=== PATIENT | female | born 2000 | race Asian ===

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

== ENCOUNTER 2020-10-07 11:45 | Emergency (ER) | payer OTHER, MEDICAID, SELFPAY ==
[2018-12-04 06:36] VITALS: BMI 20.4
[2020-10-07] VITALS (10 sets, daily range): BP systolic 112–121; BP diastolic 73–91; PULSE 74–82; RESP 16–18; TEMP 36.4–36.7; O2SAT 98–100; BMI 21.3
--- NOTE | 2020-10-07 11:51 | NURSING ---
NO OLD EKGS
--- NOTE | 2020-10-07 12:07 | EDS_ITS ---
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 Patient was found trying to run into traffic. She had told police that she just wanted to kill herself. The patient is slightly withdrawn and does not give much history. She denies drug or alcohol use. She states she is been compliant with her medications. She states she is never had to be hospitalized for beh avioral disturbance. [facility] Medical History (Updated 10/07/20 @ 13:02 by Marco A Pompa) Depression Home Medications Quetiapine Fumarate [Seroquel Xr] 50 mg PO QHS 12/01/18 [History Last Taken Unknown] fluoxetine 20 mg PO DAILY 12/01/18 [History Last Taken Unknown] Allergy/AdvReac Type Severity Reaction Status Date / Time milk AdvReac Upset Verified 10/07/20 11:48 Stomach Social History Smoking Status: Never smoker ROS ROS ED Constitutional Constitutional ED: Denies chills or fever(s) Eyes Eyes: Denies blurry vision or change in vision ENT ENT ED: Denies ear pain or sore throat Cardiovascular Cardiovascular: Denies chest pain or palpitations Respiratory/Chest Respiratory/Chest: Denies cough, dyspnea or dyspnea on exertion Gastrointestinal Gastrointestinal: Denies abdominal pain, nausea or vomiting Genitourinary Genitourinary ED: Denies dysuria or urinary frequency Musculoskeletal Musculoskeletal: Denies arthralgias or myalgias Integumentary Denies rash Neurologic Neurologic: Denies headache(s) or paresthesias Psychiatric Psychiatric: Reports anxiety, depression, suicidal ideation and suicidal thoughts Endocrine Endocrinology: Denies polydipsia or polyuria Allergic/Immunologic Allergic/Immunologic ED: Denies urticaria EXAM Physical Exam Const Vital Signs: 10/07/20 11:45 10/07/20 12:45 10/07/20 13:00 Temperature 97.5 F L Temperature Source Temporal Pulse Rate 82 Respiratory Rate 16 18 16 Blood Pressure 112/73 Blood Pressure Mean 86 Pulse Ox 98 Oxygen Delivery Method Room Air Positive well nourished and well developed General Appearance ED: well developed HEENT Reports normocephalic, head/scalp atraumatic and moist mucous membranes normocephalic, normal to inspection and atraumatic Eyes PERRL and EOMs intact bilaterally Neck no lymphadenopathy and supple General: Negative for tenderness Chest Wall inspection of chest normal Resp normal respiratory effort and clear to auscultation bilaterally Cardio regular rate, regular rhythm and no murmurs GI normal to inspection, nondistended, normoactive bowel sounds Palpation: Negative for tender, guarding or rebound tenderness present Back/Spine no CVA tenderness Cervical Spine: Negative for cervical spine tenderness Thoracic Spine / Upper Back: Negative for thoracic spinal tenderness Extremity normal to inspection General Extremety ED: Negative for tenderness Neuro oriented x3 and CN's II-XII intact bilaterally Neuro Narrative: No focal deficits appreciated. Sensorium / Orientation: alert Meningeal Signs: no meningeal signs Psych mental status grossly normal Attitude: withdrawn Activity / Motor Behavior: psychomotor slowing Speech: normal speech Mood & Affect: depressed Insight: poor Judgement: poor Skin no rashes or lesions noted, no wounds and skin turgor normal MDM MDM MDM Narrative Medical decision making narrative: Patient presents after suicidal gesture. She still has persistent suicidal thoughts. I did get case management involved in the case. They do agree that the patient will require psychiatric placement. The patient underwent medical clearance evaluation. EKG was normal. Labs are unremarkable. At this point, the patient is medically cleared. We will work on placement for the patient's suicidality with plan. Impression One. Suicidal with plan Lab Data Attestation: I reviewed the patient's lab results. Labs: Laboratory Results - last 24 hr 10/07/20 10/07/20 10/07/20 12:30 12:30 12:30 WBC 6.6 RBC 3.88 L Hgb 12.2 Hct 36.1 L MCV 93.0 MCH 31.4 MCHC 33.8 RDW Std Deviation 41.6 RDW Coeff of Kaley 12.3 Plt Count 309 MPV 9.6 Immature Gran % (Auto) 0.500 Neut % (Auto) 54.5 Lymph % (Auto) 35.0 [place] % (Auto) 9.5 Eos % (Auto) 0.3 Baso % (Auto) 0.2 Absolute Neuts (auto) 3.6 Absolute Lymphs (auto) 2.31 Nucleated RBC % 0 Sodium 140 Potassium 3.5 Chloride 107 Carbon Dioxide 25.0 Anion Gap 8 BUN 14 Creatinine 0.77 Estim Creat Clear Calc 88.13 Est GFR (MDRD) Af Amer 123 Est GFR (MDRD) Non-Af 102 BUN/Creatinine Ratio 18.3 Glucose 77 Calcium 8.8 Serum , Qual Urine Opiates Screen Urine Methadone Screen Ur Barbiturates Screen Ur Phencyclidine Scrn Ur Amphetamines Screen U Methamphetamin-MDMA U Benzodiazepines Scrn Urine Cocaine Screen U Cannabinoids Screen Ur Drug Screen Comment Ethyl Alcohol 5.0 10/07/20 10/07/20 12:30 12:30 WBC RBC Hgb Hct MCV MCH MCHC RDW Std Deviation RDW Coeff of Kaley Plt Count MPV Immature Gran % (Auto) Neut % (Auto) Lymph % (Auto) [place] % (Auto) Eos % (Auto) Baso % (Auto) Absolute Neuts (auto) Absolute Lymphs (auto) Nucleated RBC % Sodium Potassium Chloride Carbon Dioxide Anion Gap BUN Creatinine Estim Creat Clear Calc Est GFR (MDRD) Af Amer Est GFR (MDRD) Non-Af BUN/Creatinine Ratio Glucose Calcium Serum , Qual NEGATIVE Urine Opiates Screen NEGATIVE Urine Methadone Screen NEGATIVE Ur Barbiturates Screen NEGATIVE Ur Phencyclidine Scrn NEGATIVE Ur Amphetamines Screen NEGATIVE U Methamphetamin-MDMA NEGATIVE U Benzodiazepines Scrn NEGATIVE Urine Cocaine Screen NEGATIVE U Cannabinoids Screen NEGATIVE Ur Drug Screen Comment Ethyl Alcohol Discharge Plan Triage Chief Complaint: Suicidal ED Provider: Vignesh Lagos Dx/Rx/DC Orders Prescriptions: No Action fluoxetine 20 MG capsule 20 mg PO DAILY RF: 0 Quetiapine Fumarate [Seroquel Xr] 50 MG Tab.Sr.24h 50 mg PO QHS RF: 0 Primary Care Provider: Julian Rick
[2020-10-07 13:09] LABS: Absolute Lymphocyte Count 2.31 X10^3/uL (0.83-4.51); Absolute Neutrophil Count 3.6 X10^3/uL (2.0-7.7); Basophil# 0.01 X10^3/uL; Basophil% 0.2 % (0-1); Eosinophil# 0.02 X10^3/uL; Eosinophils% 0.3 % (0-5); Hematocrit 36.1 % (37-47); Hemoglobin 12.2 g/dL (12.0-15.0); Lymphocyte # 2.31 X10^3/ul (0.83-4.51); Mean Corp Hgb Conc 33.8 g/dL (32-36); Mean Corpuscular Hgb 31.4 pg (27.0-32.0); Mean Platelet Vol. 9.6 fl (6.2-12.0); Monocyte# 0.63 X10^3/uL; Monocyte% 9.5 % (0-10); NRBC Flagged by Analyzer 0 % (0-5); Neutrophil % 54.5 % (47-70); Platelet Count 309 K/mm3 (150-450); RBC Distribution Width CV 12.3 % (11.6-14.6); RBC Distribution Width SD 41.6 fl (35.1-43.9); Red Blood Count 3.88 M/mm3 (4.2-5.4); White Blood Count 6.6 K/mm3 (4.4-11.0)
[2020-10-07 13:20] LABS: Anion Gap 8 (5-15); BUN 14 mg/dL (7-18); BUN/Creat Ratio 18.3 RATIO (10-20); Calcium,Total 8.8 mg/dL (8.5-10.1); Chloride 107 mmol/L (98-107); Creatinine, Serum 0.77 mg/dL (0.55-1.02); EST Glomerular Filtration Rate 102 mL/min (>60); Est Glom Filt Rate - Afr Amer 123 mL/min (>60); Estimated Creatinine Clearance 88.13 ml/min; Glucose 77 mg/dL (74-106); Potassium 3.5 mmol/L (3.5-5.1); Sodium Level 140 mmol/L (136-145)
[2020-10-07 13:23] LABS: Amphetamine Urine VISTA NEGATIVE (<1000 ng/mL); Barbiturate Urine VISTA NEGATIVE (< 200 ng/mL); Benzodiazepine Urine VISTA NEGATIVE (< 200 ng/mL); Cocaine Urine VISTA NEGATIVE (< 300 ng/mL); Ecstacy Urine VISTA NEGATIVE (< 500 ng/mL); Methadone Urine VISTA NEGATIVE (< 300 ng/mL); PCP Urine VISTA NEGATIVE (< 25 ng/mL); THC Urine VISTA NEGATIVE (< 50 ng/mL); Vista UDS pH Range 5
[2020-10-07 13:28] LABS: Internal QC Validated? YES +Cl - CLEAR BKGD; Pregnancy, Serum, hCG Quali. NEGATIVE Negative
--- NOTE | 2020-10-07 14:41 | CM.ED ---
SOCIAL WORK ASSESSMENT Referral Source: Reason for Consult: Mental Health Chief Compliant: Patient reports that she is at the hospital as ?the police brought me in as they thought I was going to hurt myself.? Patient said, ?I run into traffic, and someone called police?. SW asked why patient had run into traffic and she said, ?I was afraid? and when asked what she was afraid of she said, ?I don?t remember?. SW asked patient if she wanted to hurt herself and she said, ?I almost did?. SW again asked if she wanted to hurt herself this morning and she said ?yes.? Marital/Social History: Single Living Situation: Patient reports that she lives in an apartment and when asked who lives there, she said ?me myself?. Support/Resources: Patient reports she has ?nobody? for support. History: None Education and Employment History: Patient was asked about the last grade she attended in high school and patient said, ?I forget? and then said ?2020?. Patient was asked what grade in high school did she last attend, and she said her loki year. Patient was asked about her current employment. 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 and then said that she ?volunteers? and then said that she works at a [employer] but does not volunteer. Mental Health Treatment/History: Patient said that her psychiatrist is Dr. Mai in [place] and when asked where she practices patient said, ?she has a home office?. Patient said that her psychiatrist provides her medication. Patient said that she has been diagnosed with depression. Patient reports she has been prescribed Seroquel and Prozac. SW asked if patient is taking medication as prescribed and she said ?yes?. SW asked about medication and then patient reports she is not taking it and stopped taking it ?awhile ago? which she reported was ?a couple of months ago?. Patient said that she last saw her psychiatrist 2 weeks ago. Triggers/Stressors: When asked about stressors patient said, ?Do I need to answer that in great detail??. Patient then said, ?I worry about something in my apartment?. SW asked what patient worries about in her apartment and she said, ?that is too much detail? and did not wish to talk about it. Coping Skills: Patient reports she takes a nap and ?does something else? to cope. Abuse Issues: Denied abuse Substance Abuse History: Patient denied any alcohol or drug use. Risk to Self/Others: Suicidal- Patient, at the time of interview, denied being suicidal. However, reported that this morning she had felt suicidal. Patient said that her plans, regarding suicide, was to run into traffic. Patient was asked how long she had thought about a plan and patient said ?I didn?t think about it... I just did it?. Homicidal: Patient denied HI Violence- Patient denied cutting or any violence toward herself or others. Mental Status Exam: Orientation-Patient reports that the date was 10/09/20. She was oriented to person and place. Memory: Intact Appearance/General Behavior: Wearing hospital gown as on suicide precautions. Patient?s hygiene appears appropriate. Mood/Affect: Patient presents with elevated mood and smiles throughout the assessment but when asked what she feels her mood is she replies ?one? and when asked what that meant she reports ?I am feeling very depressed, sad and anxious?. Mood is not congruent with patient?s affect. Communication Pattern: Patient is rambling in speech. She presents varied explanation for the same event i.e., she said that she volunteered and then stated she did not volunteer. Patient does respond to question but is slow to respond. Thought Process: Patient denied AH/VH. Patient presents as fragmented in thought process. General Intellectual Functioning: Below average Judgement: Poor Insight: Poor Assessment: Patient presents to the ED after running into traffic. She reports she is feeling ?very depressed, sad and anxious? however her affect is not congruent. Patient smiles throughout the assessment. Patient reports she feels anxious but said ?my body feels not right?. Patient was asked about sleep, and she said, ?some nights I sleep late? and that her sleep is ?deep?. SW asked how man y hours she sleeps, and she said, ?long hours? and when asked again how many hours she said 11 hours. Patient reports no weight loss or gain. Patient was asked if she had access to gun and she said, ?I wish I had one to protect myself?. SW asked who she would protect herself from and she said ?strangers in the apartment. Patient presents with paranoia. Plan: Inpatient psych Brianne SWANSON
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
--- NOTE | 2020-10-07 18:49 | CM.ED ---
SARAH Note SW made referral to [facility]. They declined patient. SW called [facility] and they declined patient. SARAH called [facility] and they do not take patients with affiliations with Board of DD. They recommended [facility]. SARAH called Delmi at [facility]. They take patients affiliated with Board of DD. SARAH made referral and faxed referral to [facility]. SARAH called patient's guardian, Marci Haskins. She said that she doesn't recall exactly patient's IQ but stated patient has good Somali and can communicate well. She reports patient makes her own meals and washes her own clothes. Patient buys her own groceries and up until a few days ago was working at a job at [employer]. Patient goes to [employer] and took Interactive Media last year but did not graduated as she doesn't trust the teacher. Patient will be going back to [employer] this fall for a different trade. SARAH called Delmi at [facility] and updated her regarding patient's level of functioning. Plan: inpatient psych Brianne SWANSON
--- NOTE | 2020-10-07 21:16 | CM.ED ---
SARAH Note SW called [facility]. They will review patients that are linked with Board of . SARAH explained that patient is independent in her ADLs'. [facility] staff said that they could review the information. SARAH called [facility]. They said that they low in staff and haven't reviewed chart yet. SARAH faxed referral to [facility] for consideration of placement. Plan: Inpatient psych Brianne SWANSON
[2020-10-08] VITALS: BP 95/64; PULSE 71; RESP 16; O2SAT 100
--- NOTE | 2020-10-08 00:40 | ED.RN ---
Patient was declined at [facility], patient has been accepted to [facility] at this time
== END 2020-10-08 02:46 ==
PROVIDERS: Emergency Provider Emergency Medicine; PCP Pediatrics
DX: R45.851 Suicidal ideations (principal)
CPT/HCPCS: 80048; 80307; 82077; 84703; 85025; 87426; 99285

== ENCOUNTER 2020-11-01 08:08 | Emergency (ER) | payer OTHER, MEDICAID, SELFPAY ==
[2020-10-07 11:45] VITALS: BMI 21.3
[2020-11-01 08:09] VITALS: BP 125/71; PULSE 106; RESP 16; TEMP 36.1; O2SAT 98; BMI 20.4
--- NOTE | 2020-11-01 08:27 | CT_ITS ---
STUDY: CT BRAIN WITHOUT CONTRAST REASON FOR EXAM: Female, 20 years old. Psychosis RADIATION DOSAGE (If Supplied By Facility): CTDIvol = ( 44.99 ) mGy, DLP = ( 779.24 ) mGycm TECHNIQUE: Transaxial CT imaging of the brain was performed without administration of intravenous contrast material. Individualized dose optimization techniques were used for this CT. COMPARISON: No relevant priors. FINDINGS: Normal soft tissue structures. Normal calvarium. Normal size ventricles and extra-axial spaces for the patient''s age. Normal white matter tracts of the cerebral hemispheres. Normal basal ganglia and thalami. Normal brainstem. Normal cerebellum. There is no intracranial hemorrhage. There are no findings of an acute ischemic infarction. Normal visualized paranasal sinuses. CT/Brain/Head without Contrast IMPRESSION: Normal unenhanced CT scan of the brain. Electronically Signed: Anshu Mendes MD at 9:11 EDT , Service support ,
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
--- NOTE | 2020-11-01 08:57 | RAD_ITS ---
STUDY: X-RAY CHEST REASON FOR EXAM: Female, 20 years old. Medical clearance TECHNIQUE: Single AP portable view of the chest. COMPARISON: None. FINDINGS: The lungs are clear and expanded. There is no demonstrated pleural abnormality. Normal size heart. Normal mediastinum and hilario. Normal visualized pulmonary arteries. Normal visualized aortic arch and descending thoracic aorta. Normal visualized thoracic spine. Normal visualized ribs, clavicles, and shoulders. There is no demonstrated abnormality of the visualized soft tissue structures of the upper abdomen. RAD/Chest 1 View (Portable) IMPRESSION: Normal x-ray examination of the chest. Electronically Signed: Anshu Mendes MD at 9:11 EDT , Service support ,
[2020-11-01 08:58] LABS: Absolute Lymphocyte Count 2.61 X10^3/uL (0.83-4.51); Absolute Neutrophil Count 6.3 X10^3/uL (2.0-7.7); Basophil# 0.02 X10^3/uL; Basophil% 0.2 % (0-1); Eosinophil# 0.02 X10^3/uL; Eosinophils% 0.2 % (0-5); Hematocrit 40.4 % (37-47); Lymphocyte # 2.61 X10^3/ul (0.83-4.51); Lymphocyte % 26.7 % (19-41); Mean Corp Hgb Conc 32.2 g/dL (32-36); Mean Corpuscular Hgb 30.7 pg (27.0-32.0); Mean Corpuscular Volume 95.3 fL (81-99); Mean Platelet Vol. 9.3 fl (6.2-12.0); Monocyte# 0.77 X10^3/uL; Monocyte% 7.9 % (0-10); NRBC Flagged by Analyzer 0 % (0-5); Neutrophil # 6.28 X10^3/uL (2.7-7.7); Neutrophil % 64.3 % (47-70); Platelet Count 312 K/mm3 (150-450); RBC Distribution Width CV 12.1 % (11.6-14.6); RBC Distribution Width SD 42.2 fl (35.1-43.9); Red Blood Count 4.24 M/mm3 (4.2-5.4); White Blood Count 9.8 K/mm3 (4.4-11.0)
[2020-11-01 09:22] LABS: ALB/GLOB Ratio 1.1 RATIO (0.9-2.4); AST(SGOT) 24 U/L (15-37); Alanine Aminotransfer ALT/SGPT 17 U/L (13-56); Albumin, Serum 4.4 g/dL (3.2-5.0); Alkaline Phosphatase 65 U/L (45-117); Anion Gap 12 (5-15); BUN 17 mg/dL (7-18); Calcium,Total 8.9 mg/dL (8.5-10.1); Chloride 103 mmol/L (98-107); Creatinine, Serum 0.77 mg/dL (0.55-1.02); EST Glomerular Filtration Rate 100 mL/min (>60); Est Glom Filt Rate - Afr Amer 121 mL/min (>60); Estimated Creatinine Clearance 84.29 ml/min; Globulin 3.9 g/dL (2.2-4.2); Glucose 59 mg/dL (74-106); Potassium 3.5 mmol/L (3.5-5.1); Protein, Total 8.3 g/dL (6.4-8.2); Sodium Level 135 mmol/L (136-145); Thyroid Stim Hormone (TSH) 1.19 uIU/mL (0.358-3.74)
[2020-11-01 09:43] LABS: Internal QC Validated? YES +Cl - CLEAR BKGD; Pregnancy, Serum, hCG Quali. NEGATIVE Negative
[2020-11-01 10:25] LABS: Mucous, Urine 0 SEEN /hpf (<or=2+); Red Blood Cells-Urine 0 SEEN /hpf (0-5); Squamous Epithelial Cells - UA 0 SEEN /hpf (5-10); White Blood Cells 0 SEEN /hpf (0-5)
[2020-11-01 10:29] LABS: Glucose, Dipstick Normal (Normal); Ketone-Dipstick 50 mg/dl (Negative); Leukocyte Esterase-Dipstick Negative /ul (Negative); Nitrite-Dipstick Negative (Negative); Occult Blood-Urine Negative /ul (Negative); Protein-Dipstick Negative (Negative); Urine Bilirubin Dipstick Negative (Negative); Urine Urobilinogen Normal (Normal); Urine pH 6.5 (5.0 - 8.0)
[2020-11-01 10:36] LABS: Bacteria RARE /hpf (None Seen); Color, Urine Yellow (Yellow); Urine Clarity Clear (Clear)
[2020-11-01 10:39] LABS: Amphetamine Urine VISTA NEGATIVE (<1000 ng/mL); Barbiturate Urine VISTA NEGATIVE (< 200 ng/mL); Benzodiazepine Urine VISTA NEGATIVE (< 200 ng/mL); Cocaine Urine VISTA NEGATIVE (< 300 ng/mL); Ecstacy Urine VISTA NEGATIVE (< 500 ng/mL); Methadone Urine VISTA NEGATIVE (< 300 ng/mL); PCP Urine VISTA NEGATIVE (< 25 ng/mL); THC Urine VISTA NEGATIVE (< 50 ng/mL); Vista UDS pH Range 6
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
[2020-11-01 13:00] VITALS: RESP 16
--- NOTE | 2020-11-01 13:18 | CM.ED ---
Addendum entered by Brianne Quiros 11/01/20 15:26: correction. Mikel Camacho phone number is [phone] Addendum entered by Brianne Quiros 11/01/20 14:08: Mikel Camacho's number, from Board of , is [phone]. Brianne Quiros RENALDO SWANSON Original Note: SARAH Note SARAH faxed referral to [facility]. SARAH spoke to Sera at [facility] and updated her regarding patient and her presentation. SARAH called patient's guardian, Marci León and left voice mail updating her that patient is in the hospital and requesting call back. SARAH called patient's guardian Marci León and requesting a call back. SARAH called Mikel Schaeffer at Board of . He said that patient's guardians are in [place]. He was advised of plan to admit her to [facility]. He said that he felt that Marci Covarrubias would be supportive of plan for placement of patient. He said that he will email Marci Covarrubias and request that she call [facility] and [facility] for consent for treatment. SARAH received call from Sera at [facility]. She inquired about patient's level of functioning and SW updated her with information regarding her functioning status, as described to this conventional mortgage underwriter, approximately one month ago. Sera indicated that they could accept patient but needed copy of guardianship and guardian consent for treatment. SARAH called [address] and requested that a copy of patient's guardianship be faxed to this conventional mortgage underwriter. SARAH received copy of paperwork documentation from Probate Court. SARAH faxed this documentation to [facility]. SARAH called [facility] and updated them that guardian is out of country but an email has been sent to them requesting they call for permission to treat patient at [facility]. Magnolia, the dry transfer worker, thanked this conventional mortgage underwriter for information. SARAH updated MD and artificial plastic eye maker and RN. SARAH was advised that male was in room visiting with patient and wanted to speak to the social insurance adviser. Patient was in room with family friend, Onesimo Piña, who stated that he was friend of patient and their guardians. He advised guardian was out of country. He provided support to patient and encouraged her to obtain treatment and take medication. Patient said that she had discontinued meds as her psychiatrist had told her to discontinue meds for new meds. Onesimo encouraged patient to speak to MD at psychiatric facility regarding medication. Onesimo provided his phone number, , to this conventional mortgage underwriter for any updates. Plan: Inpatient psych at [facility] when guardians give verbal consent for treatment Brianne SWANSON
[2020-11-01 14:00] VITALS: RESP 16
--- NOTE | 2020-11-01 14:34 | CM.ED ---
SARAH Note SARAH received call from Mikel Gibbons at [employer]. He is patient's casemanager. He had sent an email to patient's Guardian, Marci León, however she responded by stating that they did not have telephone services but requested that the consent be sent to her via email and she can give consent for treatment. Mikel will also provide Marci Covarrubias with this technical writer and editor's email. Marci Covarrubias's email is [email or web address]. SARAH called Magnolia at [facility] and updated her regarding this situation with the guardian. SARAH will document this interaction and fax the email to [facility] for their records. SARAH will remain available. Plan: [facility] Brianne SWANSON
[2020-11-01 15:00] VITALS: BP 122/80; PULSE 94; RESP 14; O2SAT 98
--- NOTE | 2020-11-01 15:08 | NURSING ---
CALLED SHAHAB, ETA IS
--- NOTE | 2020-11-01 15:17 | CM.ED ---
Addendum entered by Brianne Quiros 11/02/20 12:38: 11/02 SARAH received email from Marci León. She reports she has no access to phone. Thus, SARAH scanned the consent for treatment and sent it to her. SARAH received email from Marci León. She indicated she had no access to print out documents and reports no phone access during month of October. SARAH sent Marci León a email requesting that she document that she is the guardian and gives consent to [facility] for treatment. On 11/03 SARAH updated registration that patient's guardian had sent a email giving consent for treatment. SARAH printed out the email and provided it to patient registration for their records. Brianne Hansonder MACHINE DEICER ELEMENT WINDER LISIVETTE Addendum entered by Brianne Quiros 11/01/20 15:27: SARAH updated Mikel Fernando at [facility] Board of . SARAH updated him that as he contacted the guardian and the guardian was aware of the plan [facility] is agreeing to take patient at this time. SARAH updated him of the accepting MD and the unit patient will be going to. Mikel was appreciative of this senior technical writer's assistance in placement. Brianne SWANSON Original Note: SARAH Note Sera from [facility] called. She said that patient has been accepted and can come to [facility]. SARAH inquired as to guardian not giving consent and Sera said that since the casemanager has notified the guardian it is fine that the patient comes to [facility]. Accepting MD is Dr. Reynolsd. RN to RN is [phone] and assigned unit is Recovery Unit. SARAH updated MD, charge gang weigher and RN of patient's acceptance to [facility]. library customer service clerk arranging for transportation. [facility]
[2020-11-01 16:09] VITALS: BP 122/80; PULSE 94; RESP 14; TEMP 36.1; O2SAT 98
== END 2020-11-01 16:12 ==
PROVIDERS: Emergency Provider Emergency Medicine; PCP Pediatrics
DX: F23 Brief psychotic disorder (principal)
CPT/HCPCS: 70450; 71045; 80053; 80307; 81001; 82077; 84443; 84703; 85025; 99285

== ENCOUNTER → 2022-09-05 | Outpatient (CLI) | payer MEDICAID, SELFPAY ==
--- NOTE | 2022-09-05 12:44 | EKG12_ITS ---
Test Reason : SHELTER MEDICATION Blood Pressure : / mmHG Vent. Rate : 080 BPM Atrial Rate : 080 BPM P-R Int : 116 ms QRS Dur : 074 ms QT Int : 384 ms P-R-T Axes : 037 075 042 degrees QTc Int : 442 ms Normal sinus rhythm Normal ECG Confirmed by ANT CARRERO, MELLISSA ([id number]), purchase request editor BEL HARVEY ([id number]) on 09/06/2022 9:57:05 AM Referred By: Margarette Zimmer Confirmed By:MELLISSA CAIN MD
== END | disposition home or self-care (01) ==
LOC: PSN 12:42
PROVIDERS: Referring Provider Nurse Practitioner Psychiatric/Mental Health; Visit Provider Nurse Practitioner Psychiatric/Mental Health
DX: Z79.899 Other long term (current) drug therapy (principal)
CPT/HCPCS: 93005

== ENCOUNTER → 2022-09-27 | Outpatient (CLI) | payer MEDICAID, SELFPAY | END | disposition home or self-care (01) | DX: R55 Syncope and collapse (principal) | CPT/HCPCS: 93225; 93226 ==

== ENCOUNTER 2023-07-11 18:16 | Observation (INO) | payer MEDICAID, SELFPAY ==
[2023-07-11 18:18] VITALS: BP 120/75; PULSE 107; RESP 16; TEMP 36.2; O2SAT 98; BMI 29.6
--- NOTE | 2023-07-11 18:40 | RAD_ITS ---
STUDY: X-RAY - LEFT KNEE REASON FOR EXAM: Female, 23 years old. injury TECHNIQUE: 5 view(s) of the knee. COMPARISON: None. FINDINGS: Normal visualized distal femur. Normal visualized proximal tibia and fibula. Normal proximal tibiofibular articulation. There is lateral subluxation of the patella with probable retinacular injury. There is linear radiopaque density which has the appearance of possible tiny cortical avulsion fracture Normal medial femorotibial compartment. Normal lateral femorotibial compartment. . Soft tissue swelling of the superolateral aspect of the knee RAD/Knee 1 or 2 Views IMPRESSION: Acute lateral subluxation of the patella with possible associated avulsion fracture.. CT would be helpful for further evaluation Electronically Signed: Augustus Dobbs MD at 19:48 EDT ,
[2023-07-11] MEDS: oxyCODONE 5 MG Tablet PO ×2 (18:43→23:21)
[2023-07-11] MEDS: Ondansetron ODT 4 MG Tablet PO (18:44)
--- NOTE | 2023-07-11 18:46 | EDS_ITS ---
HPI History of Present Illness Chief Complaint: Lower Extremity Injury Informant: patient and parent Narrative Narrative: Brought in by EMS in [facility] [place] for left knee injury. Was twisting came down knee buckled. No history of similar injury in the past. No head injuries. Prior similar symptoms: No PFSH PFSH Medical History (Updated 07/11/23 @ 21:[address] 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 Mery Gray MD) History of facial surgery Social History (Updated 07/11/23 @ 20:[address] Mery Gray MD) household members: none Smoking Status: Never smoker alcohol intake: never substance use type: does not use ROS ROS ED Constitutional Constitutional ED: Denies fever(s) ENT ENT ED: Denies sore throat Cardiovascular Cardiovascular: Denies chest pain or palpitations Respiratory/Chest Respiratory/Chest: Denies cough Gastrointestinal Gastrointestinal: Reports nausea; Denies abdominal pain or vomiting Genitourinary Genitourinary ED: Denies dysuria Musculoskeletal Musculoskeletal: Reports extremity pain; Denies back pain or neck pain Integumentary Denies rash or wounds Neurologic Neurologic: Denies headache(s) EXAM Physical Exam Const Vital Signs: 07/11/23 18:18 Temperature 97.1 F L Temperature Source Oral Pulse Rate 107 H Respiratory Rate 16 Blood Pressure 120/75 Blood Pressure Mean 90 Pulse Ox 98 Oxygen Delivery Method Room Air Positive well nourished and well developed Constitutional Narrative: Comfortable, GCS 15. General Appearance ED: well developed HEENT Reports moist mucous membranes normocephalic and atraumatic Eyes PERRL, EOMs intact bilaterally and conjunctivae normal General Eye ED: Yes normal appearance of both eyes Neck full ROM, no lymphadenopathy and supple General: Negative for tenderness Chest Wall inspection of chest normal and palpation of chest normal Chest: Negative for tenderness Resp normal respiratory effort and normal air movement Effort and Inspection: symmetric chest movement; Negative for respiratory distress Cardio regular rate, regular rhythm and no murmurs Peripheral Pulses: pulses 2+ throughout GI normal to inspection, nondistended, normoactive bowel sounds and non-tender Palpation: Negative for guarding or rebound tenderness present Back/Spine no CVA tenderness and no thoracic nor lumbar tenderness Extremity Extremity Narrative: Upper extremities: Full range of motion. No pain. Pulse intact distally. Right lower extremity: Negative logroll. No deformities. No knee or ankle tenderness. Neuro vas intact distally. Left lower extremity: Negative logroll. Knee had a valgus deformity patellar to be more lateral. Knee was in a flexed position with a towel roll. No ankle tenderness. Skin intact. Neuro vas intact. General Extremety ED: Yes edema and tenderness General Extremity: edema Neuro oriented x3 and no sensory deficits noted Sensorium / Orientation: awake and alert Skin no rashes or lesions noted and no wounds MDM MDM MDM Narrative Medical decision making narrative: Interventions / MDM: Differential diagnosis: Diagnosis considered but do not suspect: N/A My EKG interpretation: N/A Imaging independently reviewed and interpreted by myself: 5 views x-ray left knee was obtained: Subluxation of the patella, questionable avulsion fracture read by radiology. No femur or tibial fracture noted. External documents reviewed: N/A Test considered but not ordered:N/A ED course: Patient appeared have lateral dislocation of the patella. Bedside with mother present straightening of the knee, there is no popping sensation noted. More straight in however still had more valgus deformity. Treated with oxycodone, 2 view of the knee will be obtained for scouting purposes at this time. Patient still had valgus deformity with straightening of the knee. Concern for internal derangement of the knee. Reevaluation increasing swelling. I discussed with on-call orthopedist Dr. Echols, he was sent photos through backline for evaluation. Seated agree with likely internal derangement, initial plan was immobilization crutches for her to's be seen in the office tomorrow to coordinate MRI. This was discussed with guardian patient, knee immobilizer attempted crutches and a walker, stating she lives alone independently apartment like facility. There is currently no extra help for her at this point. They will have to coordinate extra care through facility however cannot be done tonight. Therefore plan will be to admit for MRI orthopedic evaluation and recommendations. Re-evaluation: stable Disposition discussed with patient/family/significant other: Patient and guardian Case discussed with consulting clinician: Orthopedics, hospitalist This note was generated with [employer] dictation software. It may contain incorrect words, spelling, and punctuation that were not noted in checking the note before signing. Radiography Diagnostic Testing: Clinical Impression(s) from Imaging Studies Knee X-Ray 07/11/23 18:40 IMPRESSION: Acute lateral subluxation of the patella with possible associated avulsion fracture.. CT would be helpful for further evaluation Electronically Signed: Augustus Dobbs MD at 19:48 EDT Reading Location ID and State: [address] [place] [address] Tel , Service support , Discharge Plan Dx/Rx/DC Orders Clinical Impression: Inability to ambulate due to knee, Acute internal derangement of left knee Disposition Disposition: [facility] Discharge Date/Time: 07/11/23 21:20
--- NOTE | 2023-07-11 18:57 | ED.RN ---
Devon Rn and Jorge PAUL took phone consent from Addie from [facility]. She is who is director of institutional research to give consent.
[2023-07-11] MEDS: Ketorolac 30 MG/ML Syringe IM (19:39)
--- NOTE | 2023-07-11 20:29 | ED.RN ---
Attempted to walk patient with knee immobilizer and walker/crutches, Pt. was not able to ambulate with either assistive device, was not able to follow directive cues. Pt. states she does not feel safe to go home as she lives at home alone.
--- NOTE | 2023-07-11 20:50 | PCM.HP.STD ---
HPI - General General Date of Admission: 07/11/23 Date of Service: 07/11/23 Chief Complaint: Fall, L knee pain, swellling. HPI Narrative The patient is a 23 y/o F w/ PMHx: Hx Facial Tumor, Possible Developmental delay, Anxiety and Depression/PTSD/Reactive attachment disorder living in an independent type apartment facility who presents to the [facility] ED on 07/11/23 with history of unfortunately falling while she was dancing reportedly she had twisted and then landed with significant onset left knee pain and swelling prompting transition to the ED for evaluation. She had noted pain initially 8/10 in severity, now reports it down to 5-6/10 in severity. Workup in the ED included T97.1, heart rate 107, BP 120/75, respiratory rate 16, 98% on room air, plain film of the left knee with acute lateral subluxation of the patella with possibly associated avulsion fracture ED discussed case with orthopedic surgeon Dr. Echols who recommended MRI and initially had plan to see her outpatient in his office but unfortunately despite placement of a knee immobilizer she was unable to even use a walker or crutches and facility is unable to provide extra care for her through the evening therefore ED requested admission. In the ED patient ministered oxycodone 5 mg p.o. x 1, Zofran 4 mg p.o. x 1, Toradol 30 mg IM x 1. [facility] Medical History (Updated 07/11/23 @ 21:[address] 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 Mery Gray MD) History of facial surgery Social History (Updated 07/11/23 @ 20:[address] Mery Gray MD) household members: none Smoking Status: Never smoker alcohol intake: never substance use type: does not use ROS ROS Narrative Admission Review of Systems: CONSTITUTIONAL: No weight loss, fever, chills, + weakness or fatigue. HEENT: Eyes: No visual loss, blurred vision, double vision or yellow sclerae. Ears, Nose, Throat: No hearing loss, sneezing, congestion, runny nose or sore throat. SKIN: No rash or itching, lesions, wounds. CARDIOVASCULAR: No chest pain, chest pressure or chest discomfort, palpitations, edema, orthopnea, syncopal events. RESPIRATORY: No shortness of breath, cough or sputum, wheezing, hemoptysis. GASTROINTESTINAL: No anorexia, nausea, vomiting or diarrhea, abdominal pain, melena, BRBPR. GENITOURINARY: No dysuria, frequency, urgency or retention. NEUROLOGICAL: Possible Developmental delay. No headache, dizziness, syncope, paralysis, ataxia, numbness or tingling in the extremities, focal weakness, change in bowel or bladder control, seizure. MUSCULOSKELETAL: + muscle, back pain, joint pain or stiffness. HEMATOLOGIC: No anemia, bleeding or bruising. LYMPHATICS: No enlarged nodes. No history of splenectomy. PSYCHIATRIC: + Anxiety and Depression/PTSD/Reactive attachment disorder ENDOCRINOLOGIC: No reports of sweating, cold or heat intolerance. No polyuria or polydipsia. ALLERGIES: No history of asthma, hives, eczema or rhinitis. Vital Signs Vital Signs Vital Signs: 07/11/23 18:18 Temperature 97.1 F L Temperature Source Oral Pulse Rate 107 H Respiratory Rate 16 Blood Pressure 120/75 Blood Pressure Mean 90 Pulse Ox 98 Oxygen Delivery Method Room Air Weight Weight: 146 lb 9.718 oz Body Mass Index (BMI) 29.6 Physical Exam Narrative Physical Examination: General: Awake, alert, oriented x 3 and cooperative, seated upright in the ED bed in no apparent distress, notes pain better. Skin: Normal color, normal turgor, no icterus, no cyanosis. 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 Lungs: CTA bilaterally, moderate effort, mild decrease BL bases, no rales, ronchi or wheezing. Heart: Regular rate and rhythm; no gallop, rub audible. Abdomen: Soft, overweight, NTTP, ND, normal BS, no HSM. Extremities: No cyanosis, clubbing, s/p fall as noted with L knee edema, TTP, immobilizer placed. Neurological: Patient awake, alert, oriented as noted, cognitive function intact at baseline per her guardian presentation with slow responses and sometimes became overwhelmed; pupils equally reactive to light and accommodation, cranial nerves grossly normal, moving all 4 extremities except extremely limited left lower extremity given fall with injury and now placed immobilizer, strength accordingly moderately globally decreased. Psychiatric: Affect appears overwhelmed, notable underlying anxiety and depression. Results Imaging Radiology Impression Knee X-Ray 07/11/23 18:40 IMPRESSION: Acute lateral subluxation of the patella with possible associated avulsion fracture.. CT would be helpful for further evaluation Electronically Signed: Augustus Dobbs MD at 19:48 EDT , Assessment & Plan Assessment/Plan (1) Acute internal derangement of left knee: PLAN: Plan The patient is a 23 y/o F w/ PMHx: Hx Facial Tumor, Possible Developmental delay, Anxiety and Depression/PTSD/Reactive attachment disorder living in an independent type apartment facility who presents to the [facility] ED on 07/11/23 with history of unfortunately falling while she was dancing reportedly she had twisted and then landed with significant onset left knee pain and swelling prompting transition to the ED for evaluation. #1. Mechanical fall with acute left lateral subluxation of the patella with questionable avulsion fracture: Will admit to medical surgical floor, will continue knee immobilizer, will continue consultation with orthopedic surgery, will maintain on fall precautions, will continue icing, elevation, as needed pain regimen, NWB to LLE, MRI of the left knee requested but will defer alterations to it to orthopedic surgery, PT/OT/case management consulted for discharge planning. #2. Anxiety and Depression/PTSD/Reactive attachment disorder complicated by Possible developmental delay: Complicates presentation, patient lives in a facility but is independent but associated with the counseling center and unfortunately at this time they do not have the extra care she would need that for as noted planned admission with case management/social work consulted, will continue patient home cariprazine regimen. #3. DVT prophylaxis: Given observation admission will defer immediate SCDs or chemoprophylaxis but if prolonged may need to add depending on her mobility. Charges/Coding Visit Charges Inpatient E&M: 77699 Init Hosp L2
[2023-07-11 21:19] VITALS: BP 121/84; PULSE 105; RESP 16; TEMP 37; O2SAT 98
[2023-07-11 22:28] VITALS: O2SAT 98
[2023-07-11 22:59] VITALS: BMI 31.0
[2023-07-11 23:12] VITALS: BP 109/65; PULSE 103; RESP 18; TEMP 36.6; O2SAT 98
[2023-07-11] MEDS: Acetaminophen 325 MG Tablet 650 MG PO (23:21)
[2023-07-11] MEDS: 0.9% Saline Lock 10 ML Syringe IV (23:22)
--- NOTE | 2023-07-12 05:55 | MRI_ITS ---
STUDY: MRI LEFT KNEE REASON FOR EXAM: Female, 23 years old. Lateral subluxation of patella. Evaluate for possible avulsion fracture of left knee. TECHNIQUE: Standardized fat and water weighted pulse sequences were obtained in all 3 orthogonal planes. COMPARISON: Left knee radiographs dated 07/11/2023. FINDINGS: Normal medial meniscus. Normal hyaline cartilage of the medial femorotibial compartment. Normal medial femoral condyle and tibial plateau. Normal medial collateral ligamentous complex (MCL). Normal distal semimembranosus, gracilis and semitendinosus tendons. Normal lateral meniscus. Normal hyaline cartilage of the lateral femorotibial compartment. Normal lateral tibial plateau. Normal proximal tibiofibular articulation. Normal lateral collateral (fibular) ligament. Normal popliteus tendon. Normal biceps femoris tendon. Normal anterior cruciate ligament (ACL). Normal posterior cruciate ligament (PCL). There is a sprain/partial tear of the medial patellar retinaculum, with complete lateral dislocation of the patella with respect to the distal femur. There are associated bone impaction injuries/contusions involving the medial patella as well as anterolateral aspect of the lateral femoral condyle. The TT-TG distance measures 24 mm. Normal hyaline cartilage of the patellofemoral compartment. Normal quadriceps tendon. Normal patellar tendon. Normal Hoffa''s fat pad. There is a moderate to large volume lipohemarthrosis. There is a displaced 1.1 x 1.0 x 0.5 cm osteochondral loose body in the recess anterolateral to the lateral femoral epicondyle (sagittal T2 series 6 images 18-19; coronal T2 series 7 images 18-19). MRI/Lower Ext Joint Only (Routine) IMPRESSION: Sprain/partial tear of the medial patellar retinaculum, with complete lateral dislocation of the patella with respect to the distal femur. Associated bone impaction injuries/contusions involving the medial patella as well as anterolateral aspect of the lateral femoral condyle. Moderate to large lipohemarthrosis. Displaced 1.1 x 1.0 x 0.5 cm osteochondral loose body in the recess anterolateral to the lateral femoral epicondyle. No discrete meniscal tear. Electronically Signed: Andrew Summers MD at 10:34 EDT ,
[2023-07-12 05:59] VITALS: BP 105/65; PULSE 79; RESP 18; TEMP 36.9; O2SAT 97
[2023-07-12] MEDS: Ketorolac 15 MG/ML Vial IV (06:04)
[2023-07-12] MEDS: 0.9% Saline Lock 10 ML Syringe IV ×2 (06:04→20:13)
[2023-07-12] MEDS: oxyCODONE 5 MG Tablet PO ×2 (06:04→12:07)
[2023-07-12 06:50] LABS: Absolute Lymphocyte Count 3.07 X10^3/uL (0.83-4.51); Absolute Neutrophil Count 7.5 X10^3/uL (2.0-7.7); Basophil# 0.04 X10^3/uL; Basophil% 0.3 % (0-1); Eosinophil# 0.02 X10^3/uL; Eosinophils% 0.2 % (0-5); Hematocrit 39.4 % (37-47); Hemoglobin 12.9 g/dL (12.0-15.0); Lymphocyte # 3.07 X10^3/ul (0.83-4.51); Lymphocyte % 26.3 % (19-41); Mean Corp Hgb Conc 32.7 g/dL (32-36); Mean Corpuscular Hgb 30.4 pg (27.0-32.0); Mean Corpuscular Volume 92.7 fL (81-99); Mean Platelet Vol. 9.8 fl (6.2-12.0); Monocyte# 0.98 X10^3/uL; Monocyte% 8.4 % (0-10); NRBC Flagged by Analyzer 0 % (0-5); Neutrophil # 7.48 X10^3/uL (2.7-7.7); Neutrophil % 64.2 % (47-70); Platelet Count 317 K/mm3 (150-450); RBC Distribution Width CV 12.5 % (11.6-14.6); RBC Distribution Width SD 42.5 fl (35.1-43.9); Red Blood Count 4.25 M/mm3 (4.2-5.4); White Blood Count 11.7 K/mm3 (4.4-11.0)
[2023-07-12 07:00] VITALS: O2SAT 95
[2023-07-12 07:14] LABS: AST(SGOT) 16 U/L (15-37); Alanine Aminotransfer ALT/SGPT 14 U/L (13-56); Albumin, Serum 3.7 g/dL (3.2-5.0); Alkaline Phosphatase 64 U/L (45-117); Anion Gap 6 (5-15); BUN 9 mg/dL (7-18); BUN/Creat Ratio 10.3 RATIO (10-20); Calcium,Total 8.8 mg/dL (8.5-10.1); Chloride 108 mmol/L (98-107); Creatinine, Serum 0.88 mg/dL (0.55-1.02); EST Glomerular Filtration Rate 85 mL/min (>60); Est Glom Filt Rate - Afr Amer 102 mL/min (>60); Estimated Creatinine Clearance 82.18 ml/min; Globulin 3.7 g/dL (2.2-4.2); Glucose 98 mg/dL (74-106); Potassium 3.4 mmol/L (3.5-5.1); Protein, Total 7.4 g/dL (6.4-8.2); Sodium Level 140 mmol/L (136-145)
[2023-07-12 08:00] VITALS: BP 119/87; PULSE 86; RESP 18; TEMP 37; O2SAT 97
[2023-07-12] MEDS: Acetaminophen 325 MG Tablet 650 MG PO ×2 (08:52→20:13)
[2023-07-12] MEDS: LORazepam 1 MG Tablet PO (08:53)
[2023-07-12] MEDS: Potassium Chloride Oral Tablet 20 MEQ 40 MEQ PO (12:08)
--- NOTE | 2023-07-12 12:24 | CASEMGMT ---
Addendum entered by Shobha Mckeon 07/12/23 16:52: Social Work SARAH met with pt's DD case management associate Mikel Gibbons. Pt still awaiting ortho consult at this time. Mikel states that pt's Mental Health manager transportation if [facility] and she sees pt once a week. Pt's caregiver sees pt multiple times a week to assist pt as needed but cannot provide 24 hour care. SARAH and Mikel discussed dc options if pt is unable to return home alone at time of discharge including Inpatient Rehab, SNF and respite stay at a alf. SARAH will follow up with Mikel once pt is seen by ortho and therapy. LISA Chaney Original Note: Social Work SARAH received a phone call from [facility] [employer] Mikel Gibbons, he is pt's case management associate ([phone]). Mikel states that the pt has a case management associate at [facility] and lives in an apartment that is owned but [facility], but pt lives independently and it is not considered residential housing. Pt does have a personal care provider (Diana Arellano) who does assist pt in the home but is not with pt daily. Pt is able to live independently. Mikel states pt will not have additional assistance at home and therefore, if she is not independent, pt will not be able to return home. Vignesh confirms pt has a guardian through [employer], Ciera Rizzo. Orthopedic physician to see pt today. SARAH will follow up for discharge planning after this consultation. LISA Chaney
--- NOTE | 2023-07-12 14:22 | PN_ITS ---
Subjective Subjective Patient seen and examined. She still had pain in her left knee. She had no other complaints. REview of systems is otherwise negative. Objective Data Objective Data Vital Signs: Vital Signs Temp Pulse Resp BP Pulse Ox O2 Del Method 98.6 F 86 18 119/87 H 97 Room Air 07/12/23 08:00 07/12/23 08:00 07/12/23 08:00 07/12/23 08:00 07/12/23 08:00 07/12/23 08:00 Oxygen Delivery Method Room Air Weight: 138 lb 1.596 oz Body Mass Index (BMI) 31.0 Intake & Output: Intake and Output for Last 24 Hours 07/10/23 07/11/23 07/12/23 23:59 23:59 23:59 Intake Total 600 / 600 Balance 600 / 600 Lab / Micro Data 07/12/23 06:43 07/12/23 06:43 Labs: Laboratory Results - last 24 hr 07/12/23 06:43: WBC 11.7 H, RBC 4.25, Hgb 12.9, Hct 39.4, MCV 92.7, MCH 30.4, MCHC 32.7, RDW Std Deviation 42.5, RDW Coeff of Kaley 12.5, Plt Count 317, MPV 9 .8, Immature Gran % (Auto) 0.600, Neut % (Auto) 64.2, Lymph % (Auto) 26.3, [place] % (Auto) 8.4, Eos % (Auto) 0.2, Baso % (Auto) 0.3, Absolute Neuts (auto) 7.5, Absolute Lymphs (auto) 3.07, Nucleated RBC % 0, Sodium 140, Potassium 3.4 L, Chloride 108 H, Carbon Dioxide 26.0, Anion Gap 6, BUN 9, Creatinine 0.88, Estim Creat Clear Calc 82.18, Est GFR (MDRD) Af Amer 102, Est GFR (MDRD) Non-Af 85, BUN/Creatinine Ratio 10.3, Glucose 98, Calcium 8.8, Total Bilirubin 0.50, AST 16, ALT 14, Alkaline Phosphatase 64, Total Protein 7.4, Albumin 3.7, Globulin 3.7, Albumin/Globulin Ratio 1.0 Radiography Diagnostic Testing: Radiology Impression Knee X-Ray 07/11/23 18:40 IMPRESSION: Acute lateral subluxation of the patella with possible associated avulsion fracture.. CT would be helpful for further evaluation Electronically Signed: Augustus Dobbs MD at 19:48 EDT , Lower Extremity MRI 07/12/23 05:55 IMPRESSION: Sprain/partial tear of the medial patellar retinaculum, with complete lateral dislocation of the patella with respect to the distal femur. Associated bone impaction injuries/contusions involving the medial patella as well as anterolateral aspect of the lateral femoral condyle. Moderate to large lipohemarthrosis. Displaced 1.1 x 1.0 x 0.5 cm osteochondral loose body in the recess anterolateral to the lateral femoral epicondyle. No discrete meniscal tear. Electronically Signed: Andrew Summers MD at 10:34 EDT , Physical Exam Const alert, oriented x3, no apparent distress and well nourished General Appearance: cooperative and well developed HEENT normocephalic, head/scalp atraumatic, moist oral mucous membranes and oropharynx normal Eyes PERRL and EOMs intact bilaterally Neck no lymphadenopathy and supple Lymph Lymphatic: no lymphadenopathy noted and no lymphedema noted Resp normal respiratory effort, normal air movement and clear to auscultation bilaterally Cardio regular rate, regular rhythm, S1 normal heart sound, S2 normal heart sound and no murmurs GI normal to inspection, nondistended, normoactive bowel sounds, soft to palpation, non-tender and non-distended Extremity normal capillary refill Extremity Narrative: left knee in brace Skin General Skin Exam: no breakdown Neuro CN's II-XII intact bilaterally, no focal motor deficits and no sensory deficits noted Coordination / Balance: [id number] test normal Psych thought process normal, cooperative and affect normal Appearance: appropriate Assessment & Plan Assessment/Plan (1) Acute internal derangement of left knee: (2) Inability to ambulate due to knee: PLAN: Plan #Debility due to mechanical fall with probable avulsion fracture * fell whilst dancing. Imaging showed acute left lateral subluxation of the patella with questionable avulsion fracture * has knee immobiliser * orthopedic surgery on board * PT/OT on board * fall precautions * #Hypokalemia: K is 3.4. Will replace and trend. #Anxiety and depression: to follow up with PCP on outpatient basis #PTSD: #Reactive attachment disorder: on cariprazine Charges/Coding Visit Charges Inpatient E&M: 24840 Subs Hosp L2
--- NOTE | 2023-07-12 14:55 | NURSING ---
Spoke with legal guardian, Epifanio Coyle, Updated on patient, consent obtained for procedure with Dr. Echols
[2023-07-12 15:14] VITALS: BP 111/75; PULSE 85; RESP 18; TEMP 36.7; O2SAT 100
[2023-07-12] MEDS: Lidocaine 2% (20 ml mdv) 20 ML Vial INFILT (16:00)
--- NOTE | 2023-07-12 16:50 | CON.PCM.OR_ITS ---
HPI Consult Data Date of Consult: 07/12/23 HPI Narrative HPI Narrative: KARTHIK DIAZ, is a 23 F who presented to the ED last night with left knee pain. She was dancing and had an somewhat of a twisting injury to the left knee after which she started having severe pain and swelling. She was found to have patellar dislocation and reduction was attempted in the ER and patient was placed in the immobilizer. Patient has multiple psychiatric issues and is under care of [employer] [facility] [employer] [facility] [employer] who serve as legal guardians and provide consent for treatment. I asked her if she had any previous knee injuries in the past but she does not seem to remember any. She did not have any issues with knee range of motion in the past. She says that her pain has improved with the knee immobilizer show over the last day. She worked with physical therapy and was able to take a few steps with weightbearing as tolerated. [facility] Medical History (Updated 07/12/23 @ 16:[address] 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 Mery Gray MD) History of facial surgery Social History (Updated 07/11/23 @ 20:[address] Mery Gray MD) household members: none Smoking Status: Never smoker alcohol intake: never substance use type: does not use Vital Signs Vital Signs Vital Signs: 07/11/23 18:18 07/11/23 21:19 07/11/23 22:28 Temperature 97.1 F L 98.6 F Temperature Source Oral Pulse Rate 107 H 105 H Respiratory Rate 16 16 Respiratory Effort Respiratory Depth Respiratory Pattern Blood Pressure 120/75 121/84 H Blood Pressure Mean 90 96 Blood Pressure Source Blood Pressure Position Blood Pressure Location Pulse Ox 98 98 98 Oxygen Delivery Method Room Air Room Air 07/11/23 23:12 07/11/23 21:14 07/12/23 05:59 Temperature 97.9 F 98.4 F Temperature Source Oral Oral Pulse Rate 103 H 79 Respiratory Rate 18 18 Respiratory Effort Normal Non-Labored Respiratory Depth Normal Respiratory Pattern Normal Blood Pressure 109/65 105/65 Blood Pressure Mean 79 78 Blood Pressure Source Monitor Monitor Blood Pressure Position Semi-Fowlers Semi-Fowlers Blood Pressure Location Left Arm Left Arm Pulse Ox 98 97 Oxygen Delivery Method Room Air Room Air Room Air 07/12/23 08:00 07/12/23 07:00 07/12/23 15:14 Temperature 98.6 F 98.0 F Temperature Source Temporal Temporal Pulse Rate 86 85 Respiratory Rate 18 18 Respiratory Effort Respiratory Depth Respiratory Pattern Blood Pressure 119/87 H 111/75 Blood Pressure Mean 97 87 Blood Pressure Source Monitor Monitor Blood Pressure Position Semi-Fowlers Semi-Fowlers Blood Pressure Location Left Arm Left Arm Pulse Ox 97 95 100 Oxygen Delivery Method Room Air Room Air Room Air Weight Weight: 138 lb 1.596 oz Body Mass Index (BMI) 31.0 Physical Exam Narrative Examination of the left knee shows fullness is no effusion. Patella is palpable possibly subluxated versus dislocated laterally. Distal neurovascular exam is intact. No obvious tenderness laterally. Tenderness noticed over the medial femoral condyle on deep palpation. Patient able to flex about 20 degrees by herself. Lab / Micro Data 07/12/23 06:43 07/12/23 06:43 Labs: Laboratory Results - last 24 hr 07/12/23 06:43: WBC 11.7 H, RBC 4.25, Hgb 12.9, Hct 39.4, MCV 92.7, MCH 30.4, MCHC 32.7, RDW Std Deviation 42.5, RDW Coeff of Kaley 12.5, Plt Count 317, MPV 9.8, Immature Gran % (Auto) 0.600, Neut % (Auto) 64.2, Lymph % (Auto) 26.3, [place] % (Auto) 8.4, Eos % (Auto) 0.2, Baso % (Auto) 0.3, Absolute Neuts (auto) 7.5, Absolute Lymphs (auto) 3.07, Nucleated RBC % 0, Sodium 140, Potassium 3.4 L, Chloride 108 H, Carbon Dioxide 26.0, Anion Gap 6, BUN 9, Creatinine 0.88, Estim Creat Clear Calc 82.18, Est GFR (MDRD) Af Amer 102, Est GFR (MDRD) Non-Af 85, BUN/Creatinine Ratio 10.3, Glucose 98, Calcium 8.8, Total Bilirubin 0.50, AST 16, ALT 14, Alkaline Phosphatase 64, Total Protein 7.4, Albumin 3.7, Globulin 3.7, Albumin/Globulin Ratio 1.0 Imaging Radiology Impression Knee X-Ray 07/11/23 18:40 IMPRESSION: Acute lateral subluxation of the patella with possible associated avulsion fracture.. CT would be helpful for further evaluation Electronically Signed: Augustus Dobbs MD at 19:48 EDT , Lower Extremity MRI 07/12/23 05:55 IMPRESSION: Sprain/partial tear of the medial patellar retinaculum, with complete lateral dislocation of the patella with respect to the distal femur. Associated bone impaction injuries/contusions involving the medial patella as well as anterolateral aspect of the lateral femoral condyle. Moderate to large lipohemarthrosis. Displaced 1.1 x 1.0 x 0.5 cm osteochondral loose body in the recess anterolateral to the lateral femoral epicondyle. No discrete meniscal tear. Electronically Signed: Andrew Summers MD at 10:34 EDT , Assessment & Plan Assessment/Plan (1) Lateral dislocation of left patella, initial encounter: PLAN: Plan I evaluated the x-rays done last night as well as the MRI done this morning of the left knee. These show lateral dislocation of the patella. Close reduction maneuvers in the ER were unsuccessful. I spoke to the patient at length and discussed the possibility for bedside reduction under local anesthesia. Based on history, it seems to be the first episode of dislocation over the patient's medical and social history make it difficult for her to assess whether she has had prior dislocations or whether this has been a chronic dislocation. I discussed with the patient in detail about the bedside procedure of injection and aspiration intra-articular left knee with close reduction of the patella dislocation. All risk benefits and alternatives were discussed. I called [facility] [employer] [facility] [employer] 2 obtain consent for medical treatment. I spoke with ethan Coyle and [employer] to obtain the consent for treatment. The risks include but are not limited to infection, bleeding, injury to nerves and blood vessels, redislocation, persistent pain, knee stiffness. Patient and he is being provided consent for the procedure. Please see procedure note for details.
--- NOTE | 2023-07-12 16:56 | PCM.OP.PRO ---
Procedure Report Date of Procedure: 07/12/23 Diagnosis: Left patellar dislocation Procedure: Left knee intra-articular injection and aspiration CPT 12543, closed reduction left patella dislocation CPT 99037 Description: The left knee was cleaned and prepped with ChloraPrep and towels were placed to isolate the sterile area. We used a lateral approach. 2% lidocaine was initially injected underneath the skin to anesthetics the skin. An 18-gauge needle was then inserted palpating just lateral to the lateral edge of the patella to enter the knee joint. Hemarthrosis was identified. 20 cc of hemarthrosis blood was aspirated and discarded. The intra-articular access was then utilized to inject about 15 cc of 2% lidocaine to anesthetize the knee joint. Holding of gauze at the needle injection site I attempted closed reduction with a medially directed pressure applied to the lateral edge of patella. Multiple attempts were made but these were unsuccessful to reduce. I then injected 20 cc of normal saline to the joint to increase the intra-articular volume assist reduction. I again attempted close reduction with the same maneuver in full extension as well as 30 degrees of knee flexion. All attempts were unsuccessful. I placed a Band-Aid over the needle entry point. Knee immobilizer was reapplied. Procedures Musculoskeletal [id number]: Other Procedure See Report
--- NOTE | 2023-07-12 17:03 | PCM.PN.ORT ---
Objective Data Objective Data Vital Signs: Vital Signs Temp Pulse Resp BP Pulse Ox O2 Del Method 98.0 F 85 18 111/75 100 Room Air 07/12/23 15:14 07/12/23 15:14 07/12/23 15:14 07/12/23 15:14 07/12/23 15:14 07/12/23 15:14 Oxygen Delivery Method Room Air Weight: 138 lb 1.596 oz Body Mass Index (BMI) 31.0 Intake & Output: Intake and Output for Last 24 Hours 07/10/23 07/11/23 07/12/23 23:59 23:59 23:59 Intake Total 1100 / 1100 Output Total 400 / 400 Balance 700 / 700 Lab / Micro Data 07/12/23 06:43 07/12/23 06:43 Labs: Laboratory Results - last 24 hr 07/12/23 06:43: WBC 11.7 H, RBC 4.25, Hgb 12.9, Hct 39.4, MCV 92.7, MCH 30.4, MCHC 32.7, RDW Std Deviation 42.5, RDW Coeff of Kaley 12.5, Plt Count 317, MPV 9.8, Immature Gran % (Auto) 0.600, Neut % (Auto) 64.2, Lymph % (Auto) 26.3, [place] % (Auto) 8.4, Eos % (Auto) 0.2, Baso % (Auto) 0.3, Absolute Neuts (auto) 7.5, Absolute Lymphs (auto) 3.07, Nucleated RBC % 0, Sodium 140, Potassium 3.4 L, Chloride 108 H, Carbon Dioxide 26.0, Anion Gap 6, BUN 9, Creatinine 0.88, Estim Creat Clear Calc 82.18, Est GFR (MDRD) Af Amer 102, Est GFR (MDRD) Non-Af 85, BUN/Creatinine Ratio 10.3, Glucose 98, Calcium 8.8, Total Bilirubin 0.50, AST 16, ALT 14, Alkaline Phosphatase 64, Total Protein 7.4, Albumin 3.7, Globulin 3.7, Albumin/Globulin Ratio 1.0 Radiography Diagnostic Testing: Radiology Impression Knee X-Ray 07/11/23 18:40 IMPRESSION: Acute lateral subluxation of the patella with possible associated avulsion fracture.. CT would be helpful for further evaluation Electronically Signed: Augustus Dobbs MD at 19:48 EDT , Lower Extremity MRI 07/12/23 05:55 IMPRESSION: Sprain/partial tear of the medial patellar retinaculum, with complete lateral dislocation of the patella with respect to the distal femur. Associated bone impaction injuries/contusions involving the medial patella as well as anterolateral aspect of the lateral femoral condyle. Moderate to large lipohemarthrosis. Displaced 1.1 x 1.0 x 0.5 cm osteochondral loose body in the recess anterolateral to the lateral femoral epicondyle. No discrete meniscal tear. Electronically Signed: Andrew Summers MD at 10:34 EDT , Assessment & Plan Assessment/Plan (1) Lateral dislocation of left patella, initial encounter: PLAN: Plan Multiple attempts at closed reduction under local anesthesia at bedside were performed. These were all unsuccessful suggesting chronic irreducible patellar dislocation. Patient will likely require operative reduction of patella with possible adhesiolysis and MPFL reconstruction or further stabilizing surgical techniques on an elective basis. Patient may be discharged to home or rehab as appropriate and will follow-up in orthopedics clinic to see sports medicine Dr. Coleman. Patient was in agreement. Okay to weight-bear as tolerated in knee immobilizer.
--- NOTE | 2023-07-12 17:16 | RAD_ITS ---
STUDY: X-RAY - LEFT KNEE REASON FOR EXAM: Female, 23 years old. patella dislocation -- 2 view portable knee TECHNIQUE: AP and lateral view(s) of the knee. COMPARISON: July 11, 2023. FINDINGS: There is persistent dislocation of the patella not changed significantly since prior study . RAD/Knee 1 or 2 Views IMPRESSION: Persistent lateral dislocation of the patella Electronically Signed: Augustus Dobbs MD at 17:31 EDT ,
[2023-07-12] MEDS: CARIPRAZINE HCL 1.5 MG CAPSULE PO (18:04)
[2023-07-12 20:07] VITALS: BP 102/66; PULSE 91; RESP 18; TEMP 36.8; O2SAT 99
[2023-07-13 01:28] VITALS: BP 109/77; PULSE 64; RESP 18; TEMP 36.9; O2SAT 99
[2023-07-13] MEDS: MELATONIN 3 MG TABLET PO (01:35)
[2023-07-13 05:48] VITALS: BP 111/78; PULSE 76; RESP 18; TEMP 36.7; O2SAT 99
[2023-07-13] MEDS: 0.9% Saline Lock 10 ML Syringe IV (05:51)
[2023-07-13] MEDS: Ketorolac 15 MG/ML Vial IV (05:51)
[2023-07-13] MEDS: Acetaminophen 325 MG Tablet 650 MG PO ×2 (05:51→14:42)
[2023-07-13] MEDS: CARIPRAZINE HCL 1.5 MG CAPSULE PO (10:32)
[2023-07-13 10:44] VITALS: O2SAT 99
[2023-07-13 11:00] VITALS: BP 124/91; PULSE 93; RESP 18; TEMP 36.7; O2SAT 100
--- NOTE | 2023-07-13 14:40 | PN_ITS ---
Subjective Subjective Patient seen and examined. She says her left knee pain is well-controlled. Review of systems otherwise negative. She has remained hemodynamically stable. Objective Data Objective Data Vital Signs: Vital Signs Temp Pulse Resp BP Pulse Ox O2 Del Method 98.0 F 93 18 124/91 H 100 Room Air 07/13/23 11:00 07/13/23 11:00 07/13/23 11:00 07/13/23 11:00 07/13/23 11:00 07/13/23 11:00 Oxygen Delivery Method Room Air Weight: 138 lb 1.596 oz Body Mass Index (BMI) 31.0 Intake & Output: Intake and Output for Last 24 Hours 07/11/23 07/12/23 07/13/23 23:59 23:59 23:59 Intake Total 1500 / 2000 500 / 500 Output Total 400 / 400 Balance 1100 / 1600 500 / 500 Lab / Micro Data 07/12/23 06:43 07/12/23 06:43 Radiography Diagnostic Testing: Radiology Impression Knee X-Ray 07/12/23 17:16 IMPRESSION: Persistent lateral dislocation of the patella Electronically Signed: Augustus Dobbs MD at 17:31 EDT Reading Location ID and State: [facility] / [place] Tel , Service support , Physical Exam Const alert, oriented x3, no apparent distress and well nourished General Appearance: cooperative and well developed HEENT normocephalic, head/scalp atraumatic, moist oral mucous membranes and oropharynx normal Eyes PERRL and EOMs intact bilaterally Neck no lymphadenopathy and supple Lymph Lymphatic: no lymphadenopathy noted and no lymphedema noted Resp normal respiratory effort, normal air movement and clear to auscultation bilaterally Cardio regular rate, regular rhythm, S1 normal heart sound, S2 normal heart sound and no murmurs GI normal to inspection, nondistended, normoactive bowel sounds, soft to palpation, non-tender and non-distended Extremity normal capillary refill Extremity Narrative: left knee in brace Skin General Skin Exam: no breakdown Neuro CN's II-XII intact bilaterally, no focal motor deficits and no sensory deficits noted Coordination / Balance: [id number] test normal Psych thought process normal, cooperative and affect normal Appearance: appropriate Assessment & Plan Assessment/Plan (1) Acute internal derangement of left knee: (2) Inability to ambulate due to knee: PLAN: Plan #Debility due to mechanical fall with probable avulsion fracture * fell whilst dancing. Imaging showed acute left lateral subluxation of the patella with questionable avulsion fracture * has knee immobiliser * orthopedic surgery on board * PT/OT on board * fall precautions * MRI of the left knee showed sprain versus partial tear of the medial patellar retinaculum with complete lateral dislocation of the patella with respect to the distal femur and associated bony impaction injuries/contusions involving the medial patella as well as the anterior lateral aspect of the lateral femoral condyle and moderate to large lipohemarthrosis and a displaced osteochondral loose body in the recess anterior lateral to the lateral femoral epicondyles there is no evidence of meniscal tear. * She had left knee intra-articular injection and aspiration 07/12/2023. Per orthopedics, multiple attempts at closed reduction under local anesthesia at bedside were performed and these were all unsuccessful suggesting chronic irreducible patellar dislocation. Per orthopedics patient will likely require operative reduction of patella with possible RELEASES. This can be done on o utpatient basis. * Per Ortho, okay to weight-bear as tolerated in knee immobilizer. * #Hypokalemia: Stable. Resolved. #Anxiety and depression: to follow up with PCP on outpatient basis #Reactive attachment disorder: on cariprazine DVT prophylaxis: SCDs. Disposition: Anticipate DC back to her senior living if she does well with therapy, to follow-up with orthopedics on outpatient basis. For likely discharge tomorrow. Charges/Coding Visit Charges Inpatient E&M: 51748 Subs Hosp L2
[2023-07-13] MEDS: oxyCODONE 5 MG Tablet PO (14:42)
--- NOTE | 2023-07-13 14:45 | CASEMGMT ---
Social Work SW reviewed OT note, as per OT pt needing total assist for toileting and lower body dressing. Pt needs to be independent to go home. SW will follow up Saturday w/pt's guardian and nurse case management, to come up w/a plan for pt. JACQUELYN Isaac
[2023-07-13 16:30] VITALS: BP 124/89; PULSE 98; RESP 18; TEMP 36.6; O2SAT 100
[2023-07-13 21:30] VITALS: BP 100/60; PULSE 76; RESP 18; TEMP 36.8; O2SAT 99
[2023-07-14 03:30] VITALS: BP 117/73; PULSE 70; RESP 18; TEMP 36.7; O2SAT 100
[2023-07-14] MEDS: Ketorolac 15 MG/ML Vial IV ×2 (10:36→22:15)
[2023-07-14] MEDS: 0.9% Saline Lock 10 ML Syringe IV ×2 (10:36→22:15)
[2023-07-14] MEDS: Acetaminophen 325 MG Tablet 650 MG PO ×2 (10:39→22:14)
[2023-07-14] MEDS: CARIPRAZINE HCL 1.5 MG CAPSULE PO (10:40)
--- NOTE | 2023-07-14 12:43 | PN_ITS ---
Subjective Subjective Patient seen and examined. She had no active complaints. Review of symptoms otherwise negative. She has remained hemodynamically stable. She has been working with physical therapy. Objective Data Objective Data Vital Signs: Vital Signs Temp Pulse Resp BP Pulse Ox O2 Del Method 98.0 F 70 18 117/73 100 Room Air 07/14/23 03:30 07/14/23 03:30 07/14/23 03:30 07/14/23 03:30 07/14/23 03:30 07/14/23 03:30 Oxygen Delivery Method Room Air Weight: 138 lb 1.596 oz Body Mass Index (BMI) 31.0 Intake & Output: Intake and Output for Last 24 Hours 07/12/23 07/13/23 07/14/23 23:59 23:59 23:59 Intake Total 1500 / 2000 1600 / 1600 250 / 250 Output Total 400 / 400 Balance 1100 / 1600 1600 / 1600 250 / 250 Lab / Micro Data 07/12/23 06:43 07/12/23 06:43 Physical Exam Const alert, oriented x3, no apparent distress and well nourished General Appearance: cooperative and well developed HEENT normocephalic, head/scalp atraumatic, moist oral mucous membranes and oropharynx normal Eyes PERRL and EOMs intact bilaterally Neck no lymphadenopathy and supple Lymph Lymphatic: no lymphadenopathy noted and no lymphedema noted Resp normal respiratory effort, normal air movement and clear to auscultation bilaterally Cardio regular rate, regular rhythm, S1 normal heart sound, S2 normal heart sound and no murmurs GI normal to inspection, nondistended, normoactive bowel sounds, soft to palpation, non-tender and non-distended Extremity normal capillary refill Extremity Narrative: left knee in brace Skin General Skin Exam: no breakdown Neuro CN's II-XII intact bilaterally, no focal motor deficits and no sensory deficits noted Coordination / Balance: [id number] test normal Psych thought process normal, cooperative and affect normal Appearance: appropriate Assessment & Plan Assessment/Plan (1) Acute internal derangement of left knee: (2) Inability to ambulate due to knee: PLAN: Plan #Debility due to mechanical fall with probable avulsion fracture * fell whilst dancing. Imaging showed acute left lateral subluxation of the p atella with questionable avulsion fracture * has knee immobiliser * orthopedic surgery on board * PT/OT on board * fall precautions * MRI of the left knee showed sprain versus partial tear of the medial patellar retinaculum with complete lateral dislocation of the patella with respect to the distal femur and associated bony impaction injuries/contusions involving the medial patella as well as the anterior lateral aspect of the lateral femoral condyle and moderate to large lipohemarthrosis and a displaced osteochondral loose body in the recess anterior lateral to the lateral femoral epicondyles there is no evidence of meniscal tear. * She had left knee intra-articular injection and aspiration 07/12/2023. Per orthopedics, multiple attempts at closed reduction under local anesthesia at bedside were performed and these were all unsuccessful suggesting chronic irreducible patellar dislocation. Per orthopedics patient will likely require operative reduction of patella with possible RELEASES. This can be done on outpatient basis. * Per Ortho, okay to weight-bear as tolerated in knee immobilizer. * #Hypokalemia: Stable. Resolved. #Anxiety and depression: to follow up with PCP on outpatient basis #Reactive attachment disorder: on cariprazine DVT prophylaxis: SCDs. Disposition: Anticipate DC back to her [facility] if she does well with therapy. Case management to discuss with her guardian tomorrow to determine if patient's home environment is safe enough for her to go back, or they will need some assistance at home. Charges/Coding Visit Charges Inpatient E&M: 91288 Subs Hosp L2
[2023-07-14 14:46] VITALS: BP 98/79; PULSE 76; RESP 18; TEMP 36.7; O2SAT 98
[2023-07-14 20:15] VITALS: BP 102/59; PULSE 87; RESP 18; TEMP 36.8; O2SAT 98
[2023-07-15 02:15] VITALS: BP 110/72; PULSE 80; RESP 18; TEMP 36.7; O2SAT 97
[2023-07-15 06:08] LABS: Hematocrit 39.8 % (37-47); Hemoglobin 13.2 g/dL (12.0-15.0); Mean Corp Hgb Conc 33.2 g/dL (32-36); Mean Corpuscular Hgb 30.6 pg (27.0-32.0); Mean Corpuscular Volume 92.3 fL (81-99); Mean Platelet Vol. 9.8 fl (6.2-12.0); Platelet Count 300 K/mm3 (150-450); RBC Distribution Width CV 12.3 % (11.6-14.6); RBC Distribution Width SD 42.3 fl (35.1-43.9); Red Blood Count 4.31 M/mm3 (4.2-5.4)
[2023-07-15 06:32] LABS: Anion Gap 6 (5-15); BUN 13 mg/dL (7-18); BUN/Creat Ratio 17.3 RATIO (10-20); Calcium,Total 9.3 mg/dL (8.5-10.1); Chloride 106 mmol/L (98-107); Creatinine, Serum 0.75 mg/dL (0.55-1.02); EST Glomerular Filtration Rate 101 mL/min (>60); Est Glom Filt Rate - Afr Amer 123 mL/min (>60); Estimated Creatinine Clearance 96.42 ml/min; Glucose 86 mg/dL (74-106); Magnesium 2.1 mg/dL (1.6-2.6); Potassium 3.8 mmol/L (3.5-5.1); Sodium Level 139 mmol/L (136-145)
[2023-07-15] MEDS: Acetaminophen 325 MG Tablet 650 MG PO ×2 (06:38→15:20)
[2023-07-15 08:24] VITALS: BP 107/77; PULSE 82; RESP 18; TEMP 36.8; O2SAT 98
[2023-07-15] MEDS: CARIPRAZINE HCL 1.5 MG CAPSULE PO (08:28)
--- NOTE | 2023-07-15 10:47 | CASEMGMT ---
Social Work SW called pt's case manager specialist, Mikel Gibbons, reviewed therapy notes w/him. It does seem like pt is close to being able to go home. SW forwarded the PT and OT notes to Mikel. SARAH also spoke w/RN, pt has not yet been out of bed to see how she is moving today, but is moving much better compared to yesterday. SW spoke w/pt as well, she wants to see how she does today. SARAH communicated all of this to Mikel as well. SARAH will follow up once pt has PT/OT today. JACQUELYN Isaac
[2023-07-15 14:00] VITALS: BP 117/82; PULSE 100; RESP 18; TEMP 36.7; O2SAT 97
--- NOTE | 2023-07-15 15:13 | CASEMGMT ---
Addendum entered by Michaela Gaitan 07/15/23 16:20: [facility]. Addendum entered by Michaela Gaitan 07/15/23 15:49: Referral for HHC sent via careport to all agencies on list created by dc personal banking assistant per request of SW who spoke with pt guardian. Original Note: TC to [facility] in [place] to verify pt PCP, left with call back information.
--- NOTE | 2023-07-15 15:17 | CASEMGMT ---
Discharge Planning A list of?HH providers including quality and resource use data and consistent with the patient's preferred geographic region, medical needs, and insurance network was created in CarePort Guide.? This list was provided to the RN BEVERLEY. Sera Ramirez, Discharge Planning Asst.
--- NOTE | 2023-07-15 15:38 | PCM.PN.ORT ---
Subjective Subjective Continues to use knee immobilizer. Somehow, she was told by someone that she should be nonweightbearing although I had mentioned weightbearing as tolerated in my last note. Hoping to be discharged with home health aide per caregiver. Objective Data Objective Data Vital Signs: Vital Signs Temp Pulse Resp BP Pulse Ox O2 Del Method 98.0 F 100 18 117/82 H 97 Room Air 07/15/23 14:00 07/15/23 14:00 07/15/23 14:00 07/15/23 14:00 07/15/23 14:00 07/15/23 14:00 Oxygen Delivery Method Room Air Weight: 138 lb 1.596 oz Body Mass Index (BMI) 31.0 Intake & Output: Intake and Output for Last 24 Hours 07/13/23 07/14/23 07/15/23 23:59 23:59 23:59 Intake Total 1600 / 1600 1330 / 1330 730 / 730 Balance 1600 / 1600 1330 / 1330 730 / 730 Lab / Micro Data 07/15/23 05:45 07/15/23 05:45 Labs: Laboratory Results - last 24 hr 07/15/23 05:45: WBC 10.0, RBC 4.31, Hgb 13.2, Hct 39.8, MCV 92.3, MCH 30.6, MCHC 33.2, RDW Std Deviation 42.3, RDW Coeff of Kaley 12.3, Plt Count 300, MPV 9.8, Sodium 139, Potassium 3.8, Chloride 106, Carbon Dioxide 27.0, Anion Gap 6, BUN 13, Creatinine 0.75, Estim Creat Clear Calc 96.42, Est GFR (MDRD) Af Amer 123, Est GFR (MDRD) Non-Af 101, BUN/Creatinine Ratio 17.3, Glucose 86, Calcium 9.3, Magnesium 2.1 Physical Exam Narrative Exam of the left knee shows swelling reduced compared to Saturday. Mild ecchymosis noticed around the aspiration site. Distal neurovascular exam is intact. 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 Discharge and outpatient follow-up with sports medicine Dr Coleman. Weightbearing as tolerated in knee immobilizer all the time. All questions answered.
--- NOTE | 2023-07-15 16:31 | PN.HOSP_ITS ---
Reason for Visit Reason for Visit: Fall/knee pain Subjective Subjective Patient is a 23-year-old female who presented to the emergency department at [facility] on 07/11/2023 after a fall while she was dancing. She reportedly twisted and then landed with significant onset of left knee pain and swelling which resulted in her presenting to emergency department. On presentation her vital signs were unremarkable. Labs were unremarkable. Imaging showed on plain film left knee acute lateral subluxation of the patella with possible associated avulsion fracture in the ED physician discussed the case with orthopedic surgery, Dr. Horta, who recommended MRI and initially recommended outpatient follow-up however she was unable to ambulate despite the knee immobilizer so admission was required. She was admitted to medical floor with a consultation to orthopedic surgery and given IV and p.o. pain medication as well as antiemetics. 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 Mai and weightbearing as tolerated with her knee immobilizer on at all times. She has been seen by physical and Occupational Therapy during her hospital stay and they recommended ongoing therapy services with home health which is currently under way being set up as well as some DME supplies. Discharge is anticipated for tomorrow. Patient states clinically she is feeling much better. Feels like she should be able to go home soon but would like to see how therapy goes today. Will need DME supplies and home health at discharge if she does not need to go to facility. Objective Data Objective Data Vital Signs: Vital Signs Temp Pulse Resp BP Pulse Ox O2 Del Method 98.0 F 100 18 117/82 H 97 Room Air 07/15/23 14:00 07/15/23 14:00 07/15/23 14:00 07/15/23 14:00 07/15/23 14:00 07/15/23 14:00 Oxygen Delivery Method Room Air Weight: 62.641 kg Body Mass Index (BMI) 31.0 Intake & Output: Intake and Output for Last 24 Hours 07/13/23 07/14/23 07/15/23 23:59 23:59 23:59 Intake Total 1600 / 1600 1330 / 1330 730 / 730 Balance 1600 / 1600 1330 / 1330 730 / 730 Lab / Micro Data 07/15/23 05:45 07/15/23 05:45 Labs: Laboratory Results - last 24 hr 07/15/23 05:45: WBC 10.0, RBC 4.31, Hgb 13.2, Hct 39.8, MCV 92.3, MCH 30.6, MCHC 33.2, RDW Std Deviation 42.3, RDW Coeff of Kaley 12.3, Plt Count 300, MPV 9.8, Sodium 139, Potassium 3.8, Chloride 106, Carbon Dioxide 27.0, Anion Gap 6, BUN 13, Creatinine 0.75, Estim Creat Clear Calc 96.42, Est GFR (MDRD) Af Amer 123, Est GFR (MDRD) Non-Af 101, BUN/Creatinine Ratio 17.3, Glucose 86, Calcium 9.3, Magnesium 2.1 Physical Exam Const alert, oriented x3 and no apparent distress Constitutional Narrative: , young, female, sitting up in a chair at the bedside, left lower extremity knee immobilizer in place Extremity no clubbing, cyanosis or edema Extremity Narrative: Left lower extremity knee immobilizer in place Neuro oriented x3 Psych affect normal Psych Narrative: Eye contact is good and patient interacts appropriately Assessment & Plan Assessment/Plan (1) Lateral dislocation of left patella, initial encounter: (2) Acute internal derangement of left knee: (3) Inability to ambulate due to knee: PLAN: Plan Left lateral knee dislocation with possible avulsion -Outpatient follow-up as recommended by Dr. Echols with Dr. Coleman--> will schedule to be seen next week -May require surgical intervention -Continue PT/OT -Weightbearing as tolerated -Continue as needed and scheduled pain medication as ordered -Will transition from IV Toradol to as needed Advil -DME supplies for home -Plan is for home tomorrow with home health care Inability ambulate -Patient is weightbearing as tolerated -Ambulating with assistive device and knee immobilizer in place is improving -Plan is for discharge tomorrow with home health Anxiety/depression/PTSD/reactive attachment disorder -Patient follows as an outpatient with counseling services -Continue home cariprazine DVT prophylaxis -Start enoxaparin prophylactically until discharge CODE STATUS -Full code Charges/Coding Visit Charges Inpatient E&M: 97674 [facility] Hosp L1
--- NOTE | 2023-07-15 16:31 | CASEMGMT ---
Social Work Pt saw PT and OT today. PT states pt should be good for homegoing. Pt would benefit from a standard walker, wheelchair, and transfer bench. OT states concern for cooking, cleaning and taking a shower. SARAH spoke w/Mikel Gibbons, pt's case consultant. and explained this. He states that Diana may be able to help pt more at home (Diana is pt's home builder, though does more driving pt to appts than help at home), and if she has availability, Mikel mcclure will approve any hours needed. Diana is here, SARAH spoke w/Diana and pt in room. Diana states has four other clients and can't really help any more than she is. She can take her shopping, and is already helping her with her laundry--said she just did her laundry today and put it away. SARAH spoke w/pt about going home, she does feel comfortable going home if someone can help with cooking and with showers. SARAH spoke w/Mikel again, explained Diana does not have any extra time to help pt. Mikel states he did put out a message already to see if there would be any additional providers to assist pt in the home. Mikel is open to having pt get home health care for aide services. Mikel did reach out to Diana himself, Diana is going to assist pt in getting ready made meals, will take her to the store to pick out some food she can prepare easily. She is already helping with some housekeeping tasks. SARAH explained will call the guardian, and make sure guardian is okay w/home care and DME and pt going home, and see if they have a preference for agency. SARAH explained we will work on home health and DME, and try to get pt home on Saturday. SARHA called [facility], got voicemail for Ciera Rizzo. SARAH called back, spoke w/yarding supervisor Shade Tavares at [facility]. He states in agreement w/pt returning home if that is the recommendation, also agreeable for pt to have home health and DME. He declined lists of DME providers and HHC agencies, is fine with the hospital finding providers for pt as long as they are trustworthy. CM working on HHC and will work on getting DME for pt. SARAH will continue to follow for any additional social service needs. JACQUELYN Isaac
[2023-07-15] MEDS: Enoxaparin 40 MG/0.4 ML Syringe SC (18:04)
[2023-07-15 20:55] VITALS: BP 128/88; PULSE 97; RESP 16; TEMP 36.6; O2SAT 98
[2023-07-16 03:59] VITALS: BP 106/75; PULSE 64; RESP 16; TEMP 36.8; O2SAT 98
[2023-07-16 09:00] VITALS: BP 112/78; PULSE 80; RESP 14; TEMP 36.6; O2SAT 98
--- NOTE | 2023-07-16 09:22 | CASEMGMT ---
Addendum entered by Michaela Gaitan 07/16/23 14:29: Faxed rx for transfer bench to [facility] with information to call Mikel Gibbons when it is ready. Addendum entered by Michaela Gaitan 07/16/23 13:37: TC to [facility], spoke with Jinny, rx for transfer bench can be faxed and they can start working on this. She states that she can call when it is ready to be picked up. Spoke with Mikel pt DD case coordinator, he is aware that the w/c and walker can be picked up at [facility] at any time except they are closed from 1-2pm. He states to have [facility] call him for the picking machine operator of the transfer bench. He is aware that [facility] will be starting care and they will evaluate and then set up the visit schedule. He is aware the phone numbers will be on the dc instructions for all companies. Also provided this RN CM phone number should there be any issues with the equipment picking machine operator. He denies any further questions. Addendum entered by Michaela Gaitan 07/16/23 12:58: BEVERLY LOWERY into pt room, pt lying in bed in no distress. Pt is aware that [facility] will be seeing her in her home. She is also aware of equipment she will be receiving for home use. Pt denies any questions. She states she is ready to go home. Addendum entered by Michaela Gaitan 07/16/23 12:10: Received acceptance by [facility] for pt. Referral sent to [facility] for w/c and standard walker via careport at this time. Addendum entered by Michaela Gaitan 07/16/23 10:20: [facility] has declined pt. TC to Cori at [facility], referral made, will await acceptance. Original Note: Spoke with Mary Ann at [facility], they are unable to provide aide services and do not have availability for therapy to start until next week.
[2023-07-16] MEDS: CARIPRAZINE HCL 1.5 MG CAPSULE PO (10:28)
--- NOTE | 2023-07-16 10:54 | CASEMGMT ---
Social Work As per CM, having difficulty finding home health and in particular finding an aide for pt. SW called pt's business case analyst Mikel Shai, message left. SW awaiting a call back. JACQUELYN Isaac
--- NOTE | 2023-07-16 13:44 | CASEMGMT ---
Addendum entered by Sarah Rayo 07/16/23 15:25: Social Work Pt's surgeon is to come in to see pt this afternoon, though it may not be until after 4pm. SARAH attempted to call Diana to see if she can come later to get pt. She did not answer. SARAH called pt's assistant case manager Mikel Gibbons([phone]), explained that the surgeon is to see pt today, asked if Diana can come later to get pt. SW explained was not able to reach her. Mikel will call and let her know, and he is going to go get pt's DME. Otherwise, no further needs. SARAH called [facility], left a message for the mail handlers supervisor Shade Anusha to let him knowpt is going home w/[facility], DME from [employer] [facility] [employer]. SARAH left number to call SW back w/any questions. JACQUELYN Isaac Original Note: Social Work [facility] will be able to provide an aide for pt one time per week along with OT and PT. SARAH let Mikel Gibbons, pt's CM from know this, he is in agreement with this. Pt's aide is able to pick pt up today between 3-330, and Mikel will pick and shovel man the needed DME. Michaela spoke w/Mikel about getting the DME picked up. SARAH asked physician to do the paperwork, and pt is complaining of dizziness. RN to let physician know how pt is doing prior to her completing the discharge. Once SARAH knows if pt can be d/c or not, SARAH will call Mikel and pt's guardian. JACQUELYN Isaac
[2023-07-16 14:17] VITALS: BP 114/80; BP 117/77; BP 128/109; PULSE 109; PULSE 111; PULSE 117
[2023-07-16 14:27] VITALS: PULSE 120; O2SAT 96
[2023-07-16 14:30] VITALS: BP 120/80; PULSE 104; RESP 18; TEMP 37; O2SAT 96
--- NOTE | 2023-07-16 14:58 | PCM.DC.SUM ---
Providers Date of Admission: 07/11/23 Date of Discharge: 07/16/23 Primary Care Physician: Monik Primary Care Phys Consultations 07/11/23 21:15 Consult: Orthopedics Routine Consulting Provider: Mando Echols Reason for Consult: left lateral subluxation of the patella with questionable avulsion fractur EMERGENT Consult: No MD Notified: Yes Date Notified: 07/11/23 Time Notified: 20:52 Method of Notification: ED Physician Initiated Reason For Visit: ADULT FTT, L KNEE LATERAL SUBLUXATION PATELLA, ?FX Diagnosis Discharge Diagnosis (1) Lateral dislocation of left patella, initial encounter: Status: Acute Code(s): S83.015A - Lateral dislocation of left patella, initial encounter (2) Acute internal derangement of left knee: Status: Acute Code(s): M23.92 - Unspecified internal derangement of left knee (3) Inability to ambulate due to knee: Status: Acute Code(s): R26.2 - Difficulty in walking, not elsewhere classified Medications at Discharge Home Medications cariprazine 1.5 mg capsule (Vraylar) 1.5 mg PO DAILY 07/11/23 acetaminophen 500 mg tablet (Tylenol Extra Strength) 1,000 mg (2 x 500 mg) PO Q8 #60 tabs 07/16/23 ibuprofen 600 mg tablet 600 mg PO Q6H PRN PRN Pain 1-10 Or Fever #0 tabs 07/16/23 oxycodone 5 mg tablet 5 mg PO Q6H 1 week #28 tabs 07/16/23 Hospital Course Operations None Procedures - (X-ray left knee/MRI left knee/x-ray left knee) Summary of Care Provided Minutes Spent on Discharge: 30 Hospital Course: Patient is a 23-year-old female who presented to the emergency department at [facility] on 07/11/2023 after a fall while she was dancing. She reportedly twisted and then landed with significant onset of left knee pain and swelling which resulted in her presenting to emergency department. On presentation her vital signs were unremarkable. Labs were unremarkable. Imaging showed on plain film left knee acute lateral subluxation of the patella with possible associated avulsion fracture in the ED physician discussed the case with orthopedic surgery, Dr. Echols, who recommended MRI and initially recommended outpatient follow-up however she was unable to ambulate despite the knee immobilizer so admission was required. She was admitted to medical floor with a consultation to orthopedic surgery and given IV and p.o. pain medication as well as antiemetics. 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 Coleman and weightbearing as tolerated with her knee immobilizer on at all times. She has been seen by physical and Occupational Therapy during her hospital stay and they recommended ongoing therapy services with home health which i was set up. We were also able to obtain DME supplies for her at home. Labs were stable throughout the entire hospitalization. She was discharged with scheduled Tylenol, as needed Advil to be used no longer than 2 weeks and as needed oxycodone with a 1 week supply. She has a follow-up appointment that was scheduled with Dr. Coleman on 07/22/2023 for reevaluation and ongoing decision with regards to needs of surgical intervention. Discharge diagnoses: Sprain/partial tear of the medial patellar retinaculum Lateral dislocation of the patella Moderate to large lipohemarthrosis Osteochondral loose body at the recess of the anterior lateral and lateral femoral epicondyle Difficulty with ambulation Anxiety Depression PTSD Reactive attachment disorder Physical Exam Narrative Patient complained of a little bit of lightheadedness on initial exam today. Orthostatic vitals were done and negative. We observed her and her symptoms resolved later in the day. Const alert, oriented x3, no apparent distress, healthy appearing and well nourished Constitutional Narrative: , young, female, get her into a chair nurse assistant at the bedside getting ready tolying in bed with head of bed elevated, OT, left lower extremity knee immobilizer in place General Appearance: cooperative, comfortable, well kempt and well developed Orientation / Consciousness: awake, oriented to person, oriented to place and oriented to time Exam Limitations: no limitations HEENT normocephalic, head/scalp atraumatic and moist oral mucous membranes Eyes PERRL and EOMs intact bilaterally Eyes Narrative: No scleral icterus Resp normal respiratory effort, normal air movement, no retractions and clear to auscultation bilaterally Auscultation: Negative for rales, rhonchi or wheezes Cardio regular rate, regular rhythm, S1 normal heart sound, S2 normal heart sound, no murmurs, no rub, no gallops and no clicks GI normal to inspection, nondistended, normoactive bowel sounds, soft to palpation and non-tender Extremity normal capillary refill and no clubbing, cyanosis or edema Extremity Narrative: Left lower extremity knee immobilizer in place Skin no wounds, skin turgor normal and no jaundice General Skin Exam: no breakdown Neuro oriented x3, CN's II-XII intact bilaterally, no focal motor deficits and no sensory deficits noted Coordination / Balance: [id number] test normal Psych thought process normal, cooperative and affect normal Psych Narrative: Eye contact is good and patient interacts appropriately Appearance: appropriate Weight / BMI Weight Weight: 62.641 kg Body Mass Index (BMI) 31.0 ABG / Lab / Microbiology Data 07/15/23 05:45 07/15/23 05:45 D/C Instructions Discharge Diet: No restrictions Meaningful Use Info Meaningful Use Diagnoses (Choose all that apply): None applicable Discharge Plan Admission Admit Date/Time: 07/11/23 20:51 Primary Reason for Your Visit: Fall/Knee Pain Attending Provider: Oralia Summers Primary Care Provider: Care Physician,No Primary Consulting Providers: Mando Echols; Mery Gray; Ariana Rouse Instructions Additional Instructions / Restrictions: 1. You must wear your leg brace at all times while you are up moving around and you may put weight on it as you tolerate 2. Please follow-up with Dr. Coleman as noted below. 3. You may take a bath and remove the brace or take a sponge bath with the brace on but do not bear weight on the leg if the brace is off. 4. Please take any of your pain medication with food as they all may cause upset stomach if taken on an empty stomach. Discharge Orders/Prescriptions Prescriptions: New acetaminophen [Tylenol Extra Strength] 500 mg tablet 1,000 mg PO Q8 Qty: 60 0RF ibuprofen 600 mg Tablet 600 mg PO Q6H PRN PRN (Reason: Pain 1-10 Or Fever) Qty: 0 0RF Rx Instructions: Do not take for any longer than 2 weeks and only use as needed oxycodone 5 mg Tablet 5 mg PO Q6H 7 Days Qty: 28 0RF Continued Vraylar 1.5 mg capsule 1.5 mg PO DAILY Referrals / Follow Up: Fabian Coleman MD [Med Staff - Active Staff] - 07/22/23 11:00 am Care Physician,No Primary [Primary Care Provider] - NOT,DEFINED [Non-Staff] - Disposition Disposition (needs filled in before D/C Order can be placed): Home Health Service Charges/Coding Visit Charges Inpatient E&M: 09640 Disch Hosp
--- NOTE | 2023-07-16 17:11 | CON.PCM.OR_ITS ---
HPI Consult Data Date of Consult: 07/16/23 HPI Narrative HPI Narrative: KARTHIK DIAZ, is a 23 F who presents with an irreducible left knee patella dislocation, went lateral. Was dancing in tennis shoes, twisted the knee and it came out. Has tried 2 closed reductions now by the ED and Dr. Echols my colleague. Per the patient had a normal knee before then. Lives independently, complex social situation. Significant psych history and MRDD. Also was adopted from parents in [place] but then given up by local parents. Here with dependency case manager. 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 [facility] Medical History (Updated 07/12/23 @ 16:[address] 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 History of reactive attachment disorder Paranoid psychosis Home Medications cariprazine 1.5 mg capsule (Vraylar) 1.5 mg PO DAILY 07/11/23 [History Last Taken Unknown] acetaminophen 500 mg tablet (Tylenol Extra Strength) 1,000 mg (2 x 500 mg) PO Q8 #60 tabs 07/16/23 [Rx Last Taken Unknown] ibuprofen 600 mg tablet 600 mg PO Q6H PRN PRN Pain 1-10 Or Fever #0 tabs 07/16/23 [Rx Last Taken Unknown] oxycodone 5 mg tablet 5 mg PO Q6H 1 week #28 tabs 07/16/23 [Rx Last Taken Unknown] Allergy/AdvReac Type Severity Reaction Status Date / Time grass pollen Allergy Other Verified 11/01/20 08:09 lactose AdvReac Upset Verified 07/12/23 10:59 Stomach Family History adopted Surgical History (Updated 07/11/23 @ 21:[address] Mery Gray MD) History of facial surgery Social History (Updated 07/11/23 @ 20:[address] Mery Gray MD) household members: none Smoking Status: Never smoker alcohol intake: never substance use type: does not use Vital Signs Vital Signs Vital Signs: 07/15/23 20:55 07/16/23 03:59 07/16/23 10:00 Temperature 98 F 98.2 F Temperature Source Oral Oral Pulse Rate 97 64 Pulse Rate [Lying] Pulse Rate [Sitting (for 1 minute prior to obtaining)] Pulse Rate [Standing (for 1 minute prior to obtaining)] Pulse Strength Normal (2+) Respiratory Rate 16 16 Respiratory Effort Blood Pressure 128/88 H 106/75 Blood Pressure [Lying] Blood Pressure [Sitting (for 1 minute prior to obtaining)] Blood Pressure [Standing (for 1 minute prior to obtaining)] Blood Pressure Mean 101 85 Blood Pressure Mean [Lying] Blood Pressure Mean [Sitting (for 1 minute prior to obtaining)] Blood Pressure Mean [Standing (for 1 minute prior to obtaining)] Blood Pressure Source Monitor Monitor Blood Pressure Position Sitting Semi-Fowlers Blood Pressure Location Left Arm Left Arm Pulse Ox 98 98 Oxygen Delivery Method Room Air Room Air 07/16/23 09:00 07/16/23 14:17 07/16/23 14:27 Temperature 98 F Temperature Source Oral Pulse Rate 80 120 H Pulse Rate [Lying] 111 H Pulse Rate [Sitting (for 1 minute prior to obtaining)] 109 H Pulse Rate [Standing (for 1 minute prior to obtaining)] 117 H Pulse Strength Respiratory Rate 14 Respiratory Effort Normal Blood Pressure 112/78 Blood Pressure [Lying] 117/77 Blood Pressure [Sitting (for 1 minute prior to obtaining)] 114/80 Blood Pressure [Standing (for 1 minute prior to obtaining)] 128/109 H Blood Pressure Mean 89 Blood Pressure Mean [Lying] 90 Blood Pressure Mean [Sitting (for 1 minute prior to obtaining)] 91 Blood Pressure Mean [Standing (for 1 minute prior to obtaining)] 115 Blood Pressure Source Monitor Blood Pressure Position Semi-Fowlers Blood Pressure Location Left Arm Pulse Ox 98 96 Oxygen Delivery Method Room Air Nasal Cannula 07/16/23 14:30 Temperature 98.6 F Temperature Source Oral Pulse Rate 104 H Pulse Rate [Lying] Pulse Rate [Sitting (for 1 minute prior to obtaining)] Pulse Rate [Standing (for 1 minute prior to obtaining)] Pulse Strength Respiratory Rate 18 Respiratory Effort Blood Pressure 120/80 Blood Pressure [Lying] Blood Pressure [Sitting (for 1 minute prior to obtaining)] Blood Pressure [Standing (for 1 minute prior to obtaining)] Blood Pressure Mean 93 Blood Pressure Mean [Lying] Blood Pressure Mean [Sitting (for 1 minute prior to obtaining)] Blood Pressure Mean [Standing (for 1 minute prior to obtaining)] Blood Pressure Source Monitor Blood Pressure Position Semi-Fowlers Blood Pressure Location Left Arm Pulse Ox 96 Oxygen Delivery Method Room Air Weight Weight: 138 lb 1.596 oz Body Mass Index (BMI) 31.0 Physical Exam Const alert, no apparent distress and well nourished Extremity normal capillary refill and no calf tenderness Extremity Narrative: L knee closed, mod effusion, lateral poke hole from prior local anesthesia, unable to flex the knee, on the right side has full ROM. NVI normal sensation and motor function to the foot. patella feels laterally dislocated. Lab / Micro Data 07/15/23 05:45 07/15/23 05:45 Imaging [facility] Imaging Services [address] [place] [address] Lower Ext Joint Only (Routine) MR#: [id number] Acct: [id number] Name: KARTHIK DIAZ Rep #: [id number] : 2000 F 23 From: Andrew Summers MD PCP: Care Physician,No Primary Status: ADM VASHTI Study: Lower Ext Joint Only (Routine) Date of Exam: 07/12/23 Exam# [id number] Ordering Dr: Mery Gray MD STUDY: MRI LEFT KNEE REASON FOR EXAM: Female, 23 years old. Lateral subluxation of patella. Evaluate for possible avulsion fracture of left knee. TECHNIQUE: Standardized fat and water weighted pulse sequences were obtained in all 3 orthogonal planes. COMPARISON: Left knee radiographs dated 07/11/2023. FINDINGS: Normal medial meniscus. Normal hyaline cartilage of the medial femorotibial compartment. Normal medial femoral condyle and tibial plateau. Normal medial collateral ligamentous complex (MCL). Normal distal semimembranosus, gracilis and semitendinosus tendons. Normal lateral meniscus. Normal hyaline cartilage of the lateral femorotibial compartment. Normal lateral tibial plateau. Normal proximal tibiofibular articulation. Normal lateral collateral (fibular) ligament. Normal popliteus tendon. Normal biceps femoris tendon. Normal anterior cruciate ligament (ACL). Normal posterior cruciate ligament (PCL). There is a sprain/partial tear of the medial patellar retinaculum, with complete lateral dislocation of the patella with respect to the distal femur. There are associated bone impaction injuries/contusions involving the medial patella as well as anterolateral aspect of the lateral femoral condyle. The TT-TG distance measures 24 mm. Normal hyaline cartilage of the patellofemoral compartment. Normal quadriceps tendon. Normal patellar tendon. Normal Hoffa''s fat pad. There is a moderate to large volume lipohemarthrosis. There is a displaced 1.1 x 1.0 x 0.5 cm osteochondral loose body in the recess anterolateral to the lateral femoral epicondyle (sagittal T2 series 6 images 18-19; coronal T2 series 7 images 18-19). MRI/Lower Ext Joint Only (Routine) IMPRESSION: Sprain/partial tear of the medial patellar retinaculum, with complete lateral dislocation of the patella with respect to the distal femur. Associated bone impaction injuries/contusions involving the medial patella as well as anterolateral aspect of the lateral femoral condyle. Moderate to large lipohemarthrosis. Displaced 1.1 x 1.0 x 0.5 cm osteochondral loose body in the recess anterolateral to the lateral femoral epicondyle. No discrete meniscal tear. Electronically Signed: Andrew Summers MD at 10:34 EDT , Assessment & Plan Assessment/Plan (1) Lateral dislocation of left patella, initial encounter: PLAN: 23 yr F with irreducible left knee lateral patella dislocation. Multiple attempts at closed reduction. Believe this to be a new acute injury, and case reports in the literature do describe cases similar. Will plan to do open reduction, arthroscopy, debridement, removal of osteo chondral fragment. Likely lateral parapatellar approach, possibly medial reefing. Plan for surgery hopefully tomorrow based on ability. Got consent on phone through agency and Kieran her nurse as verbal 2 person consent. NPO overnight. Pros and cons risks and benefits were discussed with the patient including but not limited to infection, pain, stiffness, bleeding, damage to surrounding structures, neurovascular injury, recurrence or retear, failure or wear of hardware or fixation, instability, fracture, deep vein thrombosis and pulmonary embolism, anesthetic risks, , patient dissatisfaction, need for further surgery and other risks. Patient understood and wished to proceed with surgery, and signed the informed consent documentation.
--- NOTE | 2023-07-16 17:20 | CASEMGMT ---
Social Work The surgeon just came in to see her, and he plans do surgery tomorrow.? Her telehealth case manager was going to get her DME, C is set up w/[employer].? SARAH let Mikel Gibbons(her blood bank business manager) know that she is not leaving today.? Diana, her care provider, was in the room so she is aware, put the surgeon in touch w/[employer] for consent. SW will follow up after surgery to see if pt can still go home or if placement will be needed. As per the surgeon, pt will still be weight bearing as tolerated post op with the knee immobilizer. JACQUELYN Isaac
[2023-07-16 20:35] VITALS: BP 124/74; PULSE 103; RESP 18; TEMP 36.7; O2SAT 99
[2023-07-16] MEDS: 0.9% Saline Lock 10 ML Syringe IV (20:46)
--- NOTE | 2023-07-16 22:02 | NURSING ---
late entry. this rn called kelby durán in an attempt to answer the supplemental surgical questions. Addie was unable to answer the questions. Kelby said that she talked to the Dr today about getting the contact information changed. She said [employer] ([employer] should be listed as the primary contact. She gave 2 numbers. From 9am-5pm call [phone]. After hours call [phone]. Kelby would like to be listed as number 3 on the contact list. Kelby suggested we contact Susanadccedrick to have the supplemental questions answered. However, she doesn't have her number and states [facility] may be [place] the [place]. Kelby said the patient should have the phone number. this rn called registration and gave them the updated information.
[2023-07-17] VITALS (14 sets, daily range): BP systolic 98–138; BP diastolic 74–97; PULSE 70–106; RESP 14–20; TEMP 36.4–37; O2SAT 94–100; BMI 29.8
[2023-07-17] MEDS: oxyCODONE 5 MG Tablet PO (03:14)
[2023-07-17 04:37] LABS: Internal QC Validated? YES +Cl - CLEAR BKGD
[2023-07-17 04:38] LABS: Pregnancy, Urine Negative Negative; Record Kit Lot#,Urine Preg 718086
[2023-07-17 05:45] LABS: Absolute Lymphocyte Count 2.25 X10^3/uL (0.83-4.51); Basophil# 0.02 X10^3/uL; Basophil% 0.2 % (0-1); Eosinophil# 0.08 X10^3/uL; Eosinophils% 0.9 % (0-5); Hematocrit 39.8 % (37-47); Lymphocyte # 2.25 X10^3/ul (0.83-4.51); Mean Corp Hgb Conc 32.7 g/dL (32-36); Mean Corpuscular Hgb 30.5 pg (27.0-32.0); Mean Corpuscular Volume 93.4 fL (81-99); Mean Platelet Vol. 9.5 fl (6.2-12.0); Monocyte# 0.96 X10^3/uL; Monocyte% 10.2 % (0-10); NRBC Flagged by Analyzer 0 % (0-5); Neutrophil # 6.02 X10^3/uL (2.7-7.7); Neutrophil % 64.3 % (47-70); Platelet Count 339 K/mm3 (150-450); RBC Distribution Width CV 12.1 % (11.6-14.6); RBC Distribution Width SD 41.6 fl (35.1-43.9); Red Blood Count 4.26 M/mm3 (4.2-5.4); White Blood Count 9.4 K/mm3 (4.4-11.0)
[2023-07-17 05:53] LABS: International Normalized Ratio 1.1
[2023-07-17 06:05] LABS: Anion Gap 7 (5-15); BUN 18 mg/dL (7-18); BUN/Creat Ratio 19.6 RATIO (10-20); Calcium,Total 9.2 mg/dL (8.5-10.1); Chloride 103 mmol/L (98-107); Creatinine, Serum 0.92 mg/dL (0.55-1.02); EST Glomerular Filtration Rate 80 mL/min (>60); Est Glom Filt Rate - Afr Amer 97 mL/min (>60); Estimated Creatinine Clearance 78.61 ml/min; Glucose 92 mg/dL (74-106); Potassium 3.9 mmol/L (3.5-5.1); Sodium Level 135 mmol/L (136-145)
--- NOTE | 2023-07-17 10:06 | CASEMGMT ---
TC to [facility], left message that pt was not dc'd yesterday and to cancel referral.
[2023-07-17] MEDS: Lactated Ringers 1,000 ML 15 ML IV (13:08)
--- NOTE | 2023-07-17 13:52 | PCM.PN.ORT ---
Subjective Subjective OK to proceed. no concerns. Objective Data Objective Data Vital Signs: Vital Signs Temp Pulse Resp BP Pulse Ox O2 Del Method 98.2 F 100 18 106/80 96 Room Air 07/17/23 10:49 07/17/23 10:49 07/17/23 10:49 07/17/23 10:49 07/17/23 10:49 07/17/23 10:49 Oxygen Delivery Method Room Air Weight: 133 lb 1.596 oz Body Mass Index (BMI) 29.8 Intake & Output: Intake and Output for Last 24 Hours 07/15/23 07/16/23 07/17/23 23:59 23:59 23:59 Intake Total 730 / 730 640 / 640 Balance 730 / 730 640 / 640 Lab / Micro Data 07/17/23 05:30 07/17/23 05:30 Labs: Laboratory Results - last 24 hr 07/17/23 04:20: Urine Test Negative 07/17/23 05:30: WBC 9.4, RBC 4.26, Hgb 13.0, Hct 39.8, MCV 93.4, MCH 30.5, MCHC 32.7, RDW Std Deviation 41.6, RDW Coeff of Kaley 12.1, Plt Count 339, MPV 9.5, Immature Gran % (Auto) 0.400, Neut % (Auto) 64.3, Lymph % (Auto) 24.0, [place] % (Auto) 10.2 H, Eos % (Auto) 0.9, Baso % (Auto) 0.2, Absolute Neuts (auto) 6.0, Absolute Lymphs (auto) 2.25, Nucleated RBC % 0, PT 14.0, INR 1.1, Sodium 135 L, Potassium 3.9, Chloride 103, Carbon Dioxide 25.0, Anion Gap 7, BUN 18, Creatinine 0.92, Estim Creat Clear Calc 78.61, Est GFR (MDRD) Af Amer 97, Est GFR (MDRD) Non-Af 80, BUN/Creatinine Ratio 19.6, Glucose 92, Calcium 9.2 Assessment & Plan Assessment/Plan (1) Lateral dislocation of left patella, initial encounter: PLAN: 23 yr F pending left knee surgery... open reduction of locked patellar dislocation, arthroscopy to remove loose fragment and examine joint. OK to proceed with surgery. Discussed special circumstances with Dr. Olivas regarding getting consent.
[2023-07-17] MEDS: Cefazolin 2 GM in 0.9% Normal Saline (100mL Bag) 100 ML IV (14:10)
--- NOTE | 2023-07-17 14:20 | PCM.PN.HOSP ---
Reason for Visit Reason for Visit: Left knee pain Subjective Subjective No issues overnight. Plan is for surgery at 11. Objective Data Objective Data Vital Signs: Vital Signs Temp Pulse Resp BP Pulse Ox O2 Del Method 98.2 F 100 18 106/80 96 Room Air 07/17/23 10:49 07/17/23 10:49 07/17/23 10:49 07/17/23 10:49 07/17/23 10:49 07/17/23 10:49 Oxygen Delivery Method Room Air Weight: 60.373 kg Body Mass Index (BMI) 29.8 Intake & Output: Intake and Output for Last 24 Hours 07/15/23 07/16/23 07/17/23 23:59 23:59 23:59 Intake Total 730 / 730 640 / 640 Balance 730 / 730 640 / 640 Lab / Micro Data 07/17/23 05:30 07/17/23 05:30 Labs: Laboratory Results - last 24 hr 07/17/23 04:20: Urine Test Negative 07/17/23 05:30: WBC 9.4, RBC 4.26, Hgb 13.0, Hct 39.8, MCV 93.4, MCH 30.5, MCHC 32.7, RDW Std Deviation 41.6, RDW Coeff of Kaley 12.1, Plt Count 339, MPV 9.5, Immature Gran % (Auto) 0.400, Neut % (Auto) 64.3, Lymph % (Auto) 24.0, [place] % (Auto) 10.2 H, Eos % (Auto) 0.9, Baso % (Auto) 0.2, Absolute Neuts (auto) 6.0, Absolute Lymphs (auto) 2.25, Nucleated RBC % 0, PT 14.0, INR 1.1, Sodium 135 L, Potassium 3.9, Chloride 103, Carbon Dioxide 25.0, Anion Gap 7, BUN 18, Creatinine 0.92, Estim Creat Clear Calc 78.61, Est GFR (MDRD) Af Amer 97, Est GFR (MDRD) Non-Af 80, BUN/Creatinine Ratio 19.6, Glucose 92, Calcium 9.2 Physical Exam Const alert, oriented x3, no apparent distress, healthy appearing and well nourished Constitutional Narrative: Pleasant, , female, sitting up in bed, appears comfortable nontoxic, nursing manager at bedside helping get her cleaned up HEENT head/scalp atraumatic and moist oral mucous membranes Head and Scalp: normocephalic Extremity Extremity Narrative: Straight leg brace in place left lower extremity, pedal pulses are 2+ bilaterally, good cap refill Neuro oriented x3 and no focal motor deficits Speech: speech normal Psych affect normal Psych Narrative: Pleasant, interacts appropriately Assessment & Plan Assessment/Plan (1) Lateral dislocation of left patella, initial encounter: (2) Acute internal derangement of left knee: PLAN: Plan Left lateral knee dislocation with possible avulsion -Due to concerns about discharge home with her mobility from orthopedic surgery they have elected to perform surgery while she is hospitalized -Open reduction of locked patellar dislocation with arthroscopy for removal of loose fragments and joint examination is planned for today -Consent obtained from her caregiver/POA -Continue PT/OT -Weightbearing as tolerated preoperatively will wait for postoperative instructions -Continue as needed and scheduled pain medication as ordered -Will have to await postoperative therapy services to see with discharge planning needs are required Inability ambulate -Patient is weightbearing as tolerated -Ambulating with assistive device and knee immobilizer in place is improving Anxiety/depression/PTSD/reactive attachment disorder -Patient follows as an outpatient with counseling services -Continue home cariprazine DVT prophylaxis -Continue subcu enoxaparin CODE STATUS -Full code Charges/Coding Visit Charges Inpatient E&M: 413[address] [facility] L[facility]
[2023-07-17] MEDS: Bupivacaine 0.25% 30 ML Vial (14:40)
--- NOTE | 2023-07-17 14:53 | PCM.OPRPT ---
Problems Associated Problem List Diagnoses (1) Lateral dislocation of left patella, initial encounter: Report of Operation Date of Procedure: 07/17/23 Pre-Operative Diagnosis: Patellar dislocation and osteochondral fracture Post-Operative Diagnosis: Same Surgery/Procedure Performed:: Left knee close reduction patella, arthroscopic debridement and removal loose body Surgeon: Fabian Coleman Type of Anesthesia: General and Local Anesthesiologist: Krishna Olivas Estimated Blood Loss (mL): 20 Description of Procedure: Patient brought the operating theater. Placed supine on the table. SCD on the nonoperative leg. General anesthesia induced. 2 g IV Ancef ministered prior to start of procedure. Lower extremity prepped and draped in usual sterile fashion, using chlorhexidine prep solution allowing 3 minutes right time prior to draping. Tourniquet applied to the thigh appropriately padded. Preoperative timeout performed to confirm the site patient the surgery. Began by examining the leg. Difficult in flexion to fully range the knee patella still felt dislocated laterally. I made a gentle closed reduction maneuver and was able to re-locate the patella into the groove. Confirmed good flexion to 90 with stable PF joint. I then elevated the limb inflated the tourniquet to 250 mmHg. Made standard anterolateral and anteromedial arthroscopy portals. Did a thorough debridement and moderate synovectomy in all 3 compartments for moderate amount of synovitis and intra-articular congealed blood. The patella did appear to be seated in the groove albeit slightly laterally located. Cartilage in all 3 compartments was normal. There is a loose osteochondral fragment from the medial aspect nonarticular side of the patella. A grasper within the notch I removed that. I entered the medial and lateral gutters thoroughly irrigated there was no loose bodies there just 1 loose body total. The ACL as well as the medial and lateral meniscus and the PCL and the cartilage in all 3 compartments was otherwise normal aside from the osteochondral fragment. Arthroscopy pictures taken and saved throughout the case. Tourniquet let down and hemostasis achieved portal sites closed with 3-0 Monocryl sutures. Skin cleaned with wet dry dressing followed application of Adaptic 4 x 4 gauze ABD dressing 6 inch Sixto wrap loosely wrapped with a knee immobilizer in full extension. I tested the knee range of motion after he relocated the patella this was good stable with 0 to 90 degrees of flexion no spontaneous redislocation. Patient woken up from general acetic transfer off the operating table taken postanesthetic care unit in stable addition. All sponge needle counts were correct no complications. cpt 13774, 77118, 61126 Complications none Admit VTE Documentation VTE Present on Admission: No VTE Mechan Device Prophylaxis: SCD's VTE Pharm Prophylaxis ordered?: No Reason prophylaxis not ordered:: Treatment Not Indicated Procedures Musculoskeletal 20xxx-29xxx: Other Procedure See Report
--- NOTE | 2023-07-17 15:04 | PCM.PN.ORT ---
Subjective Subjective Post op note Objective Data Objective Data Vital Signs: Vital Signs Temp Pulse Resp BP Pulse Ox O2 Del Method 98.2 F 100 18 106/80 96 Room Air 07/17/23 10:49 07/17/23 10:49 07/17/23 10:49 07/17/23 10:49 07/17/23 10:49 07/17/23 10:49 Oxygen Delivery Method Room Air Weight: 133 lb 1.596 oz Body Mass Index (BMI) 29.8 Intake & Output: Intake and Output for Last 24 Hours 07/15/23 07/16/23 07/17/23 23:59 23:59 23:59 Intake Total 730 / 730 640 / 640 110 / 110 Balance 730 / 730 640 / 640 110 / 110 Lab / Micro Data 07/17/23 05:30 07/17/23 05:30 Labs: Laboratory Results - last 24 hr 07/17/23 04:20: Urine Test Negative 07/17/23 05:30: WBC 9.4, RBC 4.26, Hgb 13.0, Hct 39.8, MCV 93.4, MCH 30.5, MCHC 32.7, RDW Std Deviation 41.6, RDW Coeff of Kaley 12.1, Plt Count 339, MPV 9.5, Immature Gran % (Auto) 0.400, Neut % (Auto) 64.3, Lymph % (Auto) 24.0, Bonner % (Auto) 10.2 H, Eos % (Auto) 0.9, Baso % (Auto) 0.2, Absolute Neuts (auto) 6.0, Absolute Lymphs (auto) 2.25, Nucleated RBC % 0, PT 14.0, INR 1.1, Sodium 135 L, Potassium 3.9, Chloride 103, Carbon Dioxide 25.0, Anion Gap 7, BUN 18, Creatinine 0.92, Estim Creat Clear Calc 78.61, Est GFR (MDRD) Af Amer 97, Est GFR (MDRD) Non-Af 80, BUN/Creatinine Ratio 19.6, Glucose 92, Calcium 9.2 Assessment & Plan Assessment/Plan (1) Lateral dislocation of left patella, initial encounter: PLAN: Plan for WBAT in full extension in knee immobilizer. OK to DC patient when comfortable and as social situation allows. FU in the office in 1 week. Leave dressing in place until then.
[2023-07-17] MEDS: Epinephrine (1 mg/ml) 1 MG/ML VIAL (15:05)
[2023-07-17] MEDS: CARIPRAZINE HCL 1.5 MG CAPSULE PO (21:58)
[2023-07-18 00:41] VITALS: BP 107/75; PULSE 91; RESP 16; TEMP 36.4; O2SAT 99
[2023-07-18] MEDS: CARIPRAZINE HCL 1.5 MG CAPSULE PO (10:04)
[2023-07-18 10:05] VITALS: BP 120/83; PULSE 105; RESP 18; TEMP 36.4; O2SAT 97
--- NOTE | 2023-07-18 11:07 | CASEMGMT ---
Received notification from therapy that pt is cleared for homegoing. TC to [facility], spoke with Cori for referral for PT, OT and DUST BOX WORKER.
--- NOTE | 2023-07-18 12:06 | PCM.DC.SUM ---
Providers Date of Admission: 07/17/23 Date of Discharge: 07/18/23 Primary Care Physician: Monik Primary Care Phys Consultations 07/11/23 21:15 Consult: Orthopedics Routine Consulting Provider: Mando Echols Reason for Consult: left lateral subluxation of the patella with questionable avulsion fractur EMERGENT Consult: No MD Notified: Yes Date Notified: 07/11/23 Time Notified: 20:52 Method of Notification: ED Physician Initiated Reason For Visit: ADULT FTT, L KNEE LATERAL SUBLUXATION PATELLA, ?FX Diagnosis Discharge Diagnosis (1) Lateral dislocation of left patella, initial encounter: Status: Acute Code(s): S83.015A - Lateral dislocation of left patella, initial encounter Medications at Discharge Home Medications cariprazine 1.5 mg capsule (Vraylar) 1.5 mg PO DAILY 07/11/23 acetaminophen 500 mg tablet (Tylenol Extra Strength) 1,000 mg (2 x 500 mg) PO Q8 #60 tabs 07/16/23 ibuprofen 600 mg tablet 600 mg PO Q6H PRN PRN Pain 1-10 Or Fever #0 tabs 07/16/23 oxycodone 5 mg tablet 5 mg PO Q6H 1 week #28 tabs 07/16/23 Hospital Course Operations - (Left knee closed reduction under anesthesia with arthroscopic debridement and removal of loose body) Procedures - (X-ray left knee x 2/MRI left knee) Summary of Care Provided Minutes Spent on Discharge: 37 Hospital Course: Ms. He is a 23-year-old female who presented to the emergency department at [facility] on 07/11/2023 after a fall while she was dancing. She reportedly twisted and then landed with significant onset of left knee pain and swelling which resulted in her presenting to emergency department. On presentation her vital signs were unremarkable. Labs were unremarkable. Imaging showed on plain film left knee acute lateral subluxation of the patella with possible associated avulsion fracture in the ED physician discussed the case with orthopedic surgery, Dr. Echols, who recommended MRI and initially recommended outpatient follow-up however she was unable to ambulate despite the knee immobilizer so admission was required. She was admitted to medical floor with a consultation to orthopedic surgery and given IV and p.o. pain medication as well as antiemetics. 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 Coleman and weightbearing as tolerated with her knee immobilizer on at all times. However upon reevaluation Dr. Horta decided to have Dr. Coleman evaluate her here and he elected to take her to the OR on 07/17/2023 at which time a left knee closed reduction patella with arthroscopic debridement and removal of loose bodies was performed. Postoperatively the patient was feeling much better. She was not requiring a significant amount of pain medications and she was seen by physical and Occupational Therapy during her hospital stay and they recommended ongoing therapy services with home health which was set up. We were also able to obtain DME supplies for her at home including a wheelchair due to her need for independence and quick mobility which she does not currently have at this point. She also needs an elevating leg rests on that side due to being in a knee immobilizer and having the inability to bend her knee at this time. She is to remain weightbearing as tolerated with the brace on her left lower extremity and to follow-up with Dr. Coleman in 1 week. We were able to make an appointment for her prior to discharge. Labs were stable throughout the entire hospitalization. She was discharged with scheduled Tylenol, as needed Advil to be used no longer than 2 weeks and as needed oxycodone with a 1 week supply. She was discharged home with home health and an aide on 07/18/2023. Discharge diagnoses: Sprain/partial tear of the medial patellar retinaculum Lateral dislocation of the patella Moderate to large lipohemarthrosis Osteochondral loose body at the recess of the anterior lateral and lateral femoral epicondyle Difficulty with ambulation Anxiety Depression PTSD Reactive attachment disorder Physical Exam Narrative Patient states she is feeling great. Did well with therapy. Anxious to go home. Const alert, oriented x3, no apparent distress, healthy appearing and well nourished Constitutional Narrative: Pleasant, , female, sitting up in chair at the bedside, nursing at bedside, visitor at bedside,, appears comfortable, nontoxic General Appearance: cooperative, comfortable, well kempt and well developed Orientation / Consciousness: awake, oriented to person, oriented to place and oriented to time Exam Limitations: no limitations HEENT normocephalic, head/scalp atraumatic and moist oral mucous membranes HEENT Narrative: Dentition is good, Mallampati is 2, no thrush Eyes PERRL and EOMs intact bilaterally Eyes Narrative: No scleral icterus Neck no lymphadenopathy and supple Neck Narrative: Trachea midline, no thyroid enlargement Resp normal respiratory effort, normal air movement, no retractions, no use of accessory muscles and clear to auscultation bilaterally Auscultation: Negative for rales, rhonchi or wheezes Cardio regular rate, regular rhythm, S1 normal heart sound, S2 normal heart sound, no murmurs, no rub, no gallops and no clicks GI normal to inspection, nondistended, normoactive bowel sounds, soft to palpation, non-tender and non-distended Extremity no clubbing, cyanosis or edema Extremity Narrative: Straight leg brace in place left lower extremity, pedal pulses are 2+ Skin no rashes or lesions noted, skin turgor normal and no jaundice Neuro oriented x3, CN's II-XII intact bilaterally, no focal motor deficits and no sensory deficits noted Neuro Narrative: Moves all extremities symmetrically except left lower extremity due to being in a straight leg brace Speech: speech normal Psych cooperative Psych Narrative: Pleasant, interacts appropriately Weight / BMI Weight Weight: 60.373 kg Body Mass Index (BMI) 29.8 ABG / Lab / Microbiology Data 07/17/23 05:30 07/17/23 05:30 D/C Instructions Discharge Diet: No restrictions Discharge Activity: May Take a Tub Bath (Do not get knee wet) Change Dressing in: do not change dressing (Leave dressing in place until you see Dr. Coleman) Remove Dressing in: do not remove dressing Cleanse incision/area with: Do not get Incision Wet and Keep Dressing Clean & Dry Meaningful Use Info Meaningful Use Diagnoses (Choose all that apply): None applicable Discharge Plan Admission Admit Date/Time: 07/17/23 08:20 Primary Reason for Your Visit: Fall/Knee Pain Attending Provider: Oralia Summers Primary Care Provider: Care Physician,No Primary Consulting Providers: Mando Echols; Mery Gray; Ariana Rouse Instructions Additional Instructions / Restrictions: 1. You must wear your leg brace at all times while you are up moving around and you may put weight on it as you tolerate 2. Please follow-up with Dr. Coleman as noted below. 3. You may take a bath and remove the brace or take a sponge bath with the brace on but do not bear weight on the leg if the brace is off. 4. Please take any of your pain medication with food as they all may cause upset stomach if taken on an empty stomach. Discharge Orders/Prescriptions Prescriptions: New acetaminophen [Tylenol Extra Strength] 500 mg tablet 1,000 mg PO Q8 Qty: 60 0RF ibuprofen 600 mg Tablet 600 mg PO Q6H PRN PRN (Reason: Pain 1-10 Or Fever) Qty: 0 0RF Rx Instructions: Do not take for any longer than 2 weeks and only use as needed oxycodone 5 mg Tablet 5 mg PO Q6H 7 Days Qty: 28 0RF Continued Vraylar 1.5 mg capsule 1.5 mg PO DAILY Referrals / Follow Up: Fabian Coleman MD [Med Staff - Active Staff] - 07/22/23 11:00 am Care Physician,No Primary [Primary Care Provider] - NOT,DEFINED [Non-Staff] - Disposition Disposition (needs filled in before D/C Order can be placed): Home Health Service Charges/Coding Visit Charges Inpatient E&M: 27183 Disch Hosp >30min
--- NOTE | 2023-07-18 14:03 | CASEMGMT ---
Addendum entered by Michaela Gaitan 07/18/23 14:36: Rx received for tylenol and advil, tubed to [facility] pharmacy. TC to Skyler, he is aware that rx will be coming down and will have filled by 3:15. Received tc back from Epifanio Jha at [facility], he gave consent for pt to be dc'd home. He spoke with Diana also. TC to Mikel who is aware that Diana will brick picker and that the oxycodone was dc'd. Pt nurse aware when Diana will be here to pick her up. Pt ready for dc. Faxed [facility] dc summary and 2 rx per request to [phone], attn: Epifanio Jha. Addendum entered by Michaela Gaitan 07/18/23 14:23: Received tc from Diana pt HCP, she states she can pick pt up at some point between 3:30 and 4:15p. She states she was called by Epifanio at [facility] and has no concerns regarding pt taking medications. Hospitalist dc'd oxycodone. Diana is asking for meds to be called into [facility] instead of [facility]. Will update hospitalist. Updated nurse on when Diana will be able to transport pt home. Original Note: Uploaded dc summary to [facility] and sent to [facility] for necessity for DME. Spoke with [facility], Magi, [facility] will see pt tomorrow. BEVERLY LOWERY into pt room, pt is aware of the above. She denies any further needs. TC to Mikel Gibbons, he is also aware of the above. He has picked up pt DME and it is at her home. He states that pt PCS is unavailable to transport pt home and requests transportation be set up for this. Updated SW and dc operational assistant to set up. TC to [facility], spoke with Epifanio, he is aware of the above also. He expresses concern of pt tylenol not being prn or having an end date as well as pt being ordered oxycodone atc for 1 wk as pt does not have anyone to administer. He attempted to reach Addie Rizzo and left message. He asked for BEVERLY LOWERY to call Mikel back. TC back to Mikel, he cannot give permission for pt to have meds and states that he does not have a person to administer them. He will also attempt to reach Addie Rizzo. BEVERLY LOWERY updated hospitalist.
[2023-07-18 14:47] VITALS: BP 99/69; PULSE 88; RESP 18; TEMP 36.7; O2SAT 100
[2023-07-18] MEDS: Ibuprofen 600 MG Tablet PO (14:55)
== END 2023-07-18 15:53 | disposition home health service (06) | DRG 313 ==
LOC: ED 19:03 → MS3 21:07
PROVIDERS: Anesthesiology; Orthopaedic Surgery Sports Medicine; Admitting Provider Family Medicine; Emergency Provider Emergency Medicine; Visit Provider Internal Medicine
PROC: (CPT 29870; principal; 2023-07-17 13:25)
DX: S83.015A Lateral dislocation of left patella, initial encounter (principal); M25.062 Hemarthrosis, left knee; F32.A Depression, unspecified; E87.6 Hypokalemia; F41.9 Anxiety disorder, unspecified; S83.412A Sprain of medial collateral ligament of left knee, initial encounter; R26.2 Difficulty in walking, not elsewhere classified; M23.42 Loose body in knee, left knee; X50.1XXA Overexertion from prolonged static or awkward postures, initial encounter; F43.10 Post-traumatic stress disorder, unspecified; F94.1 Reactive attachment disorder of childhood; Z79.899 Other long term (current) drug therapy; Y93.41 Activity, dancing
CPT/HCPCS: 27562 ×2; 20611; 29876; 36415; 73560; 73721; 80048; 80053; 81025; 83735; 85025; 85027; 85610; 96372; 96374; 96376; 97110; 97116; 97162; 97166; 97530; 97535; 97802; 99221; 99285; J7120; A4216; G0378; J2405

== ENCOUNTER 2024-09-25 07:33 | Emergency (ER) | payer MEDICAID, SELFPAY ==
[2024-09-25 07:35] VITALS: BP 130/73; PULSE 118; RESP 18; TEMP 36.8; O2SAT 98; BMI 25.4
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
[2024-09-25 08:22] LABS: Absolute Lymphocyte Count 2.03 X10^3/uL (0.83-4.51); Absolute Neutrophil Count 4.2 X10^3/uL (2.0-7.7); Basophil# 0.02 X10^3/uL; Basophil% 0.3 % (0-1); Eosinophil# 0.04 X10^3/uL; Eosinophils% 0.6 % (0-5); Hematocrit 36.3 % (37-47); Hemoglobin 12.6 g/dL (12.0-15.0); Lymphocyte # 2.03 X10^3/ul (0.83-4.51); Lymphocyte % 28.7 % (19-41); Mean Corp Hgb Conc 34.7 g/dL (32-36); Mean Corpuscular Hgb 32.1 pg (27.0-32.0); Mean Corpuscular Volume 92.6 fL (81-99); Mean Platelet Vol. 9.1 fl (6.2-12.0); Monocyte# 0.75 X10^3/uL; Monocyte% 10.6 % (0-10); NRBC Flagged by Analyzer 0 % (0-5); Neutrophil # 4.15 X10^3/uL (2.7-7.7); Neutrophil % 58.7 % (47-70); Platelet Count 316 K/mm3 (150-450); RBC Distribution Width CV 12.9 % (11.6-14.6); Red Blood Count 3.92 M/mm3 (4.2-5.4); White Blood Count 7.1 K/mm3 (4.4-11.0)
--- NOTE | 2024-09-25 08:30 | ED.RN ---
attempted to contact Ciera Rizzo for consent to treat @ [phone]. left message for return call
[2024-09-25 09:17] LABS: Internal QC Validated? YES +Cl - CLEAR BKGD; Pregnancy, Serum, hCG Quali. NEGATIVE Negative
[2024-09-25 09:20] LABS: Alcohol, Blood (Medical)-Serum < 10.1 mg/dL (<=10.0); Anion Gap 10 (5-15); BUN 12 mg/dL (4-19); BUN/Creat Ratio 17.8 RATIO (10-20); Calcium,Total 8.7 mg/dL (7.6-11.0); Carbon Dioxide 20.7 mmol/L (21.0-32.0); Chloride 104 mmol/L (98-108); EST Glomerular Filtration Rate 124 (>60); Estimated Creatinine Clearance 99.73 ml/min (50-250); Glucose 87 mg/dL (70-99); Potassium 3.8 mmol/L (3.3-5.1); Sodium Level 135 mmol/L (133-145)
[2024-09-25 09:22] LABS: Amphetamine Urine NEGATIVE (<1000 ng/mL); Barbiturate Urine NEGATIVE (< 200 ng/mL); Benzodiazepine Urine NEGATIVE (< 200 ng/mL); Buprenorphine Urine NEGATIVE (< 200 ng/mL); Cocaine Urine NEGATIVE (< 300 ng/mL); Fentanyl, Urine NEGATIVE; Methadone Urine NEGATIVE (< 300 ng/mL); Opiates Urine NEGATIVE (< 300 ng/mL); Oxycodone, Urine NEGATIVE (< 100 ng/mL); PCP Urine NEGATIVE (< 25 ng/mL); THC Urine NEGATIVE (< 50 ng/mL)
--- NOTE | 2024-09-25 10:49 | ED.RN ---
This RN called to room by joyce schneider eating paper. This RN removed paper from pt's hand, pt refusing to speak.
--- NOTE | 2024-09-25 13:17 | CM.ED ---
Social work Concetta from Crisis (ph: [phone]) called this SW about 1220 and stated still working on finding placement for this patient due to participating in a meeting with patient's caregiver and guardian. Concetta faxed this SW patient's assessment, guardianship paperwork, and legal paperwork regarding patient's name change. Concetta stated ability to keep [facility] updated on what Crisis hears from placements. SW placed paperwork in patient's chart. SW to follow as needed. Raquel Lazcano, COPPER PLATE LITHOGRAPHER, LEAD WAREHOUSE ASSOCIATE
--- NOTE | 2024-09-25 15:48 | ED.RN ---
MIK FROM PHYSICIANS CALLED AT 1550 GIVING AN UPDATE ABOUT THE TRANSFER OF PT. DARVIN IS COMMING TO [facility]IST PT AT 1730
[2024-09-25 16:13] VITALS: BP 105/64; PULSE 88; RESP 14; TEMP 36.6; O2SAT 98
--- NOTE | 2024-09-25 16:18 | ED.RN ---
called report to [facility] at [phone] spoke with gennaro
== END 2024-09-25 18:23 ==
PROVIDERS: Emergency Provider Emergency Medicine; Visit Provider Emergency Medicine
DX: F29 Unspecified psychosis not due to a substance or known physiological condition (principal); F20.9 Schizophrenia, unspecified; R45.851 Suicidal ideations; Z91.148 Patient's other noncompliance with medication regimen for other reason; F41.8 Other specified anxiety disorders; Z79.899 Other long term (current) drug therapy
CPT/HCPCS: 80048; 80307; 82077; 84703; 85025; 99284; A4216

== ENCOUNTER 2024-11-21 00:11 | Emergency (ER) | payer MEDICAID, SELFPAY ==
[2024-11-21 00:12] VITALS: BP 139/102; PULSE 100; RESP 16; TEMP 37.2; O2SAT 98; BMI 18.8
--- OUTSIDE RECORDS SUMMARY | 2024-11-21 00:16 | XMS RPT_ITS | CCD ---
Author Organization [facility] Care Team Providers Care Property Developer Name Role Phone STORTS, MIKE BANK VAULT CUSTODIAN Unavailable Unavailable STORTS, MIKE BANK VAULT CUSTODIAN Unavailable Unavailable MISC, DR Unavailable Unavailable NRO, BARBARA Unavailable Unavailable NRO, BARBARA Unavailable Unavailable MISC, DR Unavailable Unavailable NRO, BARBARA Unavailable Unavailable NRO, BARBARA Unavailable Unavailable MISC, DR Unavailable Unavailable Julian Rick MD Primary Care Provider Lopez, Rere Unavailable Lopez, Rere Primary Care Provider [phone] No, Physician Primary Care Provider Unavailabl e DUPLICATION SPECIALISTASHVIN Attending Unavailab le NO, PHYSICIAN Primary Care Unavailable NO, PHYSICIAN Primary Care Unavailable AKOSUA VANESSA Attending Unavailable DUPLICATION SPECIALISTASHVIN QUEVEDO Attending Unavailab le NO, PHYSICIAN Primary Care Unavailable Dr. Gamaliel Jovel Emergency Provider Care Physician, No Primary Primary Care Provider Unavailable Dr. Mery Gray Admit Provider Dr. Mery Gray Attending Provider Dr. Mery Gray Other Provider Dr. Mando Echols Other Provider Dr. Ariana Rouse Attending Provider Dr. Ariana Rouse Other Provider Dr. Mando Echols Attending Provider Dr. Oralia Summers Other Provider Dr. Oralia Summers Attending Provider MD Fabian Coleman Attending Provider Lea BANK VAULT CUSTODIAN, Rere A Unavailable Lea BANK VAULT CUSTODIAN, Rere A Primary Care Provider PROVIDER, UNKNOWN Admitting Unavailable PROVIDER, UNKNOWN Attending Unavailable LEA, RERE A Primary Care Unavailable Courtney Lay Attending Unavailable Care Physician, No Primary Primary Care Unava ilable Dr. Courtney Lay DO Attending Provider Dr. Courtney Lay DO Emergency Provider Care Physician, No Primary Primary Care Provider Unavailable Dr. Nelson Curran MD Emergency Provider [phone] Care Physician, No Primary Primary Care Unava ilable Nelson Curran Attending Unavailable JESS TOLLIVER Attending Unavail able LEA, RERE A Primary Care Unavailable JERAD KING Attending Unavailable LEA, RERE A Primary Care Unavailable KIA LEBLANC Attending Unavailable LEA, RERE A Primary Care Unavailable GREGORIA GOLD Referring Unavailable LEA, RERE A Primary Care Unavailable GREGORIA GOLD Attending Unavailable LEA, RERE A Primary Care Unavailable Allergies Allergy Classification Reported Allergen(s) Allergy Type Date of Onset Reaction(s) Facility (13 sources) Cat; Translations: [CATS] Allergy to substance 9 Other: See Comments [facility] Work Phone: (13 sources) Seasonal allergy; Translations: [SEASONAL ALLERGIES] Allergy to substance 9 Unknown [facility] Work Phone: (2 sources) cow milk allergenic extract Drug Allergy 1 Upset Stomach [facility] (5 sources) Grass pollen; Translations: [grass pollen] Allergy to substance 1 Other [facility] (2 sources) Lactose Drug Allergy 4 Upset Stomach [facility] Comment on above: upset stomach (1 source) Unable to Assess Drug allergy (disorder) 5 [facility] Repository (1 source) Lactose Drug Allergy 5 [facility] Medications Current Medications Medication Drug Class(es) Dates Sig (Normalized) Sig (Original) acetaminophen 500 mg oral tablet (2 sources) Start: 07-16-2023 take 2 tablets by mouth every eight hours Acetaminophen (Tylenol Extra Strength) 500 mg tablet Active 1000 mg PO EVERY 8 HOURS 60 July 16, 2023 12:00am cariprazine 3 mg oral capsule (11 sources) Atypical Antipsychotic Start: 07-09-2024 take 1 capsule by mouth once daily cariprazine (VRAYLAR) 3 mg capsule Take by mouth once daily. 07/09/2024 Active Start: 07-11-2023 take 1 capsule by [facility] once daily Cariprazine (Vraylar) 1.5 mg capsule Active 1.5 mg PO DAILY July 11, 2023 12:00am Ethinyl Estradiol / norgestimate (6 sources) Progestin, Estrogen Start: 07-07-2024 take 1 tablet by mouth once daily norgestimate 0.25 mg-ethinyl estradiol 35 mcg (SPRINTEC) 0.25-35 mg-mcg per tablet Take 1 tablet by mouth once daily. 84 tablet 3 07/07/2024 Active ibuprofen 600 mg oral tablet (2 sources) Nonsteroidal Anti-inflammatory Drug Start: 07-16-2023 take 1-10 tablets by mouth every three hours as needed Ibuprofen 600 mg Tablet Active 600 mg PO EVERY 6 HOURS NEEDED as needed for Pain 1-10 Or Fever 0 July 16, 2023 12:00am Do not take for any longer than 2 weeks and only use as needed levonorgestrel 0.677924 mg/hr intrauterine system (9 sources) Progestin, Progestin-containi ng Intrauterine Device Start: 12-03-2018 levonorgestrel (MIRENA) 20 mcg/24 hours (5 yrs) 52 mg IUD 1 Each by INTRAUTERINE route one time only for 1 dose. to be placed in Operating room 1 Each 12/03/2018 Active Comment on above: 1 Each by INTRAUTERI NE route one time only for 1 dose. to be placed in Operating room multivitamin per tablet (3 sources) take 1 tablet by mouth once daily multivitamin per tablet Take 1 (one) tablet by mouth daily . 0 Active multivitamin tablet (7 sources) take 1 tablet by mouth once daily multivitamin tablet Take 1 tablet by mouth once daily. Active [place] (Unobtainable) (1 source) Start: 08-21-2024 [place] (Unobtainable) Active August 21, 2024 12:00am Completed/Discontinued Medications Medication Drug Class(es) Dates Sig (Normalized) Sig (Original) FLUoxetine 20 mg oral tablet (9 sources) Serotonin Reuptake Inhibitor Start: 09-18-2019 End: 07-03-2024 take 1 tablet by mouth once daily after breakfast FLUoxetine HCl 20 mg tablet Indications: Anxiety disorder, unspecified type , Severe episode of recurrent major depressive disorder, without psychotic features (HCC) Take 1 tablet by mouth daily after breakfast. 09/18/2019 07/03/2024 Discontinued Start: 12-01-2018 End: 07-11-2023 take 1 capsule by mouth once daily Fluoxetine 20 MG capsule Discontinued 20 mg PO DAILY December 01, 2018 12:00am July 11, 2023 8:32pm Comment on above: Take 1 tablet by lizette th daily after breakfast. oxyCODONE hydrochloride 5 mg oral tablet (1 source) Opioid Agonist Start: 07-18-19 End: 08-09-19 take 1 tablet by mouth every six hours as needed for pain Oxycodone 5 mg tablet Discontinued 5 mg PO EVERY 6 HOURS as needed for pain 08 09July 18, 2023 August 09, 2023 2:01pm QUEtiapine 50 mg oral tablet (9 sources) Atypical Antipsychotic Start: 12-02-19 End: 07-04-19 take 1 tablet by mouth at bedtime Quetiapine Fumarate (Seroquel Xr) 50 MG Tab.Sr.24h Discontinued 50 mg PO AT BEDTIME December 01, 2018 12:00am July 11, 2023 8:32pm Comment on above: Take 1 tablet by lizette th daily at bedtime. Problems Active Problems Problem Classification Problem Date Documented Date Episodic/Chronic Abdominal pain (2 sources) Pain in female pelvis; Translations: [Pelvic and perineal pain] Onset: 07-14-2024 07-03-2024 Episodic Anxiety disorders (11 sources) Anxiety disorder; Translations: [Anxiety disorder, unspecified] Onset: 05-29-2015 10-03-2018 Chronic Contraceptive and procreative management (5 sources) Intrauterine contraceptive device in situ; Translations: [Encounter for routine checking of intrauterine contraceptive device] Onset: 07-14-2024 12-12-2022 Episodic Developmental disorders (8 sources) Developmental academic disorder; Translations: [Developmental disorder of scholastic skills, unspecified] Onset: 02-21-2017 07-03-2024 Chronic Disorders usually diagnosed in infancy, childhood, or adolescence (4 sources) Reactive attachment disorder; Translations: [Reactive attachment disorder of childhood] Onset: 02-21-2017 10-03-2018 Chronic Joint disorders and dislocations; trauma-related (5 sources) Derangement of left knee; Translations: [Unspecified internal derangement of left knee] 07-11-2023 Chronic Joint disorders and dislocations; trauma-related (3 sources) Lateral patellofemoral dislocation; Translations: [Lateral dislocation of left patella, initial encounter] 07-12-2023 Episodic Menstrual disorders (1 source) Dysmenorrhea; Translations: [Dysmenorrhea, unspecified] 06-17-2024 Chronic Mood disorders (17 sources) 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 features; Translations: [Major depressive disorder, recurrent severe without psychotic features] Onset: 02-22-2017 10-03-2018 Chronic Mood disorders (2 sources) Mood disorders; Translations: [Depression, unspecified] Onset: 09-01-2024 Nausea and vomiting (2 sources) Vomiting; Translations: [Vomiting, unspecified] Onset: 11-03-2024 11-03-2024 Episodic Other ear and sense organ disorders (1 source) Bilateral hearing loss; Translations: [Impacted cerumen, bilateral] 01-09-2023 Episodic Other ear and sense organ disorders (2 sources) Impacted cerumen of bilateral ears; Translations: [Impacted cerumen, bilateral] 01-09-2023 Episodic Other ear and sense organ disorders (2 sources) Impacted cerumen, bilateral; Translations: [Impacted cerumen, bilateral] Onset: 07-10-2023 Episodic Other nervous system disorders (3 sources) Unable to walk; Translations: [Difficulty in walking, not elsewhere classified] 07-11-2023 Chronic Other nervous system disorders (2 sources) Difficulty in walking, not elsewhere classified; Translations: [Difficulty in walking] 07-11-2023 Chronic Other screening for suspected conditions (not mental disorders or infectious disease) (2 sources) Patient encounter status; Translations: [Encounter for screening for malignant neoplasm of cervix] Onset: 07-14-2024 07-03-2024 Episodic Residual codes; unclassified (1 source) Noncompliance with medication regimen; Translations: [Noncompliance with medication regimen] 09-25-2024 Episodic Schizophrenia and other psychotic disorders (11 sources) Schizophrenia; Translations: [Schizophrenia, unspecified] Onset: 07-19-2022 07-03-2024 Chronic Schizophrenia and other psychotic disorders (4 sources) Psychogenic paranoid psychosis; 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] 11-01-2020 Episodic Screening and history of mental health and substance abuse codes (5 sources) H/O: depression; Translations: [Personal history of other mental and behavioral disorders] 11-27-2018 Episodic Suicide and intentional self-inflicted injury (2 sources) Suicidal thoughts; Translations: [Suicidal ideations] 09-25-2024 Episodic Syncope (1 source) Near syncope; Translations: [Syncope and collapse] Episodic Unclassified (1 source) Unknown / UNK(Unknown) Onset: 09-26-2017 Past or Other Problems Problem Classification Problem Date Documented Da te Episodic/Chronic Administrative/social admission (11 sources) Relationship problem between parent and adopted child; Translations: [Parent-adopted child conflict] Onset: 02-22-2017 10-03-2018 Episodic Cancer; other and unspecified primary (5 sources) H/O: neoplasm; Translations: [Personal history of other benign neoplasm] Onset: 07-10-2024 07-10-2024 Episodic Other skin disorders (6 sources) Mass of subcutaneous tissue; Translations: [Localized swelling, mass and lump, unspecified] Onset: 07-10-2024 07-09-2024 Episodic Unclassified (1 source) LAB TESTING Onset: 09-26-2017 Unclassified (1 source) Patient encounter status 06-17-2024 Results Test Name Value Interpretation Reference Range Facility [facility] 11-03-2024 CNOV Office Visit ([facility]) ---- MAURICE LINARES ([id number]) 1 F Date Time Provider Department 11/03/24 6:30 PM JERAD KING During your visit today, we recorded the following information about you: Temperature Pulse Respiration Blood pressure 98.3 degrees 104/minute 16/minute 122/70 Weight Last Period 59.2 kg 07/21/24 Jerad King APRN.BANK VAULT CUSTODIAN 11/03/2024 6:51 PM Signed [facility] Subjective Maurice Linares is a 24 year old female. Patient presents with: Vomiting: after eating x 5 days HPI Emesis: - Emesis after every meal x5 days. - Able to consume entire meal before emesis occurs. - Denies nausea; reports drinking soda post-emesis, which sometimes stays down. - Decreased urination during the day; urinates every morning. - Reports feeling dehydrated and dizzy yesterday, but not today. - Denies abdominal pain, dysphagia, or odynophagia. - Denies choking on food prior to onset of symptoms. - Denies sexual activity; no possibility of . - Recent hospitalization for mental health issues; new medication started during hospitalization. - Amenorrhea since discharge from hospital. Review of Systems Ears/Nose/Mouth/Thr oat: (-) sore throat, (-) dysphagia Cardiovascular: (+) chest pain during vomiting Gastrointestinal: (+) vomiting, (-) nausea, (-) abdominal pain Genitourinary: (+) decreased urinary frequency Neurological: (-) dizziness Objective BP 122/70 Pulse 104 Temp 36.8 ?C (98.3 ?F) Resp 16 Wt 59.2 kg (130 lb 8.2 oz) LMP 07/21/2024 (Approximate) SpO2 99% BMI 29.26 kg/m? Physical Exam General: No acute distress. Abd: No tenderness to palpation. { 1. Vomiting, unspecified vomiting type, unspecified whether nausea present (R11.10) - Onset 5 days ago, occurring after every meal; able to consume full meals before emesis occurs. - No associated nausea, abdominal pain, or dysphagia; occasional dizziness reported, likely secondary to dehydration. - Abdominal examination reveals no tenderness. - Differential diagnoses include gastrointestinal obstruction or hernia. - Referred to the emergency department for further evaluation and imaging studies to determine underlying cause. and Recording using [employer] software for draft documentation of the visit was discussed with the patient/authorized promotions representative; all questions welcomed and answered. Patient/authorized promotions representative agreed to proceed MDM Procedures Allergies As of Date: 11/03/2024 Noted Allergy Reaction CATS 10/03/2018 14 - Other: See Comments Comments: sneezing SEASONAL ALLERGIES 10/03/2018 16 - Unknown Date Reviewed: 11/03/2024 Reviewed by: Avril Butler MA - Fully Assessed Reason for Visit: Vomiting [120] Cmt: after eating x 5 days Visit Diagnosis:Vomiting, unspecified vomiting type, unspecified whether nausea present [R11.10] Prescriptions as of 11/03/2024 - cariprazine (VRAYLAR) 3 mg capsule Take by mouth once daily. - norgestimate 0.25 mg-ethinyl estradiol 35 mcg (SPRINTEC) 0.25-35 mg-mcg per tablet Take 1 tablet by mouth once daily. - multivitamin tablet Take 1 tablet by mouth once daily. Problem List As Of Date 11/03/2024 Noted Resolved PTSD (post-traumatic stress disorder) [F43.10] 05/29/2015 Parent-adopted child conflict [Z62.821] 02/22/2017 General learning disability [F81.9] 02/21/2017 Severe episode of recurrent major depressive di*02/22/2017 Schizophrenia (HCC) [F20.9] 07/19/2022 History of hemangioma [Z86.018] 07/10/2024 Subcutaneous mass [R22.9] 07/10/2024 Encounter Status:Closed by JERAD KING on 11/03/24 Normal [facility] Absolute lymphocyte countOrd ered By: Nelson Curran on 09-25-2024 Lymphocytes Auto (Unsp spec) [#/Vol] 2.03 10*3/uL 0.83-4.51 [facility] Absolute neutrophil countOrd ered By: Nelson Curran on 09-25-2024 Neutrophils (Bld) [#/Vol] 4.2 10*3/uL 2.0-7.7 [facility] Alcohol, Blood (Medical)-Ser umon 09-25-2024 SERUM ETOH < 10.1 Normal <=10.0 [facility] Comment on above: Result Comment: This test is for medical purposes only. The legal definition of intoxication varies according to local law. Performed By: #### L 500.2500, L700.6800, L501.9100, L100.0100, L505.5000 #### [facility] [address] [place], [address] Amphetamine detection with 1 000 ng/mL as cutoffOrdered By: Nelson Curran on 09-25-2024 Amphetamines Screen method >1000 ng/mL Ql (U) Negative < 200 ng/mL [facility] Anion gap in Serum or Plasma Ordered By: Nelson Curran on 09-25-2024 Anion gap [Moles/Vol] 10 mmol/L - [facility] Automated lymphocyte count a s percentage of total leukocytesOrdered By: Nelsondaniella Curran on 09-25-2024 Lymphocytes/100 WBC Auto (Unsp spec) 28.7 % [facility] BUN/creatinine ratioOrdered By: Nelson Curran on 09-25-2024 Urea nitrogen/Creatinine [Mass ratio] 17.8 mg/mg - [facility] Basic Metabolic Profile (BMP )on 09-25-2024 BUN/CRE 17.8 RATIO Normal - [facility] Comment on above: Performed By: #### L 500.2500, L700.6800, L501.9100, L100.0100, L505.5000 #### [facility] [address] [place], [address] Calcium [Mass/Vol] 8.7 mg/dL Normal 7.6-11.0 [facility] Comment on above: Performed By: #### L 500.2500, L700.6800, L501.9100, L100.0100, L505.5000 #### [facility] [address] [place], [address] Chloride [Moles/Vol] 104 mmol/L Normal 98-108 [facility] Comment on above: Performed By: #### L 500.2500, L700.6800, L501.9100, L100.0100, L505.5000 #### [facility] [address] [place], [address] CO2 [Moles/Vol] 20.7 mmol/L Low 21.0-32.0 [facility] Comment on above: Performed By: #### L 500.2500, L700.6800, L501.9100, L100.0100, L505.5000 #### [facility] [address] [place], [address] Creatinine [Mass/Vol] 0.70 mg/dL Normal 0.70-1.20 [facility] Comment on above: Performed By: #### L 500.2500, L700.6800, L501.9100, L100.0100, L505.5000 #### [facility] [address] [place], [address] ECRCL 99.73 ml/min Normal 50-250 [facility] Comment on above: Performed By: #### L 500.2500, L700.6800, L501.9100, L100.0100, L505.5000 #### [facility] [address] [place], [place], [facility] GAP 10 Normal 5-15 [facility] Comment on above: Performed By: #### L 500.2500, L700.6800, L501.9100, L100.0100, L505.5000 #### [facility] [address] [place], [address] GFR/1.73 sq M.predicted among non-blacks MDRD (S/P/Bld) [Vol rate/Area] 124 mL/min/{1.73_m2} Normal >60 [facility] Comment on above: Result Comment: mL/m in/1.73m2 CKD-EPI Creatinine Equation (2020) Performed By: #### L 500.2500, L700.6800, L501.9100, L100.0100, L505.5000 #### [facility] [address] [place], [address] Glucose [Mass/Vol] 87 mg/dL Normal 70-99 [facility] Comment on above: Performed By: #### L 500.2500, L700.6800, L501.9100, L100.0100, L505.5000 #### [facility] [address] [place], [address] Potassium [Moles/Vol] 3.8 mmol/L Normal 3.3-5.1 [facility] Comment on above: Performed By: #### L 500.2500, L700.6800, L501.9100, L100.0100, L505.5000 #### [facility] [address] [place], [address] Sodium [Moles/Vol] 135 mmol/L Normal 133-145 [facility] Comment on above: Performed By: #### L 500.2500, L700.6800, L501.9100, L100.0100, L505.5000 #### [facility] [address] [place], [address] Urea nitrogen [Mass/Vol] 12 mg/dL Normal 4-19 [facility] Comment on above: Performed By: #### L 500.2500, L700.6800, L501.9100, L100.0100, L505.5000 #### [facility] [address] [place], [address] Basophil percentageOrdered B y: Nelson Curran on 09-25-2024 Basophils/100 WBC (Bld) 0.3 % 0-1 [facility] CBC W/Diff, Automatedon 06-0 Absolute Lymph 2.03 X10 3/uL Normal 0.83-4.51 [facility] Comment on above: Performed By: #### L 500.2500, L700.6800, L501.9100, L100.0100, L505.5000 #### [facility] [address] [place], [address] Absolute Neut 4.2 X10 3/uL Normal 2.0-7.7 [facility] Comment on above: Performed By: #### L 500.2500, L700.6800, L501.9100, L100.0100, L505.5000 #### [facility] [address] [place], [address] Basophils/100 WBC (Bld) 0.3 % Normal 0-1 [facility] Comment on above: Performed By: #### L 500.2500, L700.6800, L501.9100, L100.0100, L505.5000 #### [facility] [address] [place], [address] Eosinophils/100 WBC (Bld) 0.6 % Normal 0-5 [facility] Comment on above: Performed By: #### L 500.2500, L700.6800, L501.9100, L100.0100, L505.5000 #### [facility] [address] [place], [address] Erythrocyte distribution width (RBC) [Ratio] 12.9 % Normal 11.6-14.6 [facility] Comment on above: Performed By: #### L 500.2500, L700.6800, L501.9100, L100.0100, L505.5000 #### [facility] [address] [place], [address] Hematocrit (Bld) [Volume fraction] 36.3 % Low 37-47 [facility] Comment on above: Performed By: #### L 500.2500, L700.6800, L501.9100, L100.0100, L505.5000 #### [facility] [address] [place], [address] Hemoglobin (Bld) [Mass/Vol] 12.6 g/dL Normal 12.0-15.0 [facility] Comment on above: Performed By: #### L 500.2500, L700.6800, L501.9100, L100.0100, L505.5000 #### [facility] [address] [place], [address] IG% 1.100 High 0.0-0.9 [facility] Comment on above: Result Comment: IG% - Immature Granulocytes (promyelocytes, myelocytes and metamyelocytes) > 1% indicates that a LEFT SHIFT is Present. Performed By: #### L 500.2500, L700.6800, L501.9100, L100.0100, L505.5000 #### [facility] [address] [place], [address] Lymphocytes/100 WBC (Bld) 28.7 % Normal 19-41 [facility] Comment on above: Performed By: #### L 500.2500, L700.6800, L501.9100, L100.0100, L505.5000 #### [facility] [address] [place], [address] MCH (RBC) [Entitic mass] 32.1 pg High 27.0-32.0 [facility] Comment on above: Performed By: #### L 500.2500, L700.6800, L501.9100, L100.0100, L505.5000 #### [facility] [address] [place], [address] MCHC (RBC) [Mass/Vol] 34.7 g/dL Normal 32-36 [facility] Comment on above: Performed By: #### L 500.2500, L700.6800, L501.9100, L100.0100, L505.5000 #### [facility] [address] [place], [address] MCV (RBC) [Entitic vol] 92.6 fL Normal 81-99 [facility] Comment on above: Performed By: #### L 500.2500, L700.6800, L501.9100, L100.0100, L505.5000 #### [facility] [address] [place], [address] Monocytes/100 WBC (Bld) 10.6 % High 0-10 [facility] Comment on above: Performed By: #### L 500.2500, L700.6800, L501.9100, L100.0100, L505.5000 #### [facility] [address] [place], [address] Neutrophils/100 WBC (Bld) 58.7 % Normal 47-70 [facility] Comment on above: Performed By: #### L 500.2500, L700.6800, L501.9100, L100.0100, L505.5000 #### [facility] [address] [place], [address] Nucleated RBC (Bld) [#/Vol] 0 10*3/uL Normal 0-5 [facility] Comment on above: Performed By: #### L 500.2500, L700.6800, L501.9100, L100.0100, L505.5000 #### [facility] [address] [place], [address] Platelet mean volume (Bld) [Entitic vol] 9.1 fL Normal 6.2-12.0 [facility] Comment on above: Performed By: #### L 500.2500, L700.6800, L501.9100, L100.0100, L505.5000 #### [facility] [address] [place], [address] Platelets (Bld) [#/Vol] 316 10*3/uL Normal 150-450 [facility] Comment on above: Performed By: #### L 500.2500, L700.6800, L501.9100, L100.0100, L505.5000 #### [facility] [address] [place], [address] RBC (Bld) [#/Vol] 3.92 10*6/uL Low 4.2-5.4 [facility] Comment on above: Performed By: #### L 500.2500, L700.6800, L501.9100, L100.0100, L505.5000 #### [facility] [address] [place], [address] RDW SD 44.0 fl High 35.1-43.9 [facility] Comment on above: Performed By: #### L 500.2500, L700.6800, L501.9100, L100.0100, L505.5000 #### [facility] [address] [place], [address] WBC (Bld) [#/Vol] 7.1 10*3/uL Normal 4.4-11.0 [facility] Comment on above: Performed By: #### L 500.2500, L700.6800, L501.9100, L100.0100, L505.5000 #### [facility] [address] [place], [address] Carbon dioxide, total [Moles /volume] in Central venous bloodOrdered By: Nelson Curran on 09-25-2024 CO2 [Moles/Vol] 20.7 mmol/L Low 21.0-32.0 [facility] Chloride assayOrdered By: Ced Curran on 09-25-2024 Chloride [Moles/Vol] 104 mmol/L 98-108 [facility] Emergency Department Summary on 09-25-2024 Emergency Department Summary [facility] Medical Records Department [address] [place] [address] Emergency Department Summary 09/25/24 MR#: [id number] Acct: [id number] Name: MAURICE LINARES Rep #: [id number] : 2000 24 From: Nelson Curran MD PCP: Care Physician,No Primary Status:DEP ER Location: ED HPI HPI - Psych History of Present Illness Chief Complaint: Mental Health Detail of Chief Complaint: Patient 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 Associated Symptoms Associated Symptoms - Psych: Positive for Depressed (Per patient's nurse) and Suicidal Thoughts (Per patient's nurse) Specific plan (suicidal thought): Unknown Narrative Narrative: Patient is a 24-year-old woman. She has known history of skin. She receives her care at the crisis center. She has been noncompliant. They have been attempting to contact her. They have been unsuccessful. sewage reticulation drafting officer informed me that there were 3 calls regarding Ms. Diaz. She was found walking the middle of the street without shoes. She was wearing a tank top with exposure of abdomen and a very short skirt. When she arrived in handcuffs she had shoe on her left foot but not shoe on her right foot. She is nonverbal. sewage reticulation drafting officer told me that she saw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 Performed By: #### L 500.2500, L700.6800, L501.9100, L100.0100, L505.5000 #### [facility] [address] [place], [place], [facility] THC Negative Normal < 50 ng/mL [facility] Comment on above: Performed By: #### L 700.6800, L501.9100, L500.2500, L100.0100, L505.5000 #### [facility] [address] [place], [place], [facility] Performed By: #### L 500.2500, L700.6800, L501.9100, L100.0100, L505.5000 #### [facility] [address] [place], [address] Urine benzodiazepine levelOr dered By: Remus Ungur on 08-21-2024 Benzodiazepines Ql (U) Negative < 200 ng/mL [facility] Urine cocaine levelOrdered B y: Remus Ungur on 08-21-2024 Cocaine Ql (U) Negative < 300 ng/mL [facility] Urine [id number] abinol (THC) measurementOrdered By: Remus Lay on 08-21-2024 Cannabinoids Screen Ql (U) Negative < 50 ng/mL [facility] Urine phencyclidine (PCP) de tectionOrdered By: Remus Ungdouglas on 08-21-2024 Phencyclidine Ql (U) Negative < 25 ng/mL [facility] Absolute lymphocyte countOrd ered By: Remus Cartagenadouglas on 08-20-2024 Lymphocytes Auto (Unsp spec) [#/Vol] 3.70 10*3/uL 0.83-4.51 [facility] Absolute neutrophil countOrd ered By: Remus Lay on 08-20-2024 Neutrophils (Bld) [#/Vol] 4.6 10*3/uL 2.0-7.7 [facility] Alcohol, Blood (Medical)-Ser umon 08-20-2024 SERUM ETOH < 10.1 Normal <=10.0 [facility] Comment on above: Result Comment: This test is for medical purposes only. The legal definition of intoxication varies according to local law. Performed By: #### L 700.6800, L501.9100, L500.2500, L100.0100, L505.5000 #### [facility] [address] [facility] [place], [address] Performed By: #### L 100.0100, L505.5000, L700.6800, L501.9100, L500.2500 #### [facility] [address] [facility] [place], [address] Anion gap in Serum or Plasma Ordered By: Remus Rosanne on 08-20-2024 Anion gap [Moles/Vol] 20 mmol/L High 5-15 [facility] Automated lymphocyte count a s percentage of total leukocytesOrdered By: Remus Ungdouglas on 08-20-2024 Lymphocytes/100 WBC Auto (Unsp spec) 39.8 % 19-41 [facility] BUN/creatinine ratioOrdered By: Remus Ungdouglas on 08-20-2024 Urea nitrogen/Creatinine [Mass ratio] 5.2 mg/mg Low 10-20 [facility] Basophil percentageOrdered B y: Remus Ungur on 08-20-2024 Basophils/100 WBC (Bld) 0.2 % 0-1 [facility] Carbon dioxide, total [Moles /volume] in Central venous bloodOrdered By: Mary Louus Cartagenadouglas on 08-20-2024 CO2 [Moles/Vol] 16.0 mmol/L Low 21.0-32.0 [facility] Chloride assayOrdered By: Mary Ann Lay on 08-20-2024 Chloride [Moles/Vol] 99 mmol/L 98-108 [facility] Emergency Department Summary on 08-20-2024 Emergency Department Summary [facility] Medical Records Department [address] [place] [address] Emergency Department Summary 08/20/24 MR#: [id number] Acct: [id number] Name: MAURICE LINARES Rep #: [id number] : 2000 24 From: Courtney Lay DO PCP: Care Physician,No Primary Status:REG ER Location: ED HPI HPI - Psych History of Present Illness Chief Complaint: Suicidal Detail of Chief Complaint: 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 [place] [address] [place] cars. She apparently told police that she was suicidal. To me she denies being suicidal. She is not very forthcoming with answers. She tells me that she just got here from [facility] and her boyfriend dropped her off on the side of the road and broke up with her. She tells me she has no last name. When asked about allergies she tells me that she is allergic to antidepressants and antianxiety medication but cannot tell me which ones specifically. She denies recent illness. Patient had no identification on her. PFSH PFS Medical History unable to obtain Home Medications ???Medication ???Instructions ???Recorded ???Last Taken ???Type Unobtainable 08/21/24 Unknown History Allergy/AdvReac Type Severity Reaction Status Date / Time Unable to Assess Allergy Verified 08/21/24 01:28 Family History unable to obtain Surgical History unable to obtain Social History Smoking Status: Never smoker ROS ROS ED Review of Systems ROS Unobtainable: other Constitutional Constitutional ED: Reports lethargy; Denies chills, fever(s), sweats or weight loss Eyes Eyes: Denies blurry vision, change in vision or diplopia ENT ENT ED: Denies rhinorrhea or sore throat Cardiovascular Cardiovascular: Denies chest pain, orthopnea or racing heartbeat Respiratory/Chest Respiratory/Chest: Denies cough, dyspnea, dyspnea on exertion, orthopnea or sputum Gastrointestinal Gastrointestinal: Denies abdominal pain, diarrhea, nausea or vomiting Genitourinary Genitourinary ED: Denies dysuria, hematuria or urinary frequency Musculoskeletal Musculoskeletal: Denies arthralgias, back pain, myalgias or neck pain Integumentary Denies abscess, Abrasions or rash Neurologic Neurologic: Denies headache(s) or weakness Psychiatric Psychiatric: Denies anxiety, depression or suicidal thoughts Endocrine Endocrinology: Denies polydipsia, polyphagia or polyuria Hematologic/Lymphat ic Hematologic/Lymphat ic: Denies easy bleeding, easy bruising or lymphadenopathy Allergic/Immunologi c Allergic/Immunologi c ED: Denies mouth swelling, tongue swelling or urticaria EXAM Physical Exam Const Vital Signs: 08/20/24 22:54 08/20/24 23:54 08/21/24 00:00 Temperature 98 F Temperature Source Temporal Pulse Rate 127 H 99 114 H Respiratory Rate 16 19 H 17 Blood Pressure 117/79 120/81 H 113/74 Blood Pressure Mean 91 94 87 Pulse Ox 98 99 100 Oxygen Delivery Method Room Air Room Air Room Air 08/21/24 00:30 Temperature Temperature Source Pulse Rate 98 Respiratory Rate 20 H Blood Pressure 116/57 L Blood Pressure Mean 76 Pulse Ox 98 Oxygen Delivery Method Room Air Positive well nourished and well developed General Appearance ED: well developed and NAD HEENT Reports TM's clear and moist mucous membranes normocephalic and atraumatic; Negative for trauma or tenderness Tympanic Membrane ED: Yes TM's clear Eyes PERRL and EOMs intact bilaterally General Eye ED: Negative for pale conjunctiva or scleral icterus Neck no lymphadenopathy, supple and no JVD General: Negative for tenderness Chest Wall inspection of chest normal and palpation of chest normal Chest: Negative for tenderness Resp normal respiratory effort and clear to auscultation bilaterally Effort and Inspection: Negative for respiratory distress or pain with movement Auscultation: Negative for rhonchi, wheezes or diminished lung sounds Cardio regular rate, regular rhythm, S1 normal heart sound, S2 normal heart sound and no murmurs Peripheral Pulses: pulses 2+ throughout GI normal to inspection, nondistended, normoactive bowel sounds, soft to palpation, non-tender, non- distended and no masses Back/Spine no CVA tenderness and no thoracic nor lumbar tenderness Extremity normal to inspection General Extremety ED: Negative for edema General Extremity: Negative for edema Neuro oriented x3, CN's II-XII intact bilaterally, no sensory deficits noted and gait normal Sensorium / Orientation: awake, alert, oriented to person, oriented to place and oriented to time Motor Exam: strength 5/5 throughout and strength abnormal Psych mental stat (more content not included)... 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 Apparently [place] [address] [place] get [place] cars. She apparently told police that she was suicidal. To me she denies being suicidal. She is not very forthcoming with answers. She tells me that she just got here from [email or web address] and her boyfriend dropped her off on the side of the road and broke up with her. She tells me she has no last name. When asked about allergies she tells me that she is allergic to antidepressants and antianxiety medication but cannot tell me which ones specifically. She denies recent illness. Patient had no identification on her. [facility] Medical History unable to obtain Home Medications ???Medication ???Instructions ???Recorded ???Last Taken ???Type Unobtainable 08/21/24 Unknown History Allergy/AdvReac Type Severity Reaction Status Date / Time Unable to Assess Allergy Verified 08/21/24 01:28 Family History unable to obtain Surgical History unable to obtain Social History Smoking Status: Never smoker ROS ROS ED Review of Systems ROS Unobtainable: other Constitutional Constitutional ED: Reports lethargy; Denies chills, fever(s), sweats or weight loss Eyes Eyes: Denies blurry vision, change in vision or diplopia ENT ENT ED: Denies rhinorrhea or sore throat Cardiovascular Cardiovascular: Denies chest pain, orthopnea or racing heartbeat Respiratory/Chest Respiratory/Chest: Denies cough, dyspnea, dyspnea on exertion, orthopnea or sputum Gastrointestinal Gastrointestinal: Denies abdominal pain, diarrhea, nausea or vomiting Genitourinary Genitourinary ED: Denies dysuria, hematuria or urinary frequency Musculoskeletal Musculoskeletal: Denies arthralgias, back pain, myalgias or neck pain Integumentary Denies abscess, Abrasions or rash Neurologic Neurologic: Denies headache(s) or weakness Psychiatric Psychiatric: Denies anxiety, depression or suicidal thoughts Endocrine Endocrinology: Denies polydipsia, polyphagia or polyuria Hematologic/Lymphat ic Hematologic/Lymphat ic: Denies easy bleeding, easy bruising or lymphadenopathy Allergic/Immunologi c Allergic/Immunologi c ED: Denies mouth swelling, tongue swelling or urticaria EXAM Physical Exam Const Vital Signs: 08/20/24 22:54 08/20/24 23:54 08/21/24 00:00 Temperature 98 F Temperature Source Temporal Pulse Rate 127 H 99 114 H Respiratory Rate 16 19 H 17 Blood Pressure 117/79 120/81 H 113/74 Blood Pressure Mean 91 94 87 Pulse Ox 98 99 100 Oxygen Delivery Method Room Air Room Air Room Air 08/21/24 00:30 Temperature Temperature Source Pulse Rate 98 Respiratory Rate 20 H Blood Pressure 116/57 L Blood Pressure Mean 76 Pulse Ox 98 Oxygen Delivery Method Room Air Positive well nourished and well developed General Appearance ED: well developed and NAD HEENT Reports TM's clear and moist mucous membranes normocephalic and atraumatic; Negative for trauma or tenderness Tympanic Membrane ED: Yes TM's clear Eyes PERRL and EOMs intact bilaterally General Eye ED: Negative for pale conjunctiva or scleral icterus Neck no lymphadenopathy, supple and no JVD General: Negative for tenderness Chest Wall inspection of chest normal and palpation of chest normal Chest: Negative for tenderness Resp normal respiratory effort and clear to auscultation bilaterally Effort and Inspection: Negative for respiratory distress or pain with movement Auscultation: Negative for rhonchi, wheezes or diminished lung sounds Cardio regular rate, regular rhythm, S1 normal heart sound, S2 normal heart sound and no murmurs Peripheral Pulses: pulses 2+ throughout GI normal to inspection, nondistended, normoactive bowel sounds, soft to palpation, non-tender, non- distended and no masses Back/Spine no CVA tenderness and no thoracic nor lumbar tenderness Extremity normal to inspection General Extremety ED: Negative for edema General Extremity: Negative for edema Neuro oriented x3, CN's II-XII intact bilaterally, no sensory deficits noted and gait normal Sensorium / Orientation: awake, alert, oriented to person, oriented to place and oriented to time Motor Exam: strength 5/5 throughout and strength abnormal Psych me (more content not included)... Normal [facility] Eosinophil percentageOrdered By: Courtney Lay on 08-20-2024 Eosinophils/100 WBC (Bld) 0.0 % 0-5 [facility] Erythrocyte distribution wid th ratioOrdered By: Courtney Lay on 08-20-2024 Erythrocyte distribution width (RBC) [Ratio] 12.5 % 11.6-14.6 [facility] Erythrocyte distribution wid th standard deviationOrdered By: Courtney Lay on 08-20-2024 Erythrocyte distribution width (RBC) [Ratio] 41.2 fl 35.1-43.9 [facility] Glomerular filtration rate ( GFR) estimation/1.73 sq m using serum, plasma, or whole bOrdered By: Courtney Lay on 08-20-2024 GFR/1.73 sq M.predicted among non-blacks MDRD (S/P/Bld) [Vol rate/Area] 86 mL/min/{1.73_m2} >60 [facility] Comment on above: mL/min/1.73m2 CKD-EP I Creatinine Equation (2020) Hematocrit Auto (Bld) [Volum e fraction]Ordered By: Courtney Lay on 08-20-2024 Hematocrit (Bld) [Volume fraction] 40.8 % 37-47 [facility] Hemoglobin measurementOrdere d By: Courtney Lay on 08-20-2024 Hemoglobin (Bld) [Mass/Vol] 13.9 g/dL 12.0-15.0 [facility] Immature granulocytes/100 WB C Auto (Bld)Ordered By: Courtney Lay on 08-20-2024 Immature granulocytes/100 WBC (Bld) 1.100 % High 0.0-0.9 [facility] Comment on above: IG% - Immature Granu locytes (promyelocytes, myelocytes and metamyelocytes) > 1% indicates that a LEFT SHIFT is Present. MCV (mean corpuscular volume ) determinationOrdered By: Courtney Lay on 08-20-2024 MCV (RBC) [Entitic vol] 91.3 fL 81-99 [facility] Mean corpuscular hemoglobin (MCH) determinationOrdered By: Courtney Lay on 08-20-2024 MCH (RBC) [Entitic mass] 31.1 pg 27.0-32.0 [facility] Mean corpuscular hemoglobin concentration (MCHC) determinationOrdered By: Courtney Lay on 08-20-2024 MCHC (RBC) [Mass/Vol] 34.1 g/dL 32-36 [facility] Mean platelet volume determi nationOrdered By: Courtney Lay on 08-20-2024 Platelet mean volume (Bld) [Entitic vol] 9.3 fL 6.2-12.0 [facility] Monocyte percentageOrdered B y: Courtney Lay on 08-20-2024 Monocytes/100 WBC (Bld) 9.4 % 0-10 [facility] Neutrophil percentageOrdered By: Courtney Lay on 08-20-2024 Neutrophils/100 WBC (Bld) 49.5 % 47-70 [facility] Nucleated red blood cell per centageOrdered By: Courtney Lay on 08-20-2024 Nucleated RBC/100 WBC (Bld) [Ratio] 0 % 0-5 [facility] Platelet countOrdered By: Mary Ann Lay on 08-20-2024 Platelets (Bld) [#/Vol] 362 10*3/uL 150-450 [facility] Potassium measurement (mass/ volume)Ordered By: Courtney Lay on 08-20-2024 Potassium (Unsp spec) [Mass/Vol] 3.7 mmol/L 3.3-5.1 [facility] ,Serum,hCG Quali.on 08-20-2024 HCG, SERUM QUAL Negative Normal [facility] Comment on above: Performed By: #### L 700.6800, L501.9100, L500.2500, L100.0100, L505.5000 #### [facility] [address] [place], [address] Performed By: #### L 100.0100, L505.5000, L700.6800, L501.9100, L500.2500 #### [facility] [address] [place], [address] RBC Auto (Bld) [#/Vol]Ordere d By: Courtney Lay on 08-20-2024 RBC (Bld) [#/Vol] 4.47 10*6/uL 4.2-5.4 [facility] Serum beta-hCG test, qualita tiveOrdered By: Courtney Lay on 08-20-2024 Beta HCG ( test) Ql Negative [facility] Serum creatinine measurement (mass/volume)Ordered By: Courtney Lay on 08-20-2024 Creatinine [Mass/Vol] 0.94 mg/dL 0.70-1.20 [facility] Serum glucose measurement (m ass/volume)Ordered By: Courtney Lay on 08-20-2024 Glucose [Mass/Vol] 158 mg/dL High 70-99 [facility] Serum or plasma calcium monica urement (mass/volume)Ordered By: Courtney Lay on 08-20-2024 Calcium [Mass/Vol] 9.0 mg/dL 7.6-11.0 [facility] Serum or plasma ethanol monica urement (mass/volume)Ordered By: Courtney Lay on 08-20-2024 Ethanol [Mass/Vol] mg/dL <10.1 [facility] Comment on above: This test is for med ical purposes only. The legal definition of intoxication varies according to local law. Serum or plasma urea nitroge n measurement (mass/volume)Ordered By: Courtney Lay on 08-20-2024 Urea nitrogen [Mass/Vol] 5 mg/dL 4-19 [facility] Sodium levelOrdered By: Mert Lay on 08-20-2024 Sodium [Moles/Vol] 135 mmol/L 133-145 [facility] White blood cell (WBC) count Ordered By: Courtney Lay on 08-20-2024 WBC (Bld) [#/Vol] 9.3 10*3/uL 4.4-11.0 [facility] ANES POSTPROC EVALon 025 ANES POSTPROC EVAL HNO ID: [id number] Author: CHELSEY VILLASENOR MD Service: Anesthesiology Author Type: Anesthesiologist Type: Anesthesia Postprocedure Evaluation Filed: 07/14/2024 12:30 Note Text: POST ANESTHESIA EVALUATION NOTE : 2000 Procedure Summary Date: 07/14/24 Room / Location: PR OR / PR OR Anesthesia Start: 1141 Anesthesia Stop: 1159 Procedure: REMOVAL INTRAUTERINE DEVICE and pap test (Uterus) Diagnosis: Pelvic pain in female Encounter for screening for malignant neoplasm of cervix Encounter for IUD removal (Pelvic pain in female [R10.2]) (Encounter for screening for malignant neoplasm of cervix [Z12.4]) (Encounter for IUD removal [Z30.432]) Surgeons: Gregoria Gold MD Responsible Provider: Chelsey Villasenor MD Anesthesia Type: MAC ASA Status: 2 Anesthesia Type: MAC Last Vitals Vitals Value Taken Time BP 101/63 07/14/24 1215 Temp 36.7 ?C (98.1 ?F) 07/14/24 1159 Pulse 63 07/14/24 1229 Resp 13 07/14/24 1229 SpO2 100 % 07/14/24 1229 Vitals shown include unfiled device data. Post Anesthesia Patient Status Patient Evaluation: PACU. PACU/ICU Patient Condition: stable. Anticipated Disposition: phase 2 then home. Neurological Status: sedated. Pulmonary Status: breathing comfortably on room air Airway Control: returned to baseline unsupported. Cardiovascular Status: stable. Pain Management: clinically adequate - multimodal analgesia pain management approach Postoperative Hydration: acceptable. Intraoperative Events: no significant anesthesia events Post Operative Nausea/Vomiting Status: no significant post operative nausea or vomiting Recommendation: continue current plan of care. Anesthesia Observations No Documentation SIGNATURE: Chelsey Villasenor MD PATIENT NAME: Maurice Linares DATE: July 14, 2024 TIME: 12:30 PM CSN: [id number] [facility] ANES PRE-OPon 07-14-2024 ANES PRE-OP HNO ID: [id number] Author: CHELSEY VILLASENOR MD Service: Anesthesiology Author Type: Anesthesiologist Type: Anesthesia Preprocedure Evaluation Filed: 07/14/2024 11:04 Note Text: ANESTHESIOLOGY DAY OF SURGERY NOTE : 2000 Procedure Information Date/Time: 07/14/24 1127 Procedure: REMOVAL INTRAUTERINE DEVICE and pap test (Uterus) Location: PR OR02 / PR OR Surgeons: Gregoria Gold MD Estimated body mass index is 29.37 kg/m? as calculated from the following: Height as of 07/09/24: 142.2 cm (4' 8). Weight as of 07/09/24: 59.4 kg (131 lb). Most recent hematocrit and potassium results: Hematocrit 37.0 08/01/2018 Potassium 4.1 08/01/2018 Relevant Problems NEURO-PSYCH (+) History of hemangioma I - PHYSICAL EVALUATION AIRWAY Patient intubated: No. Tracheostomy tube not present Mallampati: II. TM distance: >3 FB. Neck ROM: full ROM without neurological symptoms. Mouth opening: adequate. Short neck: no. Thick neck: no DENTAL Dental findings: teeth intact. Additional exam findings: yes. CARDIOVASCULAR Rhythm: regular Rate: normal PULMONARY Breath sounds clear to auscultation. II - ANESTHESIA PLAN ASA Score: 2 Anesthetic Plan: MAC The patient is not a current smoker. Beta Melly Monitoring Plan Monitoring plan: standard ASA. Post Procedure Analgesic Plan Postoperative analgesic plan: multimodal analgesia. Informed Consent Anesthetic risks, benefits, alternatives, personnel and consent discussed: yes. Patient / Responsible Democrat agrees to proceed: yes Patient / Surrogate agrees to blood products: blood products not planned DNR status not reviewed with patient and/or family prior to surgery. Significant changes in the patient condition since the History and Physical, not otherwise documented in primary service progress note: no. Potential Anesthesia issues that may suggest increased risk of complications or contraindication to planned procedure: none. Vitals Value Taken Time BP 122/71 07/14/24 1042 Pulse 83 07/14/24 1042 Resp 18 07/14/24 1042 Temp 36.8 ?C (98.2 ?F) 07/14/24 1042 SpO2 100 % 07/14/24 1042 Facility-Administer ed Medications as of 07/14/2024 Medication Dose Route Frequency - lidocaine (PF) 10 mg/mL (1 %) 1-2 mg injection (XYLOCAINE) 0.1-0.2 mL INTRADERMAL PRN - lactated ringers iv infusion 5-30 mL/hr INTRAVENOUS CONTINUOUS - NaCl 0.9% iv flush bag 20 mL INTRAVENOUS PRN - [COMPLETED] acetaminophen 1,000 mg tab(s) (TYLENOL) 1,000 mg ORAL Pre-Op Once - [COMPLETED] famotidine 20 mg injection (PEPCID) 20 mg INTRAVENOUS ONCE - [COMPLETED] promethazine 12.5 mg tab(s) (PHENERGAN) 12.5 mg ORAL Pre-Op Once - [COMPLETED] celecoxib 200 mg cap(s) (CeleBREX) 200 mg ORAL ONCE - scopolamine (delivers 1 mg over 3 days) 1 Patch (TRANSDERM-SCOP) 1 Patch TRANSDERMAL q 72 HR And - [START ON 07/16/2024] scopolamine - REMOVE PATCH OTHER q 72 HR And - scopolamine - VERIFY patch OTHER q 8 H Outpatient Medications as of 07/14/2024 Medication Sig - levonorgestrel (MIRENA) 20 mcg/24 hours (5 yrs) 52 mg IUD 1 Each by INTRAUTERINE route one time only for 1 dose. to be placed in Operating room I have interviewed and examined the patient. I have reviewed the medical record and/or the pre-anesthesia evaluation, pertinent labs, and test results. This contains updated information obtained within 48 hours of Surgery/Procedure. SIGNATURE: Chelsey Villasenor MD PATIENT NAME: Maurice Linares DATE: July 14, 2024 TIME: 11:03 AM CSN: [id number] [facility] OPERATIVE NOon 07-14-2024 OPERATIVE NO HNO ID: [id number] Author: GREGORIA GOLD MD Service: Gynecology Author Type: Physician Type: Operative Report Filed: 07/14/2024 12:06 Note Text: CAR INSPECTION AND REPAIR MANAGER OPERATIVE/PROCEDURE REPORT LOG ID: [id number] Surgery/Procedure Date: 07/14/2024 Incision/Procedure Start Time: 11:48 AM Incision Close/Procedure End Time: 11:53 AM Surgeon(s)/Roberth miguel(s) and Retail Loss Prevention Officer(s): Surgeons and Role: * Gregoria Gold MD - Primary * Sofia Bettencourt DO - Resident - Assisting No Additional Staff Informed Consent: Informed Consent obtained and on the chart Procedure- Exam under anesthesia, IUD removal, pap smear Implantable Devices: NONE Drains: None Complications: None The patient was taken to the OR where she was placed in the dorsal lithotomy position. The uterus was anteverted. The speculum was placed and a PAP smear collected. The IUD was removed with a ring forcep and was confirmed to be intact. There was no active bleeding from the cervical os. The instruments were removed. A digital sweep of the vaginal canal was performed by Gregoria Gold MD and it was ascertained that no instruments or other foreign bodies are retained within the cavity. Sponge, lap, and needle counts were correct times two and the patient was taken to the recovery room with stable vital signs after tolerating the procedure well. I/primary surgeon/procedurali st performed the procedure with assistance. SIGNATURE: Gregoria Gold MD PATIENT NAME: Maurice Linares DATE: July 14, 2024 TIME: 12:04 PM PAGER/CONTACT #: [facility] PAP TESTon 07-14-2024 ADEQUACY [facility] Comment on above: Order Comment: Speci men Type: FLUID SPECIMEN Ordering Facility: [facility] Address: [address] [place] [address] Result Comment: Sati sfactory for interpretation. Limited cellularity. Transformation zone present Performed By: #### L [id number] #### [facility] CLIA [id number] [address] [place] [address] [place] [address] [place] CASE REPORT [facility] Comment on above: Order Comment: Speci men Type: FLUID SPECIMEN Ordering Facility: [facility] Address: [address] [place] [address] Result Comment: Gyne cologic Cytology Report Case: [id number] Authorizing Provider: Gregoria Gold MD Collected: 07/14/2024 11:50 AM Ordering Location: [place] [facility] Surgery Received: 07/14/2024 12:19 PM First Screen: ClapacsKristanha Rescreen: Ada Andre, CT, ASCP Specimen: Pap Test, ThinPrep, Cervix Performed By: #### L [id number] #### [facility] CLIA [id number] [address] [place], [place] [id number] [place] FINAL PERFORMING LAB Normal [facility] Comment on above: Order Comment: Speci men Type: FLUID SPECIMEN Ordering Facility: [facility] Address: [address] [place] [address] Result Comment: Tech nical component, plumbing warehouse helper screening performed at [facility], [address] [place] [address] [place] [address] CLIA# [id number] Diagnostic interpretation performed at [facility], [address] [place] [address] [place] [address] CLIA# [id number] Waistband Setter: Tio Dallas M.D. Performed By: #### L [id number] #### [facility] CLIA [id number] [address] [place] [address] OF [place] INTERPRETATION, CYTOLOGY, CAR INSPECTION AND REPAIR MANAGER Normal [place] [facility] Comment on above: Order Comment: Speci men Type: FLUID SPECIMEN Ordering Facility: [facility] Address: [address] [place] [address] Result Comment: Nega tive for intraepithelial lesion or malignancy. at 1358 EDT Performed By: #### L [id number] #### [facility] CLIA [id number] [address] [place], [place] [id number] [place] ORDER COMMENT [facility] Comment on above: Order Comment: Speci men Type: FLUID SPECIMEN Ordering Facility: [facility] Address: [address] [place] [address] Result Comment: Pre- op diagnosis: Pelvic pain in female [R10.2] Encounter for screening for malignant neoplasm of cervix [Z12.4] Encounter for IUD removal [Z30.432] Performed By: #### L [id number] #### [facility] CLIA [id number] [address] [place] [address] [place] PAP DISCLAIMER COMMENT The Pap Smear is a screening test for cervical cancer. False negative results occur with all screening tests, emphasizing the need for rescreening at recommended intervals, and clinical correlation. [facility] Comment on above: Order Comment: Speci men Type: FLUID SPECIMEN Ordering Facility: [facility] Address: [address] [place] [address] Performed By: #### L [id number] #### [facility] CLIA [id number] [address] [place] [address] [place] PAP CARPENTERS HELPER COMMENT This specimen has been analyzed by the ThinPrep Imaging System, an automated imaging and review system, which assists the laboratory in evaluating cells on ThinPrep Pap tests. Following automated imaging, selected toribio from every slide are reviewed by a plumbing warehouse helper. [facility] Comment on above: Order Comment: Speci men Type: FLUID SPECIMEN Ordering Facility: [facility] Address: [address] [place] [address] Performed By: #### L [id number] #### [facility] CLIA [id number] [address] [place] [address] OF [facility] 07-10-2024 TIMBON Telephone (MEENU) ---- MAURICE LINARES ([id number]) 1 F Date Time Provider Department 07/10/24 JAROD MALHOTRA During your visit today, we recorded the following information about you: Jarod Malhotra APRN.BANK VAULT CUSTODIAN 07/10/2024 11:37 AM Signed Pt had a cardiology consult with [facility] and holter monitor in 2022. Can we request these records. DOS 07/14/2024 Mary Ann Nesbitt LPN 07/10/2024 2:08 PM Signed Patients name is Loni Diaz on her ID. Fax request sent to [facility] requesting Holter. Patient was not seen by cardiology. MAKEDA Ty Jessica, LPN 07/10/2024 3:16 PM Signed Received holter,. Scanned into Epic through Onbase scanning. Mary Ann Nesbitt LPN Allergies As of Date: 07/10/2024 Noted Allergy Reaction CATS 10/03/2018 14 - Other: See Comments Comments: sneezing SEASONAL ALLERGIES 10/03/2018 16 - Unknown Date Reviewed: 07/10/2024 Reviewed by: Jarod Malhotra APRN.BANK VAULT CUSTODIAN - Fully Assessed Reason for Visit: Request Outside Medical Records [[id number]] Prescriptions as of 07/10/2024 - cariprazine (VRAYLAR) 3 mg capsule Take by mouth once daily. - norgestimate 0.25 mg-ethinyl estradiol 35 mcg (SPRINTEC) 0.25-35 mg-mcg per tablet Take 1 tablet by mouth once daily. - multivitamin tablet Take 1 tablet by mouth once daily. - levonorgestrel (MIRENA) 20 mcg/24 hours (5 yrs) 52 mg IUD 1 Each by INTRAUTERINE route one time only for 1 dose. to be placed in Operating room Problem List As Of Date 07/10/2024 Noted Resolved PTSD (post-traumatic stress disorder) [F43.10] 05/29/2015 Parent-adopted child conflict [Z62.821] 02/22/2017 General learning disability [F81.9] 02/21/2017 Severe episode of recurrent major depressive di*02/22/2017 Schizophrenia (HCC) [F20.9] 07/19/2022 History of hemangioma [Z86.018] 07/10/2024 Subcutaneous mass [R22.9] 07/10/2024 Encounter Status:Closed by MARY ANN NESBITT on 07/10/24 Normal [facility] CNOVon 07-09-2024 CNOV Office Visit (GENSWS) ---- VIJAYMAURICE Al ([id number]) 1 F Date Time Provider Department 07/09/24 3:30 PM KIA LEBLANC During your visit today, we recorded the following information about you: Kai Leblanc APRN.CNP 07/09/2024 1:55 PM Signed HISTORY AND PHYSICAL Maurice Edilma Vijay 2000 REFERRING PHYSICIAN: No ref. provider found CHIEF COMPLAINT: skin lesion HPI: The patient is a 24 year old female. She has a single mass on her right buttock. She has noticed this lesion for a long time. She notes that it is slightly uncomfortable when she sits down. She denies any drastic change in size or shape. She would like to have it removed but she does not want to be awake in the office. She notes she has a low pain tolerance. SIGNIFICANT MEDICAL PROBLEMS: PAST MEDICAL HISTORY Diagnosis Date Depression OPERATIONS: PAST SURGICAL HISTORY Procedure Laterality Date RAD RESECTION TUMOR SOFT TISS FACE/SCALP < 2CM 09/23/2019 Hemangioma CURRENT MEDICATIONS: Current Outpatient Medications Medication Sig Dispense Refill cariprazine (VRAYLAR) 3 mg capsule Take by mouth once daily. norgestimate 0.25 mg-ethinyl estradiol 35 mcg (SPRINTEC) 0.25-35 mg-mcg per tablet Take 1 tablet by mouth once daily. 84 tablet 3 multivitamin tablet Take 1 tablet by mouth once daily. levonorgestrel (MIRENA) 20 mcg/24 hours (5 yrs) 52 mg IUD 1 Each by INTRAUTERINE route one time only for 1 dose. to be placed in Operating room 1 Each 0 No current facility-administer ed medications for this visit. ALLERGIES: Cats and Seasonal Allergies PERSONAL HISTORY: Social History Tobacco Use Smoking status: Never Smokeless tobacco: Never Vaping Use Vaping status: Never Used Substance Use Topics Alcohol use: Not Currently Drug use: Never FAMILY HISTORY: FAMILY HISTORY Adopted: Yes Family history unknown: Yes REVIEW OF SYMPTOMS: SEE HPI PHYSICAL EXAMINATION: General: The patient is 24 year old female, well nourished, well hydrated in no acute distress. The patient is oriented to time, place, and person. Rectal exam: exam deferred Extremities: no clubbing, cyanosis or edema. No adenopathy. Other: mass of right buttock, non-tender to palpation, no warmth, redness, swelling or drainage. Consistent with Lipoma LABORATORY VALUES: As Noted RADIOLOGIC STUDIES: As Noted Assessment IMPRESSION: SUBCUTANEOUS MASS/PROBABLE LIPOMA - right buttock PLAN: Maurice wants to think about the procedure. Dr. Valdez also saw the patient and explained to her that he could do it in the OR but it is lower risk to have it completed awake in the office. Maurice will schedule an appointment if she decides to return for excision of the skin lesion at a later date. The patient is instructed not to take aspirin for 1 week prior to the procedure. Diagnoses: (R22.9) Subcutaneous mass (primary encounter diagnosis) Return to Clinic: The patient is instructed to follow-up with as needed Kia Leblanc APRN.CNP Allergies As of Date: 07/09/2024 Noted Allergy Reaction CATS 10/03/2018 14 - Other: See Comments Comments: sneezing SEASONAL ALLERGIES 10/03/2018 16 - Unknown Date Reviewed: 07/09/2024 Reviewed by: Kia Leblanc APRN.BANK VAULT CUSTODIAN - Fully Assessed Primary Visit Diagnosis:Subcutane ous mass [R22.9] Prescriptions as of 07/09/2024 - cariprazine (VRAYLAR) 3 mg capsule Take by mouth once daily. - norgestimate 0.25 mg-ethinyl estradiol 35 mcg (SPRINTEC) 0.25-35 mg-mcg per tablet Take 1 tablet by mouth once daily. - multivitamin tablet Take 1 tablet by mouth once daily. - levonorgestrel (MIRENA) 20 mcg/24 hours (5 yrs) 52 mg IUD 1 Each by INTRAUTERINE route one time only for 1 dose. to be placed in Operating room Problem List As Of Date 07/09/2024 Noted Resolved PTSD (post-traumatic stress disorder) [F43.10] 05/29/2015 Parent-adopted child conflict [Z62.821] 02/22/2017 General learning disability [F81.9] 02/21/2017 Severe episode of recurrent major depressive di*02/22/2017 Schizophrenia (HCC) [F20.9] 07/19/2022 Encounter Status:Closed by KIA LEBLANC on 07/09/24 Normal [facility] HISTORY PHYSICALon HISTORY PHYSICAL HNO ID: [id number] Author: JAROD MALHOTRA APRN.CNP Service: ? Author Type: Nurse Practitioner Type: H&P Filed: 07/10/2024 11:41 Note Text: [facility] HISTORY AND PHYSICAL EXAMINATION SERVICE DATE: 07/09/2024 SERVICE TIME: 11:40 AM PRIMARY CARE PHYSICIAN: Rere Tate CNP Assessment Patient has the following medical conditions which may affect dina-operative course: History of hemangioma Assessment: face s/p excision and revision of left lower scar General learning disability Assessment: mild, cognitive delay Schizophrenia (HCC) Assessment: controlled on rx Seeing a counselor and psychiatrist in [place] Severe episode of recurrent major depressive disorder, without psychotic features (HCC) Assessment: controlled on rx Subcutaneous mass Assessment: pt c/o of bump on her right butt cheek she has had for a long time. Pt evaluated today by general surgery after my OV. 07/09/2024 Steffi Leblanc CNP PLAN: Maurice wants to think about the procedure. Dr. Valdez also saw the patient and explained to her that he could do it in the OR but it is lower risk to have it completed awake in the office. Maurice will schedule an appointment if she decides to return for excision of the skin lesion at a later date. The patient is instructed not to take aspirin for 1 week prior to the procedure. ANESTHESIA FINDINGS: Intubation History: No history of difficult intubation Significant Anesthesia Considerations: none Airway History: No history of difficult airway Nevarez Activity Status Index: METS: Climb a flight of stairs or walk up a hill (5.50 METs) DASI Score: 5.5 Patient denies any chest pain or undue shortness of breath with the above physical activity. Clinical Frailty Scale: 3. Well, with treated comorbid disease STOP-Bang Score: Denies snoring loudly Denies feeling tired, fatigued, or sleepy during the daytime Has not been observed to stop breathing or choking/gasping during sleep Denies having high blood pressure BMI less than or equal to 35 kg/m2 Patient 50 years old or younger Does not have a large neck Non-male patient STOP-Bang Score: 0 [id number] Score: Age: <65 Sex: female CHF history: No Hypertension history: No Stroke/TIA/thromboe mbolism history: No Vascular disease history: No Diabetes history: No [id number] Score: 1 ARISCAT Score: Age: <=50 Preoperative SpO2: >=96% Respiratory infection in the last month: No Preoperative anemia: No Surgical incision: peripheral Duration of surgery: <2 hrs Emergency procedure: No ARISCAT Score: 0 I - PHYSICAL EVALUATION AIRWAY Patient intubated: No. Tracheostomy tube not present Mallampati: II. TM distance: >3 FB. Neck ROM: full ROM without neurological symptoms. Mouth opening: adequate. Short neck: no. Thick neck: no Murphy present: no Lip Bite Test: I Microretrognathia/M icronagthia/Recesse d Chin: No DENTAL Dental findings: teeth intact. II - ANESTHESIA PLAN Anesthetic Plan: other Beta Melly Monitoring Plan Post Procedure Analgesic Plan Prepared for Surgery: optimally prepared for surgery. CONSULTS: Patient does not require consults for optimization at this time Planned Anesthetic: other anesthesia choice The Following Tests/Procedures Have Been Initiated: Orders Placed This Encounter cariprazine (VRAYLAR) 3 mg capsule Sig: Take by mouth once daily. REASON FOR VISIT: Maurice Linares is a 24 year old female who is scheduled for Procedure(s): REMOVAL INTRAUTERINE DEVICE and pap test (N/A) at the request of Dr. Gregoria Gold for consultation. My final recommendation will be communicated back to the requesting physician by way of shared medical record or letter. Subjective The patient has the following: COVID-19 Immunization Status Current Care Gaps Covid-19 Vaccine ( season) Never done No completion, postpone, frequency change, or communication history exists for this topic. CHIEF COMPLAINT: Pre-op exam HPI: Maurice Linares is a 24 year old seen for PAC due to scheduled above surgery because of IUD insertion/removal. 07/07/2024, Dr. Gregoria Gold Maurice Linares is a 24 year old female seen for contraception. Patient notes she declines any exam in the office because she is sensitive down there. She does not have a bleeding. Has not had any problems w/ the IUD and no menses now. Not sexually active, may be in the future, would like to consider other contraception options. Also h/o dysmenorrhea. . REVIEW OF SYSTEMS: General: No weight loss, malaise or fevers. Neurological: No history of TIA's, stroke, TABLE TENDER tumor, impaired sensorium, hemiplegia, paraplegia or quadraplegia. No neurological symptoms or problems. Respiratory: No history of current cough or dyspnea, or pneumonia in the past 6 weeks. No history of respiratory/pulmona ry symptoms or problems. Cardio (more content not included)... Normal [facility] HISTORY PHYSICALon HISTORY PHYSICAL HNO ID: [id number] Author: GREGORIA GOLD MD Service: ? Author Type: Physician Type: H&P Filed: 07/07/2024 13:39 Note Text: Pre-Op History and Physical HPI: The patient is a 24 year old female presenting for pre-operative visit. She is scheduled for exam under anesthesia, pap and IUD removal , for anxiety about exam in office, desires IUD removal and cervical ca screen on 07/14/24. Procedure discussed along with risks, benefits and complications. Other alternatives discussed for management. Consent form signed? Yes. PAST MEDICAL HISTORY Diagnosis Date Depression PAST SURGICAL HISTORY Procedure Laterality Date RAD RESECTION TUMOR SOFT TISS FACE/SCALP < 2CM 09/23/2019 Hemangioma Current Outpatient Medications Medication Sig Dispense Refill multivitamin tablet Take 1 tablet by mouth once daily. levonorgestrel (MIRENA) 20 mcg/24 hours (5 yrs) 52 mg IUD 1 Each by INTRAUTERINE route one time only for 1 dose. to be placed in Operating room 1 Each 0 No current facility-administer ed medications for this visit. ALLERGIES: Cats and Seasonal Allergies PERSONAL HISTORY: Social History Tobacco Use Smoking status: Never Smokeless tobacco: Never Vaping Use Vaping status: Never Used Substance Use Topics Alcohol use: Not Currently Drug use: Never FAMILY HISTORY: FAMILY HISTORY Adopted: Yes Family history unknown: Yes REVIEW OF SYMPTOMS: .rlrros PHYSICAL EXAMINATION: VITALS: Last menstrual period 09/02/2018. GENERAL: The patient is well nourished, well hydrated in no acute distress. , The patient is oriented to time, place, and person. IMPRESSION: IUD removal, screening for cervical ca PLAN: The risks/benefits/alte rnatives and personal involved for the planned Exam under anesthesia, IUD removal and pap were reviewed with the patient. Her questions were answered to her satisfaction and she desires to proceed. . I reviewed with her postop instructions and expectations. needs consent signed day of surgery d/w her she needs to have transportation arranged I have reviewed and updated past medical and surgical history, medications and allergies Gregoria Gold M.D. [facility]03[facility]20[facility] MAURICE LINARES ([id number]) 1 F Date Time Provider Department 07/03/24 GREGORIA GOLD OBGYWM During your visit today, we recorded the following information about you: Gregoria Gold MD 07/03/2024 12:20 PM Signed signed. Thanks Allergies As of Date: 07/03/2024 Noted Allergy Reaction CATS 10/03/2018 14 - Other: See Comments Comments: sneezing SEASONAL ALLERGIES 10/03/2018 16 - Unknown Date Reviewed: 12/12/2022 Reviewed by: Gregoria Gold MD - Fully Assessed Reason for Visit: Schedule Surgery [1330] Primary Visit Diagnosis:Pelvic pain in female [R10.2] Other Visit Diagnoses:Encounter for screening for malignant neoplasm of cervix [Z12.4] Encounter for IUD removal [Z30.432] Order(s):SURGICAL REQUEST - ELECTIVE (11/2019) [5741994] Order #: [id number]: 1 Prescriptions as of 07/03/2024 - multivitamin tablet Take 1 tablet by mouth once daily. - levonorgestrel (MIRENA) 20 mcg/24 hours (5 yrs) 52 mg IUD 1 Each by INTRAUTERINE route one time only for 1 dose. to be placed in Operating room Problem List As Of Date 07/03/2024 Noted Resolved PTSD (post-traumatic stress disorder) [F43.10] 05/29/2015 Parent-adopted child conflict [Z62.821] 02/22/2017 General learning disability [F81.9] 02/21/2017 Severe episode of recurrent major depressive di*02/22/2017 Schizophrenia (HCC) [F20.9] 07/19/2022 Medications Discontinued During This Encounter Prescriptions - FLUoxetine HCl 20 mg tablet (Discontinued) Reported on 12/12/2022 - QUEtiapine (SEROQUEL) 50 mg tablet (Discontinued) Reported on 12/12/2022 Encounter Status:Closed by HINA MCDONNELL [facility]03[facility]OBGYWM[facility] ---- MAURICE LINARES ([id number]) 1 F Date Time Provider Department 06/26/24 GREGORIA GOLD OBJUAN JOSEWCharly During your visit today, we recorded the following information about you: Chelsey Fernández, BEVERLY 06/26/2024 8:42 AM Signed Patient has a Pre op on 07/07. Asking if she can have this as a virtual visit because she does not have transportation. Offered patient another day, she declined. States she won't have transportation on any day. Advised that she will need transportation the day of her surgery. Patient stated that yes she is trying to find someone. Can pre op be virtual? BEVERLY Galaviz Trisha, RN 06/26/2024 11:45 AM Signed Gregoria Gold MD Highman, Jennifer, BEVERLY2 hours ago (8:54 AM) yes but she can't have surgery unless she has a ride home from the hospital. They won't let it be an uber or taxi or public transportation. RLR Rosario Ramirez RN 06/26/2024 12:59 PM Signed Patient called in and notified of virtual visit appointment time/date. Patient states she will have someone that will be able to take her the day of her surgery. Aware that she will not be able to use a taxi/uber day of surgery. Rosario Ramirez RN Allergies As of Date: 06/26/2024 Noted Allergy Reaction CATS 10/03/2018 14 - Other: See Comments Comments: sneezing SEASONAL ALLERGIES 10/03/2018 16 - Unknown Date Reviewed: 12/12/2022 Reviewed by: Gregoria Gold MD - Fully Assessed Reason for Visit: Appointment [186] Pre Op Appointment [Other] Prescriptions as of 06/26/2024 - FLUoxetine HCl 20 mg tablet Take 1 tablet by mouth daily after breakfast. - QUEtiapine (SEROQUEL) 50 mg tablet Take 1 tablet by mouth daily at bedtime. - levonorgestrel (MIRENA) 20 mcg/24 hours (5 yrs) 52 mg IUD 1 Each by INTRAUTERINE route one time only for 1 dose. to be placed in Operating room Problem List As Of Date 06/26/2024 Noted Resolved Anxiety disorder, unspecified [F41.9] 05/29/2015 Parent-adopted child conflict [Z62.821] 02/22/2017 Reactive attachment disorder, persistent, sever*02/21/2017 Severe episode of recurrent major depressive di*02/22/2017 Encounter Status:Closed by ROSARIO RAMIREZ on 06/26/24 [facility] CNOVon 06-17-2024 CNOV Office Visit (OBGYWM) ---- MAUIRCE LINARES ([id number]) 1 F Date Time Provider Department 06/17/24 3:50 PM JESS TOLLIVER OBKIMBERLYN During your visit today, we recorded the following information about you: Blood pressure Weight Height 124/70 59.4 kg 1.422 m Jess Tolliver MD 06/17/2024 4:49 PM Signed Advertising Sales Associate offered: Patient declinesMandie Richards is a 24 year old who presents for an annual gynecologic exam without complaints. Wants IUD removed- understands she may have painful/heavy menses again- states she wants it out. Pt does not want to have removed in office. Menses: none- Mirena IUD Sexually active: never Last pap smear: never OB History Gravida0 Para0 Term0 Preterm0 AB0 Living0 SAB0 IAB0 Ectopic0 Multiple0 Live Births0 Research And Development Director History LMP: 09/02/2018 (Approximate), IUD Age at Menarche: Age at First : Age at Menopause: Research And Development Director History Comments: Sexual Activity: Never; No partner data on record Contraception: No contraception data on record PAST MEDICAL HISTORY Diagnosis Date Depression PAST SURGICAL HISTORY Procedure Laterality Date RAD RESECTION TUMOR SOFT TISS FACE/SCALP < 2CM 09/23/2019 Hemangioma FAMILY HISTORY Adopted: Yes Family history unknown: Yes SOCIAL HISTORY Social History Tobacco Use Smoking status: Never Smokeless tobacco: Never Vaping Use Vaping status: Never Used Substance Use Topics Alcohol use: Not Currently Drug use: Never REVIEW OF SYSTEMS Abdomen: No abdominal pain, nausea, vomiting, diarrhea, or constipation. No bloating, early satiety, indigestion, or increased flatulence. Bladder: No dysuria, gross hematuria, urinary frequency, urinary urgency, or incontinence. Breast: No breast lumps, nipple d/c, overlying skin changes, redness or skin retraction. Allergies and current medication updated:Yes SENSITIVE EXAM: The sensitive examination was discussed with the Patient or Patient's Authorized Orchestrator. As applicable, any other physician, advance practice provider, medical student, or other health professional student that will be observing or involved in the sensitive examination for educational or training purposes was discussed with the Patient or Authorized Orchestrator. The Patient or Authorized Orchestrator has agreed to proceed with the sensitive examination. (Sensitive examination includes inspection and/or palpation of the breasts, pelvis, prostate and anorectal regions). EXAM: BP 124/70 Ht 4' 8 (1.42m) Wt 131 lb (59.4kg) LMP 09/02/2018 BMI 29.39 kg/(m2). GENERAL: pleasant, female in no apparent distress HEENT: Normocephalic, atraumatic, mucus membranes moist, and no lesions NECK: Supple, full range of motion, no adenopathy, and thyroid normal DERMATOLOGY: Normal, without lesions, non-icteric, and non-hirsute BREAST: soft, non-tender, symmetric, no dominant mass, normal nipple-areolar complex, no lymphadenopathy, and no nipple discharge CHEST: Normal inspiratory effort ABDOMEN: soft, non-tender, and no masses PELVIC: declined BIMANUAL: declined RECTOVAGINAL: deferred. NEURO: alert and oriented x3,exam grossly non-focal EXTREMITIES: normal ASSESSMENT/PLAN: (Z01.419) Encounter for gynecological examination (general) (routine) without abnormal findings (primary encounter diagnosis) (Z30.432) Encounter for IUD removal (N94.6) Dysmenorrhea 1) Health maintenance: Discussed with patient can do IUD removal after application of glydo gel in the office-Also able to give medication for anxiety if needed. Pt is declining and only wants to go to sleep for procedure. Pt thought I was physician who did her original procedure I told her I was not- and that I would gladly discuss and give the OR booking sheet filled out to Dr. Gold to review. Will also add PAP to surgery sheet. 2) Contraception: IUD. Contraceptive options reviewed and information provided. 3) STD screening: Declined STD check. 4) Follow up one year or sooner as needed 5) discussed my recommendation is to keep the Mirena IUD in place since she had it placed for dysmenorrhea and heavy menses. I am concerned that she will have symptoms again and may need further hormonal regulation. 6) OR BOOKING SHEET filled out- extensive counseling today regarding different options for IUD removal. I showed her exactly how it would be removed in the office if she would allow attempt. Jess Mclaughlin MD Allergies As of Date: 06/17/2024 Noted Allergy Reaction CATS 10/03/2018 14 - Other: See Comments Comments: sneezing SEASONAL ALLERGIES 10/03/2018 16 - Unknown Date Reviewed: 12/12/2022 Reviewed by: Gregoria Gold MD - Fully Assessed Reason for Visit: Yearly Exam [187] Primary Visit Diagnosis:Encounter for gynecological examination (general) (routine) without abnormal findings [Z01.419] (more content not included)... [facility] Absolute lymphocyte countOrd ered By: Oralia Summers on 07-17-2023 Lymphocytes Auto (Unsp spec) [#/Vol] 2.25 10*3/uL 0.83-4.51 [facility] Automated lymphocyte count a s percentage of total leukocytesOrdered By: Oralia Summers on 07-17-2023 Lymphocytes/100 WBC Auto (Unsp spec) 24.0 % 19-41 [facility] Basophil percentageOrdered B y: Oralia Summers on 07-17-2023 Basophils/100 WBC (Bld) 0.2 % 0-1 [facility] Chloride [Moles/Vol] 103 mmol/L 98-107 [facility] Eosinophils/100 WBC (Bld) 0.9 % 0-5 [facility] Glucose [Mass/Vol] 92 mg/dL 74-106 [facility] Hemoglobin (Bld) [Mass/Vol] 13.0 g/dL 12.0-15.0 [facility] Monocytes/100 WBC (Bld) 10.2 % 0-10 [facility] Neutrophils (Bld) [#/Vol] 6.0 10*3/uL 2.0-7.7 [facility] Neutrophils/100 WBC (Bld) 64.3 % 47-70 [facility] Potassium [Moles/Vol] 3.9 mmol/L 3.5-5.1 [facility] Sodium [Moles/Vol] 135 mmol/L 136-145 [facility] WBC (Bld) [#/Vol] 9.4 10*3/uL 4.4-11.0 [facility] Determination of erythrocyte mean corpuscular volume (MCV)Ordered By: Oralia Summers on 07-17-2023 MCV (RBC) [Entitic vol] 93.4 fL 81-99 [facility] Erythrocyte distribution wid th ratioOrdered By: Oralia Summers on 07-17-2023 Erythrocyte distribution width (RBC) [Ratio] 12.1 % 11.6-14.6 [facility] Erythrocyte distribution wid th standard deviationOrdered By: Oralia Summers on 07-17-2023 Erythrocyte distribution width (RBC) [Entitic vol] 41.6 fL 35.1-43.9 [facility] Hematocrit Auto (Bld) [Volum e fraction]Ordered By: Oralia Summers on 07-17-2023 Hematocrit (Bld) [Volume fraction] 39.8 % 37-47 [facility] Immature granulocytes/100 WB C Auto (Bld)Ordered By: Oralia Summers on 07-17-2023 Immature granulocytes/100 WBC (Bld) 0.400 % 0.0-0.9 [facility] Comment on above: IG% - Immature Granu locytes (promyelocytes, myelocytes and metamyelocytes) > 1% indicates that a LEFT SHIFT is Present. Laboratory - Chemistry and C hemistry - challengeOrdered By: Oralia Summers on 07-17-2023 CO2 [Moles/Vol] 25.0 mmol/L 21.0-32.0 [facility] Urea nitrogen/Creatinine [Mass ratio] 19.6 mg/mg 10-20 [facility] Laboratory - Chemistry and C hemistry - challengeOrdered By: Estuardo Melendez on 07-17-2023 HCG ( test) Ql (U) Negative [facility] Comment on above: Very dilute urine sp ecimens, as indicated by a low specificgravity, may not contain promotions representative levels of hCG. If is still suspected, a first morning urinespecimen should be collected 48 hours later and tested. Laboratory - CoagulationOrde red By: Oralia Summers on 07-17-2023 INR Coag (Bld) [Relative time] 1.1 {INR} [facility] PT Coag (PPP) [Time] 14.0 s 11.7-14.9 [facility] Laboratory - Hematology and Cell countsOrdered By: Oralia Summers on 07-17-2023 MCH (RBC) [Entitic mass] 30.5 pg 27.0-32.0 [facility] MCHC (RBC) [Mass/Vol] 32.7 g/dL 32-36 [facility] Nucleated RBC/100 WBC (Bld) [Ratio] 0 % 0-5 [facility] Platelet mean volume (Bld) [Entitic vol] 9.5 fL 6.2-12.0 [facility] Platelets (Bld) [#/Vol] 339 10*3/uL 150-450 [facility] No Panel InformationOrdered By: Oralia Summers on 07-17-2023 Estimated Creatinine Clearance Calc 78.61 ml/min [facility] Estimated GFR (MDRD) Amer 97 mL/min >60 [facility] Comment on above: GFR Calc Estimated GFR (MDRD) Non-Af Amer 80 mL/min >60 [facility] Comment on above: Non- GFR Calc RBC Auto (Bld) [#/Vol]Ordere d By: Oralia Summers on 07-17-2023 RBC (Bld) [#/Vol] 4.26 10*6/uL 4.2-5.4 [facility] Serum or plasma calcium monica urement (mass/volume)Ordered By: Oralia Summers on 07-17-2023 Calcium [Mass/Vol] 9.2 mg/dL 8.5-10.1 [facility] Serum or plasma creatinine m easurement (mass/volume)Ordered By: Oralia Summers on 07-17-2023 Creatinine [Mass/Vol] 0.92 mg/dL 0.55-1.02 [facility] Comment on above: The validity of the calculated GFR & GFRAA in patients over 70 years has not been determined. Clinical correlation is essential. Serum or plasma urea nitroge n measurement (mass/volume)Ordered By: Oralia Summers on 07-17-2023 Urea nitrogen [Mass/Vol] 18 mg/dL 7-18 [facility] Thin prep Papanicolaou smear with manual screeningOrdered By: Oralia Summers on 07-17-2023 Thin prep Papanicolaou smear with manual screening 7 5-15 [facility] Laboratory - Chemistry and C hemistry - challengeOrdered By: Oralia Summers on 07-15-2023 Magnesium [Mass/Vol] 2.1 mg/dL 1.6-2.6 [facility] Basophil percentageOrdered B y: Mery White on 07-12-2023 Bilirubin [Mass/Vol] 0.50 mg/dL 0.20-1.00 [facility] Comment on above: For patients on eltr ombopag therapy, use of Dimension [place] TBIL is not recommended. Protein [Mass/Vol] 7.4 g/dL 6.4-8.2 [facility] Laboratory - Chemistry and C hemistry - challengeOrdered By: Mery Gray on 07-12-2023 Albumin/Globulin [Mass ratio] 1.0 {ratio} 0.9-2.4 [facility] ALP [Catalytic activity/Vol] 64 U/L 45-117 [facility] ALT [Catalytic activity/Vol] 14 U/L 13-56 [facility] Globulin (S) [Mass/Vol] 3.7 g/dL 2.2-4.2 [facility] Thin prep Papanicolaou smear with manual screeningOrdered By: Mery Gray on 07-12-2023 Thin prep Papanicolaou smear with manual screening 3.7 g/dL 3.2-5.0 [facility] Thin prep Papanicolaou smear with manual screening 16 U/L 15-37 [facility] .Auto Diffon 10-05-2020 Basophil, Absolute 0.00 10 3/mcL Normal 0.00-0.19 [facility] ([place]) Comment on above: Performed By: #### C BC, ADIFF, ANEU, BMP, ALC, MARISOL, TSH #### [address] [address] #### ACETA, GFR #### [address] [address] Basophils/100 WBC (Bld) 0.5 % Normal 0.0-2.5 [facility] ([place]) Comment on above: Performed By: #### C BC, ADIFF, ANEU, BMP, ALC, MARISOL, TSH #### [address] [address] #### ACETA, GFR #### [address] [address] Eosinophil, Absolute 0.00 10 3/mcL Normal 0.00-0.40 [facility] ([place]) Comment on above: Performed By: #### C BC, ADIFF, ANEU, BMP, ALC, MARISOL, TSH #### [address] [address] #### ACETA, GFR #### [address] [address] Eosinophils/100 WBC (Bld) 0.7 % Normal 0.0-7.0 [facility] ([place]) Comment on above: Performed By: #### C BC, ADIFF, ANEU, BMP, ALC, MARISOL, TSH #### [place] [address] #### ACETA, GFR #### [address] [address] Lymphocyte, Absolute 3.10 10 3/mcL Normal 0.77-3.85 [facility] ([place]) Comment on above: Performed By: #### C BC, ADIFF, ANEU, BMP, ALC, MARISOL, TSH #### [place] [address] #### ACETA, GFR #### [address] [address] Lymphocytes/100 WBC (Bld) 43.3 % Normal 10.0-50.0 [facility] ([place]) Comment on above: Performed By: #### C BC, ADIFF, ANEU, BMP, ALC, MARISOL, TSH #### [place] [address] #### ACETA, GFR #### [address] [address] Monocyte, Absolute 0.70 10 3/mcL Normal 0.15-1.00 [facility] ([place]) Comment on above: Performed By: #### C BC, ADIFF, ANEU, BMP, ALC, MARISOL, TSH #### [place] [address] #### ACETA, GFR #### [address] [address] Monocytes/100 WBC (Bld) 9.7 % Normal 1.7-13.0 [facility] ([place]) Comment on above: Performed By: #### C BC, ADIFF, ANEU, BMP, ALC, MARISOL, TSH #### [place] [id number] #### ACETA, GFR #### [address] [address] Neutrophils/100 WBC (Bld) 45.8 % Normal 37.0-80.0 [facility] ([place]) Comment on above: Performed By: #### C BC, ADIFF, ANEU, BMP, ALC, MARISOL, TSH #### [address] [address] #### ACETA, GFR #### [address] [address] .GFRon 10-05-2020 GFR Non- 107 ml/min/1.73sqm Normal [facility] ([place]) Comment on above: Result Comment: GFR Population mean for , Non- Americans Ages 20-29 = 116 mL/min/1.73 sq.m. Ages 30-39 = 107 mL/min/1.73 sq.m. Ages 40-49 = 99 mL/min/1.73 sq.m. Ages 50-59 = 93 mL/min/1.73 sq.m. Ages 60-69 = 85 mL/min/1.73 sq.m. Ages 70+ = 75 mL/min/1.73 sq.m. Chronic Kidney Disease: Less than 60 mL/min/1.73 square meters End Stage Renal Disease: Less than 15 mL/min/1.73 square meters Performed By: #### C BC, ADIFF, ANEU, BMP, ALC, MARISOL, TSH #### [address] [address] #### ACETA, GFR #### [address] [address] GFR 129 ml/min/1.73sqm Normal [facility] ([place]) Comment on above: Result Comment: GFR Population mean for , Non- Americans Ages 20-29 = 116 mL/min/1.73 sq.m. Ages 30-39 = 107 mL/min/1.73 sq.m. Ages 40-49 = 99 mL/min/1.73 sq.m. Ages 50-59 = 93 mL/min/1.73 sq.m. Ages 60-69 = 85 mL/min/1.73 sq.m. Ages 70+ = 75 mL/min/1.73 sq.m. Chronic Kidney Disease: Less than 60 mL/min/1.73 square meters End Stage Renal Disease: Less than 15 mL/min/1.73 square meters Performed By: #### C BC, ADIFF, ANEU, BMP, ALC, MARISOL, TSH #### [place] [address] #### ACETA, GFR #### [place] [address] .NEUABSon 10-05-2020 Neutrophil, Absolute 3.30 10 3/mcL Normal 2.85-6.16 [facility] ([place]) Comment on above: Performed By: #### C BC, ADIFF, ANEU, BMP, ALC, MARISOL, TSH #### [place] [address] #### ACETA, GFR #### [place] [address] ACETAon 10-05-2020 Acetaminophen [Mass/Vol] 0.0 ug/mL Low 10.0-30.0 [facility] ([place]) Comment on above: Performed By: #### C BC, ADIFF, ANEU, BMP, ALC, MARISOL, TSH #### [place] [id number] #### ACETA, GFR #### [place] [address] Bari 10-05-2020 Ethanol Level <3 Normal 0-3 [facility] ([place]) Comment on above: Performed By: #### C BC, ADIFF, ANEU, BMP, ALC, MARISOL, TSH #### [place] [id number] #### ACETA, GFR #### [place] [address] BMPon 10-05-2020 BUN/Creatinine Ratio 9 ratio Normal 7-27 [facility] ([place]) Comment on above: Performed By: #### C BC, ADIFF, ANEU, BMP, ALC, MARISOL, TSH #### [place] [address] #### ACETA, GFR #### [address] [address] Calcium [Mass/Vol] 8.7 mg/dL Normal 8.4-10.2 [facility] ([place]) Comment on above: Performed By: #### C BC, ADIFF, ANEU, BMP, ALC, MARISOL, TSH #### [place] [address] #### ACETA, GFR #### [place] [address] Chloride [Moles/Vol] 107 mmol/L Normal 98-107 [facility] ([place]) Comment on above: Performed By: #### C BC, ADIFF, ANEU, BMP, ALC, MARISOL, TSH #### [place] [address] #### ACETA, GFR #### [place] [address] CO2 [Moles/Vol] 27 mmol/L Normal 22-29 [facility] ([place]) Comment on above: Performed By: #### C BC, ADIFF, ANEU, BMP, ALC, MARISOL, TSH #### [place] [address] #### ACETA, GFR #### [place] [address] Creatinine [Mass/Vol] 0.70 mg/dL Normal 0.55-1.02 [facility] ([place]) Comment on above: Performed By: #### C BC, ADIFF, ANEU, BMP, ALC, MARISOL, TSH #### [place] [address] #### ACETA, GFR #### [address] [address] Electrolyte Balance 9.0 mEq/L Normal [facility] ([place]) Comment on above: Performed By: #### C BC, ADIFF, ANEU, BMP, ALC, MARISOL, TSH #### [place] [address] #### ACETA, GFR #### [address] [address] Glucose [Mass/Vol] 85 mg/dL Normal 70-105 [facility] ([place]) Comment on above: Performed By: #### C BC, ADIFF, ANEU, BMP, ALC, MARISOL, TSH #### [address] [address] #### ACETA, GFR #### [address] [address] Potassium [Moles/Vol] 3.6 mmol/L Normal 3.5-5.1 [facility] ([place]) Comment on above: Performed By: #### C BC, ADIFF, ANEU, BMP, ALC, MARISOL, TSH #### [place] [address] #### ACETA, GFR #### [place] [address] Sodium [Moles/Vol] 143 mmol/L Normal 136-145 [facility] ([place]) Comment on above: Performed By: #### C BC, ADIFF, ANEU, BMP, ALC, MARISOL, TSH #### [place] [address] #### ACETA, GFR #### [address] [address] Urea nitrogen [Mass/Vol] 6 mg/dL Low 7-18 [facility] ([place]) Comment on above: Performed By: #### C BC, ADIFF, ANEU, BMP, ALC, MARISOL, TSH #### [place] [address] #### ACETA, GFR #### [address] [address] CBCon 10-05-2020 Erythrocyte distribution width (RBC) [Ratio] 12.6 % Normal 11.5-14.5 [facility] ([place]) Comment on above: Performed By: #### C BC, ADIFF, ANEU, BMP, ALC, MARISOL, TSH #### [place] [address] #### ACETA, GFR #### [place] [address] Hematocrit (Bld) [Volume fraction] 38.9 % Normal 37.0-47.0 [facility] ([place]) Comment on above: Performed By: #### C BC, ADIFF, ANEU, BMP, ALC, MARISOL, TSH #### [place] [address] #### ACETA, GFR #### [place] [address] Hgb 13.6 G/dL Normal 12.0-16.0 [facility] ([place]) Comment on above: Performed By: #### C BC, ADIFF, ANEU, BMP, ALC, MARISOL, TSH #### [place] [address] #### ACETA, GFR #### [place] [address] MCH (RBC) [Entitic mass] 32.6 pg High 27.0-31.2 [facility] ([place]) Comment on above: Performed By: #### C BC, ADIFF, ANEU, BMP, ALC, MARISOL, TSH #### [place] [address] #### ACETA, GFR #### [place] [address] MCHC 35.0 G/dL Normal 33.0-37.0 [facility] ([place] Comment on above: Performed By: #### C BC, ADIFF, ANEU, BMP, ALC, MARISOL, TSH #### [place] [id number] #### ACETA, GFR #### [place] [address] MCV (RBC) [Entitic vol] 93.3 fL Normal 80.0-94.0 [facility] ([place]) Comment on above: Performed By: #### C BC, ADIFF, ANEU, BMP, ALC, MARISOL, TSH #### [place] [address] #### ACETA, GFR #### [place] [address] Platelet 343 10 3/mcL Normal 130-400 [facility] ([place]) Comment on above: Performed By: #### C BC, ADIFF, ANEU, BMP, ALC, MARISOL, TSH #### [place] [id number] #### ACETA, GFR #### [place] [address] Platelet mean volume (Bld) [Entitic vol] 7.9 fL Normal 7.4-10.4 [facility] ([place]) Comment on above: Performed By: #### C BC, ADIFF, ANEU, BMP, ALC, MARISOL, TSH #### [place] [id number] #### ACETA, GFR #### [place] [address] RBC 4.17 10 6/mcL Low 4.20-5.40 [facility] ([place]) Comment on above: Performed By: #### C BC, ADIFF, ANEU, BMP, ALC, MARISOL, TSH #### [place] [id number] #### ACETA, GFR #### [place] [address] WBC 7.20 10 3/mcL Normal 4.60-10.80 [facility] ([place] Comment on above: Performed By: #### C BC, ADIFF, ANEU, BMP, ALC, MARISOL, TSH #### [place] [id number] #### ACETA, GFR #### [place] [address] PREGUon 10-05-2020 HCG ( test) Ql (U) Negative Normal [facility] ([place] Comment on above: Performed By: #### P REGU, TOXSC #### [place] [place] [address] [place], [place] [address] test (u) int Not detected Invalid Interpretation Code [facility] ([place] Comment on above: Performed By: #### P REGU, TOXSC #### [place] [address] SALon 10-05-2020 Salicylate Level 1.1 mg/dL Low 2.8-20.0 [facility] ([place] Comment on above: Performed By: #### C BC, ADIFF, ANEU, BMP, ALC, MARISOL, TSH #### [place] [id number] #### ACETA, GFR #### [place] [address] TOXSCon 10-05-2020 U Ampheta (AO) Negative [facility] ([place]) Comment on above: Performed By: #### C BC, ADIFF, ANEU, BMP, ALC, MARISOL, TSH #### [place] [id number] #### ACETA, GFR #### [place] [address] U Rahel (AO) Negative [facility] ([place] Comment on above: Performed By: #### C BC, ADIFF, ANEU, BMP, ALC, AMRISOL, TSH #### [place] [id number] #### ACETA, GFR #### [place] [id number] U Ranjit (AO) Negative [facility] ([place] Comment on above: Performed By: #### C BC, ADIFF, ANEU, BMP, ALC, MARISOL, TSH #### [place] [id number] #### ACETA, GFR #### [address] [address] U Cannab (AO) Negative [facility] ([place] Comment on above: Performed By: #### C BC, ADIFF, ANEU, BMP, ALC, MARISOL, TSH #### [place] [address] #### ACETA, GFR #### [address] [address] U Cocaine (AO) Negative [facility] ([place] Comment on above: Performed By: #### C BC, ADIFF, ANEU, BMP, ALC, MARISOL, TSH #### [address] [address] #### ACETA, GFR #### [address] [address] U Methadone (AO) Negative [facility] ([place] Comment on above: Performed By: #### C BC, ADIFF, ANEU, BMP, ALC, MARISOL, TSH #### [address] [address] #### ACETA, GFR #### [address] [address] U PCP (AO) Negative [facility] ([place]) Comment on above: Performed By: #### C BC, ADIFF, ANEU, BMP, ALC, MARISOL, TSH #### [address] [address] #### ACETA, GFR #### [address] [address] U TCA (AO) Negative [facility] ([place] Comment on above: Performed By: #### C BC, ADIFF, ANEU, BMP, ALC, MARSIOL, TSH #### [address] [address] #### ACETA, GFR #### [address] [address] Urine Opiates (AO) Negative [facility] ([place]) Comment on above: Performed By: #### C BC, ADIFF, ANEU, BMP, ALC, MARISOL, TSH #### [address] [address] #### ACETA, GFR #### [address] [address] TSHon 10-05-2020 TSH Qn 2.07 m[IU]/L Normal 0.36-3.74 [facility] ([place]) Comment on above: Performed By: #### C BC, ADIFF, ANEU, BMP, ALC, MARISOL, TSH #### [facility] [address] [place], [place] [address] #### ACETA, GFR #### [facility] [address] [place] [address]808 CBCon 08-01-2018 Basophils #/vol (Bld) 0.00 x10(3) Normal 0.00-0.10 Counts include 234 beds at the [facility] Comment on above: Performed By: #### L 100.0530, L100.0690, L100.0700 #### ML - LABORATORY [address] [place] [address] Basophils/100 WBC (Bld) 0.4 % Normal 0.0-1.0 [facility] Comment on above: Performed By: #### L 100.0530, L100.0690, L100.0700 #### ML - LABORATORY [address] [place] [address] Eosinophils #/vol (Bld) 0.20 x10(3) Normal 0.00-0.54 [facility] Comment on above: Performed By: #### L 100.0530, L100.0690, L100.0700 #### ML - LABORATORY [address] [place] [address] 61859 Eosinophils/100 WBC (Bld) 2.9 % Normal 0.5-4.9 [facility] Comment on above: Performed By: #### L 100.0530, L100.0690, L100.0700 #### ML - LABORATORY [address] [place] [address] 45614 Erythrocyte distribution width Ratio (RBC) 13.1 % Normal 12.5-15.7 [facility] Comment on above: Performed By: #### L 100.0530, L100.0690, L100.0700 #### ML - LABORATORY [address] [place] [address] 02065 Hematocrit Volume Fraction (Bld) 37.0 % Normal 36.0-48.0 [facility] Comment on above: Performed By: #### L 100.0530, L100.0690, L100.0700 #### ML - LABORATORY [address] [place] [address] 73299 Hemoglobin mass conc (Bld) 12.3 g/dL Normal 12.0-16.0 [facility] Comment on above: Performed By: #### L 100.0530, L100.0690, L100.0700 #### ML - LABORATORY [address] [place] [address] Lymphocytes #/vol (Bld) 2.40 x10(3) Normal 1.00-3.50 [facility] Comment on above: Performed By: #### L 100.0530, L100.0690, L100.0700 #### ML - LABORATORY [address] [place] [address] 94182 Lymphocytes/100 WBC (Bld) 42.6 % Normal 16.0-48.0 [facility] Comment on above: Performed By: #### L 100.0530, L100.0690, L100.0700 #### ML - LABORATORY [address] [place] [address] 92545 MCH Entitic mass (RBC) 30.4 pg Normal 28.5-32.9 Counts include 234 beds at the [facility] Comment on above: Performed By: #### L 100.0530, L100.0690, L100.0700 #### ML - LABORATORY [address] [place] [address] 78571 MCHC mass conc (RBC) 33.3 g/dL Normal 33.0-36.0 [facility] Comment on above: Performed By: #### L 100.0530, L100.0690, L100.0700 #### ML - LABORATORY [address] [place] [address] 56989 MCV Entitic volume (RBC) 91.1 fL Normal 80.0-99.0 [facility] Comment on above: Performed By: #### L 100.0530, L100.0690, L100.0700 #### ML - LABORATORY [address] [place] [address] 02092 Monocytes #/vol (Bld) 0.40 x10(3) Normal 0.30-0.80 Counts include 234 beds at the [facility] Comment on above: Performed By: #### L 100.0530, L100.0690, L100.0700 #### [facility] LAB[facility]ATORY [address] [place] [address] 83571 Monocytes/100 WBC (Bld) 6.8 % Normal 4.3-11.2 Critical access hospital Comment on above: Performed By: #### L 100.0530, L100.0690, L100.0700 #### ML - LABORATORY [address] [place] [address] 39162 Neutrophils #/vol (Bld) 2.70 x10(3) Normal 1.40-6.50 [facility] Comment on above: Performed By: #### L 100.0530, L100.0690, L100.0700 #### ML [facility] LAB[facility] [address] [place] [address] 44456 Neutrophils/100 WBC (Bld) 47.3 % Normal 45.0-73.0 [facility] Comment on above: Performed By: #### L 100.0530, L100.0690, L100.0700 #### [facility] LAB[facility] [address] [place] [address] 21059 Platelet mean volume Entitic volume (Bld) 7.4 fL Low 7.5-9.5 [facility] Comment on above: Performed By: #### L 100.0530, L100.0690, L100.0700 #### [facility] [address] [place] [address] 6[address]45 Platelets #/vol (Bld) 260 X10(3) Normal 150-450 [facility] Comment on above: Performed By: #### L 100.0530, L100.0690, L100.0700 #### [facility] [address] [place] [address] 28289 RBC #/vol (Bld) 4.06 x10(6) Normal 3.30-5.00 [facility] Comment on above: Performed By: #### L 100.0530, L100.0690, L100.0700 #### - LABORATORY [address] [place] [address] 17504 WBC #/vol (Bld) 5.7 x10(3) Normal 4.5-10.0 [facility] Comment on above: Performed By: #### L 100.0530, L100.0690, L100.0700 #### [facility] [address] [place] [address] 12906 CMPon 08-01-2018 A:G RATIO 1.50 Normal 1.1-2.5 [facility] Comment on above: Performed By: #### L 100.0530, L100.0690, L100.0700 #### [facility] [address] [place] [address] 12974 Albumin mass conc 4.5 g/dL Normal 3.5-5.2 [facility] Comment on above: Performed By: #### L 100.0530, L100.0690, L100.0700 #### [facility] [address] [place] [address] 67252 ALK. PHOS 60 U/L Normal 35-105 [facility] Comment on above: Performed By: #### L 100.0530, L100.0690, L100.0700 #### [facility] [address] [place] [address] 65091 ALT enzyme act/vol 11 U/L Normal 5-33 [facility] Comment on above: Performed By: #### L 100.0530, L100.0690, L100.0700 #### [facility] [address] [place] [address] 28873 Anion gap molar conc 14.1 mmol/L Low 15-22 [facility] Comment on above: Performed By: #### L 100.0530, L100.0690, L100.0700 #### [facility] [address] [place] [address] 32806 AST enzyme act/vol 21 U/L Normal 5-32 [facility] Comment on above: Performed By: #### L 100.0530, L100.0690, L100.0700 #### ML - LABORATORY [address] [place] [address] 49945 Bilirubin Ql (U) 0.4 mg/dL Normal 0.2-1.2 [facility] Comment on above: Performed By: #### L 100.0530, L100.0690, L100.0700 #### ML - LABORATORY [address] [place] [address] 42605 Calcium mass conc 9.6 mg/dL Normal 8.6-10.0 [facility] Comment on above: Performed By: #### L 100.0530, L100.0690, L100.0700 #### - LABORATORY [address] [place] [address] 28924 Chloride molar conc 104 mmol/L Normal 98-107 [facility] Comment on above: Performed By: #### L 100.0530, L100.0690, L100.0700 #### - LABORATORY [address] [place] [address] 10284 CO2 molar conc 25 mmol/L Normal 22-29 [facility] Comment on above: Performed By: #### L 100.0530, L100.0690, L100.0700 #### - LABORATORY [address] [place] [address] 87461 Creatinine mass conc 0.78 mg/dL Normal 0.50-0.90 [facility] Comment on above: Performed By: #### L 100.0530, L100.0690, L100.0700 #### - LABORATORY [address] [place] [address] 29533 eGFR if AFR KEVIN > 60 ml/min/1.73m2 Normal U [facility] Comment on above: Result Comment: eGFR >= 60 Indicates normal kidney function. * eGFR IS AN ESTIMATE * (AFR KEVIN = ) (non-AFR AM = NON-) MDRD calculation used in the eGFR should not be used to dose medications. For further limitations of the eGFR please refer to the Physician Website or the National Kidney Disease Education Program website (www.nkdep.nih.gov). Performed By: #### L 100.0530, L100.0690, L100.0700 #### ML - LABORATORY [address] [place] [address] 76000 eGFR nonAFR Kevin > 60 ml/Min/1.73m2 Normal U [facility] Comment on above: Performed By: #### L 100.0530, L100.0690, L100.0700 #### ML - LABORATORY [address] [place] [address] 81290 Globulin mass conc (S) 3.0 g/dL Normal 1.5-4.5 Counts include 234 beds at the [facility] Comment on above: Performed By: #### L 100.0530, L100.0690, L100.0700 #### ML - LABORATORY [address] [place] [address] 31576 Glucose mass conc 80 mg/dL Normal 74-106 [facility] Comment on above: Performed By: #### L 100.0530, L100.0690, L100.0700 #### - LABORATORY [address] [place] [address] 53159 Potassium molar conc 4.1 mmol/L Normal 3.5-5.0 [facility] Comment on above: Performed By: #### L 100.0530, L100.0690, L100.0700 #### ML - LABORATORY [address] [place] [address] 86355 Protein mass conc 7.5 g/dL Normal 6.4-8.3 [facility] Comment on above: Performed By: #### L 100.0530, L100.0690, L100.0700 #### - LABORATORY [address] [place] [address] 47356 Sodium molar conc 139 mmol/L Normal 135-145 [facility] Comment on above: Performed By: #### L 100.0530, L100.0690, L100.0700 #### ML - LABORATORY [address] [place] [address] 69393 Urea nitrogen mass conc 8 mg/dL Normal 6-20 U [facility] Comment on above: Performed By: #### L 100.0530, L100.0690, L100.0700 #### ML - LABORATORY [address] [place] [address] 29831 FOLATEon 08-01-2018 FOLATE >20.0 Normal 4.8-24.2 [facility] Comment on above: Performed By: #### L 100.0530, L100.0690, L100.0700 #### [facility] - [facility] [address] [place] [address] 52172 Free T4on 08-01-2018 T4 free mass conc 1.03 ng/dL Normal 0.93-1.7 [facility] Comment on above: Performed By: #### L 100.0530, L100.0690, L100.0700 #### ML - LABORATORY [address] [place] [address] 73572 LIPID PANELon 08-01-2018 Cholesterol in HDL mass conc 64 mg/dL Normal [facility] Comment on above: Result Comment: Cit[place] onal Cholesterol Education Program (NCEP) guidelines: <40 mg/dL: Low HDL-Cholesterol(major risk factor for CHD) > or = 60 mg/dL: High HDL-Cholesterol(negative risk factor for CHD) HDL-cholesterol is affected by a number of factors, e.g., smoking, exercise, hormones, sex, and age. 4th Generation Test; Results may be approximately 7% lower than previous values. Performed By: #### L 100.0530, L100.0690, L100.0700 #### ML - LABORATORY [address] [place] [address] 22038 Cholesterol in LDL mass conc 77 mg/dL Normal [facility] Comment on above: Result Comment: LDL: OPTIMAL FOR PEOPLE AT VERY HIGH RISK <70 OPTIMAL <100 NEAR OPTIMAL 100-129 BORDERLINE HIGH 130-159 HIGH 160-189 VERY HIGH >=190 Source: 2009 NCEP ATP III, ADA Guidelines Reviewed: July, Performed By: #### L 100.0530, L100.0690, L100.0700 #### ML - LABORATORY [address] [place] [address] 74324 Cholesterol in LDL/Cholesterol in HDL mass ratio 1.2 Normal [facility] Comment on above: Performed By: #### L 100.0530, L100.0690, L100.0700 #### ML - LABORATORY [address] [place] [address] 35241 Cholesterol in VLDL mass conc 11 mg/dL Normal 6-40 [facility] Comment on above: Performed By: #### L 100.0530, L100.0690, L100.0700 #### ML - LABORATORY [address] [place] [address] 92042 Cholesterol mass conc 152 mg/dL Normal 130-200 [facility] Comment on above: Performed By: #### L 100.0530, L100.0690, L100.0700 #### ML - LABORATORY [address] [place] [address] 99143 Triglyceride mass conc 53 mg/dL Normal Counts include 234 beds at the [facility] Comment on above: Result Comment: TRIG : DESIRABLE: <150 mg/dL Performed By: #### L 100.0530, L100.0690, L100.0700 #### ML - LABORATORY [address] [place] [address] 71713 TSHon 08-01-2018 Thyrotropin Qn 1.05 uIU/mL Normal 0.45-4.50 [facility] Comment on above: Performed By: #### L 100.0530, L100.0690, L100.0700 #### ML - LABORATORY [address] [place] [address] [place] [address] VIT. B12on 08-01-2018 Cobalamin (Vitamin B12) mass conc 216.6 pg/mL Low 232-1245 [facility] Comment on above: Performed By: #### L 100.0530, L100.0690, L100.0700 #### ML - LABORATORY [address] [place] [address] 07664 VITAMIN Don 08-01-2018 VITAMIN D 30.8 ng/mL Normal 30-100 [facility] Comment on above: Performed By: #### L 100.0530, L100.0690, L100.0700 #### ML - LABORATORY [address] [place] [address] 44574 EMERGENCY DEPARTMENT REPORTo n 03-10-2018 EMERGENCY DEPARTMENT [place] [address] HEALTH INFORMATION MANAGEMENT EMERGENCY DEPARTMENT REPORT Patient: LONI DIAZ JENNI PITTS M.D. [id number] 00 18 F Status: DEP ER ED Date of Service: 02/21/18 ADDENDUM This dictation is an addendum to the previously dictated note. EMERGENCY DEPARTMENT COURSE On the patient's wrist, there was a very superficial, almost more of an abrasion, lucas from her attempt at cutting herself with scissors. Again, it is very superficial, not requiring any type of repair. IMPRESSION 03/15/18 1445 ___ JENNI PITTS M.D. cc: JENNI PITTS M.D. << Signature on File>> Reported By: JENNI PITTS M.D. Signed By: JENNI PITTS M.D. Tests performed at: [address] [address] Normal [facility] ACETAMINOPHENon 02-21-2018 Acetaminophen mass conc < 5.0 Low 10-30 [facility] Comment on above: Performed By: #### L 100.0530, L100.0690, L100.0700 #### ML - LABORATORY [address] [place] [address] 70206 ALCOHOLon 02-21-2018 Ethanol mass conc mg/dL Normal 0-0.01 [facility] Comment on above: Performed By: #### L 100.0530, L100.0690, L100.0700 #### ML - LABORATORY [address] [place] [address] 54823 BMPon 02-21-2018 Anion gap molar conc 16.0 mmol/L Normal 15-22 [facility] Comment on above: Performed By: #### L 100.0010, L100.0030, L304.0140 #### - LABORATORY [address] [place] [address] Calcium mass conc 9.8 mg/dL Normal 8.6-10.0 [facility] Comment on above: Performed By: #### L 100.0010, L100.0030, L304.0140 #### ML - LABORATORY [address] [place] [address] 06262 Chloride molar conc 104 mmol/L Normal 98-107 [facility] Comment on above: Performed By: #### L 100.0010, L100.0030, L304.0140 #### - LABORATORY [address] [place] [address] 84718 CO2 molar conc 25 mmol/L Normal 22-29 [facility] Comment on above: Performed By: #### L 100.0010, L100.0030, L304.0140 #### [facility] LAB[facility] [address] [place] [address] 43832 Creatinine mass conc 0.69 mg/dL Normal 0.50-0.90 [facility] Comment on above: Performed By: #### L 100.0010, L100.0030, L304.0140 #### - LABORATORY [address] [place] [address] 44388 eGFR if AFR KEVIN > 60 ml/min/1.73m2 Normal [facility] Comment on above: Result Comment: eGFR >= 60 Indicates normal kidney function. * eGFR IS AN ESTIMATE * (AFR KEVIN = ) (non-AFR AM = NON-) MDRD calculation used in the eGFR should not be used to dose medications. For further limitations of the eGFR please refer to the Physician Website or the National Kidney Disease Education Program website (www.nkdep.nih.gov). Performed By: #### L 100.0010, L100.0030, L304.0140 #### - LABORATORY [address] [place] [address] 05452 eGFR nonAFR Kevin > 60 ml/Min/1.73m2 Normal [facility] Comment on above: Performed By: #### L 100.0010, L100.0030, L304.0140 #### [facility] [address] [place] [address] 42209 Glucose mass conc 98 mg/dL Normal 74-106 [facility] Comment on above: Performed By: #### L 100.0010, L100.0030, L304.0140 #### ML - LABORATORY [address] [place] [address] 89650 Potassium molar conc 4.0 mmol/L Normal 3.5-5.0 [facility] Comment on above: Performed By: #### L 100.0010, L100.0030, L304.0140 #### ML - LABORATORY [address] [place] [address] 00066 Sodium molar conc 141 mmol/L Normal 135-145 [facility] Comment on above: Performed By: #### L 100.0010, L100.0030, L304.0140 #### ML - LABORATORY [address] [place] [address] 49745 Urea nitrogen mass conc 11 mg/dL Normal 6-20 [facility] Comment on above: Performed By: #### L 100.0010, L100.0030, L304.0140 #### ML - LABORATORY [address] [place] [address] 07620 CBCon 02-21-2018 Basophils #/vol (Bld) 0.00 x10(3) Normal 0.00-0.10 Counts include 234 beds at the [facility] Comment on above: Performed By: #### L 200.0010 #### ML - LABORATORY [address] [place] [address] 08350 Basophils/100 WBC (Bld) 0.4 % Normal 0.0-1.0 [facility] Comment on above: Performed By: #### L 200.0010 #### ML - LABORATORY [address] [place] [address] 87768 Eosinophils #/vol (Bld) 0.20 x10(3) Normal 0.00-0.54 [facility] Comment on above: Performed By: #### L 200.0010 #### ML - LABORATORY [address] [place] [address] 61241 Eosinophils/100 WBC (Bld) 3.1 % Normal 0.5-4.9 [facility] Comment on above: Performed By: #### L 200.0010 #### ML - LABORATORY [address] [place] [address] 15036 Erythrocyte distribution width Ratio (RBC) 12.4 % Low 12.5-15.7 [facility] Comment on above: Performed By: #### L 200.0010 #### ML [facility] [address] [place] [address] 17798 Hematocrit Volume Fraction (Bld) 38.8 % Normal 36.0-48.0 [facility] Comment on above: Performed By: #### L 200.0010 #### ML [facility] [address] [place] [address] 09731 Hemoglobin mass conc (Bld) 13.3 g/dL Normal 12.0-16.0 [facility] Comment on above: Performed By: #### L 200.0010 #### ML [facility] [address] [place] [address] 43668 Lymphocytes #/vol (Bld) 2.20 x10(3) Normal 1.00-3.50 [facility] Comment on above: Performed By: #### L 200.0010 #### ML - LABORATORY [address] [place] [address] 81657 Lymphocytes/100 WBC (Bld) 35.5 % Normal 16.0-48.0 [facility] Comment on above: Performed By: #### L 200.0010 #### ML [facility] [address] [place] [address] 96497 MCH Entitic mass (RBC) 31.8 pg Normal 28.5-32.9 Counts include 234 beds at the [facility] Comment on above: Performed By: #### L 200.0010 #### ML - LABORATORY [address] [place] [address] 10073 MCHC mass conc (RBC) 34.3 g/dL Normal 33.0-36.0 [facility] Comment on above: Performed By: #### L 200.0010 #### ML [facility] [address] [place] [address] 86746 MCV Entitic volume (RBC) 92.6 fL Normal 80.0-99.0 [facility] Comment on above: Performed By: #### L 200.0010 #### ML - LABORATORY [address] [place] [address] 23594 Monocytes #/vol (Bld) 0.60 x10(3) Normal 0.30-0.80 Counts include 234 beds at the [facility] Comment on above: Performed By: #### L 200.0010 #### ML [facility] [address] [place] [address] 11338 Monocytes/100 WBC (Bld) 9.0 % Normal 4.3-11.2 [facility] hospital Comment on above: Performed By: #### L 200.0010 #### ML [facility] [address] [place] [address] 59826 Neutrophils #/vol (Bld) 3.20 x10(3) Normal 1.40-6.50 [facility] Comment on above: Performed By: #### L 200.0010 #### ML [facility] [address] [place] [address] 99216 Neutrophils/100 WBC (Bld) 52.0 % Normal 45.0-73.0 [facility] Comment on above: Performed By: #### L 200.0010 #### ML - LABORATORY [address] [place] [address] 73285 Platelet mean volume Entitic volume (Bld) 7.5 fL Normal 7.5-9.5 [facility] Comment on above: Performed By: #### L 200.0010 #### ML [facility] [address] [place] [address] 61691 Platelets #/vol (Bld) 305 X10(3) Normal 150-450 [facility] Comment on above: Performed By: #### L 200.0010 #### ML - LABORATORY [address] [place] [address] 18170 RBC #/vol (Bld) 4.19 x10(6) Normal 3.30-5.00 [facility] Comment on above: Performed By: #### L 200.0010 #### [facility] [address] [place] [address] 54646 WBC #/vol (Bld) 6.1 x10(3) Normal 4.5-10.0 [facility] Comment on above: Performed By: #### L 200.0010 #### [facility] [address] [place] [address] 26542 DRUG SCREENon 02-21-2018 AMPHETAMINE Negative Normal NEGATIVE [facility] Comment on above: Performed By: #### L 100.0707 #### [facility] [address] [place] [address] 23916 BARBITUATES Negative Normal NEGATIVE [facility] Comment on above: Performed By: #### L 100.0707 #### [facility] [address] [place] [address] 17572 BENZODIAZEPINE Negative Normal NEGATIVE [facility] Comment on above: Performed By: #### L 100.0707 #### [facility] [address] [place] [address] 37010 CANNABINOID Negative Normal NEGATIVE [facility] Comment on above: Performed By: #### L 100.0707 #### [facility] [address] [place] [address] 57671 Cocaine Ql (U) Negative Normal NEGATIVE [facility] Comment on above: Performed By: #### L 100.0707 #### [facility] [address] [place] [address] 35428 Methadone Ql (U) Negative Normal NEGATIVE [facility] Comment on above: Performed By: #### L 100.0707 #### [facility] [address] [place] [address] 94608 Opiates Ql (U) Negative Normal NEGATIVE [facility] Comment on above: Performed By: #### L 100.0707 #### [facility] [address] [place] [address] 13922 OXYCODONE Negative Normal NEGATIVE [facility] Comment on above: Performed By: #### L 100.0707 #### ML [facility] [address] [place] [address] 93240 Phencyclidine Ql (U) Negative Normal NEGATIVE [facility] Comment on above: Result Comment: COMM ENT: SPECIMEN TYPE - URINE. Unconfirmed screening results for the Drug Screen Panel should not be used for non-medical purposes. CUTOFFS: Amphetamine cutoff concentration: 500 ng/mL Cocaine cutoff concentration: 150 ng/mL Opiates cutoff concentration: 100 ng/mL Benzodiazepine cutoff concentration: 150 ng/mL Barbituate cutoff concentration: 200 ng/mL Cannabinoid cutoff concentration: 50 ng/mL Propoxyphene cutoff concentration: 300 ng/mL Methadone cutoff concentration: 200 ng/mL Oxycodone cutoff concentration: 100 ng/mL Phencyclidine cutoff concentration: 25 ng/mL Med[facility] Method Performed By: #### L 100.0707 #### ML [facility] [address] [place] [address] 29355 Protein mass conc Negative Normal NEGATIVE [facility] Comment on above: Performed By: #### L 100.0707 #### ML - LABORATORY [address] [place] [address] 15038 [facility] EM[facility]Y [place] [address] HEALTH INFORMATION MANAGEMENT EMERGENCY DEPARTMENT REPORT Patient: LONI DIAZ JENNI PITTS M.D. [id number] 00 18 F Status: DEP ER ED Date of Service: 02/21/18 CHIEF COMPLAINT Behavioral problem. ALLERGIES NO KNOWN DRUG ALLERGIES. HISTORY OF PRESENT ILLNESS Loni Frazier is a very nice 18-year-old female who presents to the emergency room today basically for suicidal gesture. She apparently locked herself in the bathroom at school today and cut her wrist with a pair of scissors. This patient has a history of some degree of mental illness. She is adopted. She is originally from [place], apparently she has been living here for years. 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 She is 18 years old and around age of 18 she tried to become independent, but because of her history of mental illness the court has ruled that her parents also have guardianship. Again, she has been, I think, somewhat depressed lately. She has seen counseling for this as well. She has had a couple of previous suicide attempts. PAST MEDICAL HISTORY Significant again, for depression. SOCIAL HISTORY The patient is single. Nonsmoker. Nondrinker. REVIEW OF SYSTEMS As per history of present illness. PHYSICAL EXAMINATION General/Constitutio nal: The patient is an age-appropriate 18-year-old female, in no acute distress. HEENT: Head symmetric and atraumatic. She has a previous surgical scar on the left side of her face. Chest/Respiratory: Lungs are clear to auscultation bilaterally. Heart is unremarkable. Neurologic examination, the patient is awake and alert, appropriately interactive. Psychiatric evaluation, again, the patient is awake and alert. She does not make very good eye contact. She seems to have somewhat of a muted or blunted affect. She refused to answer whether or not she wants to hurt herself. EMERGENCY ROOM COURSE The patient was brought into bed 16 and was evaluated. I have ordered standard screening labs for [facility]. They will be consulted for disposition. DIAGNOSIS Medical clearance for [facility]. 02/22/181954 ___ JENNI PITTS M.D. cc: JENNI PITTS M.D. << Signature on File>> Reported By: JENNI PITTS M.D. Signed By: JENNI PITTS M.D. Tests performed at: [address] [address] Normal [facility] HEPATIC PANELon 02-21-2018 A:G RATIO 1.30 Normal 1.1-2.5 [facility] Comment on above: Performed By: #### L 100.0010, L100.0030, L304.0140 #### ML [facility] [address] [place] [address] 26156 Albumin mass conc 4.3 g/dL Normal 3.5-5.2 [facility] Comment on above: Performed By: #### L 100.0010, L100.0030, L304.0140 #### ML [facility] [address] [place] [address] 70176 ALK. PHOS 66 U/L Normal 35-105 [facility] Comment on above: Performed By: #### L 100.0010, L100.0030, L304.0140 #### - LABORATORY [address] [place] [address] 85601 ALT enzyme act/vol 10 U/L Normal 5-33 [facility] Comment on above: Performed By: #### L 100.0010, L100.0030, L304.0140 #### ML - LABORATORY [address] [place] [address] 54657 AST enzyme act/vol 18 U/L Normal 5-32 [facility] Comment on above: Performed By: #### L 100.0010, L100.0030, L304.0140 #### - LABORATORY [address] [place] [address] 38062 Bilirubin Ql (U) 0.2 mg/dL Normal 0.2-1.2 [facility] Comment on above: Performed By: #### L 100.0010, L100.0030, L304.0140 #### [facility] [address] [place] [address] 07721 DIRECT BILIRUBI <0.2 Normal 0.0-0.3 [facility] Comment on above: Performed By: #### L 100.0010, L100.0030, L304.0140 #### - LABORATORY [address] [place] [address] 10787 Globulin mass conc (S) 3.3 g/dL Normal 1.5-4.5 Counts include 234 beds at the [facility] Comment on above: Performed By: #### L 100.0010, L100.0030, L304.0140 #### [facility] [address] [place] [address] 92386 Protein mass conc 7.6 g/dL Normal 6.4-8.3 [facility] Comment on above: Performed By: #### L 100.0010, L100.0030, L304.0140 #### ML - LABORATORY [address] [place] [address] 68016 SALICYLATEon 02-21-2018 SALICYLATE < 0.3 Normal 0-10 [facility] Comment on above: Performed By: #### L 100.0530, L100.0690, L100.0700 #### ML - LABORATORY [address] [place] [address] 95161 TSHon 02-21-2018 Thyrotropin Qn 1.02 uIU/mL Normal 0.45-4.50 [facility] Comment on above: Performed By: #### L 100.0010, L100.0030, L304.0140 #### ML - LABORATORY [address] [place] [address] 97791 URINALYSISon 02-21-2018 Bilirubin Ql (U) Negative Normal NEGATIVE [facility] Comment on above: Order Comment: Urine Specimen Source+ CLEAN CATCH Performed By: #### L 200.3000 #### ML - LABORATORY [address] [place] [address] 81622 Color Nom (U) YELLOW Normal YELLOW [facility] Comment on above: Order Comment: Urine Specimen Source+ CLEAN CATCH Performed By: #### L 200.3000 #### ML - LABORATORY [address] [place] [address] 43869 Glucose Ql (U) Negative Normal NEGATIVE [facility] Comment on above: Order Comment: Urine Specimen Source+ CLEAN CATCH Performed By: #### L 200.3000 #### ML [facility] [address] [place] [address] 05060 Hemoglobin Ql (U) MODERATE Normal NEGATIVE [facility] Comment on above: Order Comment: Urine Specimen Source+ CLEAN CATCH Performed By: #### L 200.3000 #### ML - LABORATORY [address] [place] [address] 29717 Leukocyte esterase Test strip Ql (U) Negative Normal NEGATIVE [facility] Comment on above: Order Comment: Urine Specimen Source+ CLEAN CATCH Performed By: #### L 200.3000 #### ML - LABORATORY [address] [place] [address] 14752 Nitrite Ql (U) Negative Normal NEGATIVE [facility] Comment on above: Order Comment: Urine Specimen Source+ CLEAN CATCH Performed By: #### L 200.3000 #### ML - LAB[facility]ATORY [address] [place] [address] 72059 pH (U) 6.0 [pH] Normal 5.0-8.0 [facility] Comment on above: Order Comment: Urine Specimen Source+ CLEAN CATCH Performed By: #### L 200.3000 #### ML - LABORATORY [address] [place] [address] 57474 Protein Ql (U) Negative Normal NEGATIVE [facility] Comment on above: Order Comment: Urine Specimen Source+ CLEAN CATCH Performed By: #### L 200.3000 #### ML - LABORATORY [address] [place] [address] 78662 URINE APPEARANC CLEAR Normal CLEAR [facility] Comment on above: Order Comment: Urine Specimen Source+ CLEAN CATCH Performed By: #### L 200.3000 #### ML - LABORATORY [address] [place] [address] 25953 URINE KETONE Negative Normal NEGATIVE [facility] Comment on above: Order Comment: Urine Specimen Source+ CLEAN CATCH Performed By: #### L 200.3000 #### ML - LABORATORY [address] [place] [address] 62135 URINE SPECIFIC 1.020 Normal 1.001-1.035 [facility] Comment on above: Order Comment: Urine Specimen Source+ CLEAN CATCH Performed By: #### L 200.3000 #### ML - LABORATORY [address] [place] [address] 70282 URINE UROBILINO 0.2 EU/DL Normal 0.2-1.0 [facility] Comment on above: Order Comment: Urine Specimen Source+ CLEAN CATCH Performed By: #### L 200.3000 #### ML - LABORATORY [address] [place] [address] 09943 CBC, AUTO DIFFon 09-26-2017 BASOPHILS (ABSOLUTE) 0.0 x10 3/uL Normal 0.0-0.2 [facility] Comment on above: Performed By: #### L IPID ####[facility] [address] [place], [place] [phone] Basophils/100 WBC Auto (Bld) 0.3 % Normal 0.0-2.0 [facility] Comment on above: Performed By: #### L IPID ####[facility] [address] [facility]. [place], [place] [phone] Eosinophils 0.1 x10 3/uL Normal 0.0-0.7 [facility] Comment on above: Performed By: #### L IPID ####[facility] [address] [facility]. [place], [place] [phone] Eosinophils/100 leukocytes 1.6 % Normal 0.0-7.0 [facility] Comment on above: Performed By: #### L IPID ####[facility] [address] [facility]. [place], [place] [phone] Erythrocyte distribution width Auto Ratio (RBC) 13.1 % Normal 11.0-14.8 [facility] Comment on above: Performed By: #### L IPID ####[facility] [address] [facility]. [place], [place] [phone] Erythrocytes (RBC) 4.1 x10 6/uL Normal 4.1-5.1 [facility] Comment on above: Performed By: #### L IPID ####[facility] [address] [facility]. [place], [place] [phone] Hematocrit (HCT) 38.3 % Normal 36.0-48.0 [facility] Comment on above: Performed By: #### L IPID ####[facility] [address] [facility]. [place], [place] [phone] Hemoglobin mass conc (Bld) 12.8 g/dL Normal 12.0-16.0 [facility] Comment on above: Performed By: #### L IPID ####[facility] [address] [facility]. [place], [place] [phone] Lymphocytes 2.6 x10 3/uL Normal 1.0-4.8 [facility] Comment on above: Performed By: #### L IPID ####[facility] [address] [place], [place] [phone] Lymphocytes/100 leukocytes 32.3 % Normal 25.0-45.0 [facility] Comment on above: Performed By: #### L IPID ####[facility] [address] [place], [place] [phone] MANUAL DIFFERENTIAL NO Normal [facility] Comment on above: Performed By: #### L IPID ####[facility] [address] [place], [place] [phone] MCH 31.5 pg Normal 25.0-34.0 [facility] Comment on above: Performed By: #### L IPID ####[facility] [address] [place], [place] [phone] MCHC mass conc (RBC) 33.5 g/dL Normal 32.0-36.0 [facility] Comment on above: Performed By: #### L IPID ####[facility] [address] [place], [place] [phone] MCV 94.0 fL Normal 78.0-102.0 [facility] Comment on above: Performed By: #### L IPID ####[facility] [address] [place], [place] [phone] Monocytes 0.4 x10 3/uL Normal 0.0-0.9 [facility] Comment on above: Performed By: #### L IPID ####[facility] [address] [place], [place] [phone] Monocytes/100 leukocytes 5.5 % Normal 2.0-8.0 [facility] Comment on above: Performed By: #### L IPID ####[facility] [address] [facility]. [place], [place] [phone] Neutrophils 4.9 x10 3/uL Normal 1.8-7.7 [facility] Comment on above: Performed By: #### L IPID ####[facility] I[address]k1028 [facility]. [place], [place] [phone] NEUTROPHILS (%) 60.3 % Normal 39.0-75.0 [facility] Comment on above: Performed By: #### L IPID ####[facility] [address] [facility]. [place], [place] [phone] Platelets 298 x10 3/uL Normal 142-424 [facility] Comment on above: Performed By: #### L IPID ####[facility] [address] [facility]. [place], [place] [phone] WBC (Leukocytes) 8.1 x10 3/uL Normal 4.5-13.5 [facility] Comment on above: Performed By: #### L IPID ####[facility] [address] [place], [place] [phone] RPR, QUALon 09-06-2017 RPR KIT EXP DATE 07/20/2018 [facility] Comment on above: Performed By: #### L IPID ####[facility] [address] [place], [place] [phone] RPR KIT LOT # [id number] Normal [facility] Comment on above: Performed By: #### L IPID ####[facility] [address]59[address] [facility]. [place], [place] [phone] RPR, QUAL NON-REACTIVE Normal NONREACTIVE [facility] Comment on above: Performed By: #### L IPID ####[facility] V[address]27[address] [facility]. [place], [place] [phone] CBC, AUTO DIFFon 08-30-2017 BASOPHILS (ABSOLUTE) 0.0 x10 3/uL Normal 0.0-0.2 [facility] Comment on above: Performed By: #### C BC ####[facility] Faxct[address]ign6082 [facility]. [place], [place] [phone] Basophils/100 WBC Auto (Bld) 0.5 % Normal 0.0-2.0 [facility] Comment on above: Performed By: #### C BC ####[facility] [address] [place] [address]. [place], [place] [phone] Eosinophils 0.3 x10 3/uL Normal 0.0-0.7 [facility] Comment on above: Performed By: #### C BC ####[facility] [address] [place] [address] [phone] Eosinophils/100 leukocytes 5.8 % Normal 0.0-7.0 [facility] Comment on above: Performed By: #### C BC ####[facility] [address] [place] [address] [phone] Erythrocyte distribution width Auto Ratio (RBC) 12.9 % Normal 11.0-14.8 [facility] Comment on above: Performed By: #### C BC ####[facility] [address] [place], [place] [phone] Erythrocytes (RBC) 4.3 x10 6/uL Normal 4.1-5.1 [facility] Comment on above: Performed By: #### C BC ####[facility] [address] [place], [place] [phone] Hematocrit (HCT) 40.3 % Normal 36.0-48.0 [facility] Comment on above: Performed By: #### C BC ####[facility] [address] [facility]. [place], [place] [phone] Hemoglobin mass conc (Bld) 13.3 g/dL Normal 12.0-16.0 [facility] Comment on above: Performed By: #### C BC ####[facility] H[address]ct[address]kmqcq8439 [facility]. [place], [place] [phone] Lymphocytes 2.4 x10 3/uL Normal 1.0-4.8 [facility] Comment on above: Performed By: #### C BC ####[facility] [address]cf64[address] [facility]. [place], [place] [phone] Lymphocytes/100 leukocytes 40.7 % Normal 25.0-45.0 [facility] Comment on above: Performed By: #### C BC ####[facility] [address] [place], [place] [phone] MANUAL DIFFERENTIAL NO Normal [facility] Comment on above: Performed By: #### C BC ####[facility] [address] [place] [address] [phone] MCH 31.1 pg Normal 25.0-34.0 [facility] Comment on above: Performed By: #### C BC ####[facility] [address]72[address] [facility]. [place], [place] [phone] MCHC mass conc (RBC) 33.1 g/dL Normal 32.0-36.0 [facility] Comment on above: Performed By: #### C BC ####[facility] [address] [place], [place] [phone] MCV 93.9 fL Normal 78.0-102.0 [facility] Comment on above: Performed By: #### C BC ####[facility] [address] [facility]. [place], [place] [phone] Monocytes 0.4 x10 3/uL Normal 0.0-0.9 [facility] Comment on above: Performed By: #### C BC ####[facility] [address]26[address] [facility]. [place], [place] [phone] Monocytes/100 leukocytes 6.1 % Normal 2.0-8.0 [facility] Comment on above: Performed By: #### C BC ####[facility] [address] [facility]. [place], [place] [phone] Neutrophils 2.7 x10 3/uL Normal 1.8-7.7 [facility] Comment on above: Performed By: #### C BC ####[facility] [address] [place] [address] [phone] NEUTROPHILS (%) 46.9 % Normal 39.0-75.0 [facility] Comment on above: Performed By: #### C BC ####[facility] [address] [place] [address]. [place], [place] [phone] Platelets 271 x10 3/uL Normal 142-424 [facility] Comment on above: Performed By: #### C BC ####[facility] [address]60[address] [facility]. [place], [place] [phone] WBC (Leukocytes) 5.9 x10 3/uL Normal 4.5-13.5 [facility] Comment on above: Performed By: #### C BC ####[facility] [address] [place] [address] [phone] CHLAMYDIA PCRon 08-30-2017 //INT. LOT # FOR KIT TEST [id number] Normal [facility] Comment on above: Performed By: #### C HLA PCR ####[facility] [facility] [address] [place] [address] [phone] Performed By: #### G VINICIO PCR ####[facility] Qdqnfnehbo1586 [facility]. [place], [place] [phone] //INT.EXPIRATION FOR KIT TEST 07/19/19 Normal [facility] Comment on above: Performed By: #### C HLA PCR ####[facility] Ghjaoitknk4770 [facility]. [place], [place] [phone] Performed By: #### G VINICIO PCR ####[facility] Shvrbmwgop6272 [facility]. [place], [place] [phone] CHLAMYDIA UA, ENDOCERV PCR Negative Normal NEGATIVE [facility] Comment on above: Performed By: #### C HLA PCR ####[facility] F[address]ax[address]wem0[address] [facility]. [place], [place] [phone] COMP METABOLIC PROFILEon Alanine aminotransferase (ALT) 8 U/L Normal 7-52 [facility] Comment on above: Performed By: #### C META ####[facility] Nwyyiswqws6977 [facility]. [place], [place] [phone] Albumin 4.4 g/dL Normal 3.3-5.7 [facility] Comment on above: Performed By: #### C META ####[facility] Eoullvptbl7255 [facility]. [place], [place] [phone] Albumin/Globulin Ratio 1.6 {ratio} Normal 1.1-2.5 [facility] Comment on above: Performed By: #### C META ####[facility] Gwnmluqymv0123 [facility]. [place], [place] [phone] Alkaline phosphatase (ALP) 61 U/L Normal 34-124 [facility] Comment on above: Performed By: #### C META ####[facility] [address] [place], [place] [phone] Anion gap 8 mmol/L Normal 8-16 [facility] Comment on above: Performed By: #### C META ####[facility] Ykbjxhahuw6574 [facility]. [place], [place] [phone] Aspartate aminotransferase (AST) 12 U/L Low 13-39 [facility] Comment on above: Performed By: #### C META ####[facility] Ydyxqaobrt7946 [facility]. [place], [place] [phone] Bilirubin Ql (U) 0.6 mg/dL Normal 0.3-1.0 [facility] Comment on above: Performed By: #### C META ####[facility] Djginjmqpx9965 [facility]. [place], [place] [phone] BUN/Creatinine Ratio 15.0 mg/dL Normal 6.0-22.0 [facility] Comment on above: Performed By: #### C META ####[facility] Irjltycmfw5826 [facility]. [place], [place] [phone] Calcium 9.3 mg/dL Normal 8.5-10.5 [facility] Comment on above: Performed By: #### C META ####[facility] Wjikidrwsf2466 [facility]. [place], [place] [phone] Chloride 103 mmol/L Normal 99-107 [facility] Comment on above: Performed By: #### C META ####[facility] Wfswvcrlnm8500 [facility]. [place], [place] [phone] CO2 27 mmol/L Normal 21-31 [facility] Comment on above: Performed By: #### C META ####[facility] Hcyhislvui3245 [facility]. [place], [place] [phone] Creatinine 0.73 mg/dL Normal 0.60-1.30 [facility] Comment on above: Performed By: #### C META ####[facility] [address] [place], [place] [phone] eGFR (MDRD) 112 mL/min/1.73 m2 Normal [facility] Comment on above: Result Comment: GFR RANGESSTAGE GFR LEVEL DESCRIPTION 1 90 mL/min or more NORMAL 2 60-89 mL/min MILD DECREASE 3 30-59 mL/min MODERATE DECREASE 4 15-29 mL/min SEVERE DECREASE 5 < 15mL/min KIDNEY FAILURE Performed By: #### C META ####[facility] [address] [facility] [place], [place] [phone] Globulin 2.8 g/dL Normal 1.7-3.8 [facility] Comment on above: Performed By: #### C META ####[facility] [address] [facility] [place], [place] [phone] Glucose mass conc 74 mg/dL Normal 70-105 [facility] Comment on above: Performed By: #### C META ####[facility] [address] [facility] [place], [place] [phone] Potassium molar conc 4.2 mmol/L Normal 3.5-5.3 [facility] Comment on above: Performed By: #### C META ####[facility] [address] [place], [place] [phone] Protein 7.2 g/dL Normal 6.0-8.9 [facility] Comment on above: Performed By: #### C META ####[facility] [address] [place], [place] [phone] Sodium 138 mmol/L Normal 135-145 [facility] Comment on above: Performed By: #### C META ####[facility] [address] [place], [place] [phone] Urea nitrogen 11.0 mg/dL Normal 7-25 [facility] Comment on above: Performed By: #### C META ####[facility] [address] [place], [place] [phone] DRUG PANEL,URINEon 8 BARBITUATES Negative Normal NEGATIVE [facility] Comment on above: Performed By: #### D RUG PNL ####[facility] [address] [place], [place] [phone] BENZODIAZEPINE Negative Normal NEGATIVE [facility] Comment on above: Performed By: #### D RUG PNL ####[facility] [address] [place], [place] [phone] Body temperature WITHIN RANGE Normal [facility] Comment on above: Result Comment: CUT OFF VALUES: AMPHETAMINES 300 ng/ml BARBITUATES 200 ng/ml BENZO 200 ng/ml COCAINE 150 ng/ml METHADONE 300 ng/ml OPIATES 300 ng/ml PCP 25 ng/ml THC 50 ng/mlCREA URINE REF.RANGE >19 Performed By: #### D RUG PNL ####[facility] [address] [place], [place] [phone] CREATININE,URINE 96.1 mg/dL Normal [facility] Comment on above: Performed By: #### D RUG PNL ####[facility] [address] [place], [place] [phone] DRUG PH 7.0 Normal 5.0-8.0 [facility] Comment on above: Performed By: #### D RUG PNL ####[facility] [address] [place], [place] [phone] PHENOCYCLIDINE Negative Normal NEGATIVE [facility] Comment on above: Performed By: #### D RUG PNL ####[facility] [address] [place], [place] [phone] TRICYCLICS Negative Normal NEGATIVE [facility] Comment on above: Performed By: #### D RUG PNL ####[facility] [address]ex[address] [facility]. [place], [place] [phone] Urine, amphetamines presence Negative Normal NEGATIVE [facility] Comment on above: Performed By: #### D RUG PNL ####[facility] Ficyrsdatd0771 [facility]. [place], [place] [phone] Urine, cannabinoids presence Negative Normal NEGATIVE [facility] Comment on above: Performed By: #### D RUG PNL ####[facility] [address]ef[address]bzo87[address] [facility]. [place], [place] [phone] Urine, cocaine presence Negative Normal NEGATIVE [facility] Comment on above: Performed By: #### D RUG PNL ####[facility] [address]av[address]zl[address]3978 [facility]. [place], [place] [phone] Urine, methadone presence Negative Normal NEGATIVE [facility] Comment on above: Performed By: #### D RUG PNL ####[facility] [address]4363 [facility]. [place], [place] [phone] Urine, opiates presence Negative Normal NEGATIVE [facility] Comment on above: Performed By: #### D RUG PNL ####[facility] R[address]hcacpagk6317 [facility]. [place], [place] [phone] Urine, specific gravity 1.010 Normal 1.000-1.035 [facility] Comment on above: Performed By: #### D RUG PNL ####[facility] Rkinrg[address]muk80[address] [facility]. [place], [place] [phone] GONORROHOEAE PCRon 8 //INT. LIVESTOCK PRODUCER NEG Negative Normal NEGATIVE [facility] Comment on above: Performed By: #### G VINICIO PCR ####[facility] Ecojibsymx1544 [facility]. [place], [place] [phone] Performed By: #### C HLA PCR ####[facility] Qjwdnywqgo8921 [facility]. [place], [place] [phone] //INT.LIVESTOCK PRODUCER POS Positive Normal POSITIVE [facility] Comment on above: Performed By: #### G VINICIO PCR ####[facility] W[address]jabhj4387 [facility]. [place], [place] [phone] Performed By: #### C HLA PCR ####[facility] Lynmqrlthn4493 [facility]. [place], [place] [phone] GONORRHOEAE PCR UA, ENDOCERV Negative Normal NEGATIVE [facility] Comment on above: Performed By: #### G VINICIO PCR ####[facility] [address] [place], [place] [phone] HEMOGLOBIN A1Con 08-30-2017 Glucose mass conc 103 mg/dL Normal [facility] Comment on above: Result Comment: WILFRIDO MATED AVERAGE GLUCOSE Performed By: #### L IPID ####[facility] [address]x7[address] [place], [place] [phone] Hemoglobin A1c/Hemoglobin.total mass fraction (Bld) 5.2 % Normal 4.0-6.2 [facility] Comment on above: Result Comment: Expe cted Values: 3-6% for non diabetics 6-9% for controlled diabetics >9% for poorly controlled diabetics Performed By: #### L IPID ####[facility] [address] [place], [place] [phone] LIPID PROFILEon 08-30-2017 Cholesterol 123 mg/dL Normal 25-200 [facility] Comment on above: Result Comment: Cit[place] onal Cholesterol Education Program (NCEP) /National [place] of Health (NIH) Guidelines:Total Cholesterol Desirable Range: Less than 200 mg/dLHDL Cholesterol Desirable Range: Greater than 60 mg/dLLDL Cholesterol Optimal Range: Less than 100 mg/dLTriglyceride Normal Range: Less than 150 mg/dL Performed By: #### L IPID ####[facility] [address]xudhrhgo9226 [facility]. [place], [place] [phone] Cholesterol in VLDL mass conc 12 mg/dL Normal 0-40 [facility] Comment on above: Performed By: #### L IPID ####[facility] Ver[address]mx[address]7943 [place], [place] [phone] HDL Cholesterol 53 mg/dL Normal 23-92 [facility] Comment on above: Performed By: #### L IPID ####[facility] Z[address]jb79[address] [place], [place] [phone] LDL Cholesterol 58 mg/dL Low 66-178 [facility] Comment on above: Performed By: #### L IPID ####[facility] [address]uz27[address] [place], [place] [phone] Triglyceride 58 mg/dL Normal 48-352 [facility] Comment on above: Result Comment: TRIG LYCERIDE NORMAL RANGE: LESS THAN 150 mg/dL Performed By: #### L IPID ####[facility] Cs[address]tetv3272 [place], [place] [phone] URINEon 08-30-2017 //INT. LOT # FOR KIT TEST [id number] Normal [facility] Comment on above: Performed By: #### P GUR ####[facility] [address]26[address] [place], [place] [phone] //INT. LIVESTOCK PRODUCER NEG Negative Normal NEGATIVE [facility] Comment on above: Performed By: #### P GUR ####[facility] [address]94[address] [place], [place] [phone] //INT.EXPIRATION FOR KIT TEST 12-31-19 Normal [facility] Comment on above: Performed By: #### P GUR ####[facility] Kh[address]ws5[address] [place], [place] [phone] //INT.LIVESTOCK PRODUCER POS Positive Normal POSITIVE [facility] Comment on above: Performed By: #### P GUR ####[facility] H[address]hc5165 [place], [place] [phone] HCG.beta subunit ( test) Ql (U) Negative Normal NEGATIVE [facility] Comment on above: Performed By: #### P GUR ####[facility] [address]04[address] [place], [place] [phone] TSH - THIRD GENERATIONon Thyroid stimulating hormone (TSH) 3.153 uIU/mL Normal 0.340-5.600 [facility] Comment on above: Result Comment: *NOT E: HIGH SENSITIVE THIRD GENERATION TSH.* Performed By: #### T SH ####[facility] [address] [place], [place] [phone] URINALYSIS(REFLEX TO CULTURE )on 08-30-2017 Bilirubin (total) Negative Normal NEGATIVE [facility] Comment on above: Performed By: #### U AC2 ####[facility] [address]wh93[address] [place], [place] [phone] BLOOD TRACE Normal NEGATIVE [facility] Comment on above: Performed By: #### U AC2 ####[facility] [address]om[address]98 [place], [place] [phone] EPITHELIAL TRANSITIONAL, URINE 0-2 Normal NONE SEEN [facility] Comment on above: Performed By: #### U AC2 ####[facility] [address]hoz35[address] [place], [place] [phone] KETONE Negative Normal NEGATIVE [facility] Comment on above: Performed By: #### U AC2 ####[facility] [address] [place], [place] [phone] URINE MICROSCOPY YES Normal * [facility] Comment on above: Performed By: #### U AC2 ####[facility] [address] [place], [place] [phone] Urine, clarity CLEAR Normal CLEAR [facility] Comment on above: Performed By: #### U AC2 ####[facility] [address] [place], [place] [phone] Urine, color YELLOW Normal YELLOW [facility] Comment on above: Performed By: #### U AC2 ####[facility] [address] [place], [place] [phone] Urine, erythrocytes in sediment by area 0-2 Normal NONE SEEN [facility] Comment on above: Performed By: #### U AC2 ####[facility] [address] [place], [place] [phone] Urine, glucose presence Negative Normal NEGATIVE [facility] Comment on above: Performed By: #### U AC2 ####[facility] [address] [place], [place] [phone] Urine, nitrite presence Negative Normal NEGATIVE [facility] Comment on above: Performed By: #### U AC2 ####[facility] [address] [place], [place] [phone] Urine, pH 7.0 [pH] Normal 5.0-8.0 [facility] Comment on above: Performed By: #### U AC2 ####[facility] [address] [place], [place] [phone] Urine, protein presence Negative Normal NEGATIVE [facility] Comment on above: Performed By: #### U AC2 ####[facility] [address]qxy3434 [place], [place] [phone] Urine, specific gravity 1.010 Normal 1.000-1.035 [facility] Comment on above: Performed By: #### U AC2 ####[facility] Kqbiyqxbyg8472 [place], [place] [phone] UROBILIGEN Negative Normal NEG - 8.0 [facility] Comment on above: Performed By: #### U AC2 ####[facility] [address] [place], [place] [phone] WBC (Leukocytes) Negative Normal NEGATIVE [facility] Comment on above: Performed By: #### U AC2 ####[facility] Ed[address]isl360[address] [place], [place] [phone] VITAMIN D; 25 HYDROXY ([facility]) on 08-30-2017 VITAMIN D 25 HYDROXY 20.0 ng/mL Normal [facility] Comment on above: Result Comment: Deficient <20 ng/mL Insufficient 20 to <30 ng/mL Sufficient 30 to 100 ng/mL Upper Safety Limit >100 ng/mL Performed By: #### V ITD25 ####[facility] [address]q7[address] [place], [place] [phone] Vital Signs Date Time Vital Sign Value Performing Clinician Facility 11-03-2024 18:38-0400 Body mass index (BMI) [Ratio] 29.26 kg/m2 Jerad King APRN.[employer] C[employer]ODIAN Work Phone: [facility] 11-03-2024 18:38-0400 Body temperature 98.29 [degF] Jerad King APRN.[employer] CUSTODIAN Work Phone: [facility] 11-03-2024 18:38-0400 Body weight 59.2 kg Jerad King APRN.[employer] CUSTODIAN Work Phone: [facility] 11-03-2024 18:38-0400 Diastolic blood pressure 70 mm[Hg] Jerad King APRN.[employer] CUSTODIAN Work Phone: [facility] 11-03-2024 18:38-0400 Heart rate 104 /min Jerad King APRN.[employer] CUSTODIAN Work Phone: [facility] 11-03-2024 18:38-0400 Respiratory rate 16 /min Jerad King APRN.[employer] CUSTODIAN Work Phone: [facility] 11-03-2024 18:38-0400 SaO2% (BldA) [Mass fraction] 99 % Jerad King APRN.[employer] CUSTODIAN Work Phone: [facility] 11-03-2024 18:38-0400 Systolic blood pressure 122 mm[Hg] Jerad King APRN.[employer] VA[employer] CUSTODIAN Work Phone: [facility] 09-25-2024 16:13-0400 Body temperature 97.8 [degF] Dr. Courtney Lay DO Work Phone: [facility] 09-25-2024 16:13-0400 Diastolic blood pressure 64 mm[Hg] Dr. Courtney Lay DO Work Phone: [facility] 09-25-2024 16:13-0400 Heart rate 88 /min Dr. Courtney Lay DO Work Phone: [facility] 09-25-2024 16:13-0400 Respiratory rate 14 /min Dr. Courtney Lay DO Work Phone: [facility] 09-25-2024 16:13-0400 SaO2% (BldA) [Mass fraction] 98 % Dr. Courtney Lay DO Work Phone: [facility] 09-25-2024 16:13-0400 Systolic blood pressure 105 mm[Hg] Dr. Courtney Lay DO Work Phone: [facility] 09-25-2024 07:35-0400 Body height 152.[address] Courtney Lay DO Work Phone: 0(381)712-673964 [place] [address] 09-25-2024 07:35-0400 Body mass index (BMI) [Ratio] 25.4 kg/m2 Dr. Courtney Lay DO Work Phone: 9(368)388-753064 [place] [address] 09-25-2024 07:35-0400 Body weight 59.[address] Courtney Lay DO Work Phone: 2(433)893-330498 [place] [address] 08-21-2024 06:41-0400 Diastolic blood pressure 64 mm[Hg] Dr. Courtney Lay DO Work Phone: 6(467)772-652691 [address] 08-21-2024 06:41-0400 Heart rate 75 /min Dr. Courtney Lay DO Work Phone: 8(472)557-936898 [place] [address] 08-21-2024 06:41-0400 Respiratory rate 16 /min Dr. Courtney Lay DO Work Phone: 3(281)938-129498 [place] [address] 08-21-2024 06:41-0400 SaO2% (BldA) [Mass fraction] 99 % Dr. Courtney Lay DO Work Phone: 8(392)430-510898 [place] [address] 08-21-2024 06:41-0400 Systolic blood pressure 103 mm[Hg] Dr. Courtney Lay DO Work Phone: 6(033)040-023798 [place] [address] 08-21-2024 06:40-0400 Body temperature 98.4 [degF] Dr. Courtney Lay DO Work Phone: 9(450)062-491664 [place] [address] 08-20-2024 22:54-0400 Body mass index (BMI) [Ratio] 26.2 kg/m2 Dr. Courtney Lay DO Work Phone: 8(417)342-139298 [place] [address] 08-20-2024 22:54-0400 Body weight 60.[address] Courtney Lay DO Work Phone: 6(477)808-015464 [place] [address] 07-09-2024 09:35-0400 Body height 142.2 cm Pac 1 Work Phone: [facility] 07-09-2024 09:35-0400 Body mass index (BMI) [Ratio] 29.37 kg/m2 Pacc 1 Work Phone: [facility] 07-09-2024 09:35-0400 Body temperature 98.6 [degF] Pacc 1 Work Phone: [facility] 07-09-2024 09:35-0400 Body weight 59.42 kg Pacc 1 Work Phone: [facility] 07-09-2024 09:35-0400 Diastolic blood pressure 82 mm[Hg] Pacc 1 Work Phone: [facility] 07-09-2024 09:35-0400 Heart rate 96 /min Pacc 1 Work Phone: [facility] 07-09-2024 09:35-0400 Respiratory rate 12 /min Pacc 1 Work Phone: [facility] 07-09-2024 09:35-0400 SaO2% (BldA) [Mass fraction] 99 % Pacc 1 Work Phone: [facility] 07-09-2024 09:35-0400 Systolic blood pressure 120 mm[Hg] Pacc 1 Work Phone: [facility] 06-17-2024 15:23-0500 Body height 142.2 cm Jess Zamora MD Work Phone: [facility] 06-17-2024 15:23-0500 Body mass index (BMI) [Ratio] 29.37 kg/m2 Jess Zamora MD Work Phone: [facility] 06-17-2024 15:23-0500 Body weight 59.42 kg Jess Zamora MD Work Phone: [facility] 06-17-2024 15:23-0500 Diastolic blood pressure 70 mm[Hg] Jess Zamora MD Work Phone: [facility] 06-17-2024 15:23-0500 Systolic blood pressure 124 mm[Hg] Jess Zamora MD Work Phone: [facility] 07-18-2023 14:47-0400 Body temperature 98.1 [degF] Dr. Gamaliel Jovel Work Phone: [facility] 07-18-2023 14:47-0400 Diastolic blood pressure 69 mm[Hg] Dr. Gamaliel Jovel Work Phone: [facility] 07-18-2023 14:47-0400 Heart rate 88 /min Dr. Gamaliel Jovel Work Phone: [facility] 07-18-2023 14:47-0400 Respiratory rate 18 /min Dr. Gamaliel Jovel Work Phone: [facility] 07-18-2023 14:47-0400 SaO2% (BldA) [Mass fraction] 100 % Dr. Gamaliel Jovel Work Phone: [facility] 07-18-2023 14:47-0400 Systolic blood pressure 99 mm[Hg] Dr. Gamaliel Jovel Work Phone: [facility] 07-17-2023 10:49-0400 Body height 142.[address] Gamaliel Jovel Work Phone: [facility] 07-17-2023 10:49-0400 Body mass index (BMI) [Ratio] 29.8 kg/m2 Dr. Gamaliel Jovel Work Phone: [facility] 07-17-2023 10:49-0400 Body weight 60.[address] Gamaliel Jovel Work Phone: [facility] 07-11-2023 21:19-0400 Body temperature 98.6 [degF] [facility] 07-11-2023 21:19-0400 Diastolic blood pressure 84 mm[Hg] [facility] 07-11-2023 21:19-0400 Heart rate 105 /min [facility] 07-11-2023 21:19-0400 Respiratory rate 16 /min [facility] 07-11-2023 21:19-0400 SaO2% (BldA) [Mass fraction] 98 % [facility] 07-11-2023 21:19-0400 Systolic blood pressure 121 mm[Hg] [facility] 07-11-2023 18:18-0400 Body height 149.[address] [facility] 07-11-2023 18:18-0400 Body mass index (BMI) [Ratio] 29.6 kg/m2 [facility] 07-11-2023 18:18-0400 Body weight 66.[address] [facility] 07-10-2023 10:26-0400 Body mass index (BMI) [Ratio] 27.41 kg/m2 Lock Supervisor Tubing [employer] C[employer]ODIAN Work Phone: [facility] 07-10-2023 10:26-0400 Body weight 61.55 kg Lock Supervisor Tubing [employer] C[employer]ODIAN Work Phone: [facility] 07-10-2023 10:26-0400 Diastolic blood pressure 75 mm[Hg] Lock Norman [employer] VA[employer] CUSTODIAN Work Phone: [facility] 07-10-2023 10:26-0400 Heart rate 83 /min Lock Supervisor [employer]ing B[employer] VA[employer] CUSTODIAN Work Phone: [facility] 07-10-2023 10:26-0400 SaO2% (BldA) [Mass fraction] 97 % Lock Norman B[employer] VA[employer] CUSTODIAN Work Phone: [facility] 07-10-2023 10:26-0400 Systolic blood pressure 106 mm[Hg] Lock Norman B[employer] VA[employer] CUSTODIAN Work Phone: [facility] 01-09-2023 13:13-0400 Body height 149.9 cm Lock Norman B[employer] VA[employer] CUSTODIAN Work Phone: [facility] 01-09-2023 13:13-0400 Body mass index (BMI) [Ratio] 29.02 kg/m2 Lock Supervisor Tubing [employer] VA[employer] CUSTODIAN Work Phone: [facility] 01-09-2023 13:13-0400 Body weight 65.18 kg Lock Supervisor Tubing B[employer] VA[employer] CUSTODIAN Work Phone: [facility] 01-09-2023 13:13-0400 Diastolic blood pressure 83 mm[Hg] Lock Norman B[employer] VA[employer] CUSTODIAN Work Phone: [facility] 01-09-2023 13:13-0400 Heart rate 84 /min Lock Norman B[employer] VA[employer] CUSTODIAN Work Phone: [facility] 01-09-2023 13:13-0400 Respiratory rate 17 /min Lock Norman B[employer] VA[employer] CUSTODIAN Work Phone: [facility] 01-09-2023 13:13-0400 SaO2% (BldA) [Mass fraction] 99 % Lock Norman B[employer] VA[employer] CUSTODIAN Work Phone: [facility] 01-09-2023 13:13-0400 Systolic blood pressure 121 mm[Hg] Lock Norman B[employer] VA[employer] CUSTODIAN Work Phone: [facility] 12-12-2022 14:55-0400 Body weight 64.41 kg Gregoria Gold MD Work Phone: [facility] 12-12-2022 14:55-0400 Diastolic blood pressure 56 mm[Hg] Gregoria Gold MD Work Phone: [facility] 12-12-2022 14:55-0400 Systolic blood pressure 104 mm[Hg] Gregoria Gold MD Work Phone: [facility] Encounters Encounter Date Encounter Type Care Provider Facility Start: 11-03-2024 End: 11-03-2024 Patient encounter procedure Jerad King APRN.BANK VA[employer] CUSTODIAN Work Phone: [facility] Comment on above: Vomiting, unspecifie d vomiting type, unspecified whether nausea present Start: 11-03-2024 End: 11-03-2024 ambulatory JERAD KING Facility:[facility] Start: 09-25-2024 End: 09-25-2024 Emergency department patient visit Dr. Courtney Lay DO Work Phone: -Emergency Department Work Phone: Start: 08-20-2024 End: 08-21-2024 Emergency department patient visit Courtney Lay Facility:[facility] Start: 07-23-2024 End: 09-22-2024 Follow-up encounter Gregoria Gold MD Work Phone: OB/Gynecology Start: 07-14-2024 End: 07-14-2024 ambulatory UNKNOWN PROVIDER Facility:[facility] Start: 07-10-2024 End: 07-10-2024 Telephone encounter Jarod Malhotra APRN.BANK VA[employer] CUSTODIAN Work Phone: Pre Anesthesia Comment on above: Request Outside [facility] Start: 07-09-2024 End: 07-09-2024 Patient encounter procedure Kia Leblanc FATEMEH Work Phone: General Surgery Comment on above: Subcutaneous mass (P rimary Dx) Start: 07-09-2024 End: 07-09-2024 ambulatory KIA LEBLANC Facility:[facility] Start: 07-09-2024 End: 07-09-2024 PAT [facility] [place] [facility] Work Phone: Pre Anesthesia Comment on above: Pre-operative examin ation (Primary Dx); History of hemangioma; General learning disability; Schizophrenia, unspecified type (HCC); Severe episode of recurrent major depressive disorder, without psychotic features (HCC); Subcutaneous mass Start: 07-09-2024 End: 07-09-2024 Preprocedural examination done Pac Kristen 1 Work Phone: [facility] Work Phone: Start: 07-07-2024 End: 07-07-2024 ambulatory Gregoria Gold MD Work Phone: OB/Gynecology Comment on above: General counseling a nd advice for contraceptive management (Primary Dx) Start: 07-07-2024 End: 07-07-2024 Telemedicine consultation with patient Gregoria Gold MD Work Phone: OB/Gynecology Start: 07-03-2024 End: 07-03-2024 Telephone encounter Gregoria Gold APRN.CNM Work Phone: OB/Gynecology Comment on above: Schedule Surgery Start: 06-26-2024 End: 06-26-2024 Telephone encounter Gregoria Gold MD Work Phone: OB/Gynecology Comment on above: Appointment; Pre Op Appointment Start: 06-17-2024 End: 06-17-2024 ambulatory JESS ZAMORA Facility:[facility] Start: 06-17-2024 End: 06-17-2024 Patient encounter procedure Jess Zamora MD Work Phone: OB/Gynecology Comment on above: Encounter for gyneco logical examination (general) (routine) without abnormal findings (Primary Dx); Encounter for IUD removal; Dysmenorrhea Start: 06-17-2024 End: 06-17-2024 Patient encounter status Jess Zamora MD Work Phone: [facility] Start: 07-18-2023 Non-patient / Non-visit Dr. Fito Jovel Work Phone: [facility] Work Phone: Start: 07-17-2023 Non-patient / Non-visit Dr. Fito Jovel Work Phone: [facility] Work Phone: Start: 07-17-2023 End: 07-18-2023 Evaluation and management of inpatient Dr. Gamaliel Jovel Work Phone: [facility]-Medical Surgical 3 Work Phone: Start: 07-16-2023 Non-patient / Non-visit Dr. Fito Jovel Work Phone: [facility] Start: 07-16-2023 Non-patient / Non-visit Dr. Fito Jovel Work Phone: [facility] Work Phone: Start: 07-15-2023 Non-patient / Non-visit Dr. Fito Jovel Work Phone: [facility] Work Phone: Start: 07-14-2023 Non-patient / Non-visit Dr. Fito Jovel Work Phone: [facility] Work Phone: Start: 07-13-2023 Non-patient / Non-visit Dr. Fito Jovel Work Phone: [facility] Work Phone: Start: 07-12-2023 Non-patient / Non-visit Dr. Fito Jovel Work Phone: [facility] Start: 07-12-2023 Non-patient / Non-visit Dr. Fito Jovel Work Phone: [facility] Work Phone: Start: 07-11-2023 Evaluation and management of inpatient [facility] 3 Work Phone: Start: 07-11-2023 Non-patient / Non-visit Dr. Fito Jovel Work Phone: [facility] Work Phone: Start: 07-11-2023 observation encounter W [facility] Work Phone: Start: 07-10-2023 End: 07-10-2023 ambulatory ASHVIN CHERRY [facility] Ambula tory Start: 07-10-2023 End: 07-10-2023 Patient encounter procedure Ashvin Cherry [employer] CUSTODIAN Work Phone: [facility] Comment on above: Bilateral impacted c erumen (Primary Dx) Start: 01-09-2023 End: 01-13-2023 ambulatory PHYSICIAN NO [facility] Ambulato ry Start: 01-09-2023 End: 01-13-2023 Encounter for hearing examination following failed hearing screening AKOSUA VANESSA [facility] Ambulatory Start: 01-09-2023 End: 01-09-2023 ambulatory ASHVIN CHERRY [facility] Ambula tory Start: 01-09-2023 End: 01-09-2023 Clinical Support Akosua Vanessa AuD Work Phone: [facility] Audiology Comment on above: Encounter for hearin g examination after failed hearing test (Primary Dx) Start: 01-09-2023 End: 01-09-2023 Hearing normal Ashvin Cherry [employer] CUSTODIAN Work Phone: [facility] Start: 01-09-2023 End: 01-09-2023 Office outpatient new 30 minutes Ashvin Cherry [facility] Work Phone: [facility] Comment on above: Hearing loss of both ears due to cerumen impaction (Primary Dx); Bilateral impacted cerumen; Normal hearing exam; Encounter for hearing examination after failed hearing test Start: 01-09-2023 End: 01-09-2023 Patient encounter status Akosua Vanessa [facility] Work Phone: [facility] Work Phone: Start: 12-12-2022 End: 12-12-2022 Patient encounter procedure Gregoria Gold MD Work Phone: OB/Gynecology Comment on above: IUD check up (Primar y Dx) Start: 09-27-2022 End: 09-27-2022 ambulatory [facility] Work Phone: Start: 09-27-2022 End: 09-27-2022 Patient encounter procedure [facility]-Pulmonary Services/Neurology Work Phone: Start: 08-28-2022 Transcribe Orders Hvi Transcri be Provider Cardiology Comment on above: Pre-syncope (Primary Dx) Start: 09-26-2017 End: 09-26-2017 Ambulatory MIKE IZQUIERDO [facility] Start: 08-30-2017 End: 08-30-2017 Ambulatory [facility] Start: 08-29-2017 End: 08-29-2017 [facility] Procedures Date Procedure Procedure Detail Performing Clinician Start: 09-25-[address] Courtney Lay DO Work Phone: Start: 09-25-2024 Methadone measurement, urine Dr. Courtney Lay DO Work Phone: Start: 08-21-2024 Methadone measurement, urine Dr. Courtney Lay DO Work Phone: Start: 08-20-[address] Remus Ungur DO Work Phone: Start: 07-17-[address] Gamaliel Jovel Work Phone: Start: 07-12-2023 Radiologic examinati on of knee Dr. Gamaliel Jovel Work Phone: Start: 07-12-2023 MRI of joint of lowe r extremity Dr. Gamaliel Jovel Work Phone: Start: 07-11-2023 Radiologic examinati on of knee Start: 02-21-2018 Electrocardiogram Plan of Treatment Date Care Activity Detail Author Start: 07-15-2027 Screening for malign ant neoplasm of cervix Cervical Cancer Screening [facility] Start: 06-17-2025 End: 06-17-2025 Patient encounter procedure 06/17/2025 4:00 PM EST Office Visit OB/Gynecology [address] [place] [address] Jess Tolliver MD [address] [place] [address] Annual OB/Gynecology Comment on above: Annual Start: 12-21-2024 Influenza vaccination C [facility] Start: 11-15-2024 Tetanus vaccination Tetanus: Every 1 0yrs [facility] Start: 11-15-2024 Urine microalbumin profile [facility] Start: 09-25-2024 [facility] Start: 08-21-2024 [facility] Start: 08-21-2024 [facility] Start: 08-20-2024 Insj non-ndwellg shun dder catheter INSERT BLADDER CATHETER [facility] Start: 07-14-2024 End: 07-14-2024 Admission to same day surgery center 07/14/2024 12:57 PM EDT - 07/14/2024 2:12 PM EDT Surgery [facility] [address] [place] [id number] Gregoria Gold MD [address] [place] [address] REMOVAL INTRAUTERINE DEVICE and pap test [facility] Comment on above: REMOVAL INTRAUTERINE DEVICE and pap test Start: 07-14-2024 End: 07-14-2024 Removal intrauterine device iud REMOVAL INTRAUTERINE DEVICE Pelvic pain in female Encounter for screening for malignant neoplasm of cervix Encounter for IUD removal 07/14/2024 12:57 PM EDT ME OR Start: 07-14-2024 Subsequent hospital visit by physician 07/14/2024 12:57 PM EDT Hospital Encounter [facility] [address] [place] [id number] Gregoria Gold MD [facility] [place] [address] Pelvic pain in female [R10.2], Encounter for screening for malignant neoplasm of cervix [Z12.4], Encounter for IUD removal [Z30.432] [facility] Comment on above: Pelvic pain in femal e [R10.2], Encounter for screening for malignant neoplasm of cervix [Z12.4], Encounter for IUD removal [Z30.432] Start: 07-14-2024 End: 07-14-2024 Admission to same day surgery center 07/14/2024 11:27 AM EDT - 07/14/2024 12:42 PM EDT Surgery [facility] [address] [place] [id number] Gregoria Gold MD [facility] [place] [address] REMOVAL INTRAUTERINE DEVICE and pap test [facility] Comment on above: REMOVAL INTRAUTERINE DEVICE and pap test Start: 07-14-2024 End: 07-14-2024 Removal intrauterine device iud REMOVAL INTRAUTERINE DEVICE Pelvic pain in female Encounter for screening for malignant neoplasm of cervix Encounter for IUD removal 07/14/2024 11:27 AM EDT ME OR Start: 07-14-2024 Subsequent hospital visit by physician 07/14/2024 11:27 AM EDT Hospital Encounter [address] [id number] Gregoria Gold MD [facility] [place] [address] Pelvic pain in female [R10.2], Encounter for screening for malignant neoplasm of cervix [Z12.4], Encounter for IUD removal [Z30.432] [facility] Comment on above: Pelvic pain in femal e [R10.2], Encounter for screening for malignant neoplasm of cervix [Z12.4], Encounter for IUD removal [Z30.432] Start: 07-09-2024 End: 07-09-2024 Anesthesia consultation 07/09/2024 9:20 AM EDT PAT Pre [facility] [address] [place] [address] 1, [facility] [place] [address] [place] [address] REMOVAL INTRAUTERINE DEVICE and pap test [2949] - Uterus - N/A Pre Anesthesia Comment on above: REMOVAL INTRAUTERINE DEVICE and pap test [2949] - Uterus - N/A Start: 07-07-2024 End: 07-07-2024 Admission to same day surgery center 07/07/2024 1:10 PM EDT [facility] OB/Gynecology [address] [place] [address] Gregoria Gold MD [address] [place] [address] pre op / surgery at [place] [facility]cology Comment on above: pre op / surgery at [place] [address] Start: 01-06-2024 End: 01-06-2024 Patient encounter procedure 01/06/2024 1:00 PM EDT Office Visit [facility] [address] [place] [address] [place] [address] Norman, Ashvin Hutson, TIMBO [address] [address] [facility] Start: 12-22-2023 Covid-19 Vaccine ( season) Covid-19 Vaccine ( season) [facility] Start: 12-22-2023 Influenza vaccination Influenza Vacc ine (#1) [facility] Start: 07-20-2023 History and physical examination, annual for health maintenance Wellness Visit [facility] Start: 07-18-2023 Patient discharge [facility] Start: 07-17-2023 [facility] Start: 07-17-2023 Admission procedure [facility] Start: 07-15-2023 Referral to service [facility] Start: 07-12-2023 Lower Ext Joint Only (Routine) Lower Ext Joint Only (Routine) [facility] Start: 07-12-2023 MR Lower Extremity Joint [facility] Start: 07-12-2023 [facility] Start: 07-11-2023 Following clinical p athway protocol [facility] Start: 07-11-2023 Application of knee immobilizer [facility] Start: 07-11-2023 Assessment of risk o f venous thromboembolism [facility] Start: 07-11-2023 Consultation [facility] Start: 07-11-2023 Fall prevention [facility] Start: 07-11-2023 Inhalation therapy procedure [facility] Start: 07-11-2023 Insertion of cathete r into peripheral vein [facility] Start: 07-11-2023 Introduction of urin scar catheter [facility] Start: 07-11-2023 Measuring intake and output [facility] Start: 07-11-2023 Oxygen therapy [facility] Start: 07-11-2023 Providing care accor ding to standard [facility] Start: 07-11-2023 Provision of activit y privileges [facility] Start: 07-11-2023 Referral to occupati onal therapist [facility] Start: 07-11-2023 Referral to service [facility] Start: 07-11-2023 End: 07-12-2023 [facility] Start: 07-11-2023 Admission procedure [facility] Start: 07-11-2023 Verification routine [facility] Start: 07-11-2023 Patient referral to dietitian [facility] Start: 07-10-2023 End: 07-10-2023 Patient encounter procedure 07/10/2023 1:30 PM EDT Office Visit [facility] [address] [place] [address] Supervisor Tubing, Ashvin Hutson, BANK [employer] CUSTODIAN [address] [facility] Karen [address] [place] [id number] [facility] Start: 12-21-2022 COVID-19 Vaccine ( season) COVID-19 Vaccine ( season) [facility] Start: 12-21-2022 Influenza vaccination [facility] Start: 02-01-2021 PAP TESTING PAP TESTING [facility] Start: 02-01-2021 Screening for malign ant neoplasm of cervix [facility] Start: 10-16-2019 CHLAMYDIA SCREENING (18-24) CHLAMYDIA SCREENING (18-24) [facility] Start: 10-16-2019 GC (GONORRHEA) SCREE ALISTAIR (18-24) GC (GONORRHEA) SCREENING (18-24) [facility] Start: 05-01-2019 HPV VACCINE (3 - 3-d ose series) HPV VACCINE (3 - 3-dose series) [facility] Start: 05-01-2019 Vaccination for radha n papillomavirus HPV Vaccines (3 - 3-dose series) [facility] Start: 04-04-2019 Vaccination for radha n papillomavirus HPV Vaccines (3 - 3-dose series) [facility] Start: 02-01-2018 HEPATITIS C SCREENING HEPATITIS C [facility] Start: 02-01-2018 Hepatitis C screening Hepatitis C [facility] Start: 02-01-2018 HIV SCREENING HIV SCREENING [facility] Start: 02-01-2018 HIV screening HIV Screening [facility] Start: 2016 MENINGOCOCCAL B: 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 (1 of 2 - Patient Seeks Protection) MENINGOCOCCAL B: Consider based on risk (1 of 2 - Patient Seeks Protection) [facility] Start: 02-01-2015 HIV screening HIV Screening [facility] Start: 02-01-2014 PEDS TO ADULT TRANSI TION ANNUAL ASSESSMENT PEDS TO ADULT TRANSITION ANNUAL ASSESSMENT [facility] Start: 2012 Depression screening using PHQ-9 (Patient Health Questionnaire 9) score Depression Screening (PHQ-2/9) [facility] Start: 2012 PEDS TO ADULT TRANSI TION INITIAL DISCUSSION PEDS TO ADULT TRANSITION INITIAL DISCUSSION [facility] Start: 2000 COVID-19 VACCINE (#1) COVID-19 VACCI NE (#1) [facility] Start: 2000 Screening for Chlamy claudio trachomatis Chlamydia Screening [facility] Alanine aminotransfe rase [Enzymatic activity/volume] in Serum or Plasma [facility] Albumin [Mass/volume ] in Serum or Plasma [facility] Alkaline phosphatase [Enzymatic activity/volume] in Serum or Plasma [facility] Anion gap measurement [facility] Aspartate aminotrans ferase [Enzymatic activity/volume] in Serum or Plasma [facility] Bilirubin, total measurement [facility] BUN/Creatinine ratio [facility] Calcium [Mass/volume ] in Serum or Plasma [facility] Carbon dioxide, tota l [Moles/volume] in Serum or Plasma [facility] Chloride [Moles/volu me] in Serum or Plasma [facility] Creatinine [Moles/vo lume] in Serum or Plasma [facility] Erythrocyte mean corpuscular volume determination [facility] Glucose [Mass/volume ] in Serum or Plasma [facility] Hematocrit [Volume Fraction] of Blood [facility] Hemoglobin [Mass/vol ume] in Blood [facility] End: 08-29-2023 HOLTER MONITOR 24 HOUR HOLTER MONITOR 24 HOUR ECG Routine Pre-syncope 1 Occurrences starting 08/28/2022 until 08/29/2023 [facility] Comment on above: 1 Occurrences starti ng 08/28/2022 until 08/29/2023 Leukocytes [#/volume ] in Blood [facility] Mean corpuscular hemoglobin concentration determination [facility] Mean corpuscular hemoglobin determination [facility] Measurement of renal function [facility] Neutrophil count [facility] Neutrophil percent differential count [facility] Patient referral [facility] Work Phone: Platelets [#/volume] in Blood [facility] Potassium [Moles/vol ume] in Serum or Plasma [facility] Red blood cell count [facility] Red cell distributio n width determination [facility] Removal intrauterine device iud REMOVE INTRAUTERINE DEVICE Procedures Routine Encounter for IUD removal Ordered: 06/17/2024 [facility] Work Phone: Comment on above: Ordered: 06/17/2024 Sodium [Moles/volume ] in Serum or Plasma [facility] Total protein measurement [facility] Urea nitrogen [Mass/volume] in Serum or Plasma [facility] Immunizations Immunization Date Immunization Notes Care Provider [facility] 12-30-2018 Human Papillomavirus 9-valent vaccine i Provider [facility] 12-30-2018 HPV, unspecified formulation Akosua Vanessa Vandana Work Phone: [facility] 10-03-2018 Human Papillomavirus 9-valent vaccine i Provider [facility] Work Phone: 10-03-2018 meningococcal polysaccharide (groups A, C, Y and W-135) diphtheria toxoid conjugate vaccine (MCV4P) [facility] Work Phone: 10-03-2018 varicella virus vaccine [facility] Provider [facility] Work Phone: 11-06-2016 poliovirus vaccine, inactivated [facility] 11-30-2015 meningococcal oligosaccharide (groups A, C, Y and W-135) diphtheria toxoid conjugate vaccine (MCV4O) Gregoria Gold APRN.CNM Work Phone: [facility] 11-30-2015 meningococcal polysaccharide (groups A, C, Y and W-135) diphtheria toxoid conjugate vaccine (MCV4P) [facility] 11-30-2015 poliovirus vaccine, inactivated [facility] 10-30-2015 meningococcal polysaccharide (groups A, C, Y and W-135) diphtheria toxoid conjugate vaccine (MCV4P) [facility] 11-15-2014 hepatitis B vaccine, pediatric or pediatric/adolescent dosage [facility] 11-15-2014 measles, mumps and rubella virus vaccine [facility] 11-15-2014 poliovirus vaccine, inactivated [facility] 11-15-2014 tetanus toxoid, redu mio diphtheria toxoid, and acellular pertussis vaccine, adsorbed [facility] 05-09-2013 diphtheria, tetanus toxoids and acellular pertussis vaccine [facility] 05-09-2013 hepatitis B vaccine, pediatric or pediatric/adolescent dosage i [facility] 05-09-2013 influenza virus vacc ine, whole virus Hvi Provider [facility] 05-09-2013 influenza, injectabl e, quadrivalent, preservative free [facility] 05-09-2013 measles, mumps and rubella virus vaccine Hvi Provider [facility] 05-09-2013 poliovirus vaccine, inactivated Hvi Provider [facility] 05-09-2013 varicella virus vaccine Hvi Provider [facility] 05-09-2013 influenza virus vacc ine, unspecified formulation Jess Zamora MD Work Phone: [facility] 03-06-2008 hepatitis B vaccine, pediatric or pediatric/adolescent dosage Hvi Provider [facility] 11-20-2006 diphtheria, tetanus toxoids and acellular pertussis vaccine i Provider [facility] Payers Date Payer Category Payer Self-pay [id number] 2021 Medicaid [id number] 2021 Unknown [id number] 2000 Unknown [id number] 2000 Unknown [id number] 2000 Unknown [id number] Unknown [id number] Unknown PARAMOUNT ADV D *DO NOT USE* [id number] Unknown [id number] Unknown [id number] Unknown [id number] Social History Date Type Detail Facility Start: 10-03-2018 End: 12-12-2022 Tobacco smoking status NHIS Never smoked tobacco [facility] Work Phone: Start: 10-03-2018 End: 12-12-2022 Tobacco use and exposure Smokeless tobacco non-user [facility] Work Phone: Start: 2000 Sex Assigned At Not on file [facility] Start: 12-12-2022 End: 07-10-2024 Alcohol intake Ex-drinker (finding) [facility] Start: 12-12-2022 End: 06-17-2024 History of Social function [facility] Start: 10-03-2018 End: 06-17-2024 Tobacco use panel [facility] Work Phone: National Score (1-100), lower number is lower risk Not on file [facility] Start: 01-09-2023 End: 07-10-2023 Alcohol intake Lifetime non-drinker (finding) [facility] Start: 01-09-2023 Gender identity Identifies as female gender (finding) [facility] Start: 01-09-2023 Sexual orientation Heterosexual (fin ding) [facility] Start: 11-01-2020 End: 07-11-2023 Tobacco smoking status NHIS Unknown if ever smoked [facility] Start: 11-27-2018 None [facility] Start: 11-27-2018 - [facility] Start: 12-01-2018 Non-smoker [facility] Start: 2000 Sex Assigned At Female W [facility] NEGATED: Highlighted row [facility] Medical Equipment Procedure Code Equipment Code Equipment Origin al Text Equipment Identifier Dates Wire Alex .062in Stainless Steel 6in Fixation [place] Both Ends - [id number] Start: 09-23-2019 Wire Alex .062in Stainless Steel 6in Fixation [place] Both Ends - [id number] Start: 09-23-2019 Wire Alex .062in Stainless Steel 6in Fixation [place] Both Ends - [id number] Start: 09-23-2019 Goals Date Patient Goal Desired Activity /State Functional Status Date Assessment Result Facility 07-18-2023 Functional status Chair [facility] Work Phone: Mental Status Date Assessment Result Facility 07-18-2023 Cognitive function Level Of Cons ciousness Awake;Alert;Appropriate;Follow s Commands [facility] Work Phone: 07-18-2023 Cognitive function Voice/Name [facility] Work Phone: Clinical Notes 12-12-2022 to 11-03-2024 Jerad King APRN.[employer] C[employer]ODIAN - 11/03/2024 6:50 PM EDTResult Encounter Note - Gregoria Gold MD - 07/23/2024 2:02 PM EDTResult Encounter Note - Gregoria Gold MD - 07/23/2024 2:02 PM EDT Note Date & Type Note Facility 11-03-2024 Note HNO ID: [id number] Author: JERAD KING APRN.[employer] VA[employer] CUSTODIAN Service: ? Author Type: Nurse Practitioner Type: Progress Notes Filed: 11/03/2024 18:51 Note Text: [facility] Jessie Linares is a 24 year old female. Patient presents with: Vomiting: after eating x 5 days HPI Emesis: - Emesis after every meal x5 days. - Able to consume entire meal before emesis occurs. - Denies nausea; reports drinking soda post-emesis, which sometimes stays down. - Decreased urination during the day; urinates every morning. - Reports feeling dehydrated and dizzy yesterday, but not today. - Denies abdominal pain, dysphagia, or odynophagia. - Denies choking on food prior to onset of symptoms. - Denies sexual activity; no possibility of . - Recent hospitalization for mental health issues; new medication started during hospitalization. - Amenorrhea since discharge from hospital. Review of Systems Ears/Nose/Mouth/Throat: (-) sore throat, (-) dysphagia Cardiovascular: (+) chest pain during vomiting Gastrointestinal: (+) vomiting, (-) nausea, (-) abdominal pain Genitourinary: (+) decreased urinary frequency Neurological: (-) dizziness Objective BP 122/70 Pulse 104 Temp 36.8 ?C (98.3 ?F) Resp 16 Wt 59.2 kg (130 lb 8.2 oz) LMP 07/21/2024 (Approximate) SpO2 99% BMI 29.26 kg/m? Physical Exam General: No acute distress. Abd: No tenderness to palpation. { 1. Vomiting, unspecified vomiting type, unspecified whether nausea present (R11.10) - Onset 5 days ago, occurring after every meal; able to consume full meals before emesis occurs. - No associated nausea, abdominal pain, or dysphagia; occasional dizziness reported, likely secondary to dehydration. - Abdominal examination reveals no tenderness. - Differential diagnoses include gastrointestinal obstruction or hernia. - Referred to the emergency department for further evaluation and imaging studies to determine underlying cause. and Recording using [employer] software for draft documentation of the visit was discussed with the patient/authorized promotions representative; all questions welcomed and answered. Patient/authorized promotions representative agreed to proceed MDM Procedures [facility] 11-03-2024 History of Presen t illness Narrative [facility] Richards Edilma Linares is a 24 year old female. Patient presents with: Vomiting: after eating x 5 days HPI Emesis: - Emesis after every meal x5 days. - Able to consume entire meal before emesis occurs. - Denies nausea; reports drinking soda post-emesis, which sometimes stays down. - Decreased urination during the day; urinates every morning. - Reports feeling dehydrated and dizzy yesterday, but not today. - Denies abdominal pain, dysphagia, or odynophagia. - Denies choking on food prior to onset of symptoms. - Denies sexual activity; no possibility of . - Recent hospitalization for mental health issues; new medication started during hospitalization. - Amenorrhea since discharge from hospital. Review of Systems Ears/Nose/Mouth/Throat: (-) sore throat, (-) dysphagia Cardiovascular: (+) chest pain during vomiting Gastrointestinal: (+) vomiting, (-) nausea, (-) abdominal pain Genitourinary: (+) decreased urinary frequency Neurological: (-) dizziness Objective BP 122/70 Pulse 104 Temp 36.8 C (98.3 F) Resp 16 Wt 59.2 kg (130 lb 8.2 oz) LMP 07/21/2024 (Approximate) SpO2 99% BMI 29.26 kg/m Physical Exam General: No acute distress. Abd: No tenderness to palpation. { 1. Vomiting, unspecified vomiting type, unspecified whether nausea present (R11.10) - Onset 5 days ago, occurring after every meal; able to consume full meals before emesis occurs. - No associated nausea, abdominal pain, or dysphagia; occasional dizziness reported, likely secondary to dehydration. - Abdominal examination reveals no tenderness. - Differential diagnoses include gastrointestinal obstruction or hernia. - Referred to the emergency department for further evaluation and imaging studies to determine underlying cause. and Recording using [employer] software for draft documentation of the visit was discussed with the patient/authorized promotions representative; all questions welcomed and answered. Patient/authorized promotions representative agreed to proceed MDM Procedures documented in this encounter [facility] 07-23-2024 Progress note Formatting of t his note might be different from the original. Send letter about normal pap if she does not have mychart. Gregoria Gold MD [facility] 07-23-2024 Miscellaneous Notes Send letter about normal pap if she does not have mychart. Gregoria Gold MD documented in this encounter [facility] 07-10-2024 Telephone encounter Note Received holter,. Scanned into [employer] through Onbase scanning. Mary Ann Nesbitt LPN [facility] 07-10-2024 Miscellaneous Notes Received holter,. Scanned into [employer] through Onbase scanning. Mary Ann Nesbitt LPN Patients name is Loni Diaz on her ID. Fax request sent to [facility] requesting Holter. Patient was not seen by cardiology. Mary Ann Nesbitt LPN Pt had a cardiology consult with [facility] and holter monitor in 2022. Can we request these records. DOS 07/14/2024 documented in this encounter [facility] 07-10-2024 Telephone encounter Note Patients name is Loni Diaz on her ID. Fax request sent to [facility] requesting Holter. Patient was not seen by cardiology. Mary Ann Nesbitt LPN [facility] 07-10-2024 Telephone encounter Note Pt had a cardiology consult with [facility] and holter monitor in 2022. Can we request these records. DOS 07/14/2024 [facility] 07-09-2024 Note HNO ID: [id number] Author: KIA LEBLANC APRN.TIMBO Service: ? Author Type: Nurse Practitioner Type: Progress Notes Filed: 07/09/2024 13:55 Note Text: HISTORY AND PHYSICAL Maurice Linares 2000 REFERRING PHYSICIAN: No ref. provider found CHIEF COMPLAINT: skin lesion HPI: The patient is a 24 year old female. She has a single mass on her right buttock. She has noticed this lesion for a long time. She notes that it is slightly uncomfortable when she sits down. She denies any drastic change in size or shape. She would like to have it removed but she does not want to be awake in the office. She notes she has a low pain tolerance. SIGNIFICANT MEDICAL PROBLEMS: PAST MEDICAL HISTORY Diagnosis Date Depression OPERATIONS: PAST SURGICAL HISTORY Procedure Laterality Date RAD RESECTION TUMOR SOFT TISS FACE/SCALP < 2CM 09/23/2019 Hemangioma CURRENT MEDICATIONS: Current Outpatient Medications Medication Sig Dispense Refill cariprazine (VRAYLAR) 3 mg capsule Take by mouth once daily. norgestimate 0.25 mg-ethinyl estradiol 35 mcg (SPRINTEC) 0.25-35 mg-mcg per tablet Take 1 tablet by mouth once daily. 84 tablet 3 multivitamin tablet Take 1 tablet by mouth once daily. levonorgestrel (MIRENA) 20 mcg/24 hours (5 yrs) 52 mg IUD 1 Each by INTRAUTERINE route one time only for 1 dose. to be placed in Operating room 1 Each 0 No current facility-administered medications for this visit. ALLERGIES: Cats and Seasonal Allergies PERSONAL HISTORY: Social History Tobacco Use Smoking status: Never Smokeless tobacco: Never Vaping Use Vaping status: Never Used Substance Use Topics Alcohol use: Not Currently Drug use: Never FAMILY HISTORY: FAMILY HISTORY Adopted: Yes Family history unknown: Yes REVIEW OF SYMPTOMS: SEE HPI PHYSICAL EXAMINATION: General: The patient is 24 year old female, well nourished, well hydrated in no acute distress. The patient is oriented to time, place, and person. Rectal exam: exam deferred Extremities: no clubbing, cyanosis or edema. No adenopathy. Other: mass of right buttock, non-tender to palpation, no warmth, redness, swelling or drainage. Consistent with Lipoma LABORATORY VALUES: As Noted RADIOLOGIC STUDIES: As Noted Assessment IMPRESSION: SUBCUTANEOUS MASS/PROBABLE LIPOMA - right buttock PLAN: Maurice wants to think about the procedure. Dr. Valdez also saw the patient and explained to her that he could do it in the OR but it is lower risk to have it completed awake in the office. Maurice will schedule an appointment if she decides to return for excision of the skin lesion at a later date. The patient is instructed not to take aspirin for 1 week prior to the procedure. Diagnoses: (R22.9) Subcutaneous mass (primary encounter diagnosis) Return to Clinic: The patient is instructed to follow-up with as needed Kia Leblanc APRN.TIMBO [facility] 07-09-2024 History of Presen t illness Narrative HISTORY AND PHYSICAL Maurice Linares 2000 REFERRING PHYSICIAN: No ref. provider found CHIEF COMPLAINT: skin lesion HPI: The patient is a 24 year old female. She has a single mass on her right buttock. She has noticed this lesion for a long time. She notes that it is slightly uncomfortable when she sits down. She denies any drastic change in size or shape. She would like to have it removed but she does not want to be awake in the office. She notes she has a low pain tolerance. SIGNIFICANT MEDICAL PROBLEMS: PAST MEDICAL HISTORY Diagnosis Date Depression OPERATIONS: PAST SURGICAL HISTORY Procedure Laterality Date RAD RESECTION TUMOR SOFT TISS FACE/SCALP < 2CM 09/23/2019 Hemangioma CURRENT MEDICATIONS: Current Outpatient Medications Medication Sig Dispense Refill cariprazine (VRAYLAR) 3 mg capsule Take by mouth once daily. norgestimate 0.25 mg-ethinyl estradiol 35 mcg (SPRINTEC) 0.25-35 mg-mcg per tablet Take 1 tablet by mouth once daily. 84 tablet 3 multivitamin tablet Take 1 tablet by mouth once daily. levonorgestrel (MIRENA) 20 mcg/24 hours (5 yrs) 52 mg IUD 1 Each by INTRAUTERINE route one time only for 1 dose. to be placed in Operating room 1 Each 0 No current facility-administered medications for this visit. ALLERGIES: Cats and Seasonal Allergies PERSONAL HISTORY: Social History Tobacco Use Smoking status: Never Smokeless tobacco: Never Vaping Use Vaping status: Never Used Substance Use Topics Alcohol use: Not Currently Drug use: Never FAMILY HISTORY: FAMILY HISTORY Adopted: Yes Family history unknown: Yes REVIEW OF SYMPTOMS: SEE HPI PHYSICAL EXAMINATION: General: The patient is 24 year old female, well nourished, well hydrated in no acute distress. The patient is oriented to time, place, and person. Rectal exam: exam deferred Extremities: no clubbing, cyanosis or edema. No adenopathy. Other: mass of right buttock, non-tender to palpation, no warmth, redness, swelling or drainage. Consistent with Lipoma LABORATORY VALUES: As Noted RADIOLOGIC STUDIES: As Noted Assessment IMPRESSION: SUBCUTANEOUS MASS/PROBABLE LIPOMA - right buttock PLAN: Maurice wants to think about the procedure. Dr. Valdez also saw the patient and explained to her that he could do it in the OR but it is lower risk to have it completed awake in the office. Maurice will schedule an appointment if she decides to return for excision of the skin lesion at a later date. The patient is instructed not to take aspirin for 1 week prior to the procedure. Diagnoses: (R22.9) Subcutaneous mass (primary encounter diagnosis) Return to Clinic: The patient is instructed to follow-up with as needed Kia Leblanc APRN.CNP documented in this encounter [facility] 07-09-2024 Instructions Jarod Malhotra APRN.CNP - 07/09/2024 9:40 AM EDT Images from the original note were not included. [facility] PATIENT PREOPERATIVE INSTRUCTIONS Gregoria Gold APRN.* has scheduled you for your procedure at this surgery center: [facility]: [phone] -- [address] [address]. Please read below carefully for your personalized instructions. Dietary Restrictions: - No solid food after midnight. - You may have 12 ounces of clear liquids (water, clear juices such as apple juice or gatorade, carbonated beverages, clear tea, black coffee, jello) until 2 hours before scheduled arrival at facility. No red/purple coloring and no creamer/sugar Medications: Unless instructed differently below, stay on all of your medications until your surgery. If you start any new medications after today's visit, please contact your surgeon. Pre-Surgery Med Instructions Medication Instructions cariprazine (VRAYLAR) 3 mg capsule Take the day of surgery with a small sip of water norgestimate 0.25 mg-ethinyl estradiol 35 mcg (SPRINTEC) 0.25-35 mg-mcg per tablet Take the day of surgery with a small sip of water multivitamin tablet Stop 7 days before surgery levonorgestrel (MIRENA) 20 mcg/24 hours (5 yrs) 52 mg IUD If you start any new medications after today's visit, please contact the surgeon's office. If you are currently using a rhqs-bau-sofu injectable or oral medication for diabetes or weight loss such as Dulaglutide (Trulicity), Exenatide (Byetta, Bydureon), Liraglutide (Victoza, Saxenda), Semaglutide (Ozempic, Wegovy, Rybelsus), or Tirzepatide (Mounjaro), the medicine should be stopped at least 7 days before surgery. These medicines can cause food to remain in your stomach for a very long time and increase the risks from surgery and anesthesia. Not stopping the medication for a long enough time may result in your surgery being rescheduled. Blood Thinning Medications: - Stop NSAIDS (Ibuprofen, Advil, Aleve, Motrin, Celebrex, Mobic, etc.) 7 days before surgery, as directed by your surgeon. - Stop Aspirin 7 days before surgery, as directed by your surgeon. - Stop ALL herbal and dietary supplements 7 days before surgery. - You may take Tylenol (Acetaminophen) or any of your pain medications that do not contain aspirin or NSAIDS as needed. Important Reminders: - Candy, mints, and tobacco products are NOT permitted the morning of surgery. - Hearing aids, dentures and glasses may be worn the morning of surgery. - NO jewelry, body piercings, makeup, hairpins or contacts are to be worn the day of surgery. If you develop symptoms such as a fever, cold, or flu, or have other changes to your health within TWO DAYS of scheduled surgery or the morning of surgery, please contact the surgery center above. Personal Belongings: -Please have photo ID and insurance cards. -If you do not have a copy of advance directives on file with us, please bring a copy with you on the day of surgery. - Leave ALL valuables and money at home or with family members. - Please bring high-quality footwear, such as sneakers, to the hospital for ambulating post-surgery. For Outpatient Procedures: - YOU MUST HAVE A RESPONSIBLE PRACTICE NURSE TAKE YOU HOME. A BUTTONER OR BRADDER CANNOT BE MADE A RESPONSIBLE PRACTICE NURSE. - We recommend that a responsible person stays with you overnight to take care of you. - You cannot stay in a hotel alone after outpatient surgery. You will not be permitted to have your surgery, if you do not have someone to take care of you. Arrival Time for Surgery: - The Surgery Center or hospital where you are having surgery will call the afternoon before surgery (or Saturday for Saturday surgery) with a scheduled arrival time. - If you have not heard by 4 pm, please contact the surgery center above. Please be aware that emergency situations arise, which may delay or change your surgical time. If this happens, we will notify you as soon as possible and regret any inconvenience. If you already have an Advance Directive, please fax a copy to [phone] or email to for it to be added to your chart. If you do not have an Advance Directive, you can find the appropriate form and more information at [email or web address]. We recommend that you complete the Advance Directive form found on the website and bring it with you the day of your surgery. It can be witnessed and scanned into your chart that day. Jarod Malhotra APRN.CNP documented in this encounter [facility] 07-09-2024 History and physical note Images from the original note were not included. [facility] Pre[facility]est[facility]ation [facility] HISTORY AND PHYSICAL EXAMINATION SERVICE DATE: 07/09/2024 SERVICE TIME: 11:40 AM PRIMARY CARE PHYSICIAN: Rere Tate CNP Assessment Patient has the following medical conditions which may affect dina-operative course: History of hemangioma Assessment: face s/p excision and revision of left lower scar General learning disability Assessment: mild, cognitive delay Schizophrenia (HCC) Assessment: controlled on rx Seeing a counselor and psychiatrist in [place] Severe episode of recurrent major depressive disorder, without psychotic features (HCC) Assessment: controlled on rx Subcutaneous mass Assessment: pt c/o of bump on her right butt cheek she has had for a long time. Pt evaluated today by general surgery after my OV. 07/09/2024 Steffi Leblanc CNP PLAN: Maurice wants to think about the procedure. Dr. Valdez also saw the patient and explained to her that he could do it in the OR but it is lower risk to have it completed awake in the office. Maurice will schedule an appointment if she decides to return for excision of the skin lesion at a later date. The patient is instructed not to take aspirin for 1 week prior to the procedure. ANESTHESIA FINDINGS: Intubation History: No history of difficult intubation Significant Anesthesia Considerations: none Airway History: No history of difficult airway Nevarez Activity Status Index: METS: Climb a flight of stairs or walk up a hill (5.50 METs) DASI Score: 5.5 Patient denies any chest pain or undue shortness of breath with the above physical activity. Clinical Frailty Scale: 3. Well, with treated comorbid disease STOP-Bang Score: Denies snoring loudly Denies feeling tired, fatigued, or sleepy during the daytime Has not been observed to stop breathing or choking/gasping during sleep Denies having high blood pressure BMI less than or equal to 35 kg/m^2 Patient 50 years old or younger Does not have a large neck Non-male patient STOP-Bang Score: 0 [id number] Score: Age: <65 Sex: female CHF history: No Hypertension history: No Stroke/TIA/thromboembolism history: No Vascular disease history: No Diabetes history: No [id number] Score: 1 ARISCAT Score: Age: <=50 Preoperative SpO2: >=96% Respiratory infection in the last month: No Preoperative anemia: No Surgical incision: peripheral Duration of surgery: <2 hrs Emergency procedure: No ARISCAT Score: 0 I - PHYSICAL EVALUATION AIRWAY Patient intubated: No. Tracheostomy tube not present Mallampati: II. TM distance: >3 FB. Neck ROM: full ROM without neurological symptoms. Mouth opening: adequate. Short neck: no. Thick neck: no Murphy present: no Lip Bite Test: I Microretrognathia/Micronagthia/R ecessed Chin: No DENTAL Dental findings: teeth intact. II - ANESTHESIA PLAN Anesthetic Plan: other Beta Melly Monitoring Plan Post Procedure Analgesic Plan Prepared for Surgery: optimally prepared for surgery. CONSULTS: Patient does not require consults for optimization at this time Planned Anesthetic: other anesthesia choice The Following Tests/Procedures Have Been Initiated: Orders Placed This Encounter cariprazine (VRAYLAR) 3 mg capsule Sig: Take by mouth once daily. REASON FOR VISIT: Maurice Linares is a 24 year old female who is scheduled for Procedure(s): REMOVAL INTRAUTERINE DEVICE and pap test (N/A) at the request of Dr. Gregoria Gold for consultation. My final recommendation will be communicated back to the requesting physician by way of shared medical record or letter. Subjective The patient has the following: COVID-19 Immunization Status Current Care Gaps Covid-19 Vaccine ( season) Never done No completion, postpone, frequency change, or communication history exists for this topic. CHIEF COMPLAINT: Pre-op exam HPI: Maurice Linares is a 24 year old seen for PAC due to scheduled above surgery because of IUD insertion/removal. 07/07/2024, Dr. Gregoria Gold Maurice Linares is a 24 year old female seen for contraception. Patient notes she declines any exam in the office because she is sensitive down there. She does not have a bleeding. Has not had any problems w/ the IUD and no menses now. Not sexually active, may be in the future, would like to consider other contraception options. Also h/o dysmenorrhea. . REVIEW OF SYSTEMS: General: No weight loss, malaise or fevers. Neurological: No history of TIA's, stroke, TABLE TENDER tumor, impaired sensorium, hemiplegia, paraplegia or quadraplegia. No neurological symptoms or problems. Respiratory: No history of current cough or dyspnea, or pneumonia in the past 6 weeks. No history of respiratory/pulmonary symptoms or problems. Cardiovascular: No history of HTN requiring medication, no history of angina, CHF, HI, cardiac surgery or stents. Denies rest pain, gangrene or revascularization/amputation for PVD. No history of cardiovascular symptoms or problems. GI: No history of GI symptoms or problems. No history of esophageal varices, recent ascites, or ETOH greater than 2 drinks per day. : No history of dysuria, frequency or incontinence, stones or chronic kidney disease. No difficulty urinating, nocturia > 1 time per night or hematuria. 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 Endocrine: No history of diabetes. Has not taken steroids within the past 30 days. No history of endocrinological symptoms or problems. Hematology: No history of bleeding or clotting disorder. Patient is not taking anti-coagulation or platelet medications. No history of hematological symptoms or problems. Oncology: No history of CA metastasis, chemo within 30 days, or radiotherapy within 90 days. No history of oncological symptoms or problems. Psych: +schizophrenia, on rx Musculoskeletal: Negative for joint pain or swelling, back pain or muscle pain. Skin: Negative for lesions, rash and itching. Implanted Devices: No implanted devices. PAST MEDICAL HISTORY Diagnosis Date Depression PAST SURGICAL HISTORY Procedure Laterality Date RAD RESECTION TUMOR SOFT TISS FACE/SCALP < 2CM 09/23/2019 Hemangioma FAMILY HISTORY Adopted: Yes Family history unknown: Yes Social History Tobacco Use Smoking status: Never Smokeless tobacco: Never Vaping Use Vaping status: Never Used Substance Use Topics Alcohol use: Not Currently Drug use: Never Prior to Admission medications as of 07/09/24 1346 Medication Sig Last Dose Taking cariprazine (VRAYLAR) 3 mg capsule Take by mouth once daily. Yes norgestimate 0.25 mg-ethinyl estradiol 35 mcg (SPRINTEC) 0.25-35 mg-mcg per tablet Take 1 tablet by mouth once daily. Yes multivitamin tablet Take 1 tablet by mouth once daily. Yes levonorgestrel (MIRENA) 20 mcg/24 hours (5 yrs) 52 mg IUD 1 Each by INTRAUTERINE route one time only for 1 dose. to be placed in Operating room Yes No medication comments found. ALLERGIES Allergen Reactions Cats Other: See Comments sneezing Seasonal Allergies Unknown Objective PHYSICAL EXAM: General: alert and oriented (x3) and healthy appearance. Pertinent negatives noted - not distressed. Skin: normal color, no rash or lesions. mass of right buttock, non-tender to palpation, no warmth, redness, swelling or drainage. Consistent with Lipoma. HEENT: EOM intact and pupils equal round. Pertinent negatives noted - no carotid bruit. Cardiovascular: regular rate and rhythm, normal S1 and S2, no rub, murmurs, or gallop. Respiratory: normal breath sounds, no wheezes or crackles. No chest wall deformity or tenderness. Abdomen: soft. Pertinent negatives noted - not tender. Extremities: no deformity, no edema or tenderness, no joint swelling or clubbing. Neurological: normal cognition and motor skills. Gait normal. No weakness or sensory deficit. PAIN ASSESSMENT: VITALS: BP 120/82 Pulse 96 Temp (Src) 98.6 (Temporal) Resp 12 Ht 4' 8 (1.42m) Wt 131 lb (59.4kg) SpO2 99% LMP 09/02/2018 BMI 29.39 kg/(m^2). Diagnostic tests reviewed for today's visit: Lab Value Units Date High Low HB No results within date range. HCT No results within date range. WBC No results within date range. PLT No results within date range. NA No results within date range. K No results within date range. GLUC No results within date range. BUN No results within date range. CREAT No results within date range. PTSEC No results within date range. INR No results within date range. APTT No results within date range. ALT No results within date range. AST No results within date range. TBILI No results within date range. TSH No results within date range. Lab Value Units Date High Low HCGQT No results within date range. UHCG No results within date range. HCG, BODY* No results within date range. Lab Value Units Date High Low ABORHD No results within date range. ABSCREEN No results within date range. No results found for: HBA1C No results found for this or any previous visit (from the past 8760 hours). No results found for this or any previous visit (from the past 73529 hours). Instructions Given to Patient: Instructions located in the after visit summary. Patient given verbal and written preop instructions and voices comprehension and compliance. SIGNATURE: Jarod Malhotra APRN.CNP PATIENT NAME: Maurice Linares DATE: July 09, 2024 TIME: 9:31 AM PAGER/CONTACT #: [facility] 07-09-2024 History and physical note Images from the original note were not included. [facility] HISTORY AND PHYSICAL EXAMINATION SERVICE DATE: 07/09/2024 SERVICE TIME: 11:40 AM PRIMARY CARE PHYSICIAN: Rere Tate CNP Assessment Patient has the following medical conditions which may affect dina-operative course: History of hemangioma Assessment: face s/p excision and revision of left lower scar General learning disability Assessment: mild, cognitive delay Schizophrenia (HCC) Assessment: controlled on rx Seeing a counselor and psychiatrist in [place] Severe episode of recurrent major depressive disorder, without psychotic features (HCC) Assessment: controlled on rx Subcutaneous mass Assessment: pt c/o of bump on her right butt cheek she has had for a long time. Pt evaluated today by general surgery after my OV. 07/09/2024 Steffi Leblanc CNP PLAN: Maurice wants to think about the procedure. Dr. Valdez also saw the patient and explained to her that he could do it in the OR but it is lower risk to have it completed awake in the office. Maurice will schedule an appointment if she decides to return for excision of the skin lesion at a later date. The patient is instructed not to take aspirin for 1 week prior to the procedure. ANESTHESIA FINDINGS: Intubation History: No history of difficult intubation Significant Anesthesia Considerations: none Airway History: No history of difficult airway Nevarez Activity Status Index: METS: Climb a flight of stairs or walk up a hill (5.50 METs) DASI Score: 5.5 Patient denies any chest pain or undue shortness of breath with the above physical activity. Clinical Frailty Scale: 3. Well, with treated comorbid disease STOP-Bang Score: Denies snoring loudly Denies feeling tired, fatigued, or sleepy during the daytime Has not been observed to stop breathing or choking/gasping during sleep Denies having high blood pressure BMI less than or equal to 35 kg/m^2 Patient 50 years old or younger Does not have a large neck Non-male patient STOP-Bang Score: 0 [id number] Score: Age: <65 Sex: female CHF history: No Hypertension history: No Stroke/TIA/thromboembolism history: No Vascular disease history: No Diabetes history: No [id number] Score: 1 ARISCAT Score: Age: <=50 Preoperative SpO2: >=96% Respiratory infection in the last month: No Preoperative anemia: No Surgical incision: peripheral Duration of surgery: <2 hrs Emergency procedure: No ARISCAT Score: 0 I - PHYSICAL EVALUATION AIRWAY Patient intubated: No. Tracheostomy tube not present Mallampati: II. TM distance: >3 FB. Neck ROM: full ROM without neurological symptoms. Mouth opening: adequate. Short neck: no. Thick neck: no Murphy present: no Lip Bite Test: I Microretrognathia/Micronagthia/R ecessed Chin: No DENTAL Dental findings: teeth intact. II - ANESTHESIA PLAN Anesthetic Plan: other Beta Melly Monitoring Plan Post Procedure Analgesic Plan Prepared for Surgery: optimally prepared for surgery. CONSULTS: Patient does not require consults for optimization at this time Planned Anesthetic: other anesthesia choice The Following Tests/Procedures Have Been Initiated: Orders Placed This Encounter cariprazine (VRAYLAR) 3 mg capsule Sig: Take by mouth once daily. REASON FOR VISIT: Maurice Linares is a 24 year old female who is scheduled for Procedure(s): REMOVAL INTRAUTERINE DEVICE and pap test (N/A) at the request of Dr. Gregoria Gold for consultation. My final recommendation will be communicated back to the requesting physician by way of shared medical record or letter. Subjective The patient has the following: COVID-19 Immunization Status Current Care Gaps Covid-19 Vaccine (2023- season) Never done No completion, postpone, frequency change, or communication history exists for this topic. CHIEF COMPLAINT: Pre-op exam HPI: Maurice Linares is a 24 year old seen for PAC due to scheduled above surgery because of IUD insertion/removal. 07/07/2024, Dr. Gregoria Gold Maurice Linares is a 24 year old female seen for contraception. Patient notes she declines any exam in the office because she is sensitive down there. She does not have a bleeding. Has not had any problems w/ the IUD and no menses now. Not sexually active, may be in the future, would like to consider other contraception options. Also h/o dysmenorrhea. . REVIEW OF SYSTEMS: General: No weight loss, malaise or fevers. Neurological: No history of TIA's, stroke, TABLE TENDER tumor, impaired sensorium, hemiplegia, paraplegia or quadraplegia. No neurological symptoms or problems. Respiratory: No history of current cough or dyspnea, or pneumonia in the past 6 weeks. No history of respiratory/pulmonary symptoms or problems. Cardiovascular: No history of HTN requiring medication, no history of angina, CHF, HI, cardiac surgery or stents. Denies rest pain, gangrene or revascularization/amputation for PVD. No history of cardiovascular symptoms or problems. GI: No history of GI symptoms or problems. No history of esophageal varices, recent ascites, or ETOH greater than 2 drinks per day. : No history of dysuria, frequency or incontinence, stones or chronic kidney disease. No difficulty urinating, nocturia > 1 time per night or hematuria. 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 Endocrine: No history of diabetes. Has not taken steroids within the past 30 days. No history of endocrinological symptoms or problems. Hematology: No history of bleeding or clotting disorder. Patient is not taking anti-coagulation or platelet medications. No history of hematological symptoms or problems. Oncology: No history of CA metastasis, chemo within 30 days, or radiotherapy within 90 days. No history of oncological symptoms or problems. Psych: +schizophrenia, on rx Musculoskeletal: Negative for joint pain or swelling, back pain or muscle pain. Skin: Negative for lesions, rash and itching. Implanted Devices: No implanted devices. PAST MEDICAL HISTORY Diagnosis Date Depression PAST SURGICAL HISTORY Procedure Laterality Date RAD RESECTION TUMOR SOFT TISS FACE/SCALP < 2CM 09/23/2019 Hemangioma FAMILY HISTORY Adopted: Yes Family history unknown: Yes Social History Tobacco Use Smoking status: Never Smokeless tobacco: Never Vaping Use Vaping status: Never Used Substance Use Topics Alcohol use: Not Currently Drug use: Never Prior to Admission medications as of 07/09/24 1346 Medication Sig Last Dose Taking cariprazine (VRAYLAR) 3 mg capsule Take by mouth once daily. Yes norgestimate 0.25 mg-ethinyl estradiol 35 mcg (SPRINTEC) 0.25-35 mg-mcg per tablet Take 1 tablet by mouth once daily. Yes multivitamin tablet Take 1 tablet by mouth once daily. Yes levonorgestrel (MIRENA) 20 mcg/24 hours (5 yrs) 52 mg IUD 1 Each by INTRAUTERINE route one time only for 1 dose. to be placed in Operating room Yes No medication comments found. ALLERGIES Allergen Reactions Cats Other: See Comments sneezing Seasonal Allergies Unknown Objective PHYSICAL EXAM: General: alert and oriented (x3) and healthy appearance. Pertinent negatives noted - not distressed. Skin: normal color, no rash or lesions. mass of right buttock, non-tender to palpation, no warmth, redness, swelling or drainage. Consistent with Lipoma. HEENT: EOM intact and pupils equal round. Pertinent negatives noted - no carotid bruit. Cardiovascular: regular rate and rhythm, normal S1 and S2, no rub, murmurs, or gallop. Respiratory: normal breath sounds, no wheezes or crackles. No chest wall deformity or tenderness. Abdomen: soft. Pertinent negatives noted - not tender. Extremities: no deformity, no edema or tenderness, no joint swelling or clubbing. Neurological: normal cognition and motor skills. Gait normal. No weakness or sensory deficit. PAIN ASSESSMENT: VITALS: BP 120/82 Pulse 96 Temp (Src) 98.6 (Temporal) Resp 12 Ht 4' 8 (1.42m) Wt 131 lb (59.4kg) SpO2 99% LMP 09/02/2018 BMI 29.39 kg/(m^2). Diagnostic tests reviewed for today's visit: Lab Value Units Date High Low HB No results within date range. HCT No results within date range. WBC No results within date range. PLT No results within date range. NA No results within date range. K No results within date range. GLUC No results within date range. BUN No results within date range. CREAT No results within date range. PTSEC No results within date range. INR No results within date range. APTT No results within date range. ALT No results within date range. AST No results within date range. TBILI No results within date range. TSH No results within date range. Lab Value Units Date High Low HCGQT No results within date range. UHCG No results within date range. HCG, BODY* No results within date range. Lab Value Units Date High Low ABORHD No results within date range. ABSCREEN No results within date range. No results found for: HBA1C No results found for this or any previous visit (from the past 8760 hours). No results found for this or any previous visit (from the past 95259 hours). Instructions Given to Patient: Instructions located in the after visit summary. Patient given verbal and written preop instructions and voices comprehension and compliance. SIGNATURE: Jarod Malhotra APRN.CNP PATIENT NAME: Maurice Linares DATE: July 09, 2024 TIME: 9:31 AM PAGER/CONTACT #: documented in this encounter [facility] 07-07-2024 History and physical note Pre-Op History and Physical HPI: The patient is a 24 year old female presenting for pre-operative visit. She is scheduled for exam under anesthesia, pap and IUD removal , for anxiety about exam in office, desires IUD removal and cervical ca screen on 07/14/24. Procedure discussed along with risks, benefits and complications. Other alternatives discussed for management. Consent form signed? Yes. PAST MEDICAL HISTORY Diagnosis Date Depression PAST SURGICAL HISTORY Procedure Laterality Date RAD RESECTION TUMOR SOFT TISS FACE/SCALP < 2CM 09/23/2019 Hemangioma Current Outpatient Medications Medication Sig Dispense Refill multivitamin tablet Take 1 tablet by mouth once daily. levonorgestrel (MIRENA) 20 mcg/24 hours (5 yrs) 52 mg IUD 1 Each by INTRAUTERINE route one time only for 1 dose. to be placed in Operating room 1 Each 0 No current facility-administered medications for this visit. ALLERGIES: Cats and Seasonal Allergies PERSONAL HISTORY: Social History Tobacco Use Smoking status: Never Smokeless tobacco: Never Vaping Use Vaping status: Never Used Substance Use Topics Alcohol use: Not Currently Drug use: Never FAMILY HISTORY: FAMILY HISTORY Adopted: Yes Family history unknown: Yes REVIEW OF SYMPTOMS: .rlrros PHYSICAL EXAMINATION: VITALS: Last menstrual period 09/02/2018. GENERAL: The patient is well nourished, well hydrated in no acute distress. , The patient is oriented to time, place, and person. IMPRESSION: IUD removal, screening for cervical ca PLAN: The risks/benefits/alternatives and personal involved for the planned Exam under anesthesia, IUD removal and pap were reviewed with the patient. Her questions were answered to her satisfaction and she desires to proceed. . I reviewed with her postop instructions and expectations. needs consent signed day of surgery d/w her she needs to have transportation arranged I have reviewed and updated past medical and surgical history, medications and allergies Gregoria Gold M.D. [facility] 07-07-2024 History and physical note Pre-Op History and Physical HPI: The patient is a 24 year old female presenting for pre-operative visit. She is scheduled for exam under anesthesia, pap and IUD removal , for anxiety about exam in office, desires IUD removal and cervical ca screen on 07/14/24. Procedure discussed along with risks, benefits and complications. Other alternatives discussed for management. Consent form signed? Yes. PAST MEDICAL HISTORY Diagnosis Date Depression PAST SURGICAL HISTORY Procedure Laterality Date RAD RESECTION TUMOR SOFT TISS FACE/SCALP < 2CM 09/23/2019 Hemangioma Current Outpatient Medications Medication Sig Dispense Refill multivitamin tablet Take 1 tablet by mouth once daily. levonorgestrel (MIRENA) 20 mcg/24 hours (5 yrs) 52 mg IUD 1 Each by INTRAUTERINE route one time only for 1 dose. to be placed in Operating room 1 Each 0 No current facility-administered medications for this visit. ALLERGIES: Cats and Seasonal Allergies PERSONAL HISTORY: Social History Tobacco Use Smoking status: Never Smokeless tobacco: Never Vaping Use Vaping status: Never Used Substance Use Topics Alcohol use: Not Currently Drug use: Never FAMILY HISTORY: FAMILY HISTORY Adopted: Yes Family history unknown: Yes REVIEW OF SYMPTOMS: .rlrros PHYSICAL EXAMINATION: VITALS: Last menstrual period 09/02/2018. GENERAL: The patient is well nourished, well hydrated in no acute distress. , The patient is oriented to time, place, and person. IMPRESSION: IUD removal, screening for cervical ca PLAN: The risks/benefits/alternatives and personal involved for the planned Exam under anesthesia, IUD removal and pap were reviewed with the patient. Her questions were answered to her satisfaction and she desires to proceed. . I reviewed with her postop instructions and expectations. needs consent signed day of surgery d/w her she needs to have transportation arranged I have reviewed and updated past medical and surgical history, medications and allergies Gregoria Gold M.D. documented in this encounter [facility] 07-07-2024 Note HNO ID: [id number] Author: GREGORIA GOLD MD Service: ? Author Type: Physician Type: Progress Notes Filed: 07/07/2024 13:39 Note Text: VIRTUAL VISIT PROGRESS NOTE This is a virtual visit using [employer] Video Visit. It required patient-provider interaction for the medical decision making as documented below. I have communicated my name and active licensure. The patient's identity and physical location were verified at the time of this visit. Either the patient or their legal promotions representative has been informed of the risks and benefits of -- and alternatives to -- treatment through a remote evaluation and consents to proceed with the evaluation remotely. Maurice Linares is a 24 year old female seen for contraception. Patient notes she declines any exam in the office because she is sensitive down there. She does not have a bleeding. Has not had any problems w/ the IUD and no menses now. Not sexually active, may be in the future, would like to consider other contraception options. Also h/o dysmenorrhea. . HISTORY REVIEWED (electronic chart updated): PAST MEDICAL HISTORY Diagnosis Date Depression PAST SURGICAL HISTORY Procedure Laterality Date RAD RESECTION TUMOR SOFT TISS FACE/SCALP < 2CM 09/23/2019 Hemangioma FAMILY HISTORY Adopted: Yes Family history unknown: Yes Social History Tobacco Use Smoking status: Never Smokeless tobacco: Never Vaping Use Vaping status: Never Used Substance Use Topics Alcohol use: Not Currently Drug use: Never Current Outpatient Medications Medication Sig multivitamin tablet Take 1 tablet by mouth once daily. levonorgestrel (MIRENA) 20 mcg/24 hours (5 yrs) 52 mg IUD 1 Each by INTRAUTERINE route one time only for 1 dose. to be placed in Operating room No current facility-administered medications for this visit. ALLERGIES Allergen Reactions Cats Other: See Comments sneezing Seasonal Allergies Unknown REVIEW OF SYSTEMS: GENERAL: denies fevers or chills ENDOCRINOLOGY: has not been on steroids Cardiology : denies palpitations or chest pain Respiratory: denies SOB or cough Hematology: denies history of prolonged bleeding or easy bruising or VTE Allergy: Denies history of personal or family history of allergy to anesthesia PHYSICAL EXAMINATION: VIDEO EXAM: (if completed, performed via video enabled technology) GENERAL: alert and appropriate, in no distress, well-hydrated, well nourished, and happy, smiling, interactive ASSESSMENT/PLAN contraception counseling r/b/a to IUD removal in office vs in or reviewed. Patient adamantly declines exam in office. Would like to have IUD removed in OR. Would like pap done at same time. R/b/a to trial ocps reviewed, would like to start these There are no Patient Instructions on file for this visit. Medical Decision Making: Problems: Moderate: New problem with uncertain prognosis Risk: Moderate: Moderate risk from testing/treatment Medical Decision Making Level: 4 - Moderate decision for surgery and pap today. Gregoria Gold MD [facility] 07-07-2024 History of Presen t illness Narrative VIRTUAL VISIT PROGRESS NOTE This is a virtual visit using [employer] Video Visit. It required patient-provider interaction for the medical decision making as documented below. I have communicated my name and active licensure. The patient's identity and physical location were verified at the time of this visit. Either the patient or their legal promotions representative has been informed of the risks and benefits of -- and alternatives to -- treatment through a remote evaluation and consents to proceed with the evaluation remotely. Maurice Linares is a 24 year old female seen for contraception. Patient notes she declines any exam in the office because she is sensitive down there. She does not have a bleeding. Has not had any problems w/ the IUD and no menses now. Not sexually active, may be in the future, would like to consider other contraception options. Also h/o dysmenorrhea. . HISTORY REVIEWED (electronic chart updated): PAST MEDICAL HISTORY Diagnosis Date Depression PAST SURGICAL HISTORY Procedure Laterality Date RAD RESECTION TUMOR SOFT TISS FACE/SCALP < 2CM 09/23/2019 Hemangioma FAMILY HISTORY Adopted: Yes Family history unknown: Yes Social History Tobacco Use Smoking status: Never Smokeless tobacco: Never Vaping Use Vaping status: Never Used Substance Use Topics Alcohol use: Not Currently Drug use: Never Current Outpatient Medications Medication Sig multivitamin tablet Take 1 tablet by mouth once daily. levonorgestrel (MIRENA) 20 mcg/24 hours (5 yrs) 52 mg IUD 1 Each by INTRAUTERINE route one time only for 1 dose. to be placed in Operating room No current facility-administered medications for this visit. ALLERGIES Allergen Reactions Cats Other: See Comments sneezing Seasonal Allergies Unknown REVIEW OF SYSTEMS: GENERAL: denies fevers or chills ENDOCRINOLOGY: has not been on steroids Cardiology : denies palpitations or chest pain Respiratory: denies SOB or cough Hematology: denies history of prolonged bleeding or easy bruising or VTE Allergy: Denies history of personal or family history of allergy to anesthesia PHYSICAL EXAMINATION: VIDEO EXAM: (if completed, performed via video enabled technology) GENERAL: alert and appropriate, in no distress, well-hydrated, well nourished, and happy, smiling, interactive ASSESSMENT/PLAN contraception counseling r/b/a to IUD removal in office vs in or reviewed. Patient adamantly declines exam in office. Would like to have IUD removed in OR. Would like pap done at same time. R/b/a to trial ocps reviewed, would like to start these There are no Patient Instructions on file for this visit. Medical Decision Making: Problems: Moderate: New problem with uncertain prognosis Risk: Moderate: Moderate risk from testing/treatment Medical Decision Making Level: 4 - Moderate decision for surgery and pap today. Gregoria Gold MD documented in this encounter [facility] 07-03-2024 Telephone encounter Note signed. Thanks [facility] 07-03-2024 Miscellaneous Notes signed. Thanks documented in this encounter [facility] 06-26-2024 Telephone encounter Note Patient called in and notified of virtual visit appointment time/date. Patient states she will have someone that will be able to take her the day of her surgery. Aware that she will not be able to use a taxi/uber day of surgery. Rosario Ramirez RN [facility] 06-26-2024 Miscellaneous Notes Patient called in and notified of virtual visit appointment time/date. Patient states she will have someone that will be able to take her the day of her surgery. Aware that she will not be able to use a taxi/uber day of surgery. Rosario Ramirez RN Images from the original note were not included. Gregoria Gold MD Highman, Jennifer, RN2 hours ago (8:54 AM) yes but she can't have surgery unless she has a ride home from the hospital. They won't let it be an uber or taxi or public transportation. RLR Patient has a Pre op on 07/07. Asking if she can have this as a virtual visit because she does not have transportation. Offered patient another day, she declined. States she won't have transportation on any day. Advised that she will need transportation the day of her surgery. Patient stated that yes she is trying to find someone. Can pre op be virtual? Chelsey Fernández, BEVERLY documented in this encounter [facility] 06-26-2024 Telephone encounter Note Images from the original note were not included. Gregoria Gold MD Highman, Jennifer, RN2 hours ago (8:54 AM) yes but she can't have surgery unless she has a ride home from the hospital. They won't let it be an uber or taxi or public transportation. RLR [facility] 06-26-2024 Telephone encounter Note Patient has a Pre op on 07/07. Asking if she can have this as a virtual visit because she does not have transportation. Offered patient another day, she declined. States she won't have transportation on any day. Advised that she will need transportation the day of her surgery. Patient stated that yes she is trying to find someone. Can pre op be virtual? Chelsey Fernández RN [facility] 06-17-2024 Note HNO ID: [id number] Author: JESS TOLLIVER MD Service: ? Author Type: Physician Type: Progress Notes Filed: 06/17/2024 16:49 Note Text: Advertising Sales Associate offered: Patient declines. Maurice is a 24 year old who presents for an annual gynecologic exam without complaints. Wants IUD removed- understands she may have painful/heavy menses again- states she wants it out. Pt does not want to have removed in office. Menses: none- Mirena IUD Sexually active: never Last pap smear: never OB History Gravida0 Para0 Term0 Preterm0 AB0 Living0 SAB0 IAB0 Ectopic0 Multiple0 Live Births0 Research And Development Director History LMP: 09/02/2018 (Approximate), IUD Age at Menarche: Age at First : Age at Menopause: Research And Development Director History Comments: Sexual Activity: Never; No partner data on record Contraception: No contraception data on record PAST MEDICAL HISTORY Diagnosis Date Depression PAST SURGICAL HISTORY Procedure Laterality Date RAD RESECTION TUMOR SOFT TISS FACE/SCALP < 2CM 09/23/2019 Hemangioma FAMILY HISTORY Adopted: Yes Family history unknown: Yes SOCIAL HISTORY Social History Tobacco Use Smoking status: Never Smokeless tobacco: Never Vaping Use Vaping status: Never Used Substance Use Topics Alcohol use: Not Currently Drug use: Never REVIEW OF SYSTEMS Abdomen: No abdominal pain, nausea, vomiting, diarrhea, or constipation. No bloating, early satiety, indigestion, or increased flatulence. Bladder: No dysuria, gross hematuria, urinary frequency, urinary urgency, or incontinence. Breast: No breast lumps, nipple d/c, overlying skin changes, redness or skin retraction. Allergies and current medication updated:Yes SENSITIVE EXAM: The sensitive examination was discussed with the Patient or Patient's Authorized Orchestrator. As applicable, any other physician, advance practice provider, medical student, or other health professional student that will be observing or involved in the sensitive examination for educational or training purposes was discussed with the Patient or Authorized Orchestrator. The Patient or Authorized Orchestrator has agreed to proceed with the sensitive examination. (Sensitive examination includes inspection and/or palpation of the breasts, pelvis, prostate and anorectal regions). EXAM: BP 124/70 Ht 4' 8 (1.42m) Wt 131 lb (59.4kg) LMP 09/02/2018 BMI 29.39 kg/(m2). GENERAL: pleasant, female in no apparent distress HEENT: Normocephalic, atraumatic, mucus membranes moist, and no lesions NECK: Supple, full range of motion, no adenopathy, and thyroid normal DERMATOLOGY: Normal, without lesions, non-icteric, and non-hirsute BREAST: soft, non-tender, symmetric, no dominant mass, normal nipple-areolar complex, no lymphadenopathy, and no nipple discharge CHEST: Normal inspiratory effort ABDOMEN: soft, non-tender, and no masses PELVIC: declined BIMANUAL: declined RECTOVAGINAL: deferred. NEURO: alert and oriented x3,exam grossly non-focal EXTREMITIES: normal ASSESSMENT/PLAN: (Z01.419) Encounter for gynecological examination (general) (routine) without abnormal findings (primary encounter diagnosis) (Z30.432) Encounter for IUD removal (N94.6) Dysmenorrhea 1) Health maintenance: Discussed with patient can do IUD removal after application of glydo gel in the office-Also able to give medication for anxiety if needed. Pt is declining and only wants to go to sleep for procedure. Pt thought I was physician who did her original procedure I told her I was not- and that I would gladly discuss and give the OR booking sheet filled out to Dr. Gold to review. Will also add PAP to surgery sheet. 2) Contraception: IUD. Contraceptive options reviewed and information provided. 3) STD screening: Declined STD check. 4) Follow up one year or sooner as needed 5) discussed my recommendation is to keep the Mirena IUD in place since she had it placed for dysmenorrhea and heavy menses. I am concerned that she will have symptoms again and may need further hormonal regulation. 6) OR BOOKING SHEET filled out- extensive counseling today regarding different options for IUD removal. I showed her exactly how it would be removed in the office if she would allow attempt. Jess Mclaughlin MD [facility] 06-17-2024 History of Presen t illness Narrative Advertising Sales Associate offered: Patient declines. Maurice is a 24 year old who presents for an annual gynecologic exam without complaints. Wants IUD removed- understands she may have painful/heavy menses again- states she wants it out. Pt does not want to have removed in office. Menses: none- Mirena IUD Sexually active: never Last pap smear: never OB History Gravida0 Para0 Term0 Preterm0 AB0 Living0 SAB0 IAB0 Ectopic0 Multiple0 Live Births0 Research And Development Director History LMP: 09/02/2018 (Approximate), IUD Age at Menarche: Age at First : Age at Menopause: Research And Development Director History Comments: Sexual Activity: Never; No partner data on record Contraception: No contraception data on record PAST MEDICAL HISTORY Diagnosis Date Depression PAST SURGICAL HISTORY Procedure Laterality Date RAD RESECTION TUMOR SOFT TISS FACE/SCALP < 2CM 09/23/2019 Hemangioma FAMILY HISTORY Adopted: Yes Family history unknown: Yes SOCIAL HISTORY Social History Tobacco Use Smoking status: Never Smokeless tobacco: Never Vaping Use Vaping status: Never Used Substance Use Topics Alcohol use: Not Currently Drug use: Never REVIEW OF SYSTEMS Abdomen: No abdominal pain, nausea, vomiting, diarrhea, or constipation. No bloating, early satiety, indigestion, or increased flatulence. Bladder: No dysuria, gross hematuria, urinary frequency, urinary urgency, or incontinence. Breast: No breast lumps, nipple d/c, overlying skin changes, redness or skin retraction. Allergies and current medication updated:Yes SENSITIVE EXAM: The sensitive examination was discussed with the Patient or Patient's Authorized Orchestrator. As applicable, any other physician, advance practice provider, medical student, or other health professional student that will be observing or involved in the sensitive examination for educational or training purposes was discussed with the Patient or Authorized Orchestrator. The Patient or Authorized Orchestrator has agreed to proceed with the sensitive examination. (Sensitive examination includes inspection and/or palpation of the breasts, pelvis, prostate and anorectal regions). EXAM: BP 124/70 Ht 4' 8 (1.42m) Wt 131 lb (59.4kg) LMP 09/02/2018 BMI 29.39 kg/(m^2). GENERAL: pleasant, female in no apparent distress HEENT: Normocephalic, atraumatic, mucus membranes moist, and no lesions NECK: Supple, full range of motion, no adenopathy, and thyroid normal DERMATOLOGY: Normal, without lesions, non-icteric, and non-hirsute BREAST: soft, non-tender, symmetric, no dominant mass, normal nipple-areolar complex, no lymphadenopathy, and no nipple discharge CHEST: Normal inspiratory effort ABDOMEN: soft, non-tender, and no masses PELVIC: declined BIMANUAL: declined RECTOVAGINAL: deferred. NEURO: alert and oriented x3,exam grossly non-focal EXTREMITIES: normal ASSESSMENT/PLAN: (Z01.419) Encounter for gynecological examination (general) (routine) without abnormal findings (primary encounter diagnosis) (Z30.432) Encounter for IUD removal (N94.6) Dysmenorrhea 1) Health maintenance: Discussed with patient can do IUD removal after application of glydo gel in the office-Also able to give medication for anxiety if needed. Pt is declining and only wants to go to sleep for procedure. Pt thought I was physician who did her original procedure I told her I was not- and that I would gladly discuss and give the OR booking sheet filled out to Dr. Gold to review. Will also add PAP to surgery sheet. 2) Contraception: IUD. Contraceptive options reviewed and information provided. 3) STD screening: Declined STD check. 4) Follow up one year or sooner as needed 5) discussed my recommendation is to keep the Mirena IUD in place since she had it placed for dysmenorrhea and heavy menses. I am concerned that she will have symptoms again and may need further hormonal regulation. 6) OR BOOKING SHEET filled out- extensive counseling today regarding different options for IUD removal. I showed her exactly how it would be removed in the office if she would allow attempt. Jess Mclaughlin MD documented in this encounter [facility] 07-18-2023 Discharge summary Note Date/Time July 18, 2023 12:07pm [facility] Medical Records Department [address] [place] [address] Discharge Summary 07/18/23 1206 MR#: [id number] Acct: [id number] Name: LONI DIAZ Rep #:[id number] : 2000 23 From: Oralia Summers DO PCP: Care Physician,No Primary Status :ADM IN Location: [facility] [place] [facility] [place] [id number] Providers Date of Admission: 07/17/23 Date of Discharge: 07/18/23 Primary Care Physician: No Primary Care Phys Consultations 07/11/23 21:15 Consult: Orthopedics Routine Consulting Provider: Mando Echols Reason for Consult: left lateral subluxation of the patella with questionableavulsion fractur EMERGENT Consult: No MD Notified: Yes Date Notified: 07/11/23 Time Notified: 20:52 Method of Notification: ED Physician Initiated Reason For Visit: ADULT FTT, L KNEE LATERAL SUBLUXATION PATELLA, ?FX Diagnosis Discharge Diagnosis (1) Lateral dislocation of left patella, initial encounter: Status: Acute Code(s): S83.015A - Lateral dislocation of left patella, initial encounter Medications at Discharge Home Medications cariprazine 1.5 mg capsule (Vraylar) 1.5 mg PO DAILY 07/11/23 acetaminophen 500 mg tablet (Tylenol Extra Strength) 1,000 mg (2 x 500 mg) PO Q8#60 tabs 07/16/23 ibuprofen 600 mg tablet 600 mg PO Q6H PRN PRN Pain 1-10 Or Fever #0 tabs 07/16/23 oxycodone 5 mg tablet 5 mg PO Q6H 1 week #28 tabs 07/16/23 Hospital Course Operations - (Left knee closed reduction under anesthesia with arthroscopic debridement andremoval of loose body) Procedures - (X-ray left knee x 2/MRI left knee) Summary of Care Provided Minutes Spent on Discharge: 37 Hospital Course: Ms. Diaz is a 23-year-old female who presented to the emergency department at [facility] on 07/11/2023 after a fall while she wasdancing. She reportedly twisted and then landed with significant onset of left knee pain and swelling which resulted in her presenting to emergency department. On presentation her vital signs were unremarkable. Labs were unremarkable. Imaging showed on plain film left knee acute lateral subluxation of the patella with possible associated avulsion fracture in the ED physician discussed the case with orthopedic surgery, Dr. Echols, who recommended MRI and initially recommended outpatient follow-up however she was unable to ambulate despite the knee immobilizer so admission was required. She was admitted to medical floor with a consultation to orthopedic surgery and given IV and p.o. pain medication as well as antiemetics. 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 Coleman and weightbearing as tolerated with her knee immobilizer on at all times. However upon reevaluation Dr. Horta decided to have Dr. Coleman evaluate her here and he elected to take her to the OR on 07/17/2023 at which time a left knee closed reduction patella with arthroscopic debridement and removal of loose bodies was performed. Postoperatively the patient was feeling much better. She was not requiring a significant amount of pain medications and she was seen by physical and Occupational Therapy during her hospital stay and they recommended ongoing therapy services with home health which was set up. We were also able to obtainDME supplies for her at home including a wheelchair due to her need for independence and quick mobility which she does not currently have at this point. She also needs an elevating leg rests on that side due to being in a knee immobilizer and having the inability to bend her knee at this time. She is to remain weightbearing as tolerated with the brace on her left lower extremity andto follow-up with Dr. Coleman in 1 week. We were able to make an appointment for her prior to discharge. Labs were stable throughout the entire hospitalization. She was discharged with scheduled Tylenol, as needed Advil to be used no longer than 2 weeks and as needed oxycodone with a 1 week supply. She was discharged home with home health and an aide on 07/18/2023. Discharge diagnoses: Sprain/partial tear of the medial patellar retinaculum Lateral dislocation of the patella Moderate to large lipohemarthrosis Osteochondral loose body at the recess of the anterior lateral and lateral femoral epicondyle Difficulty with ambulation Anxiety Depression PTSD Reactive attachment disorder Physical Exam Narrative Patient states she is feeling great. Did well with therapy. Anxious to go home. Const alert, oriented x3, no apparent distress, healthy appearing and well nourished Constitutional Narrative: Pleasant, , female, sitting up in chair at the bedside, nursing at bedside,visitor at bedside,, appears comfortable, nontoxic General Appearance: cooperative, comfortable, well kempt and well developed Orientation / Consciousness: awake, oriented to person, oriented to place and oriented to time Exam Limitations: no limitations HEENT normocephalic, head/scalp atraumatic and moist oral mucous membranes HEENT Narrative: Dentition is good, Mallampati is 2, no thrush Eyes PERRL and EOMs intact bilaterally Eyes Narrative: No scleral icterus Neck no lymphadenopathy and supple Neck Narrative: Trachea midline, no thyroid enlargement Resp normal respiratory effort, normal air movement, no retractions, no use of accessory muscles and clear to auscultation bilaterally Auscultation: Negative for rales, rhonchi or wheezes Cardio regular rate, regular rhythm, S1 normal heart sound, S2 normal heart sound, no murmurs, no rub, no gallops and no clicks GI normal to inspection, nondistended, normoactive bowel sounds, soft to palpation,non-tender and non-distended Extremity no clubbing, cyanosis or edema Extremity Narrative: Straight leg brace in place left lower extremity, pedal pulses are 2+ Skin no rashes or lesions noted, skin turgor normal and no jaundice Neuro oriented x3, CN's II-XII intact bilaterally, no focal motor deficits and no sensory deficits noted Neuro Narrative: Moves all extremities symmetrically except left lower extremity due to being in a straight leg brace Speech: speech normal Psych cooperative Psych Narrative: Pleasant, interacts appropriately Weight / BMI Weight Weight: 60.373 kg Body Mass Index (BMI) 29.8 ABG / Lab / Microbiology Data 07/17/23 05:30 07/17/23 05:30 D/C Instructions Discharge Diet: No restrictions Discharge Activity: May Take a Tub Bath (Do not get knee wet) Change Dressing in: do not change dressing (Leave dressing in place until you see Dr. Coleman) Remove Dressing in: do not remove dressing Cleanse incision/area with: Do not get Incision Wet and Keep Dressing Clean & Dry Meaningful Use Info Meaningful Use Diagnoses (Choose all that apply): None applicable Discharge Plan Admission Admit Date/Time: 07/17/23 08:20 Primary Reason for Your Visit: Fall/Knee Pain Attending Provider: Oralia Summers Primary Care Provider: Care Physician,No Primary Consulting Providers: Mando Echols; Mery Gray; Ariana Rouse Instructions Additional Instructions / Restrictions: 1. You must wear your leg brace at all times while you are up moving around andyou may put weight on it as you tolerate 2. Please follow-up with Dr. Coleman as noted below. 3. You may take a bath and remove the brace or take a sponge bath with the brace on but do not bear weight on the leg if the brace is off. 4. Please take any of your pain medication with food as they all may cause upset stomach if taken on an empty stomach. Discharge Orders/Prescriptions Prescriptions: New acetaminophen [Tylenol Extra Strength] 500 mg tablet 1,000 mg PO Q8 Qty: 60 0RF ibuprofen 600 mg Tablet 600 mg PO Q6H PRN PRN (Reason: Pain 1-10 Or Fever) Qty: 0 0RF Rx Instructions: Do not take for any longer than 2 weeks and only use as needed oxycodone 5 mg Tablet 5 mg PO Q6H 7 Days Qty: 28 0RF Continued Vraylar 1.5 mg capsule 1.5 mg PO DAILY Referrals / Follow Up: Fabian Coleman MD [Med Staff - Active Staff] - 07/22/23 11:00 am Care Physician,No Primary [Primary Care Provider] - NOT,DEFINED [Non-Staff] - Disposition Disposition (needs filled in before D/C Order can be placed): Home Health Service Charges/Coding Visit Charges Inpatient E&M: 82995 Disch Hosp >30min 07/18/23 1216 <Electronically signed by Oralia Summers DO> Cosigner Signature (if applicable): CC: Dr. Oralia Summers DO; Dr. Fabian Coleman MD; No Primary Care Physician~ Signed [facility] Work Phone: [phone]) 689-998303-27-2024 Progress note Author Fabian Coleman [facility] July 17, 2023 3:05pm Note Date/Time July 17, 2023 3:0 5pm [facility] Medical Records Department [address] [place] [address] Progress Note - Orthopedic 07/17/23 1504 MR#: [id number] Acct: [id number] Name: LONI DIAZ Rep #:[id number] : 2000 23 From: Fabian Coleman MD PCP: Care Physician,No Primary Status :ADM IN Location: [place] [address] Subjective Subjective Post op note Objective Data Objective Data Vital Signs: Vital Signs Temp Pulse Resp BP Pulse Ox O2 Del Method 98.2 F 100 18 106/80 96 Room Air 07/17/23 10:49 07/17/23 10:49 07/17/23 10:49 07/17/23 10:49 07/17/23 10:49 07/17/23 10:49 Oxygen Delivery Method Room Air Weight: 133 lb 1.596 oz Body Mass Index (BMI) 29.8 Intake & Output: Intake and Output for Last 24 Hours 07/15/23 07/16/23 07/17/23 23:59 23:59 23:59 Intake Total 730 / 730 640 / 640 110 / 110 Balance 730 / 730 640 / 640 110 / 110 Lab / Micro Data 07/17/23 05:30 07/17/23 05:30 Labs: Laboratory Results - last 24 hr 07/17/23 04:20: Urine Test Negative 07/17/23 05:30: WBC 9.4, RBC 4.26, Hgb 13.0, Hct 39.8, MCV 93.4, MCH 30.5, MCHC 32.7, RDW Std Deviation 41.6, RDW Coeff of Kaley 12.1, Plt Count 339, MPV 9.5, Immature Gran % (Auto) 0.400, Neut % (Auto) 64.3, Lymph % (Auto) 24.0, [place] % (Auto) 10.2 H, Eos % (Auto) 0.9, Baso % (Auto) 0.2, Absolute Neuts (auto) 6.0, Absolute Lymphs (auto) 2.25, Nucleated RBC % 0, PT 14.0, INR 1.1, Sodium 135 L, Potassium 3.9, Chloride 103, Carbon Dioxide 25.0, Anion Gap 7, BUN 18, Creatinine 0.92, Estim Creat Clear Calc 78.61, Est GFR (MDRD) Af Amer 97, Est GFR (MDRD) Non-Af 80, BUN/Creatinine Ratio 19.6, Glucose 92, Calcium 9.2 Assessment & Plan Assessment/Plan (1) Lateral dislocation of left patella, initial encounter: PLAN: Plan for WBAT in full extension in knee immobilizer. OK to DC patient whencomfortable and as social situation allows. FU in the office in 1 week. Leave dressing in place until then. 07/17/23 1505 <Electronically signed by Fabian Coleman MD> Cosigner Signature (if applicable): CC: ~ Signed [facility] Work Phone: 1(537) 705-988803-27-2024 Progress note Author Oralia Summers [facility] July 17, 2023 2:25pm Note Date/Time July 17, 2023 2:2 5pm [facility] Medical Records Department [address] [place] [id number] Progress Note - Hospitalist 07/17/23 1420 MR#: [id number] Acct: [id number] Name: LONI DIAZ Rep #:[id number] : 2000 23 From: Oralia Summers DO PCP: Care Physician,No Primary Status :ADM IN Location: [facility]3 [id number] Reason for Visit Reason for Visit: Left knee pain Subjective Subjective No issues overnight. Plan is for surgery at 11. Objective Data Objective Data Vital Signs: Vital Signs Temp Pulse Resp BP Pulse Ox O2 Del Method 98.2 F 100 18 106/80 96 Room Air 07/17/23 10:49 07/17/23 10:49 07/17/23 10:49 07/17/23 10:49 07/17/23 10:49 07/17/23 10:49 Oxygen Delivery Method Room Air Weight: 60.373 kg Body Mass Index (BMI) 29.8 Intake & Output: Intake and Output for Last 24 Hours 07/15/23 07/16/23 07/17/23 23:59 23:59 23:59 Intake Total 730 / 730 640 / 640 Balance 730 / 730 640 / 640 Lab / Micro Data 07/17/23 05:30 07/17/23 05:30 Labs: Laboratory Results - last 24 hr 07/17/23 04:20: Urine Test Negative 07/17/23 05:30: WBC 9.4, RBC 4.26, Hgb 13.0, Hct 39.8, MCV 93.4, MCH 30.5, MCHC 32.7, RDW Std Deviation 41.6, RDW Coeff of Kaley 12.1, Plt Count 339, MPV 9.5, Immature Gran % (Auto) 0.400, Neut % (Auto) 64.3, Lymph % (Auto) 24.0, [place] % (Auto) 10.2 H, Eos % (Auto) 0.9, Baso % (Auto) 0.2, Absolute Neuts (auto) 6.0, Absolute Lymphs (auto) 2.25, Nucleated RBC % 0, PT 14.0, INR 1.1, Sodium 135 L, Potassium 3.9, Chloride 103, Carbon Dioxide 25.0, Anion Gap 7, BUN 18, Creatinine 0.92, Estim Creat Clear Calc 78.61, Est GFR (MDRD) Af Amer 97, Est GFR (MDRD) Non-Af 80, BUN/Creatinine Ratio 19.6, Glucose 92, Calcium 9.2 Physical Exam Const alert, oriented x3, no apparent distress, healthy appearing and well nourished Constitutional Narrative: Pleasant, , female, sitting up in bed, appears comfortable nontoxic, nursing home manager at bedside helping get her cleaned up HEENT head/scalp atraumatic and moist oral mucous membranes Head and Scalp: normocephalic Extremity Extremity Narrative: Straight leg brace in place left lower extremity, pedal pulses are 2+ bilaterally, good cap refill Neuro oriented x3 and no focal motor deficits Speech: speech normal Psych affect normal Psych Narrative: Pleasant, interacts appropriately Assessment & Plan Assessment/Plan (1) Lateral dislocation of left patella, initial encounter: (2) Acute internal derangement of left knee: PLAN: Plan Left lateral knee dislocation with possible avulsion -Due to concerns about discharge home with her mobility from orthopedic surgery they have elected to perform surgery while she is hospitalized -Open reduction of locked patellar dislocation with arthroscopy for removal of loose fragments and joint examination is planned for today -Consent obtained from her caregiver/POA -Continue PT/OT -Weightbearing as tolerated preoperatively will wait for postoperative instructions -Continue as needed and scheduled pain medication as ordered -Will have to await postoperative therapy services to see with discharge planning needs are required Inability ambulate -Patient is weightbearing as tolerated -Ambulating with assistive device and knee immobilizer in place is improving Anxiety/depression/PTSD/reactive attachment disorder -Patient follows as an outpatient with counseling services -Continue home cariprazine DVT prophylaxis -Continue subcu enoxaparin CODE STATUS -Full code Charges/Coding Visit Charges Inpatient E&M: 45424 Subs Hosp L1 07/17/23 1425 <Electronically signed by Oralia Summers DO> Cosigner Signature (if applicable): CC: ~ Signed [facility] Work Phone: [phone]) 857-560103-27-2024 Progress note Author Fabian Coleman [facility] July 17, 2023 1:54pm Note Date/Time July 17, 2023 1:5 4pm [facility] Medical Records Department [address] [place] [id number] Progress Note - Orthopedic 07/17/23 1352 MR#: [id number] Acct: [id number] Name: LONI DIAZ Rep #:[id number] : 2000 23 From: Fabian Coleman MD PCP: Care Physician,No Primary Status :ADM IN Location: [place] [address] Subjective Subjective OK to proceed. no concerns. Objective Data Objective Data Vital Signs: Vital Signs Temp Pulse Resp BP Pulse Ox O2 Del Method 98.2 F 100 18 106/80 96 Room Air 07/17/23 10:49 07/17/23 10:49 07/17/23 10:49 07/17/23 10:49 07/17/23 10:49 07/17/23 10:49 Oxygen Delivery Method Room Air Weight: 133 lb 1.596 oz Body Mass Index (BMI) 29.8 Intake & Output: Intake and Output for Last 24 Hours 07/15/23 07/16/23 07/17/23 23:59 23:59 23:59 Intake Total 730 / 730 640 / 640 Balance 730 / 730 640 / 640 Lab / Micro Data 07/17/23 05:30 07/17/23 05:30 Labs: Laboratory Results - last 24 hr 07/17/23 04:20: Urine Test Negative 07/17/23 05:30: WBC 9.4, RBC 4.26, Hgb 13.0, Hct 39.8, MCV 93.4, MCH 30.5, MCHC 32.7, RDW Std Deviation 41.6, RDW Coeff of Kaley 12.1, Plt Count 339, MPV 9.5, Immature Gran % (Auto) 0.400, Neut % (Auto) 64.3, Lymph % (Auto) 24.0, [place] % (Auto) 10.2 H, Eos % (Auto) 0.9, Baso % (Auto) 0.2, Absolute Neuts (auto) 6.0, Absolute Lymphs (auto) 2.25, Nucleated RBC % 0, PT 14.0, INR 1.1, Sodium 135 L, Potassium 3.9, Chloride 103, Carbon Dioxide 25.0, Anion Gap 7, BUN 18, Creatinine 0.92, Estim Creat Clear Calc 78.61, Est GFR (MDRD) Af Amer 97, Est GFR (MDRD) Non-Af 80, BUN/Creatinine Ratio 19.6, Glucose 92, Calcium 9.2 Assessment & Plan Assessment/Plan (1) Lateral dislocation of left patella, initial encounter: PLAN: 23 yr F pending left knee surgery... open reduction of locked patellar dislocation, arthroscopy to remove loose fragment and examine joint. OK to proceed with surgery. Discussed special circumstances with Dr. Olivas regarding getting consent. 07/17/231353 <Electronically signed by Fabian Coleman MD> Cosigner Signature (if applicable): CC: ~ Signed [facility] Work Phone: [phone]) [phone] [facility] Discharge summary Author Oralia Summers [facility] March 26th, 2024 5:35pm Note Date/Time July 16, 2023 2:5 8pm [facility] Medical Records Department [address] [place] [address] Discharge Summary 07/16/23 1458 MR#: [id number] Acct: [id number] Name: LONI DIAZ Rep #:[id number] : 2000 23 From: Oralia Summers DO PCP: Care Physician,No Primary Status :ADM VASHTI Location: [place] [address] Providers Date of Admission: 07/11/23 Date of Discharge: 07/16/23 Primary Care Physician: No Primary Care Phys Consultations 07/11/23 21:15 Consult: Orthopedics Routine Consulting Provider: Mando Echols Reason for Consult: left lateral subluxation of the patella with questionableavulsion fractur EMERGENT Consult: No MD Notified: Yes Date Notified: 07/11/23 Time Notified: 20:52 Method of Notification: ED Physician Initiated Reason For Visit: ADULT FTT, L KNEE LATERAL SUBLUXATION PATELLA, ?FX Diagnosis Discharge Diagnosis (1) Lateral dislocation of left patella, initial encounter: Status: Acute Code(s): S83.015A - Lateral dislocation of left patella, initial encounter (2) Acute internal derangement of left knee: Status: Acute Code(s): M23.92 - Unspecified internal derangement of left knee (3) Inability to ambulate due to knee: Status: Acute Code(s): R26.2 - Difficulty in walking, not elsewhere classified Medications at Discharge Home Medications cariprazine 1.5 mg capsule (Vraylar) 1.5 mg PO DAILY 07/11/23 acetaminophen 500 mg tablet (Tylenol Extra Strength) 1,000 mg (2 x 500 mg) PO Q8#60 tabs 07/16/23 ibuprofen 600 mg tablet 600 mg PO Q6H PRN PRN Pain 1-10 Or Fever #0 tabs 07/16/23 oxycodone 5 mg tablet 5 mg PO Q6H 1 week #28 tabs 07/16/23 Hospital Course Operations None Procedures - (X-ray left knee/MRI left knee/x-ray left knee) Summary of Care Provided Minutes Spent on Discharge: 30 Hospital Course: Patient is a 23-year-old female who presented to the emergency department at [facility] on 07/11/2023 after a fall while she was dancing. She reportedly twisted and then landed with significant onset of left knee pain and swelling which resulted in her presenting to emergency department. On presentation her vital signs were unremarkable. Labs were unremarkable. Imaging showed on plain film left knee acute lateral subluxation of the patella with possible associated avulsion fracture in the ED physician discussed the case with orthopedic surgery, Dr. Echols, who recommended MRI and initially recommended outpatient follow-up however she was unable to ambulate despite the knee immobilizer so admission was required. She was admitted to medical floor with a consultation to orthopedic surgery and given IV and p.o. pain medication as well as antiemetics. 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 Coleman and weightbearing as tolerated with her knee immobilizer on at all times. She has been seen by physical and Occupational Therapy during her hospital stay and they recommended ongoing therapy services with home health which i was set up. We were also ableto obtain DME supplies for her at home. Labs were stable throughout the entire hospitalization. She was discharged with scheduled Tylenol, as needed Advil to be used no longer than 2 weeks and as needed oxycodone with a 1 week supply. She has a follow-up appointment that was scheduled with Dr. Coleman on 07/22/2023for reevaluation and ongoing decision with regards to needs of surgical intervention. Discharge diagnoses: Sprain/partial tear of the medial patellar retinaculum Lateral dislocation of the patella Moderate to large lipohemarthrosis Osteochondral loose body at the recess of the anterior lateral and lateral femoral epicondyle Difficulty with ambulation Anxiety Depression PTSD Reactive attachment disorder Physical Exam Narrative Patient complained of a little bit of lightheadedness on initial exam today. Orthostatic vitals were done and negative. We observed her and her symptoms resolved later in the day. Const alert, oriented x3, no apparent distress, healthy appearing and well nourished Constitutional Narrative: , young, female, get her into a chair assistant hall director at the bedside getting ready tolying in bed with head of bed elevated, OT, left lower extremity knee immobilizer in place General Appearance: cooperative, comfortable, well kempt and well developed Orientation / Consciousness: awake, oriented to person, oriented to place and oriented to time Exam Limitations: no limitations HEENT normocephalic, head/scalp atraumatic and moist oral mucous membranes Eyes PERRL and EOMs intact bilaterally Eyes Narrative: No scleral icterus Resp normal respiratory effort, normal air movement, no retractions and clear to auscultation bilaterally Auscultation: Negative for rales, rhonchi or wheezes Cardio regular rate, regular rhythm, S1 normal heart sound, S2 normal heart sound, no murmurs, no rub, no gallops and no clicks GI normal to inspection, nondistended, normoactive bowel sounds, soft to palpation and non-tender Extremity normal capillary refill and no clubbing, cyanosis or edema Extremity Narrative: Left lower extremity knee immobilizer in place Skin no wounds, skin turgor normal and no jaundice General Skin Exam: no breakdown Neuro oriented x3, CN's II-XII intact bilaterally, no focal motor deficits and no sensory deficits noted Coordination / Balance: [id number] test normal Psych thought process normal, cooperative and affect normal Psych Narrative: Eye contact is good and patient interacts appropriately Appearance: appropriate Weight / BMI Weight Weight: 62.641 kg Body Mass Index (BMI) 31.0 ABG / Lab / Microbiology Data 07/15/23 05:45 07/15/23 05:45 D/C Instructions Discharge Diet: No restrictions Meaningful Use Info Meaningful Use Diagnoses (Choose all that apply): None applicable Discharge Plan Admission Admit Date/Time: 07/11/23 20:51 Primary Reason for Your Visit: Fall/Knee Pain Attending Provider: Oralia Summers Primary Care Provider: Care Physician,No Primary Consulting Providers: Mando Echols; Mery Gray; Ariana Rouse Instructions Additional Instructions / Restrictions: 1. You must wear your leg brace at all times while you are up moving around andyou may put weight on it as you tolerate 2. Please follow-up with Dr. Coleman as noted below. 3. You may take a bath and remove the brace or take a sponge bath with the brace on but do not bear weight on the leg if the brace is off. 4. Please take any of your pain medication with food as they all may cause upset stomach if taken on an empty stomach. Discharge Orders/Prescriptions Prescriptions: New acetaminophen [Tylenol Extra Strength] 500 mg tablet 1,000 mg PO Q8 Qty: 60 0RF ibuprofen 600 mg Tablet 600 mg PO Q6H PRN PRN (Reason: Pain 1-10 Or Fever) Qty: 0 0RF Rx Instructions: Do not take for any longer than 2 weeks and only use as needed oxycodone 5 mg Tablet 5 mg PO Q6H 7 Days Qty: 28 0RF Continued Vraylar 1.5 mg capsule 1.5 mg PO DAILY Referrals / Follow Up: Fabian Coleman MD [Med Staff - Active Staff] - 07/22/23 11:00 am Care Physician,No Primary [Primary Care Provider] - NOT,DEFINED [Non-Staff] - Disposition Disposition (needs filled in before D/C Order can be placed): Home Health Service Charges/Coding Visit Charges Inpatient E&M: 23932 Disch Hosp 07/16/23 1601 <Electronically signed by Oralia Summers DO> Cosigner Signature (if applicable): CC: Dr. Oralia Summers DO; No Primary Care Physician~ Signed ADDENDUM by Dr. Oralia Summers DO on 07/16/23 at 1735 Addendum Per orthopedic surgery documentation yesterday, plan was for follow-up with Dr. Coleman which we had arranged and had set up home health care as well as DME supplies for her to be discharged home however unbeknownst to us Dr. Echols had Dr. Coleman evaluated the patient today and he has decided to take her to the OR tomorrow so we have had to cancel her discharge. 07/16/23 1735<Electronically signed by Oralia Summers DO> Cosigner Signature (if applicable): cc: Dr. Oralia Summers DO; No Primary Care Physician ~* Signed [facility] Work Phone: [phone]) [phone] Consult note Author Fabian Coleman [facility] July 16, 2023 5:22pm Note Date/Time July 16, 2023 5:1 3pm [facility] Medical Records Department [address] [place] [address] Consultation - Orthopedics 07/16/23 1711 MR#: [id number] Acct: [id number] Name: LONI DIAZ Rep #:[id number] : 2000 23 From: Fabian Coleman MD PCP: Care Physician,No Primary Status :ADM VASHTI Location: [facility] PE899-1 HPI Consult Data Date of Consult: 07/16/23 HPI Narrative HPI Narrative: LONI DIAZ, is a 23 F who presents with an irreducible left knee patella dislocation, went lateral. Was dancing in tennis shoes, twisted the knee and it came out. Has tried 2 closed reductions now by the ED and Dr. Echols my colleague. Per the patient had a normal knee before then. Lives independently, complex social situation. Significant psych history and MRDD. Also was adopted from parents in [place] but then given up by local parents. 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 REPLACED BY [facility] Medical History (Updated 07/12/23 @ 16:[address] 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 History of reactive attachment disorder Paranoid psychosis Home Medications cariprazine 1.5 mg capsule (Vraylar) 1.5 mg PO DAILY 07/11/23 [History Last Taken Unknown] acetaminophen 500 mg tablet (Tylenol Extra Strength) 1,000 mg (2 x 500 mg) PO Q8#60 tabs 07/16/23 [Rx Last Taken Unknown] ibuprofen 600 mg tablet 600 mg PO Q6H PRN PRN Pain 1-10 Or Fever #0 tabs 07/16/23 [Rx Last Taken Unknown] oxycodone 5 mg tablet 5 mg PO Q6H 1 week #28 tabs 07/16/23 [Rx Last Taken Unknown] Allergy/AdvReac Type Severity Reaction Status Date / Time grass pollen Allergy Other Verified 11/01/20 08:09 lactose AdvReac Upset Verified 07/12/23 10:59 Stomach Family History adopted Surgical History (Updated 07/11/23 @ 21:[address] Mery Gray MD) History of facial surgery Social History (Updated 07/11/23 @ 20:[address] Mery Gray MD) household members: none Smoking Status: Never smoker alcohol intake: never substance use type: does not use Vital Signs Vital Signs Vital Signs: 07/15/23 20:55 07/16/23 03:59 07/16/23 10:00 Temperature 98 F 98.2 F Temperature Source Oral Oral Pulse Rate 97 64 Pulse Rate [Lying] Pulse Rate [Sitting (for 1 minute prior to obtaining)] Pulse Rate [Standing (for 1 minute prior to obtaining)] Pulse Strength Normal (2+) Respiratory Rate 16 16 Respiratory Effort Blood Pressure 128/88 H 106/75 Blood Pressure [Lying] Blood Pressure [Sitting (for 1 minute prior to obtaining)] Blood Pressure [Standing (for 1 minute prior to obtaining)] Blood Pressure Mean 101 85 Blood Pressure Mean [Lying] Blood Pressure Mean [Sitting (for 1 minute prior to obtaining)] Blood Pressure Mean [Standing (for 1 minute prior to obtaining)] Blood Pressure Source Monitor Monitor Blood Pressure Position Sitting Semi-Fowlers Blood Pressure Location Left Arm Left Arm Pulse Ox 98 98 Oxygen Delivery Method Room Air Room Air 07/16/23 09:00 07/16/23 14:17 07/16/23 14:27 Temperature 98 F Temperature Source Oral Pulse Rate 80 120 H Pulse Rate [Lying] 111 H Pulse Rate [Sitting (for 1 minute prior to obtaining)] 109 H Pulse Rate [Standing (for 1 minute prior to obtaining)] 117 H Pulse Strength Respiratory Rate 14 Respiratory Effort Normal Blood Pressure 112/78 Blood Pressure [Lying] 117/77 Blood Pressure [Sitting (for 1 minute prior to obtaining)] 114/80 Blood Pressure [Standing (for 1 minute prior to obtaining)] 128/109 H Blood Pressure Mean 89 Blood Pressure Mean [Lying] 90 Blood Pressure Mean [Sitting (for 1 minute prior to obtaining)] 91 Blood Pressure Mean [Standing (for 1 minute prior to obtaining)] 115 Blood Pressure Source Monitor Blood Pressure Position Semi-Fowlers Blood Pressure Location Left Arm Pulse Ox 98 96 Oxygen Delivery Method Room Air Nasal Cannula 07/16/23 14:30 Temperature 98.6 F Temperature Source Oral Pulse Rate 104 H Pulse Rate [Lying] Pulse Rate [Sitting (for 1 minute prior to obtaining)] Pulse Rate [Standing (for 1 minute prior to obtaining)] Pulse Strength Respiratory Rate 18 Respiratory Effort Blood Pressure 120/80 Blood Pressure [Lying] Blood Pressure [Sitting (for 1 minute prior to obtaining)] Blood Pressure [Standing (for 1 minute prior to obtaining)] Blood Pressure Mean 93 Blood Pressure Mean [Lying] Blood Pressure Mean [Sitting (for 1 minute prior to obtaining)] Blood Pressure Mean [Standing (for 1 minute prior to obtaining)] Blood Pressure Source Monitor Blood Pressure Position Semi-Fowlers Blood Pressure Location Left Arm Pulse Ox 96 Oxygen Delivery Method Room Air Weight Weight: 138 lb 1.596 oz Body Mass Index (BMI) 31.0 Physical Exam Const alert, no apparent distress and well nourished Extremity normal capillary refill and no calf tenderness Extremity Narrative: L knee closed, mod effusion, lateral poke hole from prior local anesthesia, unable to flex the knee, on the right side has full ROM. NVI normal sensation and motor function to the foot. patella feels laterally dislocated. Lab / Micro Data 07/15/23 05:45 07/15/23 05:45 Imaging [facility] Imaging Services [address] [place] [address] Lower Ext Joint Only (Routine) MR#: [id number] Acct: [id number] Name: LONI DIAZ Rep #: [id number] : 2000 F 23 From: Andrew Summers MD PCP: Care Physician,No Primary Status: ADM VASHTI Study: Lower Ext Joint Only (Routine) Date of Exam: 07/12/23 Exam# [id number] Ordering Dr: Mery Gray MD STUDY: MRI LEFT KNEE REASON FOR EXAM: Female, 23 years old. Lateral subluxation of patella. Evaluate for possible avulsion fracture of left knee. TECHNIQUE: Standardized fat and water weighted pulse sequences were obtained in all 3 orthogonal planes. COMPARISON: Left knee radiographs dated 07/11/2023. FINDINGS: Normal medial meniscus. Normal hyaline cartilage of the medial femorotibial compartment. Normal medial femoral condyle and tibial plateau. Normal medial collateral ligamentous complex (MCL). Normal distal semimembranosus, gracilis and semitendinosus tendons. Normal lateral meniscus. Normal hyaline cartilage of the lateral femorotibial compartment. Normal lateral tibial plateau. Normal proximal tibiofibular articulation. Normal lateral collateral (fibular) ligament. Normal popliteus tendon. Normal biceps femoris tendon. Normal anterior cruciate ligament (ACL). Normal posterior cruciate ligament (PCL). There is a sprain/partial tear of the medial patellar retinaculum, with complete lateral dislocation of the patella with respect to the distal femur. There are associated bone impaction injuries/contusions involving the medial patella as well as anterolateral aspect of the lateral femoral condyle. The TT-TG distance measures 24 mm. Normal hyaline cartilage of the patellofemoral compartment. Normal quadriceps tendon. Normal patellar tendon. Normal Hoffa''s fat pad. There is a moderate to large volume lipohemarthrosis. There is a displaced 1.1 x 1.0 x 0.5 cm osteochondral loose body in the recess anterolateral to the lateral femoral epicondyle (sagittal T2 series 6 images 18-19; coronal T2 series 7 images 18-19). MRI/Lower Ext Joint Only (Routine) IMPRESSION: Sprain/partial tear of the medial patellar retinaculum, with complete lateral dislocation of the patella with respect to the distal femur. Associated bone impaction injuries/contusions involving the medial patella as well as anterolateral aspect of the lateral femoral condyle. Moderate to large lipohemarthrosis. Displaced 1.1 x 1.0 x 0.5 cm osteochondral loose body in the recess anterolateral to the lateral femoral epicondyle. No discrete meniscal tear. Electronically Signed: Andrew Summers MD at 10:34 EDT , Assessment & Plan Assessment/Plan (1) Lateral dislocation of left patella, initial encounter: PLAN: 23 yr F with irreducible left knee lateral patella dislocation. Multiple attempts at closed reduction. Believe this to be a new acute injury, and case reports in the literature do describe cases similar. Will plan to do open reduction, arthroscopy, debridement, removal of osteo chondral fragment. Likely lateral parapatellar approach, possibly medial reefing. Plan for surgery hopefully tomorrow based on ability. [facility]. NPO overnight. Pros and cons risks and benefits were discussed with the patient including but not limited to infection, pain, stiffness, bleeding, damage to surrounding structures, neurovascular injury, recurrence or retear, failure or wear of hardware or fixation, instability, fracture, deep vein thrombosis and pulmonary embolism, anesthetic risks, , patient dissatisfaction, need for further surgery and other risks. Patient understood and wished to proceed with surgery,and signed the informed consent documentation. 07/16/23 1722 <Electronically signed by Fabian Coleman MD> Cosigner Signature (if applicable): CC: Dr. Mery Gray MD; Dr. Mando Echols MD; Dr. Ariana Rouse MD; No Primary Care Physician~ Signed [facility] Work Phone: 1(319) 440-447203-25-2024 Progress note Author Oralia Summers [facility] July 15, 2023 4:40pm Note Date/Time July 15, 2023 4:4 1pm [facility] Medical Records Department [address] [place] [address] Progress Note - Hospitalist 07/15/23 1631 MR#: [id number] Acct: [id number] Name: LONI DIAZ Rep #:[id number] : 2000 23 From: Oralia Summers DO PCP: Care Physician,No Primary Status :ADM VASHTI Location: [place] [address] Reason for Visit Reason for Visit: Fall/knee pain Subjective Subjective Patient is a 23-year-old female who presented to the emergency department at [facility] on 07/11/2023 after a fall while she was dancing. She reportedly twisted and then landed with significant onset of left knee pain and swelling which resulted in her presenting to emergency department. On presentation her vital signs were unremarkable. Labs were unremarkable. Imaging showed on plain film left knee acute lateral subluxation of the patella with possible associated avulsion fracture in the ED physician discussed the case with orthopedic surgery, Dr. Horta, who recommended MRI and initially recommended outpatient follow-up however she was unable to ambulate despite the knee immobilizer so admission was required. She was admitted to medical floor with a consultation to orthopedic surgery and given IV and p.o. pain medication as well as antiemetics. 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 Mai and weightbearing astolerated with her knee immobilizer on at all times. She has been seen by physical and Occupational Therapy during her hospital stay and they recommended ongoing therapy services with home health which is currently under way being setup as well as some DME supplies. Discharge is anticipated for tomorrow. Patient states clinically she is feeling much better. Feels like she should be able to go home soon but would like to see how therapy goes today. Will need DME supplies and home health at discharge if she does not need to go to facility. Objective Data Objective Data Vital Signs: Vital Signs Temp Pulse Resp BP Pulse Ox O2 Del Method 98.0 F 100 18 117/82 H 97 Room Air 07/15/23 14:00 07/15/23 14:00 07/15/23 14:00 07/15/23 14:00 07/15/23 14:00 07/15/23 14:00 Oxygen Delivery Method Room Air Weight: 62.641 kg Body Mass Index (BMI) 31.0 Intake & Output: Intake and Output for Last 24 Hours 07/13/23 07/14/23 07/15/23 23:59 23:59 23:59 Intake Total 1600 / 1600 1330 / 1330 730 / 730 Balance 1600 / 1600 1330 / 1330 730 / 730 Lab / Micro Data 07/15/23 05:45 07/15/23 05:45 Labs: Laboratory Results - last 24 hr 07/15/23 05:45: WBC 10.0, RBC 4.31, Hgb 13.2, Hct 39.8, MCV 92.3, MCH 30.6, MCHC33.2, RDW Std Deviation 42.3, RDW Coeff of Kaley 12.3, Plt Count 300, MPV 9.8, Sodium 139, Potassium 3.8, Chloride 106, Carbon Dioxide 27.0, Anion Gap 6, BUN 13, Creatinine 0.75, Estim Creat Clear Calc 96.42, Est GFR (MDRD) Af Amer 123, Est GFR (MDRD) Non-Af 101, BUN/Creatinine Ratio 17.3, Glucose 86, Calcium 9.3, Magnesium 2.1 Physical Exam Const alert, oriented x3 and no apparent distress Constitutional Narrative: , young, female, sitting up in a chair at the bedside, left lower extremityknee immobilizer in place Extremity no clubbing, cyanosis or edema Extremity Narrative: Left lower extremity knee immobilizer in place Neuro oriented x3 Psych affect normal Psych Narrative: Eye contact is good and patient interacts appropriately Assessment & Plan Assessment/Plan (1) Lateral dislocation of left patella, initial encounter: (2) Acute internal derangement of left knee: (3) Inability to ambulate due to knee: PLAN: Plan Left lateral knee dislocation with possible avulsion -Outpatient follow-up as recommended by Dr. Echols with Dr. Coleman--> will schedule to be seen next week -May require surgical intervention -Continue PT/OT -Weightbearing as tolerated -Continue as needed and scheduled pain medication as ordered -Will transition from IV Toradol to as needed Advil -DME supplies for home -Plan is for home tomorrow with home health care Inability ambulate -Patient is weightbearing as tolerated -Ambulating with assistive device and knee immobilizer in place is improving -Plan is for discharge tomorrow with home health Anxiety/depression/PTSD/reactive attachment disorder -Patient follows as an outpatient with counseling services -Continue home cariprazine DVT prophylaxis -Start enoxaparin prophylactically until discharge CODE STATUS -Full code Charges/Coding Visit Charges Inpatient E&M: 65976 Subs Hosp L1 07/15/23 1640 <Electronically signed by Oralia Summers DO> Cosigner Signature (if applicable): CC: ~ Signed [facility] Work Phone: 1(524) 115-256603-25-2024 Progress note Author Mando Echols [facility] July 15, 2023 3:40pm Note Date/Time July 15, 2023 3:4 0pm [facility] Medical Records Department [address] [place] [address] Progress Note - Orthopedic 07/15/23 1538 MR#: [id number] Acct: [id number] Name: LONI DIAZ Rep #:[id number] : 2000 23 From: Mando Echols MD PCP: Care Physician,No Primary Status :ADM VASHTI Location: MS3 [id number] Subjective Subjective Continues to use knee immobilizer. Somehow, she was told by someone that she should be nonweightbearing although I had mentioned weightbearing as tolerated in my last note. Hoping to be discharged with home health aide per caregiver. Objective Data Objective Data Vital Signs: Vital Signs Temp Pulse Resp BP Pulse Ox O2 Del Method 98.0 F 100 18 117/82 H 97 Room Air 07/15/23 14:00 07/15/23 14:00 07/15/23 14:00 07/15/23 14:00 07/15/23 14:00 07/15/23 14:00 Oxygen Delivery Method Room Air Weight: 138 lb 1.596 oz Body Mass Index (BMI) 31.0 Intake & Output: Intake and Output for Last 24 Hours 07/13/23 07/14/23 07/15/23 23:59 23:59 23:59 Intake Total 1600 / 1600 1330 / 1330 730 / 730 Balance 1600 / 1600 1330 / 1330 730 / 730 Lab / Micro Data 07/15/23 05:45 07/15/23 05:45 Labs: Laboratory Results - last 24 hr 07/15/23 05:45: WBC 10.0, RBC 4.31, Hgb 13.2, Hct 39.8, MCV 92.3, MCH 30.6, MCHC33.2, RDW Std Deviation 42.3, RDW Coeff of Kaley 12.3, Plt Count 300, MPV 9.8, Sodium 139, Potassium 3.8, Chloride 106, Carbon Dioxide 27.0, Anion Gap 6, BUN 13, Creatinine 0.75, Estim Creat Clear Calc 96.42, Est GFR (MDRD) Af Amer 123, Est GFR (MDRD) Non-Af 101, BUN/Creatinine Ratio 17.3, Glucose 86, Calcium 9.3, Magnesium 2.1 Physical Exam Narrative Exam of the left knee shows swelling reduced compared to Saturday. Mild ecchymosis noticed around the aspiration site. Distal neurovascular exam is intact. 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 Discharge and outpatient follow-up with sports medicine Dr Coleman. Weightbearing as tolerated in knee immobilizer all the time. All questions answered. 07/15/23 1540 <Electronically signed by Mando Echols MD> Cosigner Signature (if applicable): CC: ~ Signed [facility] Work Phone: 1(576) 315-151603-24-2024 Progress note Author Ariana Rouse [facility] July 14, 2023 2:50pm Note Date/Time July 14, 2023 12: 45pm [facility] Medical Records Department [address] [place] [address] Progress Note 07/14/23 1243 MR#: [id number] Acct: [id number] Name: LONI DIAZ Rep #:[id number] : 2000 23 From: Ariana Rouse MD PCP: Care Physician,No Primary Status :ADM VASHTI Location: [facility] [place] WU310-9 Subjective Subjective Patient seen and examined. She had no active complaints. Review of symptoms otherwise negative. She has remained hemodynamically stable. She has been working with physical therapy. Objective Data Objective Data Vital Signs: Vital Signs Temp Pulse Resp BP Pulse Ox O2 Del Method 98.0 F 70 18 117/73 100 Room Air 07/14/23 03:30 07/14/23 03:30 07/14/23 03:30 07/14/23 03:30 07/14/23 03:30 07/14/23 03:30 Oxygen Delivery Method Room Air Weight: 138 lb 1.596 oz Body Mass Index (BMI) 31.0 Intake & Output: Intake and Output for Last 24 Hours 07/12/23 07/13/23 07/14/23 23:59 23:59 23:59 Intake Total 1500 / 2000 1600 / 1600 250 / 250 Output Total 400 / 400 Balance 1100 / 1600 1600 / 1600 250 / 250 Lab / Micro Data 07/12/23 06:43 07/12/23 06:43 Physical Exam Const alert, oriented x3, no apparent distress and well nourished General Appearance: cooperative and well developed HEENT normocephalic, head/scalp atraumatic, moist oral mucous membranes and oropharynxnormal Eyes PERRL and EOMs intact bilaterally Neck no lymphadenopathy and supple Lymph Lymphatic: no lymphadenopathy noted and no lymphedema noted Resp normal respiratory effort, normal air movement and clear to auscultation bilaterally Cardio regular rate, regular rhythm, S1 normal heart sound, S2 normal heart sound and no murmurs GI normal to inspection, nondistended, normoactive bowel sounds, soft to palpation,non-tender and non-distended Extremity normal capillary refill Extremity Narrative: left knee in brace Skin General Skin Exam: no breakdown Neuro CN's II-XII intact bilaterally, no focal motor deficits and no sensory deficits noted Coordination / Balance: [id number] test normal Psych thought process normal, cooperative and affect normal Appearance: appropriate Assessment & Plan Assessment/Plan (1) Acute internal derangement of left knee: (2) Inability to ambulate due to knee: PLAN: Plan #Debility due to mechanical fall with probable avulsion fracture * fell whilst dancing. Imaging showed acute left lateral subluxation of the pat shanda with questionable avulsion fracture * has knee immobiliser * orthopedic surgery on board * PT/OT on board * fall precautions * MRI of the left knee showed sprain versus partial tear of the medial patellar retinaculum with complete lateral dislocation of the patella with respect to the distal femur and associated bony impaction injuries/contusions involving the medial patella as well as the anterior lateral aspect of the lateral femoral condyle and moderate to large lipohemarthrosis and a displaced osteochondral loose body in the recess anterior lateral to the lateral femoral epicondyles there is no evidence of meniscal tear. * She had left knee intra-articular injection and aspiration 07/12/2023. Per orthopedics, multiple attempts at closed reduction under local anesthesia at bedside were performed and these were all unsuccessful suggesting chronic irreducible patellar dislocation. Per orthopedics patient will likely require operative reduction of patella with possible RELEASES. This can be done on outpatient basis. * Per Ortho, okay to weight-bear as tolerated in knee immobilizer. * #Hypokalemia: Stable. Resolved. #Anxiety and depression: to follow up with PCP on outpatient basis #Reactive attachment disorder: on cariprazine DVT prophylaxis: SCDs. Disposition: Anticipate [facility] back to her [facility] if she does well with therapy.Case management to discuss with her guardian tomorrow to determine if patient's home environment is safe enough for her to go back, or they will need some assistance at home. Charges/Coding Visit Charges Inpatient E&M: 59382 Subs Hosp L2 07/14/23 4652 <Electronically signed by Ariana Rouse MD> Ariana Rouse MD Cosigner Signature (if applicable): CC: ~ Signed [facility] Work Phone: 1(810) 912-217703-23-2024 Progress note Author Ariana Rouse [facility] July 13, 2023 2:43pm Note Date/Time July 13, 2023 2:4 3pm [facility] Medical Records Department [address] [place] [address] Progress Note 07/13/23 1440 MR#: [id number] Acct: [id number] Name: LONI DIAZ Rep #:[id number] : 2000 23 From: Ariana Rouse MD PCP: Care Physician,No Primary Status :ADM VASHTI Location: [facility] [place] IO550-4 Subjective Subjective Patient seen and examined. She says her left knee pain is well-controlled. Review of systems otherwise negative. She has remained hemodynamically stable. Objective Data Objective Data Vital Signs: Vital Signs Temp Pulse Resp BP Pulse Ox O2 Del Method 98.0 F 93 18 124/91 H 100 Room Air 07/13/23 11:00 07/13/23 11:00 07/13/23 11:00 07/13/23 11:00 07/13/23 11:00 07/13/23 11:00 Oxygen Delivery Method Room Air Weight: 138 lb 1.596 oz Body Mass Index (BMI) 31.0 Intake & Output: Intake and Output for Last 24 Hours 07/11/23 07/12/23 07/13/23 23:59 23:59 23:59 Intake Total 1500 / 2000 500 / 500 Output Total 400 / 400 Balance 1100 / 1600 500 / 500 Lab / Micro Data 07/12/23 06:43 07/12/23 06:43 Radiography Diagnostic Testing: Radiology Impression Knee X-Ray 07/12/23 17:16 IMPRESSION: Persistent lateral dislocation of the patella Electronically Signed: Augustus Dobbs MD at 17:31 EDT , Physical Exam Const alert, oriented x3, no apparent distress and well nourished General Appearance: cooperative and well developed HEENT normocephalic, head/scalp atraumatic, moist oral mucous membranes and oropharynxnormal Eyes PERRL and EOMs intact bilaterally Neck no lymphadenopathy and supple Lymph Lymphatic: no lymphadenopathy noted and no lymphedema noted Resp normal respiratory effort, normal air movement and clear to auscultation bilaterally Cardio regular rate, regular rhythm, S1 normal heart sound, S2 normal heart sound and no murmurs GI normal to inspection, nondistended, normoactive bowel sounds, soft to palpation,non-tender and non-distended Extremity normal capillary refill Extremity Narrative: left knee in brace Skin General Skin Exam: no breakdown Neuro CN's II-XII intact bilaterally, no focal motor deficits and no sensory deficits noted Coordination / Balance: [id number] test normal Psych thought process normal, cooperative and affect normal Appearance: appropriate Assessment & Plan Assessment/Plan (1) Acute internal derangement of left knee: (2) Inability to ambulate due to knee: PLAN: Plan #Debility due to mechanical fall with probable avulsion fracture * fell whilst dancing. Imaging showed acute left lateral subluxation of the patella with questionable avulsion fracture * has knee immobiliser * orthopedic surgery on board * PT/OT on board * fall precautions * MRI of the left knee showed sprain versus partial tear of the medial patellar retinaculum with complete lateral dislocation of the patella with respect to the distal femur and associated bony impaction injuries/contusions involving the medial patella as well as the anterior lateral aspect of the lateral femoral condyle and moderate to large lipohemarthrosis and a displaced osteochondral loose body in the recess anterior lateral to the lateral femoral epicondyles there is no evidence of meniscal tear. * She had left knee intra-articular injection and aspiration 07/12/2023. Per orthopedics, multiple attempts at closed reduction under local anesthesia at bedside were performed and these were all unsuccessful suggesting chronic irreducible patellar dislocation. Per orthopedics patient will likely require operative reduction of patella with possible RELEASES. This can be done on outpatient basis. * Per Ortho, okay to weight-bear as tolerated in knee immobilizer. * #Hypokalemia: Stable. Resolved. #Anxiety and depression: to follow up with PCP on outpatient basis #Reactive attachment disorder: on cariprazine DVT prophylaxis: SCDs. Disposition: Anticipate DC back to her prison if she does well with therapy,to follow-up with orthopedics on outpatient basis. For likely discharge tomorrow. Charges/Coding Visit Charges Inpatient E&M: 57561 Subs Hosp L2 07/13/23 1443 <Electronically signed by Ariana Rouse MD> Ariana Rouse MD Cosigner Signature (if applicable): CC: ~ Signed [facility] Work Phone: 1(551) 432-358903-22-2024 Progress note Author Mando Echols [facility] July 12, 2023 5:05pm Note Date/Time July 12, 2023 5:0 5pm [facility] Medical Records Department [address] [place] [address] [place] [address] Progress Note - Orthopedic 07/12/23 1703 MR#: [id number] Acct: [id number] Name: LONI DIAZ Rep #:[id number] : 2000 23 From: Mando Echols MD PCP: Care Physician,No Primary Status :ADM VASHTI Location: [place] [address] Objective Data Objective Data Vital Signs: Vital Signs Temp Pulse Resp BP Pulse Ox O2 Del Method 98.0 F 85 18 111/75 100 Room Air 07/12/23 15:14 07/12/23 15:14 07/12/23 15:14 07/12/23 15:14 07/12/23 15:14 07/12/23 15:14 Oxygen Delivery Method Room Air Weight: 138 lb 1.596 oz Body Mass Index (BMI) 31.0 Intake & Output: Intake and Output for Last 24 Hours 07/10/23 07/11/23 07/12/23 23:59 23:59 23:59 Intake Total 1100 / 1100 Output Total 400 / 400 Balance 700 / 700 Lab / Micro Data 07/12/23 06:43 07/12/23 06:43 Labs: Laboratory Results - last 24 hr 07/12/23 06:43: WBC 11.7 H, RBC 4.25, Hgb 12.9, Hct 39.4, MCV 92.7, MCH 30.4, MCHC 32.7, RDW Std Deviation 42.5, RDW Coeff of Kaley 12.5, Plt Count 317, MPV 9.8, Immature Gran % (Auto) 0.600, Neut % (Auto) 64.2, Lymph % (Auto) 26.3, [place]% (Auto) 8.4, Eos % (Auto) 0.2, Baso % (Auto) 0.3, Absolute Neuts (auto) 7.5, Absolute Lymphs (auto) 3.07, Nucleated RBC % 0, Sodium 140, Potassium 3.4 L, Chloride 108 H, Carbon Dioxide 26.0, Anion Gap 6, BUN 9, Creatinine 0.88, Estim Creat Clear Calc 82.18, Est GFR (MDRD) Af Amer 102, Est GFR (MDRD) Non-Af 85, BUN/Creatinine Ratio 10.3, Glucose 98, Calcium 8.8, Total Bilirubin 0.50, AST 16, ALT 14, Alkaline Phosphatase 64, Total Protein 7.4, Albumin 3.7, Globulin 3.7, Albumin/Globulin Ratio 1.0 Radiography Diagnostic Testing: Radiology Impression Knee X-Ray 07/11/23 18:40 IMPRESSION: Acute lateral subluxation of the patella with possible associated avulsion fracture.. CT would be helpful for further evaluation Electronically Signed: Augustus Dobbs MD at 19:48 EDT , Lower Extremity MRI 07/12/23 05:55 IMPRESSION: Sprain/partial tear of the medial patellar retinaculum, with complete lateral dislocation of the patella with respect to the distal femur. Associated bone impaction injuries/contusions involving the medial patella as well as anterolateral aspect of the lateral femoral condyle. Moderate to large lipohemarthrosis. Displaced 1.1 x 1.0 x 0.5 cm osteochondral loose body in the recess anterolateral to the lateral femoral epicondyle. No discrete meniscal tear. Electronically Signed: Andrew Summers MD at 10:34 EDT , Assessment & Plan Assessment/Plan (1) Lateral dislocation of left patella, initial encounter: PLAN: Plan Multiple attempts at closed reduction under local anesthesia at bedside were performed. These were all unsuccessful suggesting chronic irreducible patellar dislocation. Patient will likely require operative reduction of patella with possible adhesiolysis and MPFL reconstruction or further stabilizing surgical techniques on an elective basis. Patient may be discharged to home or rehab as appropriate and will follow-up in orthopedics clinic to see sports medicine Dr. Coleman. Patient was in agreement. Okay to weight-bear as tolerated in knee immobilizer. 07/12/23 1705 <Electronically signed by Mando Echols MD> Cosigner Signature (if applicable): CC: ~ Signed [facility] Work Phone: 1(757) 841-182603-22-2024 Consult note Author Mando Echols [facility] July 12, 2023 4:56pm Note Date/Time July 12, 2023 4:5 6pm [facility] Medical Records Department [address] [place] [address] Consultation - Orthopedics 07/12/23 1650 MR#: [id number] Acct: [id number] Name: LONI DIAZ Rep #:[id number] : 2000 23 From: Mando Echols MD PCP: Care Physician,No Primary Status :ADM VASHTI Location: [place] [address] HPI Consult Data Date of Consult: 07/12/23 HPI Narrative HPI Narrative: LONI DIAZ, is a 23 F who presented to the ED last night with left knee pain. She was dancing and had an somewhat of a twisting injury to the left kneeafter which she started having severe pain and swelling. She was found to have patellar dislocation and reduction was attempted in the ER and patient was placed in the immobilizer. Patient has multiple psychiatric issues and is undercare of [employer] who serve as legal guardians and provide consent for treatment. I asked her if she had any previous knee injuries in the past but she does not seem to remember any. She did not have any issues with knee range of motion in the past. She says that her pain has improved with the knee immobilizer show over the last day. She worked with physical therapy and was able to take a few steps with weightbearing as tolerated. REPLACED BY [facility] Medical History (Updated 07/12/23 @ 16:[address] 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 Mery Gray MD) History of facial surgery Social History (Updated 07/11/23 @ 20:[address] Mery Gray MD) household members: none Smoking Status: Never smoker alcohol intake: never substance use type: does not use Vital Signs Vital Signs Vital Signs: 07/11/23 18:18 07/11/23 21:19 07/11/23 22:28 Temperature 97.1 F L 98.6 F Temperature Source Oral Pulse Rate 107 H 105 H Respiratory Rate 16 16 Respiratory Effort Respiratory Depth Respiratory Pattern Blood Pressure 120/75 121/84 H Blood Pressure Mean 90 96 Blood Pressure Source Blood Pressure Position Blood Pressure Location Pulse Ox 98 98 98 Oxygen Delivery Method Room Air Room Air 07/11/23 23:12 07/11/23 21:14 07/12/23 05:59 Temperature 97.9 F 98.4 F Temperature Source Oral Oral Pulse Rate 103 H 79 Respiratory Rate 18 18 Respiratory Effort Normal Non-Labored Respiratory Depth Normal Respiratory Pattern Normal Blood Pressure 109/65 105/65 Blood Pressure Mean 79 78 Blood Pressure Source Monitor Monitor Blood Pressure Position Semi-Fowlers Semi-Fowlers Blood Pressure Location Left Arm Left Arm Pulse Ox 98 97 Oxygen Delivery Method Room Air Room Air Room Air 07/12/23 08:00 07/12/23 07:00 07/12/23 15:14 Temperature 98.6 F 98.0 F Temperature Source Temporal Temporal Pulse Rate 86 85 Respiratory Rate 18 18 Respiratory Effort Respiratory Depth Respiratory Pattern Blood Pressure 119/87 H 111/75 Blood Pressure Mean 97 87 Blood Pressure Source Monitor Monitor Blood Pressure Position Semi-Fowlers Semi-Fowlers Blood Pressure Location Left Arm Left Arm Pulse Ox 97 95 100 Oxygen Delivery Method Room Air Room Air Room Air Weight Weight: 138 lb 1.596 oz Body Mass Index (BMI) 31.0 Physical Exam Narrative Examination of the left knee shows fullness is no effusion. Patella is palpablepossibly subluxated versus dislocated laterally. Distal neurovascular exam is intact. No obvious tenderness laterally. Tenderness noticed over the medial femoral condyle on deep palpation. Patient able to flex about 20 degrees by herself. Lab / Micro Data 07/12/23 06:43 07/12/23 06:43 Labs: Laboratory Results - last 24 hr 07/12/23 06:43: WBC 11.7 H, RBC 4.25, Hgb 12.9, Hct 39.4, MCV 92.7, MCH 30.4, MCHC 32.7, RDW Std Deviation 42.5, RDW Coeff of Kaley 12.5, Plt Count 317, MPV 9.8, Immature Gran % (Auto) 0.600, Neut % (Auto) 64.2, Lymph % (Auto) 26.3, [place]% (Auto) 8.4, Eos % (Auto) 0.2, Baso % (Auto) 0.3, Absolute Neuts (auto) 7.5, Absolute Lymphs (auto) 3.07, Nucleated RBC % 0, Sodium 140, Potassium 3.4 L, Chloride 108 H, Carbon Dioxide 26.0, Anion Gap 6, BUN 9, Creatinine 0.88, Estim Creat Clear Calc 82.18, Est GFR (MDRD) Af Amer 102, Est GFR (MDRD) Non-Af 85, BUN/Creatinine Ratio 10.3, Glucose 98, Calcium 8.8, Total Bilirubin 0.50, AST 16, ALT 14, Alkaline Phosphatase 64, Total Protein 7.4, Albumin 3.7, Globulin 3.7, Albumin/Globulin Ratio 1.0 Imaging Radiology Impression Knee X-Ray 07/11/23 18:40 IMPRESSION: Acute lateral subluxation of the patella with possible associated avulsion fracture.. CT would be helpful for further evaluation Electronically Signed: Augustus Dobbs MD at 19:48 EDT Reading Location ID and State: [facility] / [place] Tel , Service support , Lower Extremity MRI 07/12/23 05:55 IMPRESSION: Sprain/partial tear of the medial patellar retinaculum, with complete lateral dislocation of the patella with respect to the distal femur. Associated bone impaction injuries/contusions involving the medial patella as well as anterolateral aspect of the lateral femoral condyle. Moderate to large lipohemarthrosis. Displaced 1.1 x 1.0 x 0.5 cm osteochondral loose body in the recess anterolateral to the lateral femoral epicondyle. No discrete meniscal tear. Electronically Signed: Andrew Summers MD at 10:34 EDT Reading Location ID and State: [facility] / [place] , Service support , Assessment & Plan Assessment/Plan (1) Lateral dislocation of left patella, initial encounter: PLAN: Plan I evaluated the x-rays done last night as well as the MRI done this morning of the left knee. These show lateral dislocation of the patella. Close reduction maneuvers in the ER were unsuccessful. I spoke to the patient at length and discussed the possibility for bedside reduction under local anesthesia. Based on history, it seems to be the first episode of dislocation over the patient's medical and social history make it difficult for her to assess whether she has had prior dislocations or whether this has been a chronic dislocation. I discussed with the patient in detail about the bedside procedure of injection and aspiration intra-articular left knee with close reduction of the patella dislocation. All risk benefits and alternatives were discussed. I called [employer] 2 obtain consent for medical treatment. Ispoke with [employer] to obtain the consent for treatment. The risks include but are not limited to infection, bleeding, injury to nerves and blood vessels, redislocation, persistent pain, knee stiffness. Patient and he is being provided consent for the procedure. Please see procedure note for details. 07/12/23 5829 <Electronically signed by Mando Echols MD> Cosigner Signature (if applicable): CC: Dr. Mery Gray MD; Dr. Mando Echols MD; Dr. Ariana Rouse MD; No Primary Care Physician~ Signed [facility] Work Phone: 1(157) 517-238403-22-2024 Progress note Author Ariana Rouse [facility] July 12, 2023 3:40pm Note Date/Time July 12, 2023 2:3 0pm [facility] Medical Records Department [address] [place] [address] Progress Note 07/12/23 1422 MR#: [id number] Acct: [id number] Name: LONI DIAZ Rep #:[id number] : 2000 23 From: Ariana Rouse MD PCP: Care Physician,No Primary Status :ADM VASHTI Location: MS3 [id number] Subjective Subjective Patient seen and examined. She still had pain in her left knee. She had no othercomplaints. REview of systems is otherwise negative. Objective Data Objective Data Vital Signs: Vital Signs Temp Pulse Resp BP Pulse Ox O2 Del Method 98.6 F 86 18 119/87 H 97 Room Air 07/12/23 08:00 07/12/23 08:00 07/12/23 08:00 07/12/23 08:00 07/12/23 08:00 07/12/23 08:00 Oxygen Delivery Method Room Air Weight: 138 lb 1.596 oz Body Mass Index (BMI) 31.0 Intake & Output: Intake and Output for Last 24 Hours 07/10/23 07/11/23 07/12/23 23:59 23:59 23:59 Intake Total 600 / 600 Balance 600 / 600 Lab / Micro Data 07/12/23 06:43 07/12/23 06:43 Labs: Laboratory Results - last 24 hr 07/12/23 06:43: WBC 11.7 H, RBC 4.25, Hgb 12.9, Hct 39.4, MCV 92.7, MCH 30.4, MCHC 32.7, RDW Std Deviation 42.5, RDW Coeff of Kaley 12.5, Plt Count 317, MPV 9.8, Immature Gran % (Auto) 0.600, Neut % (Auto) 64.2, Lymph % (Auto) 26.3, [place] % (Auto) 8.4, Eos % (Auto) 0.2, Baso % (Auto) 0.3, Absolute Neuts (auto) 7.5, Absolute Lymphs (auto) 3.07, Nucleated RBC % 0, Sodium 140, Potassium 3.4 L, Chloride 108 H, Carbon Dioxide 26.0, Anion Gap 6, BUN 9, Creatinine 0.88, Estim Creat Clear Calc 82.18, Est GFR (MDRD) Af Amer 102, Est GFR (MDRD) Non-Af 85, BUN/Creatinine Ratio 10.3, Glucose 98, Calcium 8.8, Total Bilirubin 0.50, AST 16, ALT 14, Alkaline Phosphatase 64, Total Protein 7.4, Albumin 3.7, Globulin 3.7, Albumin/Globulin Ratio 1.0 Radiography Diagnostic Testing: Radiology Impression Knee X-Ray 07/11/23 18:40 IMPRESSION: Acute lateral subluxation of the patella with possible associated avulsion fracture.. CT would be helpful for further evaluation Electronically Signed: Augustus Dobbs MD at 19:48 EDT , Lower Extremity MRI 07/12/23 05:55 IMPRESSION: Sprain/partial tear of the medial patellar retinaculum, with complete lateral dislocation of the patella with respect to the distal femur. Associated bone impaction injuries/contusions involving the medial patella as well as anterolateral aspect of the lateral femoral condyle. Moderate to large lipohemarthrosis. Displaced 1.1 x 1.0 x 0.5 cm osteochondral loose body in the recess anterolateral to the lateral femoral epicondyle. No discrete meniscal tear. Electronically Signed: Andrew Summers MD at 10:34 EDT , Physical Exam Const alert, oriented x3, no apparent distress and well nourished General Appearance: cooperative and well developed HEENT normocephalic, head/scalp atraumatic, moist oral mucous membranes and oropharynxnormal Eyes PERRL and EOMs intact bilaterally Neck no lymphadenopathy and supple Lymph Lymphatic: no lymphadenopathy noted and no lymphedema noted Resp normal respiratory effort, normal air movement and clear to auscultation bilaterally Cardio regular rate, regular rhythm, S1 normal heart sound, S2 normal heart sound and no murmurs GI normal to inspection, nondistended, normoactive bowel sounds, soft to palpation,non-tender and non-distended Extremity normal capillary refill Extremity Narrative: left knee in brace Skin General Skin Exam: no breakdown Neuro CN's II-XII intact bilaterally, no focal motor deficits and no sensory deficits noted Coordination / Balance: [id number] test normal Psych thought process normal, cooperative and affect normal Appearance: appropriate Assessment & Plan Assessment/Plan (1) Acute internal derangement of left knee: (2) Inability to ambulate due to knee: PLAN: Plan #Debility due to mechanical fall with probable avulsion fracture * fell whilst dancing. Imaging showed acute left lateral subluxation of the patella with questionable avulsion fracture * has knee immobiliser * orthopedic surgery on board * PT/OT on board * fall precautions * #Hypokalemia: K is 3.4. Will replace and trend. #Anxiety and depression: to follow up with PCP on outpatient basis #PTSD: #Reactive attachment disorder: on cariprazine Charges/Coding Visit Charges Inpatient E&M: 34153 Subs Hosp L2 07/12/23 1540 <Electronically signed by Ariana Rouse MD> Ariana Rouse MD Cosign Signature (if applicable): CC: ~ Signed [facility] Work Phone: 1(136) 824-234003-22-2024 Procedure [facility] 07-12-2023 Discharge summary Author Gamaliel Jovel [facility] July 11, 2023 11:42pm Note Date/Time July 11, 2023 6:4 9pm [facility] Medical Records Department [address] [place] [address] Emergency Department Summary 07/11/23 MR#: [id number] Acct: [id number] Name: LONI DIAZ Rep #:[id number] : 2000 23 From: Gamaliel Kern PCP: Care Physician,No Primary Status :ADM VASHTI Location: [address] History of Present Illness Chief Complaint: Lower Extremity Injury Informant: patient and parent Narrative Narrative: Brought in by EMS in studio for left knee injury. Was twisting came down knee buckled. No history of similar injury in the past. No head injuries. Prior similar symptoms: No PFSH REPLACED BY [facility] Medical History (Updated 07/11/23 @ 21:[address] 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 Mery Gray MD) History of facial surgery Social History (Updated 07/11/23 @ 20:[address] Mery Gray MD) household members: none Smoking Status: Never smoker alcohol intake: never substance use type: does not use ROS ROS ED Constitutional Constitutional ED: Denies fever(s) ENT ENT ED: Denies sore throat Cardiovascular Cardiovascular: Denies chest pain or palpitations Respiratory/Chest Respiratory/Chest: Denies cough Gastrointestinal Gastrointestinal: Reports nausea; Denies abdominal pain or vomiting Genitourinary Genitourinary ED: Denies dysuria Musculoskeletal Musculoskeletal: Reports extremity pain; Denies back pain or neck pain Integumentary Denies rash or wounds Neurologic Neurologic: Denies headache(s) EXAM Physical Exam Const Vital Signs: 07/11/23 18:18 Temperature 97.1 F L Temperature Source Oral Pulse Rate 107 H Respiratory Rate 16 Blood Pressure 120/75 Blood Pressure Mean 90 Pulse Ox 98 Oxygen Delivery Method Room Air Positive well nourished and well developed Constitutional Narrative: Comfortable, GCS 15. General Appearance ED: well developed HEENT Reports moist mucous membranes normocephalic and atraumatic Eyes PERRL, EOMs intact bilaterally and conjunctivae normal General Eye ED: Yes normal appearance of both eyes Neck full ROM, no lymphadenopathy and supple General: Negative for tenderness Chest Wall inspection of chest normal and palpation of chest normal Chest: Negative for tenderness Resp normal respiratory effort and normal air movement Effort and Inspection: symmetric chest movement; Negative for respiratory distress Cardio regular rate, regular rhythm and no murmurs Peripheral Pulses: pulses 2+ throughout GI normal to inspection, nondistended, normoactive bowel sounds and non-tender Palpation: Negative for guarding or rebound tenderness present Back/Spine no CVA tenderness and no thoracic nor lumbar tenderness Extremity Extremity Narrative: Upper extremities: Full range of motion. No pain. Pulse intact distally. Right lower extremity: Negative logroll. No deformities. No knee or ankle tenderness. Neuro vas intact distally. Left lower extremity: Negative logroll. Knee had a valgus deformity patellar david more lateral. Knee was in a flexed position with a towel roll. No ankle tenderness. Skin intact. Neuro vas intact. General Extremety ED: Yes edema and tenderness General Extremity: edema Neuro oriented x3 and no sensory deficits noted Sensorium / Orientation: awake and alert Skin no rashes or lesions noted and no wounds MDM MDM MDM Narrative Medical decision making narrative: Interventions / MDM: Differential diagnosis: Diagnosis considered but do not suspect: N/A My EKG interpretation: N/A Imaging independently reviewed and interpreted by myself: 5 views x-ray left knee was obtained: Subluxation of the patella, questionable avulsion fracture read by radiology. No femur or tibial fracture noted. External documents reviewed: N/A Test considered but not ordered:N/A ED course: Patient appeared have lateral dislocation of the patella. Bedside with mother present straightening of the knee, there is no popping sensation noted. More straight in however still had more valgus deformity. Treated with oxycodone, 2 view of the knee will be obtained for scouting purposes at this time. Patient still had valgus deformity with straightening of the knee. Concern for internal derangement of the knee. Reevaluation increasing swelling. I discussed with on-call orthopedist Dr. Echols, he was sent photos through backline for evaluation. Seated agree with likely internal derangement, initialplan was immobilization crutches for her to's be seen in the office tomorrow to coordinate MRI. This was discussed with guardian patient, knee immobilizer attempted crutches and a walker, stating she lives alone independently apartment like facility. There is currently no extra help for her at this point. They will have to coordinate extra care through facility however cannot be done tonight. Therefore plan will be to admit for MRI orthopedic evaluation and recommendations. Re-evaluation: stable Disposition discussed with patient/family/significant other: Patient and guardian Case discussed with consulting clinician: Orthopedics, hospitalist This note was generated with [employer] dictation software. It may contain incorrectwords, spelling, and punctuation that were not noted in checking the note beforesigning. Radiography Diagnostic Testing: Clinical Impression(s) from Imaging Studies Knee X-Ray 07/11/23 18:40 IMPRESSION: Acute lateral subluxation of the patella with possible associated avulsion fracture.. CT would be helpful for further evaluation Electronically Signed: Augustus Dobbs MD at 19:48 EDT Reading Location ID and State: [address] [place] [address] Tel , Service support , Discharge Plan Dx/Rx/DC Orders Clinical Impression: Inability to ambulate due to knee, Acute internal derangement of left knee Disposition Disposition: Acute Care Hospital [facility] Discharge Date/Time: 07/11/23 21:20 What to do if you have Problems For any increased pain, shortness of breath, bleeding, nausea or vomiting, chestpain, or any unexpected problems, contact your Primary Care Provider. Call [facility] ([phone]) or report to the closest Emergency Room. Call 911 if necessary. 07/11/232341 <Electronically signed by Gamaliel Kern> Cosigner Signature (if applicable): CC: No Primary Care Physician ~ Signed [facility] Work Phone: 1(531) 957-905503-21-2024 History and physical note Author Mery Gray [facility] July 11, 2023 9:31pm Note Date/Time July 11, 2023 8:5 5pm [facility] Medical Records Department [address] [place] [id number] H&P Exam - Hospitalist 07/11/232049 MR#: [id number] Acct: [id number] Name: LONI DIAZ Rep #:[id number] : 2000 23 From: Mery Gray MD PCP: Care Physician,No Primary Status :ADM VASHTI Location: [place] [address] HPI - General General Date of Admission: 07/11/23 Date of Service: 07/11/23 Chief Complaint: Fall, L knee pain, swellling. HPI Narrative The patient is a 23 y/o F w/ PMHx: Hx Facial Tumor, Possible Developmental delay, Anxiety and Depression/PTSD/Reactive attachment disorder living in an independent type apartment facility who presents to the [facility] ED on 07/11/23 with history of unfortunately falling while she was dancing reportedly she had twisted and then landed with significant onset left knee pain and swelling prompting transition to the ED for evaluation. She had noted pain initially 8/10 in severity, now reports it down to 5-6/10 in severity. Workup in the ED included T97.1, heart rate 107, BP 120/75, respiratory rate 16, 98% on room air,plain film of the left knee with acute lateral subluxation of the patella with possibly associated avulsion fracture ED discussed case with orthopedic surgeon Dr. Echols who recommended MRI and initially had plan to see her outpatient in his office but unfortunately despite placement of a knee immobilizer she was unable to even use a walker or crutches and facility is unable to provide extra care for her through the evening therefore ED requested admission. In the ED patient ministered oxycodone 5 mg p.o. x 1, Zofran 4 mg p.o. x 1, Toradol 30 mg IM x 1. REPLACED BY [facility] Medical History (Updated 07/11/23 @ 21:[address] 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 Mery Gray MD) History of facial surgery Social History (Updated 07/11/23 @ 20:[address] Mery Gray MD) household members: none Smoking Status: Never smoker alcohol intake: never substance use type: does not use ROS ROS Narrative Admission Review of Systems: CONSTITUTIONAL: No weight loss, fever, chills, + weakness or fatigue. HEENT: Eyes: No visual loss, blurred vision, double vision or yellow sclerae. Ears, Nose, Throat: No hearing loss, sneezing, congestion, runny nose or sore throat. SKIN: No rash or itching, lesions, wounds. CARDIOVASCULAR: No chest pain, chest pressure or chest discomfort, palpitations,edema, orthopnea, syncopal events. RESPIRATORY: No shortness of breath, cough or sputum, wheezing, hemoptysis. GASTROINTESTINAL: No anorexia, nausea, vomiting or diarrhea, abdominal pain, melena, BRBPR. GENITOURINARY: No dysuria, frequency, urgency or retention. NEUROLOGICAL: Possible Developmental delay. No headache, dizziness, syncope, paralysis, ataxia, numbness or tingling in the extremities, focal weakness, change in bowel or bladder control, seizure. MUSCULOSKELETAL: + muscle, back pain, joint pain or stiffness. HEMATOLOGIC: No anemia, bleeding or bruising. LYMPHATICS: No enlarged nodes. No history of splenectomy. PSYCHIATRIC: + Anxiety and Depression/PTSD/Reactive attachment disorder ENDOCRINOLOGIC: No reports of sweating, cold or heat intolerance. No polyuria orpolydipsia. ALLERGIES: No history of asthma, hives, eczema or rhinitis. Vital Signs Vital Signs Vital Signs: 07/11/23 18:18 Temperature 97.1 F L Temperature Source Oral Pulse Rate 107 H Respiratory Rate 16 Blood Pressure 120/75 Blood Pressure Mean 90 Pulse Ox 98 Oxygen Delivery Method Room Air Weight Weight: 146 lb 9.718 oz Body Mass Index (BMI) 29.6 Physical Exam Narrative Physical Examination: General: Awake, alert, oriented x 3 and cooperative, seated upright in the ED bed in no apparent distress, notes pain better. Skin: Normal color, normal turgor, no icterus, no cyanosis. 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 Lungs: CTA bilaterally, moderate effort, mild decrease BL bases, no rales, ronchi or wheezing. Heart: Regular rate and rhythm; no gallop, rub audible. Abdomen: Soft, overweight, NTTP, ND, normal BS, no HSM. Extremities: No cyanosis, clubbing, s/p fall as noted with L knee edema, TTP, immobilizer placed. Neurological: Patient awake, alert, oriented as noted, cognitive function intactat baseline per her guardian presentation with slow responses and sometimes became overwhelmed; pupils equally reactive to light and accommodation, cranial nerves grossly normal, moving all 4 extremities except extremely limited left lower extremity given fall with injury and now placed immobilizer, strength accordingly moderately globally decreased. Psychiatric: Affect appears overwhelmed, notable underlying anxiety and depression. Results Imaging Radiology Impression Knee X-Ray 07/11/23 18:40 IMPRESSION: Acute lateral subluxation of the patella with possible associated avulsion fracture.. CT would be helpful for further evaluation Electronically Signed: Augustus Dobbs MD at 19:48 EDT , Assessment & Plan Assessment/Plan (1) Acute internal derangement of left knee: PLAN: Plan The patient is a 23 y/o F w/ PMHx: Hx Facial Tumor, Possible Developmental delay, Anxiety and Depression/PTSD/Reactive attachment disorder living in an independent type apartment facility who presents to the [facility] ED on 07/11/23 with history of unfortunately falling while she was dancing reportedly she had twisted and then landed with significant onset left knee pain and swelling prompting transition to the ED for evaluation. #1. Mechanical fall with acute left lateral subluxation of the patella with questionable avulsion fracture: Will admit to medical surgical floor, will continue knee immobilizer, will continue consultation with orthopedic surgery, will maintain on fall precautions, will continue icing, elevation, as needed pain regimen, NWB to LLE, MRI of the left knee requested but will defer alterations to it to orthopedic surgery, PT/OT/case management consulted for discharge planning. #2. Anxiety and Depression/PTSD/Reactive attachment disorder complicated by Possible developmental delay: Complicates presentation, patient lives in a facility but is independent but associated with the counseling center and unfortunately at this time they do not have the extra care she would need that for as noted planned admission with case management/social work consulted, will continue patient home cariprazine regimen. #3. DVT prophylaxis: Given observation admission will defer immediate SCDs or chemoprophylaxis but if prolonged may need to add depending on her mobility. Charges/Coding Visit Charges Inpatient E&M: 65108 Init Hosp L2 07/11/23 2131 <Electronically signed by Mery Gray MD> Cosigner Signature (if applicable): CC: Dr. Mery Gray MD; No Primary Care Physician~ Signed [facility] Work Phone: [phone]) [phone] History of Present illness Narrative* Ashvin Cherry CNP - 07/10/2023 10:30 AM EDT Images from the original note were not included. ENT Clinic Follow up Note History of Present Illness Loni Diaz is a 23 y.o. y/o female presents for follow up regarding ear cleaning. Loni is a known patient who presents with caregiver regarding concerns for possible cerumen impaction. Patient confirms requiring professional ear cleanings in the past. Last reported ear cleaning was approximately 6 months ago by me. Treatment at home has included nothing without benefit. Deniesear pain/pressure/drainage, mastoid reactivity, sudden hearing changes, fever, or other constitutional symptoms. The patient denies previous or current ototoxic medications, significant head trauma, history of chronic otitis media or previous otologic surgery. Patient is unsure of family history, was adopted from [place]. Does endorse having facial mass at that required surgery in infancy in [place], then three additional surgeries in the [place] Denies any known hearing deficits associated withfacial mass. Patient presents for evaluation with possible ear cleaning. No Known Allergies No past medical history on file. Social History Socioeconomic History Marital status: Single Tobacco Use Smoking status: Never Smokeless tobacco: Never Vaping Use Vaping Use: Never used Substance and Sexual Activity Alcohol use: Never Drug use: Never No family history on file. Past Surgical History: Procedure Laterality Date TUMOR REMOVAL face- baby age The following systems were reviewed and revealed the following in addition to any already discussedin the HPI: Review of Systems Constitutional: Negative for activity change, appetite change, fatigue and fever. HENT: Negative for congestion, ear discharge, ear pain and hearing loss. Eyes: Positive for visual disturbance (glasses). Negative for pain and discharge. Psychiatric/Behavioral: Negative for confusion. The patient is not nervous/anxious. Physical Exam There were no vitals filed for this visit. Physical Exam Vitals reviewed. Constitutional: General: She is not in acute distress. Appearance: She is well-developed. She is not ill-appearing or diaphoretic. HENT: Head: Normocephalic and atraumatic. No abrasion, contusion or laceration. Jaw: No tenderness, swelling or pain on movement. Comments: Large facial scar from previous tumor removal surgeries x 4 Right Ear: Tympanic membrane, ear canal and external ear normal. No drainage, swelling or tenderness. No middle ear effusion. There is impacted cerumen. No foreign body. No mastoid tenderness. Tympanic membrane is not scarred, perforated, retracted or bulging. Tympanic membrane has normal mobility. Left Ear: Tympanic membrane, ear canal and external ear normal. No drainage, swelling or tenderness. No middle ear effusion. There is impacted cerumen. No foreign body. No mastoid tenderness. Tympanic membrane is not scarred, perforated, retracted or bulging. Tympanic membrane has normal mobility. Ears: Comments: CONSENT: Informed consent was obtained prior to the procedure after discussion of risks, benefits, and alternatives and expected outcomes were discussed with the patient. The possibile needfor additional procedures and failure to diagnose a condition were also discussed. The patient concurred with the proposed plan, giving informed consent. With the patient in a sitting position utilizing the microscope impacted soft, yellow was found completely blocking the bilateral canal(s) causing symptoms noted in physical exam. Impacted cerumen was removed from bilateral ear canals using loop, suction. The canals and tympanic membranes were thenvisualized and found to be without acute/chronic pathology. Patient tolerated procedure well with minimal discomfort Nose: Septal deviation present. No nasal deformity, mucosal edema, congestion or rhinorrhea. Right Sinus: No maxillary sinus tenderness or frontal sinus tenderness. Left Sinus: No maxillary sinus tenderness or frontal sinus tenderness. Mouth/Throat: Lips: [place]. No lesions. Mouth: Mucous membranes are moist. No lacerations or oral lesions. Dentition: Normal dentition. No dental caries or dental abscesses. Tongue: No lesions. Palate: No mass. Pharynx: Uvula midline. No oropharyngeal exudate, posterior oropharyngeal erythema or uvula swelling. Eyes: General: No scleral icterus. Right eye: No discharge. Left eye: No discharge. Conjunctiva/sclera: Conjunctivae normal. Neck: Trachea: Phonation normal. Pulmonary: Effort: Pulmonary effort is normal. No respiratory distress. Musculoskeletal: General: Normal range of motion. Cervical back: Full passive range of motion without pain, normal range of motion and neck supple. No rigidity. Normal range of motion. Lymphadenopathy: Head: Right side of head: No submental, submandibular, tonsillar, preauricular or posterior auricular adenopathy. Left side of head: No submental, submandibular, tonsillar, preauricular or posterior auricular adenopathy. Cervical: No cervical adenopathy. Right cervical: No superficial, deep or posterior cervical adenopathy. Left cervical: No superficial, deep or posterior cervical adenopathy. Skin: General: Skin is warm and dry. Coloration: Skin is not pale. Findings: No erythema or rash. Neurological: General: No focal deficit present. Mental Status: She is alert and oriented to person, place, and time. GCS: GCS eye subscore is 4. GCS verbal subscore is 5. GCS motor subscore is 6. Psychiatric: Attention and Perception: Attention normal. Mood and Affect: Mood normal. Mood is not anxious. Affect is not blunt. Speech: Speech normal. Behavior: Behavior normal. Behavior is cooperative. Thought Content: Thought content normal. Cognition and Memory: Cognition normal. Judgment: Judgment normal. Assessment and Plan: Loni Diaz is a 23 y.o. y/o female who presents with ear cleaning. On exam there was soft, yellow cerumen blocking bilateral ear canals that was removed in above mentioned procedure note, patient tolerated well. Immediate improvement noted following removal of wax. There was no other acute/chronic pathology visualized after removal. Recommended continued 6 month ear cleanings due to amount of wax buildup, patient and caregiver in agreement with this. Encouraged to contact me sooner with any other changes or new concerns in the interim Follow-up 6 months or sooner as needed Diagnoses and all orders for this visit: Bilateral impacted cerumen Ashvin Cherry CNP 07/10/23 documented in this [id number] History of Present illness Narrative* Akosua Vanessa, AuD - 01/09/2023 2:08 PM EDT Images from the original note were not included. [facility] [address] [place] [address] Name: Loni Diaz : 2000 Date: 01/09/23 History & Purpose of Evaluation: Loni was seen today for audiologic evaluation at the kind request of Jamal Cherry CNP. Loni did not pass a recent hearing screen at the [facility]. Loni feels that she hears well now, especially after having a significant amount of ear wax removed from her ears just prior to today' test. Please see below for other pertinent case history information as reported by Loni and Loni Ortiz[facility]. Otologic Symptoms R L Noise Exposure Y N Medical Y N Hearing Loss [] [] Occupational [] [x] Hypertension [] [x] Tinnitus [] [] Recreational [] [x] Diabetes [] [x] Otalgia [] [] [] [x] Hypercholesterolemia [] [x] Otorrhea [] [] Heart Disease [] [x] Aural Fullness [] [] Family History [] [] Stroke [] [x] Meniere s Disease [] [] Unk Cancer [] [x] Y N Sp./Lang. Skills Ear Surgery R L Vertigo [] [x] Appropriate [x] [] PE Tubes [] [] Dizziness [x] [] In Therapy [] [x] Mastoidectomy [] [] Imbalance [] [x] Social Acoustic Neuroma [] [] Vestibular Rehab [] [x] Depression [x] [] Tympanoplasty [] [] Other: + Anxiety Results: Otoscopy: Performed by ENT prior to testing. [employer] Conduction Audiometry: Normal hearing sensitivity, bilaterally. Speech Audiometry: Word recognition ability is excellent at both ears when assessed at a normal conversational loudness level. Immittance Audiometry: Immittance audiometry revealed normal middle ear pressure with reduced tympanic membrane mobility, bilaterally. Distortion Product Otoacoustic Emissions (DPOAE; 1500-6k Hz): Did not assess. Impression: Today's test results are consistent with normal hearing sensitivity, bilaterally. Middle ear testing is consistent with stiffened middle ear systems at both ears. Loni's hearing should be adequate for normal communication. Recommendations: Follow up with ENT. Re-evaluate upon referral. The above was explained to the patient and or their guardian and they expressed understanding. Electronically Signed by: Vandana Zamarripa, STEVE/Christine, FAAA, RADHA Cert. 01/09/23 2:08 PM documented in this [id number] History of Present illness Narrative* NormanAshvin CNP - 01/09/2023 1:00 PM EDT Images from the original note were not included. ENT New Patient Visit Patient Name: Loni Diaz MR #: [id number] : 2000 Physicians: No, Physician (Family); No ref. provider found (Referring) Chief Complaint/Reason for Visit: ear cleaning & hearing test History of Present Illness: Loni Diaz is a 22 y.o. y/o female presenting from PCP with c/o ear cleaning & hearing test Loni is a new patient who presents with care administrative tech regarding concerns for possible cerumen impaction. Had recent hearing testing done through [facility], care administrative tech reports she failed her hearing test, they said the wax was preventing things from vibrating. Patient denies requiring professional ear cleanings in the past. Treatment at home has included nothing with no benefit. There has been tinnitus in the past couple times. The patient denies aural fullness/pressure, otorrhea, otalgia, vertigo, migraines or facial nerve weakness. The patient denies previous or current ototoxic medications, significant head trauma, history of chronic otitis media or previous otologic surgery. Patient is unsure of family history, was adopted from [place]. Does endorse having facial mass at that required surgery in infancy in [place], then three additional surgeries in the [place] Denies any known hearing deficits associated with facial mass. Presents for evaluation of hearing loss with hearin g exam. History: History reviewed. No pertinent past medical history. Past Surgical History: Procedure Laterality Date TUMOR REMOVAL face- baby age History reviewed. No pertinent family history. Social History Socioeconomic History Marital status: Single Tobacco Use Smoking status: Never Smokeless tobacco: Never Vaping Use Vaping Use: Never used Substance and Sexual Activity Alcohol use: Never Drug use: Never Allergy Information: I have reviewed the patient's allergies. No Known Allergies Home Medications: Current Outpatient Medications Medication Sig Dispense Refill cariprazine (Vraylar) 1.5 mg capsule Take 1 (one) capsule (1.5 mg total) by mouth daily . multivitamin per tablet Take 1 (one) tablet by mouth daily . No current facility-administered medications for this visit. ROS: Review of Systems Constitutional: Negative for activity change, appetite change, fatigue and fever. HENT: Positive for hearing loss (d/t wax) and tinnitus. Negative for congestion, ear discharge, earpain, nosebleeds, postnasal drip, rhinorrhea, sinus pressure, sinus pain, sneezing, sore throat, trouble swallowing and voice change. Eyes: Positive for visual disturbance (glasses). Negative for pain, discharge, redness and itching. Respiratory: Negative for apnea, cough, choking, chest tightness, shortness of breath and wheezing. Cardiovascular: Negative for chest pain and palpitations. Gastrointestinal: Negative for nausea and vomiting. Musculoskeletal: Negative for arthralgias, back pain, gait problem, myalgias, neck pain and neck stiffness. Skin: Negative for color change, pallor, rash and wound. Allergic/Immunologic: Negative for environmental allergies and immunocompromised state. Neurological: Negative for dizziness, syncope, facial asymmetry, weakness, light-headedness, numbness and headaches. Hematological: Negative for adenopathy. Psychiatric/Behavioral: Negative for confusion. The patient is not nervous/anxious. Physical Examination: Vital Signs: BP 121/83 (BP Location: Right arm, Patient Position: Sitting, BP Cuff Size: Adult) Pulse 84 Resp 17 Ht 4' 11 Wt 65.2 kg (143 lb 11.2 oz) SpO2 99% BMI 29.02 kg/m Physical Exam Vitals reviewed. Constitutional: General: She is not in acute distress. Appearance: She is well-developed. She is not ill-appearing or diaphoretic. HENT: Head: Normocephalic and atraumatic. No abrasion, contusion or laceration. Jaw: No tenderness, swelling or pain on movement. Comments: Large facial scar from previous tumor removal surgeries x 4 Right Ear: Tympanic membrane, ear canal and external ear normal. Decreased hearing (d/t cerumen) noted. No drainage, swelling or tenderness. No middle ear effusion. There is impacted cerumen. No foreign body. No mastoid tenderness. Tympanic membrane is not scarred, perforated, retracted or bulging.Tympanic membrane has normal mobility. Left Ear: Tympanic membrane, ear canal and external ear normal. Decreased hearing (d/t cerumen) noted. No drainage, swelling or tenderness. No middle ear effusion. There is impacted cerumen. No foreign body. No mastoid tenderness. Tympanic membrane is not scarred, perforated, retracted or bulging. Tympanic membrane has normal mobility. Ears: Comments: CONSENT: Informed consent was obtained prior to the procedure after discussion of risks, benefits, and alternatives and expected outcomes were discussed with the patient. The possibile needfor additional procedures and failure to diagnose a condition were also discussed. The patient concurred with the proposed plan, giving informed consent. With the patient in a sitting position utilizing the microscope impacted firm, dark cerumen was found completely blocking the bilateral canal(s) causing symptoms noted in physical exam. Impacted cerumen was removed from bilateral ear canals using loop, suction, and pick. The canals and tympanic membranes were then visualized and found to be without acute/chronic pathology. Patient tolerated procedure well with minimal discomfort Nose: Septal deviation present. No nasal deformity, mucosal edema, congestion or rhinorrhea. Right Sinus: No maxillary sinus tenderness or frontal sinus tenderness. Left Sinus: No maxillary sinus tenderness or frontal sinus tenderness. Mouth/Throat: Lips: [place]. No lesions. Mouth: Mucous membranes are moist. No lacerations or oral lesions. Dentition: Normal dentition. No dental caries or dental abscesses. Tongue: No lesions. Palate: No mass. Pharynx: Uvula midline. No oropharyngeal exudate, posterior oropharyngeal erythema or uvula swelling. Eyes: General: No scleral icterus. Right eye: No discharge. Left eye: No discharge. Conjunctiva/sclera: Conjunctivae normal. Neck: Trachea: Phonation normal. Pulmonary: Effort: Pulmonary effort is normal. No respiratory distress. Musculoskeletal: General: Normal range of motion. Cervical back: Full passive range of motion without pain, normal range of motion and neck supple. No rigidity. Normal range of motion. Lymphadenopathy: Head: Right side of head: No submental, submandibular, tonsillar, preauricular or posterior auricular adenopathy. Left side of head: No submental, submandibular, tonsillar, preauricular or posterior auricular adenopathy. Cervical: No cervical adenopathy. Right cervical: No superficial, deep or posterior cervical adenopathy. Left cervical: No superficial, deep or posterior cervical adenopathy. Skin: General: Skin is warm and dry. Coloration: Skin is not pale. Findings: No erythema or rash. Neurological: General: No focal deficit present. Mental Status: She is alert and oriented to person, place, and time. GCS: GCS eye subscore is 4. GCS verbal subscore is 5. GCS motor subscore is 6. Psychiatric: Attention and Perception: Attention normal. Mood and Affect: Mood normal. Mood is not anxious. Affect is not blunt. Speech: Speech normal. Behavior: Behavior normal. Behavior is cooperative. Thought Content: Thought content normal. Cognition and Memory: Cognition normal. Judgment: Judgment normal. Procedure Audiometry: normal hearing thresholds bilaterally Tympanometry: Right: Type As Left: Type As Assessment and Plan: Loni Diaz is a 22 y.o. y/o female presenting with cerumen impaction & normal hearing testing today On exam there was firm, dark cerumen completely blocking bilateral ear canals that was removed in above mentioned procedure note, patient tolerated well. Immediate improvement noted following removalof wax. There was no other acute/chronic pathology visualized after removal. Audiometry reveals normal hearing thresholds bilaterally with type As tympanograms bilaterally. Patient is not considered a good hearing aid candidate at this time. Discussed hearing test in detail today. Patient and care administrative tech verbalized understanding and denies additional questions or concerns. Follow-up 6 months for evaluation of possible ear cleaning or sooner with any changes or new concerns Diagnoses and all orders for this visit: Hearing loss of both ears due to cerumen impaction Bilateral impacted cerumen Normal hearing exam Encounter for hearing examination after failed hearing test - Ambulatory referral to Audiology; Future Ashvin Cherry CNP 01/09/23 documented in this [id number] History of Present illness Narrative* Gregoria Gold MD - 12/12/2022 2:47 PM EDT Loni Diaz is a 22 year old female who presents for problem visit for f/u IUD. HPI: 22 YOF had Mirena placedin OR on 12/04/22. Presents w/ a caregiver today. Interviewed with and without her in the room. No c/o. No menses. Not sexually active. Denies pvaginal itching or burning or other concerns. OB History No obstetric history on file. Research And Development Director History LMP: 09/02/2018 (Approximate), IUD Age at Menarche: Age at First : Age at Menopause: Research And Development Director History Comments: Sexual Activity: Never; No partner data on record Contraception: No contraception data on record PAST MEDICAL HISTORY Diagnosis Date Depression PAST SURGICAL HISTORY Procedure Laterality Date RAD RESECTION TUMOR SOFT TISS FACE/SCALP < 2CM 09/23/2019 Hemangioma FAMILY HISTORY Adopted: Yes Family history unknown: Yes Social History Tobacco Use Smoking status: Never Smokeless tobacco: Never Substance Use Topics Drug use: Never Current Outpatient Medications Medication Sig FLUoxetine HCl 20 mg tablet Take 1 tablet by mouth daily after breakfast. QUEtiapine (SEROQUEL) 50 mg tablet Take 1 tablet by mouth daily at bedtime. levonorgestrel (MIRENA) 20 mcg/24 hours (5 yrs) 52 mg IUD 1 Each by INTRAUTERINE route one time only for 1 dose. to be placed in Operating room No current facility-administered medications for this visit. Allergies As of Date: 12/12/2022 Allergen Noted Reaction CATS 10/03/2018 Other: See Comments SEASONAL ALLERGIES 10/03/2018 Unknown Fully Assessed 09/28/2019 REVIEW OF SYSTEMS Abdomen: No bloating, early satiety, indigestion, or increased flatulence. No abdominal pain, nausea, vomiting, diarrhea, or constipation. Bladder: No dysuria, gross hematuria, urinary frequency, urinary urgency, or incontinence. Breast: No breast lumps, nipple d/c, overlying skin changes, redness or skin retraction. 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 GENERAL: pleasant, female in no apparent distress HEENT: Normocephalic, atraumatic, mucus membranes moist, and no lesions NECK: Supple, full range of motion, no adenopathy, and thyroid normal DERMATOLOGY: Normal, without lesions, non-icteric, and non-hirsute BREAST: soft, non-tender, symmetric, no dominant mass, normal nipple-areolar complex, no lymphadenopathy, and no nipple discharge CHEST: Normal inspiratory effort ABDOMEN: soft, non-tender, and no masses PELVIC: deferred BIMANUAL: deferred ASSESSMENT AND PLAN: IUD surveillance, breast exam declines STI testing today D/w her mirena approved for 8 years for contraception, not concerned about contraception. If breakthrough bleeding before then return. Declines pelvic and pap today. Gregoria Gold [facility] Diagnosis Pre-syncope- Primary Syncope and collapse documented in this encounter [facility] note* Diagnosis IUD check up- Primary Surveillance of previously prescribed intrauterine contraceptive device documented in this encounter [facility] note* Diagnosis Encounter for hearing examination after failed hearing test- Primary documented in this encounter [facility] note* Diagnosis Hearing loss of both ears due to cerumen impaction- Primary Bilateral impacted cerumen Impacted cerumen Normal hearing exam Other examination of ears and hearing Encounter for hearing examination after failed hearing test documented in this encounter [facility] noteNo assessment information availableWCincinnati [facility] Work Phone: Evaluation note* Diagnosis Bilateral impacted cerumen- Primary Impacted cerumen documented in this encounter [facility] note* Diagnosis Onset Date Resolution Status Acute internal derangement of left knee acute Inability to ambulate due to knee acute [facility] Work Phone: evaluation note* Diagnosis Onset Date Resolution Status Acute internal derangement of left knee acute Inability to ambulate due to knee acute Lateral dislocation of left patella, initial encounter [facility] Work Phone: evaluation note* Diagnosis Encounter for gynecological examination (general) (routine) without abnormal findings- Primary Encounter for IUD removal Encounter for removal of intrauterine contraceptive device Dysmenorrhea documented in this encounter [facility] note* Diagnosis Pelvic pain in female- Primary Unspecified symptom associated with female genital organs Encounter for screening for malignant neoplasm of cervix Screening for malignant neoplasm of the cervix Encounter for IUD removal Encounter for removal of intrauterine contraceptive device Pelvic pain in female Unspecified symptom associated with female genital organs Encounter for screening for malignant neoplasm of cervix Screening for malignant neoplasm of the cervix Encounter for IUD removal Encounter for removal of intrauterine contraceptive device documented in this encounter [facility] note* Diagnosis General counseling and advice for contraceptive management- Primary Other general counseling and advice for contraceptive management Pelvic pain in female Unspecified symptom associated with female genital organs Encounter for screening for malignant neoplasm of cervix Screening for malignant neoplasm of the cervix Encounter for IUD removal Encounter for removal of intrauterine contraceptive device [facility] Diagnosis Subcutaneous mass- Primary Localized superficial swelling, mass, or lump Pelvic pain in female Unspecified symptom associated with female genital organs Encounter for screening for malignant neoplasm of cervix Screening for malignant neoplasm of the cervix Encounter for IUD removal Encounter for removal of intrauterine contraceptive device [facility]* Diagnosis Pre-operative examination- Primary Preoperative examination, unspecified History of hemangioma General learning disability Other specific developmental learning difficulties Schizophrenia, unspecified type (HCC) Severe episode of recurrent major depressive disorder, without psychotic features (HCC) Subcutaneous mass Localized superficial swelling, mass, or lump Pelvic pain in female Unspecified symptom associated with female genital organs Encounter for screening for malignant neoplasm of cervix Screening for malignant neoplasm of the cervix Encounter for IUD removal Encounter for removal of intrauterine contraceptive device * Assessment & Plan Note - Jarod Malhotra APRN.CNP - 07/10/2024 11:40 AM EDT Associated Problem(s): Subcutaneous mass Assessment: pt c/o of bump on her right butt cheek she has had for a long time. Pt evaluated today by general surgery after my OV. 07/09/2024 Steffi Leblanc CNP PLAN: Maurice wants to think about the procedure. Dr. Valdez also saw the patient and explained to her that he could do it in the OR but it is lower risk to have it completed awake in the office. Maurice will schedule an appointment if she decides to return for excision of the skin lesion at a later date. The patient is instructed not to take aspirin for 1 week prior to the procedure. * Assessment & Plan Note - Jarod Malhotra APRN.CNP - 07/10/2024 11:33 AM EDT Associated Problem(s): Severe episode of recurrent major depressive disorder, without psychotic features (HCC) Assessment: controlled on rx * Assessment & Plan Note - Jarod Malhotra APRN.CNP - 07/10/2024 11:33 AM EDT Associated Problem(s): Schizophrenia (HCC) Assessment: controlled on rx Seeing a counselor and psychiatrist in [place] * Assessment & Plan Note - Jarod Malhotra APRN.CNP - 07/10/2024 11:32 AM EDT Associated Problem(s): General learning disability Assessment: mild, cognitive delay * Assessment & Plan Note - Jarod Malhotra APRN.CNP - 07/10/2024 11:32 AM EDT Associated Problem(s): History of hemangioma Assessment: face s/p excision and revision of left lower scar [facility] Diagnosis Pre-operative examination- Primary Preoperative examination, unspecified History of hemangioma General learning disability Other specific developmental learning difficulties Schizophrenia, unspecified type (HCC) Severe episode of recurrent major depressive disorder, without psychotic features (HCC) Subcutaneous mass Localized superficial swelling, mass, or lump Vomiting, unspecified vomiting type, unspecified whether nausea present [facility] Author Mery Gray [facility] July 11, 2023 9:31pm Note Date/Time July 11, 2023 8:5 5pm [facility] Medical Records Department [address] [place] [address] H&P Exam - Hospitalist 07/11/232049 MR#: [id number] Acct: [id number] Name: LONI DIAZ Rep #:[id number] : 2000 23 From: Mery Gray MD PCP: Care Physician,No Primary Status :ADM VASHTI Location: [place] [address]1 HPI - General General Date of Admission: 07/11/23 Date of Service: 07/11/23 Chief Complaint: Fall, L knee pain, swellling. HPI Narrative The patient is a 23 y/o F w/ PMHx: Hx Facial Tumor, Possible Developmental delay, Anxiety and Depression/PTSD/Reactive attachment disorder living in an independent type apartment facility who presents to the [facility] ED on 07/11/23 with history of unfortunately falling while she was dancing reportedly she had twisted and then landed with significant onset left knee pain and swelling prompting transition to the ED for evaluation. She had noted pain initially 8/10 in severity, now reports it down to 5-6/10 in severity. Workup in the ED included T97.1, heart rate 107, BP 120/75, respiratory rate 16, 98% on room air,plain film of the left knee with acute lateral subluxation of the patella with possibly associated avulsion fracture ED discussed case with orthopedic surgeon Dr. Ecohls who recommended MRI and initially had plan to see her outpatient in his office but unfortunately despite placement of a knee immobilizer she was unable to even use a walker or crutches and facility is unable to provide extra care for her through the evening therefore ED requested admission. In the ED patient ministered oxycodone 5 mg p.o. x 1, Zofran 4 mg p.o. x 1, Toradol 30 mg IM x 1. REPLACED BY [facility] Medical History (Updated 07/11/23 @ 21:[address] 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 Mery Gray MD) History of facial surgery Social History (Updated 07/11/23 @ 20:[address] Mery Gray MD) household members: none Smoking Status: Never smoker alcohol intake: never substance use type: does not use ROS ROS Narrative Admission Review of Systems: CONSTITUTIONAL: No weight loss, fever, chills, + weakness or fatigue. HEENT: Eyes: No visual loss, blurred vision, double vision or yellow sclerae. Ears, Nose, Throat: No hearing loss, sneezing, congestion, runny nose or sore throat. SKIN: No rash or itching, lesions, wounds. CARDIOVASCULAR: No chest pain, chest pressure or chest discomfort, palpitations,edema, orthopnea, syncopal events. RESPIRATORY: No shortness of breath, cough or sputum, wheezing, hemoptysis. GASTROINTESTINAL: No anorexia, nausea, vomiting or diarrhea, abdominal pain, melena, BRBPR. GENITOURINARY: No dysuria, frequency, urgency or retention. NEUROLOGICAL: Possible Developmental delay. No headache, dizziness, syncope, paralysis, ataxia, numbness or tingling in the extremities, focal weakness, change in bowel or bladder control, seizure. MUSCULOSKELETAL: + muscle, back pain, joint pain or stiffness. HEMATOLOGIC: No anemia, bleeding or bruising. LYMPHATICS: No enlarged nodes. No history of splenectomy. PSYCHIATRIC: + Anxiety and Depression/PTSD/Reactive attachment disorder ENDOCRINOLOGIC: No reports of sweating, cold or heat intolerance. No polyuria orpolydipsia. ALLERGIES: No history of asthma, hives, eczema or rhinitis. Vital Signs Vital Signs Vital Signs: 07/11/23 18:18 Temperature 97.1 F L Temperature Source Oral Pulse Rate 107 H Respiratory Rate 16 Blood Pressure 120/75 Blood Pressure Mean 90 Pulse Ox 98 Oxygen Delivery Method Room Air Weight Weight: 146 lb 9.718 oz Body Mass Index (BMI) 29.6 Physical Exam Narrative Physical Examination: General: Awake, alert, oriented x 3 and cooperative, seated upright in the ED bed in no apparent distress, notes pain better. Skin: Normal color, normal turgor, no icterus, no cyanosis. 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 Lungs: CTA bilaterally, moderate effort, mild decrease BL bases, no rales, ronchi or wheezing. Heart: Regular rate and rhythm; no gallop, rub audible. Abdomen: Soft, overweight, NTTP, ND, normal BS, no HSM. Extremities: No cyanosis, clubbing, s/p fall as noted with L knee edema, TTP, immobilizer placed. Neurological: Patient awake, alert, oriented as noted, cognitive function intactat baseline per her guardian presentation with slow responses and sometimes became overwhelmed; pupils equally reactive to light and accommodation, cranial nerves grossly normal, moving all 4 extremities except extremely limited left lower extremity given fall with injury and now placed immobilizer, strength accordingly moderately globally decreased. Psychiatric: Affect appears overwhelmed, notable underlying anxiety and depression. Results Imaging Radiology Impression Knee X-Ray 07/11/23 18:40 IMPRESSION: Acute lateral subluxation of the patella with possible associated avulsion fracture.. CT would be helpful for further evaluation Electronically Signed: Augustus Dobbs MD at 19:48 EDT , Assessment & Plan Assessment/Plan (1) Acute internal derangement of left knee: PLAN: Plan The patient is a 23 y/o F w/ PMHx: Hx Facial Tumor, Possible Developmental delay, Anxiety and Depression/PTSD/Reactive attachment disorder living in an independent type apartment facility who presents to the [facility] ED on 07/11/23 with history of unfortunately falling while she was dancing reportedly she had twisted and then landed with significant onset left knee pain and swelling prompting transition to the ED for evaluation. #1. Mechanical fall with acute left lateral subluxation of the patella with questionable avulsion fracture: Will admit to medical surgical floor, will continue knee immobilizer, will continue consultation with orthopedic surgery, will maintain on fall precautions, will continue icing, elevation, as needed pain regimen, NWB to LLE, MRI of the left knee requested but will defer alterations to it to orthopedic surgery, PT/OT/case management consulted for discharge planning. #2. Anxiety and Depression/PTSD/Reactive attachment disorder complicated by Possible developmental delay: Complicates presentation, patient lives in a facility but is independent but associated with the [facility] and unfortunately at this time they do not have the extra care she would need that for as noted planned admission with case management/social work consulted, will continue patient home cariprazine regimen. #3. DVT prophylaxis: Given observation admission will defer immediate SCDs or chemoprophylaxis but if prolonged may need to add depending on her mobility. Charges/Coding Visit Charges Inpatient E&M: 27015 Init Hosp L2 07/11/232130 <Electronically signed by Mery Gray MD> Cosigner Signature (if applicable): CC: Dr. Mery Gray MD; No Primary Care Physician~ Signed [facility] Work Phone: Reason for referral (narrative)No reason for referral information availableWCincinnati Children's [facility] Work Phone: Summary Purpose Family History No Family History Records FoundNo Family History Records FoundNo Family History Records FoundNo Family History Records FoundNo Family History Records FoundNo Family History Records FoundNo Family History Records FoundNo Family History Records Found Advance Directives No Advanced Directives Records Found Advance Directive Response Recorded Date/ Time Living Will No November 01, 2020 8:16am Power of Card Dealer No November 01 8:16am Advance Directive Response Recorded Date/ Time Living Will No July 11, 2023 8:31pm Power of Card Dealer No July 10 8:31pm Advance Directive Response Recorded Date/ Time Living Will No July 11, 2023 9:14pm Power of Card Dealer No July 10 9:14pm Advance Directive Response Recorded Date/ Time Do you have a Healthcare Power of Card Dealer? No September 25, 2024 7:45am Do you have a Healthcare Power of Card Dealer? No August 20, 2024 11:01pm Reason for Referral Specialty Diagnoses / Procedures Referred By Gregor rai Referred To Contact Audiology Diagnoses Encounter for hearing examination after failed hearing test Norman, Ashvin Hutson, [address] [place] [address] [place] Vanessa AuD [address] [facility] [address] [place] [address] Referral ID Status Reason Start Date Expiration Date V isits Requested Visits Authorized [id number] Authorized 01/09/2023 01/09/2024 1 1 Chief Complaint and Reason for Visit Chief Complaint SYNCOPE AND COLLAPSE Chief Complaint ADULT FTT, L KNEE LA TERAL SUBLUXATION PATELLA, ?FX Reason for Visit Acute internal deran gement of left knee Inability to ambulate due to knee Chief Complaint ADULT FTT, L KNEE LA TERAL SUBLUXATION PATELLA, ?FX ADULT FTT, L KNEE LATERAL SUBLUXATION PATELLA, ?FX ADULT FTT, L KNEE LATERAL SUBLUXATION PATELLA, ?FX ADULT FTT, L KNEE LATERAL SUBLUXATION PATELLA, ?FX ADULT FTT, L KNEE LATERAL SUBLUXATION PATELLA, ?FX ADULT FTT, L KNEE LATERAL SUBLUXATION PATELLA, ?FX ADULT FTT, L KNEE LATERAL SUBLUXATION PATELLA, ?FX ADULT FTT, L KNEE LATERAL SUBLUXATION PATELLA, ?FX ADULT FTT, L KNEE LATERAL SUBLUXATION PATELLA, ?FX ADULT FTT, L KNEE LATERAL SUBLUXATION PATELLA, ?FX ADULT FTT, L KNEE LATERAL SUBLUXATION PATELLA, ?FX ADULT FTT, L KNEE LATERAL SUBLUXATION PATELLA, ?FX ADULT FTT, L KNEE LATERAL SUBLUXATION PATELLA, ?FX Reason for Visit Acute internal deran gement of left knee Inability to ambulate due to knee Lateral dislocation of left patella, initial encounter Chief Complaint Admit Date SUCIDICAL August 20, 2024 10:53p m mental health [facility] September 25, 2024 7:33a m Additional Source Comments INFORMATION SOURCE (unrecogn ized section and content) DATE CREATED AUTHOR 10/10/2017 [facility] DATE CREATED AUTHOR AUTHOR'S ORGANIZ ATION 09/24/2018 [facility] DATE CREATED AUTHOR AUTHOR'S ORGANIZ ATION 12/25/2020 [facility] DATE CREATED AUTHOR AUTHOR'S ORGANIZ ATION 07/11/2023 [facility] DATE CREATED AUTHOR AUTHOR'S ORGANIZ ATION 07/26/2024 [facility] DATE CREATED AUTHOR AUTHOR'S ORGANIZ ATION 09/02/2024 [facility] DATE CREATED AUTHOR AUTHOR'S ORGANIZ ATION 10/06/2024 [facility] DATE CREATED AUTHOR AUTHOR'S ORGANIZ ATION 11/07/2024 [facility] Source Comments (unrecognize d section and content) In the event this informatio n is protected by the Federal Confidentiality of Alcohol and Drug Abuse Patient Records regulations: The Federal rules restrict any use of the information to criminally investigate or prosecute any alcohol or drug abuse patient.[facility] the event this information is protected by the Federal Confidentiality of Alcohol and Drug Abuse Patient Records regulations: The Federal rules restrict any use of the information to criminally investigate or prosecute any alcohol or drug abuse patient.[facility] the event this information is protected by the Federal Confidentiality of Alcohol and Drug Abuse Patient Records regulations: The Federal rules restrict any use of the information to criminally investigate or prosecute any alcohol or drug abuse patient.[facility] the event this information is protected by the Federal Confidentiality of Alcohol and Drug Abuse Patient Records regulations: The Federal rules restrict any use of the information to criminally investigate or prosecute any alcohol or drug abuse patient.[facility] the event this information is protected by the Federal Confidentiality of Alcohol and Drug Abuse Patient Records regulations: The Federal rules restrict any use of the information to criminally investigate or prosecute any alcohol or drug abuse patient.[facility] the event this information is protected by the Federal Confidentiality of Alcohol and Drug Abuse Patient Records regulations: The Federal rules restrict any use of the information to criminally investigate or prosecute any alcohol or drug abuse patient.[facility] the event this information is protected by the Federal Confidentiality of Alcohol and Drug Abuse Patient Records regulations: The Federal rules restrict any use of the information to criminally investigate or prosecute any alcohol or drug abuse patient.[facility] the event this information is protected by the Federal Confidentiality of Alcohol and Drug Abuse Patient Records regulations: The Federal rules restrict any use of the information to criminally investigate or prosecute any alcohol or drug abuse patient.[facility] the event this information is protected by the Federal Confidentiality of Alcohol and Drug Abuse Patient Records regulations: The Federal rules restrict any use of the information to criminally investigate or prosecute any alcohol or drug abuse patient.[facility] the event this information is protected by the Federal Confidentiality of Alcohol and Drug Abuse Patient Records regulations: The Federal rules restrict any use of the information to criminally investigate or prosecute any alcohol or drug abuse patient.[facility] the event this information is protected by the Federal Confidentiality of Alcohol and Drug Abuse Patient Records regulations: The Federal rules restrict any use of the information to criminally investigate or prosecute any alcohol or drug abuse patient.[facility] Care Teams (unrecognized sec tion and content) Property Developer Relationship Specialty Start Date End Date Julian Rick MD [address] [place] [address] PCP - General Pediatrics 08/10/19 Rere Lopez [address] [place] [address] Family Medicine 07/19/22 Property Developer Relationship Specialty Start Date End Date Rere Lopez [address] [place] [address] PCP - General Family Medicine 11/19/22 Rere Lopez [address] [place] [address] Family Medicine 07/19/22 Property Developer Relationship Specialty Start Date End Date No, Physician [facility] PCP - General 01/09/23 Property Developer Relationship Specialty Start Date End Date No, Physician [facility] PCP - General 01/09/23 Team Status: Active Member Role Status Dates Dr. Julian Rick MD Family Provider Active RERE LOPEZ Primary Care Provider Active Team Status: Inactive Member Role Status Dates CARMELA JERNIGAN Primary Care Provide r, Attending Provider, Referring Provider Active Property Developer Relationship Specialty Start Date End Date No, Physician [facility] PCP - General 01/09/23 Team Status: Active Member Role Status Dates Dr. Julian Rick MD Family Provider Active No Primary Care Physician Primary Care Provider Active Team Status: Active Member Role Status Dates Dr. Gamaliel Jovel DO Emergency Provider Active No Primary Care Physician Primary Care Provider Active Dr. Mery Gray MD Admit Provider, Attending Prov ider Active Dr. Mando Echols MD Other Provider Active Team Status: Active Member Role Status Dates Dr. Gamaliel Jovel DO Emergency Provider Active No Primary Care Physician Primary Care Provider Active Dr. Mery Gray MD Admit Provider, Attending Provider, Other Provider Active Dr. Mando Echols MD Other Provider Active Team Status: Active Member Role Status Dates Dr. Gamaliel Jovel DO Emergency Provider Active No Primary Care Physician Primary Care Provider Active Dr. Mery Gray MD Admit Provider, Other Provider Active Dr. Mando Echols MD Other Provider Active Dr. Ariana Rouse MD Attending Provider, Other Prov ider Active Team Status: Active Member Role Status Dates Dr. Gamaliel Jovel DO Emergency Provider Active No Primary Care Physician Primary Care Provider Active Dr. Mery Gray MD Admit Provider, Other Provider Active Dr. Mando Echols MD Attending Provider, Other Provid er Active Dr. Ariana Rouse MD Other Provider Active Team Status: Active Member Role Status Dates Dr. Gamaliel Jovel , DO Emergency Provider Active No Primary Care Physician Primary Care Provider Active Dr. Mery Gray MD Admit Provider, Other Provider Active Dr. Mando Echols MD Attending Provider, Other Provid er Active Dr. Oralia Summers , DO Other Provider Active Dr. Ariana Rouse MD Other Provider Active Team Status: Active Member Role Status Dates Dr. Gamaliel Jovel , DO Emergency Provider Active No Primary Care Physician Primary Care Provider Active Dr. Mery Gray MD Admit Provider, Other Provider Active Dr. Mando Echols MD Other Provider Active Dr. Oralia Summers , DO Attending Provider, Other Provide r Active Dr. Ariana Rouse MD Other Provider Active Team Status: Active Member Role Status Dates Dr. Gamaliel Jovel , DO Emergency Provider Active No Primary Care Physician Primary Care Provider Active Dr. Mery Gray MD Admit Provider, Other Provider Active Dr. Mando Echols MD Other Provider Active Dr. Oralia Summers , DO Other Provider Active Dr. Ariana Rouse MD Other Provider Active Fabian Coleman MD Attending Provider Active Team Status: Inactive Member Role Status Dates Dr. Gamaliel Jovel , DO Emergency Provider Active No Primary Care Physician Primary Care Provider Active Dr. Mery Gray MD Admit Provider, Other Provider Active Dr. Mando Echols MD Other Provider Active Dr. Oralia Summers , DO Attending Provider Active Dr. Ariana Rouse MD Other Provider Active Property Developer Relationship Specialty Start Date End Date Lea Rerechandrika King CNP PCP - General Family Medicine 11/19/22 Rere Tate CNP Family Medicine 07/19/22 Property Developer Relationship Specialty Start Date End Date LeaRere mathew CNP PCP - General Family Medicine 11/19/22 Rere Tate CNP Family Medicine 07/19/22 Property Developer Relationship Specialty Start Date End Date Rere Tate CNP PCP - General Family Medicine 11/19/22 Rere Tate TIMBO Family Medicine 07/19/22 Property Developer Relationship Specialty Start Date End Date Rere Tate [place] PCP - General Family Medicine 11/19/22 Irlanda Tateya ChristineTIMBO Family Medicine 07/19/22 Property Developer Relationship Specialty Start Date End Date Rere Tate [place] PCP - General Family Medicine 11/19/22 Rere TateTIMBO Family Medicine 07/19/22 Property Developer Relationship Specialty Start Date End Date Rere Tate CNP PCP - General Family Medicine 11/19/22 Rere TateTIMBO Family Medicine 07/19/22 Property Developer Relationship Specialty Start Date End Date Rere Tate [place] PCP - General Family Medicine 11/19/22 Irlanda Tateya ChristineTIMBO Family Medicine 07/19/22 Property Developer Relationship Specialty Start Date End Date Rere Tate CNP PCP - General Family Medicine 11/19/22 Rere Tate CNP Family Medicine 07/19/22 Team Status: Active Member Role Status Dates No Primary Care Physician Primary Care Provider Active Team Status: Inactive Member Role Status Dates Dr. Courtney Lay DO Attending Provider Active S tart: August 20, 2024 End: August 21, 2024 Dr. Courtney Lay DO Emergency Provider Active S tart: August 20, 2024 End: August 21, 2024 No Primary Care Physician Primary Care Provider Active Start: August 20, 2024 End: August 21, 2024 Team Status: Inactive Member Role Status Dates No Primary Care Physician Primary Care Provider Active Start: September 25, 2024 End: September 25, 2024 Dr. Nelson Curran MD Emergency Provider Active Sta rt: September 25, 2024 End: September 25, 2024 Property Developer Relationship Specialty Start Date End Date Rere Tate CNP PCP - General Family Medicine 11/19/22 Rere Tate CNP Family Medicine 07/19/22 Reason for Visit (unrecogniz ed section and content) Reason Comments Discussion Iud and current heal th issues Reason Comments Ear Cleaning, Hearing test Reason Comments 6 month ear cleaning Reason Comments Yearly Exam Reason Comments Appointment Pre Op Appointment Reason Comments Schedule Surgery Reason Comments Contraception Reason Comments Request Outside Medical Records Reason Comments Vomiting after eating x 5 day s Goals (unrecognized section and content) Goals may be documented in a n alternate sectionGoals may be documented in an alternate section FOR RECORDS PERTAINING TO PATIENTS WHO ARE OR HAVE BEEN ENROLLED IN A CHEMICAL DEPENDENCY/SUBSTANCEABUSE PROGRAM, SOME INFORMATION MAY BE OMITTED. This clinical summary was aggregated from multiple sources. Caution should be exercised in using it in the provision of clinical care. This summary normalizes information from multiple sources, and as a consequence, information in this document may materially change the coding, format and clinical context of patient data. In addition, data may be omitted in some cases. CLINICAL DECISIONS SHOULD BE BASED ON THE PRIMARY CLINICAL RECORDS. [facility] [employer] [facility]. provides no warranty or guarantee of the accuracy or completeness of information in this document.
--- NOTE | 2024-11-21 01:06 | CT_ITS ---
PROCEDURE: BRAIN/HEAD WITHOUT CONTRAST 11/21/2024 REASON FOR EXAM: ALTERED MENTAL STATUS TECHNIQUE: BRAIN/HEAD WITHOUT CONTRAST Coronal and Sagittal reconstruction series were provided. One or more dose reduction techniques were used (e.g., Automated exposure control, adjustment of the mA and/or kV according to patient size, use of iterative reconstruction technique. RADIATION DOSE SUMMARY: CTDlvol: 45 mGy DLP: 762 . MGycm COMPARISON: 11/01/2020 FINDINGS: No abnormal brain densities. No intracranial hemorrhage. No hydrocephalus or midline shift. No acute scalp or skull pathology. Unremarkable orbits. Clear sinuses. CT/Brain/Head without Contrast IMPRESSION: No intracranial findings Reading Location: [place] [address]
[2024-11-21 01:12] VITALS: BP 127/88; PULSE 90; RESP 18; O2SAT 97
--- NOTE | 2024-11-21 01:25 | RAD_ITS ---
PROCEDURE: CHEST 1 VIEW (PORTABLE) 11/21/2024 REASON FOR EXAM: ALTERED MENTAL STATUS TECHNIQUE: Frontal view of the chest. COMPARISON: 11/01/2020 FINDINGS: Normal heart size. Well inflated lungs. No consolidation, effusion, or pneumothorax. RAD/Chest 1 View (Portable) IMPRESSION: No acute chest findings Reading Location: [place] [address]
[2024-11-21 01:26] LABS: Hematocrit 39.4 % (37-47); Hemoglobin 13.7 g/dL (12.0-15.0); Immature Granulocytes Count 0.040 X10^3/uL (0.0-0.0); Mean Corp Hgb Conc 34.8 g/dL (32-36); Mean Corpuscular Volume 88.5 fL (81-99); Mean Platelet Vol. 9.8 fl (6.2-12.0); NRBC Flagged by Analyzer 0 % (0-5); Platelet Count 337 K/mm3 (150-450); RBC Distribution Width CV 11.4 % (11.6-14.6); RBC Distribution Width SD 36.5 fl (35.1-43.9); Red Blood Count 4.45 M/mm3 (4.2-5.4); White Blood Count 9.8 K/mm3 (4.4-11.0)
--- NOTE | 2024-11-21 01:29 | ED.RN ---
THIS RN WAS SUCCESSFUL IN ESTABLISHING IV ACCESS. HOWEVER, THE PATIENT REFUSES TO TALK TO THIS RN AT THIS TIME. THIS RN IS UNABLE TO PROPERLY ASSESS THE PATIENT OR COMPLETE DOCUMENTATION. THE PATIENT REFUSES TO LOOK AT THIS RN. THE PATIENT SIMPLY GAVE THIS RN THE MIDDLE FINGER IN RESPONSE TO ESTABLISHING IV ACCESS.
[2024-11-21 01:42] LABS: Internal QC Validated? YES +Cl - CLEAR BKGD; Pregnancy, Serum, hCG Quali. NEGATIVE Negative; Record Kit Lot#, Serum Preg. 0000962302
[2024-11-21 01:50] LABS: AST(SGOT) 22 U/L (<=31); Alanine Aminotransfer ALT/SGPT 8 U/L (<=34); Albumin, Serum 4.5 g/dL (3.5-5.0); Alkaline Phosphatase 59 U/L (35-104); Anion Gap 14 (5-15); BUN 13 mg/dL (4-19); BUN/Creat Ratio 16.8 RATIO (10-20); Calcium,Total 9.5 mg/dL (7.6-11.0); Carbon Dioxide 23.2 mmol/L (21.0-32.0); Chloride 101 mmol/L (98-108); Estimated Creatinine Clearance 98.67 ml/min (50-250); Globulin 3.1 g/dL (2.2-4.2); Glucose 181 mg/dL (70-99); Potassium 4.2 mmol/L (3.3-5.1)
[2024-11-21 01:52] LABS: Alcohol, Blood (Medical)-Serum < 10.1 mg/dL (<=10.0)
[2024-11-21 01:52] LABS: Red Blood Cells-Urine 0 SEEN /hpf (0-5)
[2024-11-21 01:56] LABS: Color, Urine Yellow (Yellow); Glucose, Dipstick Normal (Normal); Ketone-Dipstick 50 mg/dl (Negative); Leukocyte Esterase-Dipstick Negative /ul (Negative); Nitrite-Dipstick Negative (Negative); Occult Blood-Urine Negative /ul (Negative); Protein-Dipstick 30 mg/dl (Negative); Specific Gravity, Urine 1.020 (1.002-1.030); Urine Bilirubin Dipstick Negative (Negative)
[2024-11-21 02:00] VITALS: BP 104/70; PULSE 72; RESP 18; O2SAT 98
[2024-11-21 02:17] LABS: Barbiturate Urine NEGATIVE (< 200 ng/mL); Benzodiazepine Urine NEGATIVE (< 200 ng/mL); PCP Urine NEGATIVE (< 25 ng/mL); THC Urine NEGATIVE (< 50 ng/mL)
[2024-11-21 02:31] LABS: Mucous, Urine 2+ /hpf (<or=2+); Squamous Epithelial Cells - UA 5-10 SEEN /hpf (5-10)
--- NOTE | 2024-11-21 03:13 | EX.ED.VIS.PS ---
HPI HPI - Psych History of Present Illness Chief Complaint: Mental Health Informant: police/feed weigher Narrative Narrative: Brought in by police after reported being dropped off at a gas station and was trying to run street dodging cars. Crisis was initiated in the emergency department. Known to them history of schizophrenia. Similar event previously running across the street dodging cars. Patient would not talk therefore unable to obtain additional information. 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 Developmental delay, borderline Paranoid psychosis Anxiety and depression History of reactive attachment disorder Home Medications ?Medication ?Instructions ?Recorded ?Last Taken ?Type cariprazine 1.5 mg capsule 1.5 mg PO QHS 07/11/23 Unknown History (Vraylar) Allergy/AdvReac Type Severity Reaction Status Date / Time grass pollen Allergy Other Verified 09/09/24 08:00 lactose AdvReac Upset Verified 09/09/24 08:00 Stomach Surgical History History of facial surgery Social History household members: none Smoking Status: Never smoker alcohol intake: never substance use type: does not use ROS ROS ED Review of Systems ROS Unobtainable: due to mental condition EXAM Physical Exam Const Vital Signs: 11/21/24 00:12 11/21/24 01:12 11/21/24 02:00 Temperature 98.9 F Temperature Source Oral Pulse Rate 100 90 72 Respiratory Rate 16 18 18 Blood Pressure 139/102 H 127/88 H 104/70 Blood Pressure Mean 114 101 81 Pulse Ox 98 97 98 Oxygen Delivery Method Room Air Room Air Room Air Positive well nourished and well developed Constitutional Narrative: During questioning she would turn her head away purposely. Would not talk, would not follow commands. General Appearance ED: well developed HEENT normocephalic and atraumatic Eyes Eyes Narrative: No pinpoint pupils. General Eye ED: Yes normal appearance of both eyes Neck full ROM Resp normal respiratory effort and normal air movement Cardio regular rate and regular rhythm GI soft to palpation Extremity normal to inspection Extremity Narrative: Moving extremities. Neuro Neuro Narrative: No focal deficits. Skin no rashes or lesions noted and no wounds MDM MDM MDM Narrative Medical decision making narrative: Interventions / MDM: Differential diagnosis: History of schizophrenia, threat to self, psychosis Diagnosis considered but do not suspect: N/A My EKG interpretation: N/A Imaging independently reviewed and interpreted by myself: CT head: No acute process. Chest x-ray 1 view: No acute process. External documents reviewed: N/A Test considered but not ordered:N/A ED course: Patient history of schizophrenia psychosis not talking this time. Reported threat to herself running across traffic. However due to patient not talking, medical workup clearance initiated. CT head chest x-ray labs urine toxicology and alcohol. 0315: Results labs stable urine toxicology alcohol negative. CT brain chest x-ray negative. Patient is medically cleared. Will await crisis evaluation for disposition plans however likely placement from initial discussion. 0453: Patient accepted to [facility] under care of Dr. Watt. Awaiting transport. Gomer slip filled out. Re-evaluation: stable Disposition discussed with patient/family/significant other: Case discussed with consulting clinician: Crisis This note was generated with [employer] dictation software. It may contain incorrect words, spelling, and punctuation that were not noted in checking the note before signing. Lab Data Attestation: I reviewed the patient's lab results. Labs: Laboratory Results - last 24 hr 11/21/24 11/21/24 01:15 01:46 WBC 9.8 RBC 4.45 Hgb 13.7 Hct 39.4 MCV 88.5 MCH 30.8 MCHC 34.8 RDW Std Deviation 36.5 RDW Coeff of Kaley 11.4 L Plt Count 337 MPV 9.8 Immature Gran % (Auto) 0.400 Neut % (Auto) 73.1 H Lymph % (Auto) 19.9 Otoe % (Auto) 6.3 Eos % (Auto) 0.0 Baso % (Auto) 0.3 Absolute Neuts (auto) 7.2 Absolute Lymphs (auto) 1.95 Nucleated RBC % 0 Sodium 138 Potassium 4.2 Chloride 101 Carbon Dioxide 23.2 Anion Gap 14 BUN 13 Creatinine 0.78 Estim Creat Clear Calc 98.67 Est GFR (MDRD) Non-Af 109 BUN/Creatinine Ratio 16.8 Glucose 181 H Calcium 9.5 Total Bilirubin 0.40 AST 22 ALT 8 Alkaline Phosphatase 59 Total Protein 7.6 Albumin 4.5 Globulin 3.1 Albumin/Globulin Ratio 1.4 Serum , Qual NEGATIVE Urine Color Yellow Urine Clarity Clear Urine pH 6.0 Ur Specific Wilder 1.020 Urine Protein 30 H Urine Glucose (UA) Normal Urine Ketones 50 H Urine Occult Blood Negative Urine Nitrite Negative Urine Bilirubin Negative Urine Urobilinogen Normal Ur Leukocyte Esterase Negative Urine RBC 0 SEEN Urine WBC 0-5 SEEN Ur Squamous Epith Cells 5-10 SEEN Urine Bacteria 2+ Urine Mucus 2+ Urine Opiates Screen NEGATIVE U Buprenorphine Qual NEGATIVE Ur Oxycodone Screen NEGATIVE Urine Methadone Screen NEGATIVE Urine Fentanyl Screen NEGATIVE Ur Barbiturates Screen NEGATIVE Ur Phencyclidine Scrn NEGATIVE Ur Amphetamines Screen NEGATIVE U Benzodiazepines Scrn NEGATIVE Urine Cocaine Screen NEGATIVE U Cannabinoids Screen NEGATIVE Ethyl Alcohol < 10.1 Radiography Diagnostic Testing: Clinical Impression(s) from Imaging Studies Brain CT 11/21/24 01:06 IMPRESSION: No intracranial findings Reading Location: [facility] Chest X-Ray 11/21/24 01:25 IMPRESSION: No acute chest findings Reading Location: [facility] Discharge Plan Triage Chief Complaint: Mental Health ED Provider: Gamaliel Jovel Dx/Rx/DC Orders Clinical Impression: Hx of schizophrenia, Self-harming behavior Prescriptions: No Action Vraylar 1.5 mg capsule 1.5 mg PO QHS Primary Care Provider: Care Physician,No Primary Referrals: Care Physician,No Primary [Primary Care Provider] - Print Language: Cambodian Disposition Disposition: Psychiatric Hospital or Unit
--- NOTE | 2024-11-21 04:28 | ED.RN ---
THIS RN ATTEMPTED TO CALL CONSENT TO TREAT AT THIS TIME. UNABLE TO REACH ANYONE, VOICEMAIL LEFT.
[2024-11-21 10:04] VITALS: BP 102/71; PULSE 89; RESP 14; TEMP 36.8; O2SAT 100
== END 2024-11-21 11:34 ==
PROVIDERS: Emergency Provider Emergency Medicine; Visit Provider Emergency Medicine
DX: F91.8 Other conduct disorders (principal); F20.9 Schizophrenia, unspecified
CPT/HCPCS: 70450; 71045; 80053; 80307; 81001; 82077; 84703; 85025; 99285; A4216

== ENCOUNTER 2025-01-24 14:28 | Emergency (ER) | payer MEDICAID, SELFPAY ==
[2025-01-24 14:28] VITALS: BP 116/70; PULSE 82; RESP 18; TEMP 36.1; O2SAT 98; BMI 29.2
--- NOTE | 2025-01-24 16:40 | EX.ED.DYSGE1 ---
HPI History of Present Illness Chief Complaint: Abscess 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 Developmental delay, borderline Paranoid psychosis Anxiety and depression History of reactive attachment disorder Home Medications ?Medication ?Instructions ?Recorded ?Last Taken ?Type cariprazine 1.5 mg capsule 1.5 mg PO QHS 07/11/23 Unknown History (Vraylar) sulfamethoxazole 800 1 tab PO BID #14 tabs 01/24/25 Unknown Rx mg-trimethoprim 160 mg tablet (Bactrim DS) Allergy/AdvReac Type Severity Reaction Status Date / Time grass pollen Allergy Other Verified 09/09/24 08:00 Surgical History History of facial surgery Social History household members: none Smoking Status: Never smoker alcohol intake: never substance use type: does not use EXAM Physical Exam Const Vital Signs: 01/24/25 14:28 Temperature 96.9 F L Temperature Source Temporal Pulse Rate 82 Respiratory Rate 18 Blood Pressure 116/70 Blood Pressure Mean 85 Pulse Ox 98 Oxygen Delivery Method Room Air [facility] Narrative Medical decision making narrative: HISTORY OF PRESENT ILLNESS: Chief complaint: Concern for abscess 24-year-old female history of anxiety, depression, reactive attachment disorder, paranoid psychosis presents with concern for lump on buttock area. She states she discovered this 2 days ago. Denies history of diabetes. REVIEW OF SYSTEMS: Pertinent positives: Lump Pertinent negatives: Fever, vomiting PHYSICAL EXAM: Nursing triage notes reviewed, Vital signs reviewed Constitutional: please see mdm Extremities: No edema Skin: No rash or lesions noted MEDICAL DECISION MAKING: Chief Complaint: please see HPI External records reviewed: Seen in the emergency department with times for psychiatric issues Factors affecting care: As per [facility] Narrative: Patient was initially hemodynamically stable, afebrile and nontoxic-appearing. Exam consistent with left buttocks abscess. There is no rectal involvement noted. Gave empiric Bactrim. Perform incision and drainage. Please see below procedure note. Strict return precautions were discussed. The patient and/or family, caregivers express understanding. The patient and/or family, caregivers agrees with the plan. Shared decision making: I will have a discussion with the patient and or visitors regarding risk/benefits of further testing or admission. They will be made aware of of the risk/benefits inherent in this decision they will be given the opportunity to voice understanding. Total critical care time today provided was at least 0 minutes. This excludes separately billable procedures. Critical care time (if documented) is secondary to the patient having high probability of clinically significant/life threatening deterioration in the patient's condition which required my urgent intervention. Impression: 1. Buttock abscess Dispo: Discharge home This note was generated with [employer] dictation software. It may contain incorrect words, spelling, and punctuation that were not noted in review of the chart prior to signing. Discharge Plan Triage Chief Complaint: Abscess ED Provider: Tato Cates Dx/Rx/DC Orders Instructions: ED Abscess Incision And Drainage Prescriptions: New sulfamethoxazole-trimethoprim [Bactrim DS] 800-160 mg tablet 1 tab PO BID Qty: 14 0RF No Action Vraylar 1.5 mg capsule 1.5 mg PO QHS Primary Care Provider: Care Physician,No Primary Referrals: Kedar Bustos MD [Med Staff - Protective Signal Installer, [facility]] Activity Restrictions/Additional Instructions: Thank you for trusting us with your care today! Your exam is consistent with an abscess. There is a focal area of infection. It was treated with incision and drainage. You also anything antibiotics for next week. Please take antibiotics until course complete Please take Tylenol (2 pills, 650 mg), ibuprofen (2 pills, 400 mg) every 6 hours as needed for pain and fever control. Please return to the emergency department if your symptoms change or worsen. Specifically develop vomiting cannot tolerate antibiotics or if your symptoms worsen. Please follow with your primary care physician for further outpatient evaluation and management. Tammie could not translate into Mandarin. Please copy and paste into google translate. Print Language: Afghan Disposition Disposition: Home, Self Care
[2025-01-24] MEDS: Lidocaine/Epi/Tetracaine 50 ML 1 APPLIC TOPICAL (17:02)
[2025-01-24] MEDS: Lidocaine 1% (20 ml mdv) 20 ML Vial 5 ML INFILT (17:03)
[2025-01-24] MEDS: Smz/Tmp Ds Tablet 1 TABLET PO (17:11)
--- NOTE | 2025-01-24 17:19 | ED.RN ---
attempted to call [facility] to get consent to treat from legal guardian but message left and no answer. charge operator aware
--- OUTSIDE RECORDS SUMMARY | 2025-01-24 17:22 | XMS RPT_ITS | CCD ---
Author Organization [facility] CliniSyor Care Team Providers Care Wood Chopper Name Role Phone JEFFTSMIKE TERMINOLOGIST Unavailable Unavailable STORTSJESUSA TERMINOLOGIST Unavailable Unavailable MISC, DR Unavailable Unavailable NRO, BARBARA Unavailable Unavailable NRO, BARBARA Unavailable Unavailable MISC, DR Unavailable Unavailable NRO, BARBARA Unavailable Unavailable NRO, BARBARA Unavailable Unavailable MISC, DR Unavailable Unavailable Julian Rick MD Primary Care Provider Lynch, Rere Unavailable Lynch, Rere Primary Care Provider [phone] No, Physician Primary Care Provider Unavailabl e PACKAGER MACHINEASHVIN Attending Unavailab le NO, PHYSICIAN Primary Care Unavailable NO, PHYSICIAN Primary Care Unavailable AKOSUA VANESSA Attending Unavailable PACKAGER MACHINEASHVIN QUEVEDO Attending Unavailab manish NO, PHYSICIAN Primary Care Unavailable Dr. Gamaliel [...] Provider MD Fabian Coleman Attending Provider Lea TERMINOLOGIST, Rree A Unavailable Lea TERMINOLOGIST, Rere A Primary Care Provider PROVIDER, UNKNOWN Admitting Unavailable PROVIDER, UNKNOWN Attending Unavailable LEA, RERE A Primary Care Unavailable Courtney Lay Attending Unavailable Care Physician, No Primary Primary Care Unava ilable Dr. Courtney Lay DO Attending Provider [phone] Dr. Courtney Lay DO Emergency Provider Care Physician, No Primary Primary Care Provider Unavailable Dr. Nelson Curran MD Emergency Provider JESS TOLLIVER Attending Unavail able LEA, RERE A Primary Care Unavailable JERAD KING Attending Unavailable LEA, RERE A Primary Care Unavailable KIA LEBLANC Attending Unavailable LEA, RERE A Primary Care Unavailable GREGORIA GOLD Referring Unavailable LEA, RERE A Primary Care Unavailable GREGORIA GOLD Attending Unavailable LEA, RERE A Primary Care Unavailable Magdy CARRERO, Dr. Damon Attending Provider Dr. Gamaliel Jovel DO Emergency Provider Nelson Curran Attending Unavailable Care Physician, No Primary Primary Care Unava ilable Care Physician, No Primary Primary Care Unava ilable Gamaliel Jovel Attending Unavailable Allergies Allergy Classification Reported Allergen(s) Allergy Type Date of Onset Reaction(s) Facility (13 sources) Cat; Translations: [CATS] Allergy to substance 9 Other: See Comments [facility] Work Phone: (13 sources) Seasonal allergy; Translations: [SEASONAL ALLERGIES] Allergy to substance 9 Unknown [facility] Work Phone: (2 sources) cow milk allergenic extract Drug Allergy 1 Upset Stomach [facility] (6 sources) Grass pollen; Translations: [grass pollen] Allergy to substance 1 Other [facility] (3 sources) Lactose Drug Allergy 4 Upset Stomach [facility] Comment on above: upset stomach (1 source) Unable to Assess Drug allergy (disorder) 5 [facility] Rep[facility] (1 source) Lactose Drug Allergy 5 [facility] Medications Current Medications Medication Drug Class(es) Dates Sig (Normalized) Sig (Original) cariprazine 3 mg oral capsule (12 sources) Atypical Antipsychotic Start: 07-09-2024 take 1 capsule by mouth once daily cariprazine (VRAYLAR) 3 mg capsule Take by mouth once daily. 07/09/2024 Active Start: 07-11-2023 take 1 capsule by [facility] at bedtime Cariprazine (Vraylar) 1.5 mg capsule Active 1.5 mg PO AT BEDTIME July 11, 2023 12:00am Ethinyl Estradiol / norgestimate (6 sources) Progestin, Estrogen Start: 07-07-2024 take 1 tablet by mouth once daily norgestimate 0.25 mg-ethinyl estradiol 35 mcg (SPRINTEC) 0.25-35 mg-mcg per tablet Take 1 tablet by mouth once daily. 84 tablet 3 07/07/2024 Active levonorgestrel 0.329918 mg/hr intrauterine system (9 sources) Progestin, Progestin-containi [...] 1 tablet by mouth once daily. Active [place] (Unobtainable) (1 source) Start: 08-21-2024 [place] (Unobtainable) Active August 21, 2024 12:00am Completed/Discontinued Medications Medication Drug Class(es) Dates Sig (Normalized) Sig (Original) acetaminophen 500 mg oral tablet (3 sources) Start: 07-16-2023 End: 11-21-2024 take 2 tablets by mouth every eight hours Acetaminophen (Tylenol Extra Strength) 500 mg tablet Discontinued 1000 mg PO EVERY 8 HOURS 60 0 July 16, 2023 12:00am November 21, 2024 1:19am FLUoxetine 20 mg oral tablet (10 sources) Serotonin Reuptake Inhibitor Start: 09-18-2019 End: [...] tablet by lizette th daily after breakfast. ibuprofen 600 mg oral tablet (3 sources) Nonsteroidal Anti-inflammatory Drug Start: 07-16-19 End: 11-22-19 take 1-10 tablets by mouth every three hours as needed Ibuprofen 600 mg Tablet Discontinued 600 mg PO EVERY 6 HOURS NEEDED as needed for Pain 1-10 Or Fever 0 0 July 16, 2023 12:00am November 21, 2024 1:19am Do not take for any longer than 2 weeks and only use as needed oxyCODONE hydrochloride 5 mg oral tablet (2 sources) Opioid Agonist Start: 07-18-19 End: 08-09-19 take 1 tablet by mouth every six hours as needed for pain Oxycodone 5 mg tablet Discontinued 5 mg PO EVERY 6 HOURS as needed for pain 20 5 0 July 18, 2023 August 09, 2023 2:01pm Lateral dislocation of left patella, initial encounter Acute internal derangement of left knee Lateral dislocation of left patella, initial encounter Unspecified internal derangement of left knee QUEtiapine 50 mg oral tablet (10 sources) Atypical Antipsychotic Start: 12-02-19 End: 07-04-19 [...] [Anxiety disorder, unspecified] Onset: 05-29-2015 10-03-2018 Chronic Attention-deficit, conduct, and disruptive behavior disorders (1 source) Other conduct disorders; Translations: [Other conduct disorders] Onset: 12-02-2024 Chronic Contraceptive and procreative management (5 sources) [...] 10-03-2018 Chronic Joint disorders and dislocations; trauma-related (6 sources) Derangement of left knee; Translations: [Unspecified internal derangement of left knee] 07-11-2023 Chronic Joint disorders and dislocations; trauma-related (4 sources) Lateral patellofemoral dislocation; Translations: [Lateral dislocation of left patella, initial encounter] 07-12-2023 Episodic Menstrual disorders (1 source) Dysmenorrhea; Translations: [Dysmenorrhea, unspecified] 06-17-2024 Chronic Mood disorders (19 sources) 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 [...] Onset: 07-10-2023 Episodic Other nervous system disorders (4 sources) Unable to walk; Translations: [Difficulty in walking, not elsewhere classified] 07-11-2023 Chronic Other nervous system disorders (2 sources) Difficulty in walking, not elsewhere classified; Translations: [Difficulty in walking] 07-11-2023 Chronic Other screening for suspected conditions (not mental disorders or infectious disease) (2 sources) Patient encounter status; Translations: [Encounter for screening for malignant neoplasm of cervix] Onset: 07-14-2024 07-03-2024 Episodic Residual codes; unclassified (2 sources) Noncompliance with medication regimen; Translations: [Noncompliance with medication regimen] 09-25-2024 Episodic Schizophrenia and other psychotic disorders (13 sources) Schizophrenia; Translations: [Schizophrenia, unspecified] Onset: 07-19-2022 07-03-2024 Chronic Schizophrenia and other psychotic disorders (5 sources) Psychogenic paranoid psychosis; 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] 11-01-2020 Episodic Screening and history of mental health and substance abuse codes (8 sources) H/O: depression; Translations: [Personal history of other mental and behavioral disorders] 11-27-2018 Episodic Suicide and intentional self-inflicted injury (5 sources) Suicidal thoughts; Translations: [Suicidal ideations] 09-25-2024 [...] Test Name Value Interpretation Reference Range Facility Absolute lymphocyte countOrd ered By: Gamaliel Jovel on 11-21-2024 Lymphocytes Auto (Unsp spec) [#/Vol] 1.95 10*3/uL 0.83-4.51 [facility] Absolute neutrophil countOrd ered By: Gamaliel Jovel on 11-21-2024 Neutrophils (Bld) [#/Vol] 7.2 10*3/uL 2.0-7.7 [facility] Alcohol, Blood (Medical)-Ser umon 11-21-2024 SERUM ETOH < 10.1 Normal <=10.0 [facility] Comment on above: Result Comment: This test is for medical purposes only. The legal definition of intoxication varies according to local law. Performed By: #### L 505.5000, L500.4050, L700.6800, L100.0100, L501.9100 ####[facility] [address] [place], [address] Amphetamine detection with 1 000 ng/mL as cutoffOrdered By: Gamaliel Jovel on 11-21-2024 Amphetamines Screen method >1000 ng/mL Ql (U) Negative < 200 ng/mL [facility] Anion gap in Serum or Plasma Ordered By: Gamaliel Jovel on 11-21-2024 Anion gap [Moles/Vol] 14 mmol/L 5-15 [facility] Automated lymphocyte count a s percentage of total leukocytesOrdered By: Gamaliel Jovel on 11-21-2024 Lymphocytes/100 WBC Auto (Unsp spec) 19.9 % 19-41 [facility] BUN/creatinine ratioOrdered By: Gamaliel Jovel on 11-21-2024 Urea nitrogen/Creatinine [Mass ratio] 16.8 mg/mg 10-20 [facility] Basophil percentageOrdered B y: Gamaliel Jovel on 11-21-2024 Basophils/100 WBC (Bld) 0.3 % 0-1 [facility] Bilirubin Test strip Ql (U)O rdered By: Gamaliel Jovel on 11-21-2024 Bilirubin Ql (U) Negative Negative [facility] Bilirubin, totalOrdered By: Gamaliel Jovel on 11-21-2024 Bilirubin [Mass/Vol] 0.40 mg/dL 0.00-1.30 [facility] Brain/Head without Contrasto n 11-21-2024 Brain/Head without Contrast [facility] Imaging Services [address] [place] [address] Brain/Head without Contrast MR#: [id number] Acct: [id number] Name: MAURICE LINARES Rep #: [id number] : 2000 F 24 From: Mauro Mix MD PCP: Care Physician,No Primary Status: REG ER Study: Brain/Head without Contrast Date of Exam: 06/16 Exam# [id number] Ordering Dr: Gamaliel Jovel DO PROCEDURE: BRAIN/HEAD WITHOUT CONTRAST 11/21/2024 REASON FOR EXAM: ALTERED MENTAL STATUS TECHNIQUE: BRAIN/HEAD WITHOUT CONTRAST Coronal and Sagittal reconstruction series were provided. One or more dose reduction techniques were used (e.g., Automated exposure control, adjustment of the mA and/or kV according to patient size, use of iterative reconstruction technique. RADIATION DOSE SUMMARY: CTDlvol: 45 mGy DLP: 762 . MGycm COMPARISON: 11/01/2020 FINDINGS: No abnormal brain densities. No intracranial hemorrhage. No hydrocephalus or midline shift. No acute scalp or skull pathology. Unremarkable orbits. Clear sinuses. CT/Brain/Head without Contrast IMPRESSION: No intracranial findings Reading Location: [place] [address] CC: Dr. Gamaliel Jovel DO; No Primary Care Physician Skiver Machine Operator: Signed Normal [facility] CBC W/Diff, Automatedon Absolute Lymph 1.95 X10 3/uL Normal 0.83-4.51 [facility] Comment on above: Performed By: #### L 505.5000, L500.4050, L700.6800, L100.0100, L501.9100 ####[facility] [address] [facility] [place], [place], [address] Absolute Neut 7.2 X10 3/uL Normal 2.0-7.7 [facility] Comment on above: Performed By: #### L 505.5000, L500.4050, L700.6800, L100.0100, L501.9100 ####[facility] [address] [place], [address] Basophils/100 WBC (Bld) 0.3 % Normal 0-1 [facility] Comment on above: Performed By: #### L 505.5000, L500.4050, L700.6800, L100.0100, L501.9100 ####[facility] [address] [place], [address] Eosinophils/100 WBC (Bld) 0.0 % Normal 0-5 [facility] Comment on above: Performed By: #### L 505.5000, L500.4050, L700.6800, L100.0100, L501.9100 ####[facility] [address] [place], [address] Erythrocyte distribution width (RBC) [Ratio] 11.4 % Low 11.6-14.6 [facility] Comment on above: Performed By: #### L 505.5000, L500.4050, L700.6800, L100.0100, L501.9100 ####[facility] [address] [place], [address] Hematocrit (Bld) [Volume fraction] 39.4 % Normal 37-47 [facility] Comment on above: Performed By: #### L 505.5000, L500.4050, L700.6800, L100.0100, L501.9100 ####[facility] [address] [place], [address] Hemoglobin (Bld) [Mass/Vol] 13.7 g/dL Normal 12.0-15.0 [facility] Comment on above: Performed By: #### L 505.5000, L500.4050, L700.6800, L100.0100, L501.9100 ####[facility] [address] [place], [address] IG% 0.400 Normal 0.0-0.9 [facility] Comment on above: Result Comment: IG% - Immature Granulocytes (promyelocytes, myelocytes and metamyelocytes) > 1% indicates that a LEFT SHIFT is Present. Performed By: #### L 505.5000, L500.4050, L700.6800, L100.0100, L501.9100 ####[facility] [address] [place], [address] Lymphocytes/100 WBC (Bld) 19.9 % Normal 19-41 [facility] Comment on above: Performed By: #### L 505.5000, L500.4050, L700.6800, L100.0100, L501.9100 ####[facility] [address] [place], [address] MCH (RBC) [Entitic mass] 30.8 pg Normal 27.0-32.0 [facility] Comment on above: Performed By: #### L 505.5000, L500.4050, L700.6800, L100.0100, L501.9100 ####[facility] [address] [place], [address] MCHC (RBC) [Mass/Vol] 34.8 g/dL Normal 32-36 [facility] Comment on above: Performed By: #### L 505.5000, L500.4050, L700.6800, L100.0100, L501.9100 ####[facility] [address] [place], [address] MCV (RBC) [Entitic vol] 88.5 fL Normal 81-99 [facility] Comment on above: Performed By: #### L 505.5000, L500.4050, L700.6800, L100.0100, L501.9100 ####[facility] [address] [place], [address] Monocytes/100 WBC (Bld) 6.3 % Normal 0-10 [facility] Comment on above: Performed By: #### L 505.5000, L500.4050, L700.6800, L100.0100, L501.9100 ####[facility] [address] [place], [address] Neutrophils/100 WBC (Bld) 73.1 % High 47-70 [facility] Comment on above: Performed By: #### L 505.5000, L500.4050, L700.6800, L100.0100, L501.9100 ####[facility] [address] [place], [address] Nucleated RBC (Bld) [#/Vol] 0 10*3/uL Normal 0-5 [facility] Comment on above: Performed By: #### L 505.5000, L500.4050, L700.6800, L100.0100, L501.9100 ####[facility] [address] [place], [address] Platelet mean volume (Bld) [Entitic vol] 9.8 fL Normal 6.2-12.0 [facility] Comment on above: Performed By: #### L 505.5000, L500.4050, L700.6800, L100.0100, L501.9100 ####[facility] [address] [place], [address] Platelets (Bld) [#/Vol] 337 10*3/uL Normal 150-450 [facility] Comment on above: Performed By: #### L 505.5000, L500.4050, L700.6800, L100.0100, L501.9100 ####[facility] [address] [place], [address] RBC (Bld) [#/Vol] 4.45 10*6/uL Normal 4.2-5.4 [facility] Comment on above: Performed By: #### L 505.5000, L500.4050, L700.6800, L100.0100, L501.9100 ####[facility] [address] [place], [address] RDW SD 36.5 fl Normal 35.1-43.9 [facility] Comment on above: Performed By: #### L 505.5000, L500.4050, L700.6800, L100.0100, L501.9100 ####[facility] [address] [place], [address] WBC (Bld) [#/Vol] 9.8 10*3/uL Normal 4.4-11.0 [facility] Comment on above: Performed By: #### L 505.5000, L500.4050, L700.6800, L100.0100, L501.9100 ####[facility] [address] [place], [address] Carbon dioxide, total [Moles /volume] in Central venous bloodOrdered By: Gamaliel Jovel on 11-21-2024 CO2 [Moles/Vol] 23.2 mmol/L 21.0-32.0 [facility] Chest 1 View (Portable)on Chest 1 View (Portable) [facility] Imaging Services [address] [place] [address] Chest 1 View (Portable) MR#: [id number] Acct: [id number] Name: MAURICE LINARES Rep #: [id number] : 2000 F 24 From: Mauro Mix MD PCP: Care Physician,No Primary Status: REG ER Study: Chest 1 View (Portable) Date of Exam: 11/21/24 Exam# [id number] Ordering Dr: Gamaliel Jovel DO PROCEDURE: CHEST 1 VIEW (PORTABLE) 11/21/2024 REASON FOR EXAM: ALTERED MENTAL STATUS TECHNIQUE: Frontal view of the chest. COMPARISON: 11/01/2020 FINDINGS: Normal heart size. Well inflated lungs. No consolidation, effusion, or pneumothorax. RAD/Chest 1 View (Portable) IMPRESSION: No acute chest findings Reading Location: [facility] CC: Dr. Gamaliel Jovel, DO; No Primary Care Physician Skiver Machine Operator: Signed Normal [facility] Chloride assayOrdered By: Fito Jovel on 11-21-2024 Chloride [Moles/Vol] 101 mmol/L 98-108 [facility] Comprehensive Metabolic Prof ilon 11-21-2024 Albumin [Mass/Vol] 4.5 g/dL Normal 3.5-5.0 [facility] Comment on above: Performed By: #### L 505.5000, L500.4050, L700.6800, L100.0100, L501.9100 ####[facility] [address] [place], [address] Albumin/Globulin [Mass ratio] 1.4 {ratio} Normal 0.9-2.4 [facility] Comment on above: Performed By: #### L 505.5000, L500.4050, L700.6800, L100.0100, L501.9100 ####[facility] [address] [place], [address] ALK PHOS 59 U/L Normal 35-104 [facility] Comment on above: Performed By: #### L 505.5000, L500.4050, L700.6800, L100.0100, L501.9100 ####[facility] [address] [place], [address] ALT [Catalytic activity/Vol] 8 U/L Normal <=34 [facility] Comment on above: Performed By: #### L 505.5000, L500.4050, L700.6800, L100.0100, L501.9100 ####[facility] [address] [place], [address] AST [Catalytic activity/Vol] 22 U/L Normal <=31 [facility] Comment on above: Performed By: #### L 505.5000, L500.4050, L700.6800, L100.0100, L501.9100 ####[facility] [address] [place], [address] Bilirubin [Mass/Vol] 0.40 mg/dL Normal 0.00-1.30 [facility] Comment on above: Performed By: #### L 505.5000, L500.4050, L700.6800, L100.0100, L501.9100 ####[facility] [address] [place], [address] BUN/CRE 16.8 RATIO Normal 10-20 [facility] Comment on above: Performed By: #### L 505.5000, L500.4050, L700.6800, L100.0100, L501.9100 ####[facility] [address] [place], [address] Calcium [Mass/Vol] 9.5 mg/dL Normal 7.6-11.0 [facility] Comment on above: Performed By: #### L 505.5000, L500.4050, L700.6800, L100.0100, L501.9100 ####[facility] [address] [place], [address] Chloride [Moles/Vol] 101 mmol/L Normal 98-108 [facility] Comment on above: Performed By: #### L 505.5000, L500.4050, L700.6800, L100.0100, L501.9100 ####[facility] [address] [place], [address] CO2 [Moles/Vol] 23.2 mmol/L Normal 21.0-32.0 [facility] Comment on above: Performed By: #### L 505.5000, L500.4050, L700.6800, L100.0100, L501.9100 ####[facility] [address] [place], [address] Creatinine [Mass/Vol] 0.78 mg/dL Normal 0.70-1.20 [facility] Comment on above: Performed By: #### L 505.5000, L500.4050, L700.6800, L100.0100, L501.9100 ####[facility] [address] [place], [address] ECRCL 98.67 ml/min Normal 50-250 [facility] Comment on above: Performed By: #### L 505.5000, L500.4050, L700.6800, L100.0100, L501.9100 ####[facility] [address] [place], [address] GAP 14 Normal 5-15 [facility] Comment on above: Performed By: #### L 505.5000, L500.4050, L700.6800, L100.0100, L501.9100 ####[facility] [address] [place], [address] GFR/1.73 sq M.predicted among non-blacks MDRD (S/P/Bld) [Vol rate/Area] 109 mL/min/{1.73_m2} Normal >60 [facility] Comment on above: Result Comment: mL/m in/1.73m2 CKD-EPI Creatinine Equation (2020) Performed By: #### L 505.5000, L500.4050, L700.6800, L100.0100, L501.9100 ####[facility] [address] [place], [address] Globulin (S) [Mass/Vol] 3.1 g/dL Normal 2.2-4.2 [facility] Comment on above: Performed By: #### L 505.5000, L500.4050, L700.6800, L100.0100, L501.9100 ####[facility] [address] [place], [address] Glucose [Mass/Vol] 181 mg/dL High 70-99 [facility] Comment on above: Performed By: #### L 505.5000, L500.4050, L700.6800, L100.0100, L501.9100 ####[facility] [address] [place], [address] Potassium [Moles/Vol] 4.2 mmol/L Normal 3.3-5.1 [facility] Comment on above: Performed By: #### L 505.5000, L500.4050, L700.6800, L100.0100, L501.9100 ####[facility] [address] [place], [address] Sodium [Moles/Vol] 138 mmol/L Normal 133-145 [facility] Comment on above: Performed By: #### L 505.5000, L500.4050, L700.6800, L100.0100, L501.9100 ####[facility] [address] [place], [address] T PROT 7.6 g/dL Normal 5.9-8.4 [facility] Comment on above: Performed By: #### L 505.5000, L500.4050, L700.6800, L100.0100, L501.9100 ####[facility] [address] [place], [address] Urea nitrogen [Mass/Vol] 13 mg/dL Normal 4-19 [facility] Comment on above: Performed By: #### L 505.5000, L500.4050, L700.6800, L100.0100, L501.9100 ####[facility] [address] 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 Crisis was initiated in the emergency department. Known to them history of schizophrenia. Similar event previously running across the street [employer] cars. Patient would not talk therefore unable to obtain additional information. 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 Developmental delay, borderline Paranoid psychosis Anxiety and depression History of reactive attachment disorder Home Medications ???Medication ???Instructions ???Recorded ???Last Taken ???Type cariprazine 1.5 mg capsule 1.5 mg PO QHS 07/11/23 Unknown His tory (Vraylar) Allergy/AdvReac Type Severity Reaction Status Date / Time grass pollen Allergy Other Verified 09/09/24 08:00 lactose AdvReac Upset Verified 09/09/24 08:00 Stomach Surgical History History of facial surgery Social History household members: none Smoking Status: Never smoker alcohol intake: never substance use type: does not use ROS ROS ED Review of Systems ROS Unobtainable: due to mental condition EXAM Physical Exam Const Vital Signs: 11/21/24 00:12 11/21/24 01:12 11/21/24 02:00 Temperature 98.9 F Temperature Source Oral Pulse Rate 100 90 72 Respiratory Rate 16 18 18 Blood Pressure 139/102 H 127/88 H 104/70 Blood Pressure Mean 114 101 81 Pulse Ox 98 97 98 Oxygen Delivery Method Room Air Room Air Room Air Positive well nourished and well developed Constitutional Narrative: During questioning she would turn her head away purposely. Would not talk, would not follow commands. General Appearance ED: well developed HEENT normocephalic and atraumatic Eyes Eyes Narrative: No pinpoint pupils. General Eye ED: Yes normal appearance of both eyes Neck full ROM Resp normal respiratory effort and normal air movement Cardio regular rate and regular rhythm GI soft to palpation Extremity normal to inspection Extremity Narrative: Moving extremities. Neuro Neuro Narrative: No focal deficits. Skin no rashes or lesions noted and no wounds MDM MDM MDM Narrative Medical decision making narrative: Interventions / MDM: Differential diagnosis: History of schizophrenia, threat to self, psychosis Diagnosis considered but do not suspect: N/A My EKG interpretation: N/A Imaging independently reviewed and interpreted by myself: CT head: No acute process. Chest x-ray 1 view: No acute process. External documents reviewed: N/A Test considered but not ordered:N/A ED course: Patient history of schizophrenia psychosis not talking this time. Reported threat to herself running across traffic. However due to patient not talking, medical workup clearance initiated. CT head chest x-ray labs urine toxicology and alcohol. 0315: Results labs stable urine toxicology alcohol negative. CT brain chest x-ray negative. Patient is medically cleared. Will await crisis evaluation for disposition plans however likely placement from initial discussion. 0453: Patient accepted to [facility] under care of Dr. Watt. Awaiting transport. Larose slip filled out. Re-evaluation: stable Disposition discussed with patient/family/sign ificant other: Case discussed with consulting clinician: Crisis This note was generated with [employer]geon[employer] dictation software. It may contain incorrect words, spelling, and punctuation that were not noted in checking the note before signing. Lab Data Attestation: I reviewed the patient's lab results. Labs: Laboratory Results - last 24 hr 11/21/24 11/21/24 01:15 01:46 WBC 9.8 RBC 4.45 Hgb 13.7 Hct 39.4 MCV 88.5 MCH 30.8 MCHC 34.8 RDW Std Deviation 36.5 RDW Coeff of Kaley 11.4 L Plt Count 337 MPV 9.8 Immature Gran % (Auto) 0.400 Neut % (Auto) 73.1 H Lymph % (Auto) 19.9 Young % (Auto) 6.3 Eos % (Auto) 0.0 Baso % (Auto) 0.3 Absolute Neuts (auto) 7.2 Absolute Lymphs (auto) 1.95 Nucleated RBC % 0 Sodium 138 Potassium 4.2 Chloride 101 Carbon Dioxide 23.2 Anion Gap 14 BUN 13 Creatinine 0.78 (more content not included)... Normal [facility] Eosinophil percentageOrdered By: Gamaliel Jovel on 11-21-2024 Eosinophils/100 WBC (Bld) 0.0 % 0-5 [facility] Erythrocyte distribution wid th ratioOrdered By: Gamaliel Jovel on 11-21-2024 Erythrocyte distribution width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 By: Nelson Curran on 09-25-2024 Immature granulocytes/100 WBC (Bld) 1.100 % High 0.0-0.9 [facility] Comment on above: IG% - Immature Granu locytes (promyelocytes, myelocytes and metamyelocytes) > 1% indicates that a LEFT SHIFT is Present. MCV (mean corpuscular volume ) determinationOrdered By: Nelson Curran on 09-25-2024 MCV (RBC) [Entitic vol] 92.6 fL 81-99 [facility] Mean corpuscular hemoglobin (MCH) determinationOrdered By: Nelsondaniella Curran on 09-25-2024 MCH (RBC) [Entitic mass] 32.1 pg High 27.0-32.0 [facility] Mean corpuscular hemoglobin concentration (MCHC) determinationOrdered By: Nelson Curran on 09-25-2024 MCHC (RBC) [Mass/Vol] 34.7 g/dL 32-36 [facility] Mean platelet volume determi nationOrdered By: Nelsondaniella Curran on 09-25-2024 Platelet mean volume (Bld) [Entitic vol] 9.1 fL 6.2-12.0 [facility] Monocyte percentageOrdered B y: Nelson Curran on 09-25-2024 Monocytes/100 WBC (Bld) 10.6 % High 0-10 [facility] Neutrophil percentageOrdered By: Nelson Curran on 09-25-2024 Neutrophils/100 WBC (Bld) 58.7 % 47-70 [facility] No Panel InformationOrdered By: Nelson Curran on 09-25-2024 Urine Buprenorphine Qualitative Negative < 200 ng/mL [facility] Urine Oxycodone Screen Negative < 100 ng/mL [facility] Nucleated red blood cell per centageOrdered By: Nelson Curran on 09-25-2024 Nucleated RBC/100 WBC (Bld) [Ratio] 0 % 0-5 [facility] Platelet countOrdered By: Ced Curran on 09-25-2024 Platelets (Bld) [#/Vol] 316 10*3/uL 150-450 [facility] Potassium measurement (mass/ volume)Ordered By: Nelson Curran on 09-25-2024 Potassium (Unsp spec) [Mass/Vol] 3.8 mmol/L 3.3-5.1 [facility] ,Serum,hCG Quali.on 09-25-2024 HCG, SERUM QUAL Negative Normal [facility] Comment on above: Performed By: #### L 505.5000, L500.2500, L700.6800, L501.9100, L100.0100 #### [facility] [address] [place], [address] Quantitative urine opiates m easurementOrdered By: Nelson Curran on 09-25-2024 Opiates Ql (U) Negative < 300 ng/mL [facility] RBC Auto (Bld) [#/Vol]Ordere d By: Nelson Curran on 09-25-2024 RBC (Bld) [#/Vol] 3.92 10*6/uL Low 4.2-5.4 [facility] Screening urine fentanyl christ surementOrdered By: Nelson Curran on 09-25-2024 fentaNYL Screen Ql (U) Negative [facility] Serum beta-hCG test, qualita tiveOrdered By: Nelson Curran on 09-25-2024 Beta HCG ( test) Ql Negative [facility] Serum creatinine measurement (mass/volume)Ordered By: Nelson Curran on 09-25-2024 Creatinine [Mass/Vol] 0.70 mg/dL 0.70-1.20 [facility] Serum glucose measurement (m ass/volume)Ordered By: Nelson Curran on 09-25-2024 Glucose [Mass/Vol] 87 mg/dL 70-99 [facility] Serum or plasma calcium monica urement (mass/volume)Ordered By: Nelson Curran on 09-25-2024 Calcium [Mass/Vol] 8.7 mg/dL 7.6-11.0 [facility] Serum or plasma ethanol monica urement (mass/volume)Ordered By: Nelson Curran on 09-25-2024 Ethanol [Mass/Vol] mg/dL <10.1 [facility] Comment on above: This test is for med ical purposes only. The legal definition of intoxication varies according to local law. Serum or plasma urea nitroge n measurement (mass/volume)Ordered By: Nelson Curran on 09-25-2024 Urea nitrogen [Mass/Vol] 12 mg/dL 4-19 [facility] Sodium levelOrdered By: Nelson Curran on 09-25-2024 Sodium [Moles/Vol] 135 mmol/L 133-145 [facility] Urine Drug Screen (VISTA)on 09-25-2024 AMPHETAMINES Negative Normal <1000 ng/mL [facility] Comment on above: Performed By: #### L 505.5000, L500.2500, L700.6800, L501.9100, L100.0100 #### [facility] [address] [facility] [place] [address] BARBITIURATES Negative Normal < 200 ng/mL [facility] Comment on above: Performed By: #### L 505.5000, L500.2500, L700.6800, L501.9100, L100.0100 #### [facility] [place] [address] BENZODIAZIPINE Negative Normal < 200 ng/mL [facility] Comment on above: Performed By: #### L 505.5000, L500.2500, L700.6800, L501.9100, L100.0100 #### [facility] [address] [place] [address] BUP Ur Drug Scr Negative Normal < 200 ng/mL [facility] Comment on above: Performed By: #### L 505.5000, L500.2500, L700.6800, L501.9100, L100.0100 #### [facility] [address] [place] [address] COCAINE Negative Normal < 300 ng/mL [facility] Comment on above: Performed By: #### L 505.5000, L500.2500, L700.6800, L501.9100, L100.0100 #### [facility] [address] [place], [address] Fentanyl Negative Normal [facility] Comment on above: Performed By: #### L 505.5000, L500.2500, L700.6800, L501.9100, L100.0100 #### [facility] [address] [place], [place], [facility] METHADONE Negative Normal < 300 ng/mL [facility] Comment on above: Performed By: #### L 505.5000, L500.2500, L700.6800, L501.9100, L100.0100 #### [facility] [address] [place], [place], [facility] OPIATES Negative Normal < 300 ng/mL [facility] Comment on above: Performed By: #### L 505.5000, L500.2500, L700.6800, L501.9100, L100.0100 #### [facility] [address] [place], [place], [facility] OXYCODONE Negative Normal < 100 ng/mL [facility] Comment on above: Performed By: #### L 505.5000, L500.2500, L700.6800, L501.9100, L100.0100 #### [facility] [place], [place], [facility] PCP Negative Normal < 25 ng/mL [facility] Comment on above: Performed By: #### L 505.5000, L500.2500, L700.6800, L501.9100, L100.0100 #### [facility] [address] [place], [place], [facility] THC Negative Normal < 50 ng/mL [facility] Comment on above: Performed By: #### L 505.5000, L500.2500, L700.6800, L501.9100, L100.0100 #### [facility] [address] [place], [place], [id number] Urine benzodiazepine levelOr dered By: Nelson Curran on 09-25-2024 Benzodiazepines Ql (U) Negative < 200 ng/mL [facility] Urine cocaine levelOrdered B y: Nelson Curran on 09-25-2024 Cocaine Ql (U) Negative < 300 ng/mL [facility] Urine ocfbu-9-nhlrhwyfdojgjy abinol (THC) measurementOrdered By: Nelson Curran on 09-25-2024 Cannabinoids Screen Ql (U) Negative < 50 ng/mL [facility] Urine phencyclidine (PCP) de tectionOrdered By: Nelsondaniella Curran on 09-25-2024 Phencyclidine Ql (U) Negative < 25 ng/mL [facility] White blood cell (WBC) count Ordered By: Nelson Curran on 09-25-2024 WBC (Bld) [#/Vol] 7.1 10*3/uL 4.4-11.0 [facility] Amphetamine detection with 1 000 ng/mL as cutoffOrdered By: Courtney Lay on 08-21-2024 Amphetamines Screen method >1000 ng/mL Ql (U) Negative < 200 ng/mL [facility] Basic Metabolic Profile (BMP )on 08-21-2024 BUN/CRE 5.2 RATIO Low 10-20 [facility] Comment on above: Performed By: #### L 700.6800, L501.9100, L500.2500, L100.0100, L505.5000 #### [facility] [address] [place], [place], [id number] Performed By: #### L 501.9100, L500.2500, L100.0100, L505.5000, L700.6800 ####[facility] [address] [place], [address] Calcium [Mass/Vol] 9.0 mg/dL Normal 7.6-11.0 [facility] Comment on above: Performed By: #### L 700.6800, L501.9100, L500.2500, L100.0100, L505.5000 #### [facility] [address] [place], [address] Performed By: #### L 501.9100, L500.2500, L100.0100, L505.5000, L700.6800 ####[facility] [address] [place], [address] Chloride [Moles/Vol] 99 mmol/L Normal 98-108 [facility] Comment on above: Performed By: #### L 700.6800, L501.9100, L500.2500, L100.0100, L505.5000 #### [facility] [address] [place], [address] Performed By: #### L 501.9100, L500.2500, L100.0100, L505.5000, L700.6800 ####[facility] [address] [place], [address] CO2 [Moles/Vol] 16.0 mmol/L Low 21.0-32.0 [facility] Comment on above: Performed By: #### L 700.6800, L501.9100, L500.2500, L100.0100, L505.5000 #### [facility] [address] [place], [address] Performed By: #### L 501.9100, L500.2500, L100.0100, L505.5000, L700.6800 ####[facility] [address] [place], [address] Creatinine [Mass/Vol] 0.94 mg/dL Normal 0.70-1.20 [facility] Comment on above: Performed By: #### L 700.6800, L501.9100, L500.2500, L100.0100, L505.5000 #### [facility] [address] [place], [place], [address] Performed By: #### L 501.9100, L500.2500, L100.0100, L505.5000, L700.6800 ####[facility] [address] [place], [place], [address] ECRCL 75.26 ml/min Normal 50-250 [facility] Comment on above: Performed By: #### L 700.6800, L501.9100, L500.2500, L100.0100, L505.5000 #### [facility] [address] [place], [place], [id number] Performed By: #### L 501.9100, L500.2500, L100.0100, L505.5000, L700.6800 ####[facility] [address] [place], [address] GAP 20 High 5-15 [facility] Comment on above: Performed By: #### L 700.6800, L501.9100, L500.2500, L100.0100, L505.5000 #### [facility] [address] [place], [place], [address] Performed By: #### L 501.9100, L500.2500, L100.0100, L505.5000, L700.6800 ####[facility] [address] [place], [address] GFR/1.73 sq M.predicted among non-blacks MDRD (S/P/Bld) [Vol rate/Area] 86 mL/min/{1.73_m2} Normal >60 [facility] Comment on above: Result Comment: mL/m in/1.73m2 CKD-EPI Creatinine Equation (2020) Performed By: #### L 700.6800, L501.9100, L500.2500, L100.0100, L505.5000 #### [facility] [address] [place], [address] Performed By: #### L 501.9100, L500.2500, L100.0100, L505.5000, L700.6800 ####[facility] [address] [place], [address] Glucose [Mass/Vol] 158 mg/dL High 70-99 [facility] Comment on above: Performed By: #### L 700.6800, L501.9100, L500.2500, L100.0100, L505.5000 #### [facility] [address] [place], [address] Performed By: #### L 501.9100, L500.2500, L100.0100, L505.5000, L700.6800 ####[facility] [address] [place], [address] Potassium [Moles/Vol] 3.7 mmol/L Normal 3.3-5.1 [facility] Comment on above: Performed By: #### L 700.6800, L501.9100, L500.2500, L100.0100, L505.5000 #### [facility] [address] [place], [address] Performed By: #### L 501.9100, L500.2500, L100.0100, L505.5000, L700.6800 ####[facility] [address] [place], [address] Sodium [Moles/Vol] 135 mmol/L Normal 133-145 [facility] Comment on above: Performed By: #### L 700.6800, L501.9100, L500.2500, L100.0100, L505.5000 #### [facility] [address] [place], [address] Performed By: #### L 501.9100, L500.2500, L100.0100, L505.5000, L700.6800 ####[facility] [address] [place], [address] Urea nitrogen [Mass/Vol] 5 mg/dL Normal 4-19 [facility] Comment on above: Performed By: #### L 700.6800, L501.9100, L500.2500, L100.0100, L505.5000 #### [facility] [address] [place], [address] Performed By: #### L 501.9100, L500.2500, L100.0100, L505.5000, L700.6800 ####[facility] [address] [place], [address] CBC W/Diff, Automatedon 05-0 2-2024 Absolute Lymph 3.70 X10 3/uL Normal 0.83-4.51 [facility] Comment on above: Performed By: #### L 700.6800, L501.9100, L500.2500, L100.0100, L505.5000 #### [facility] [address] [place], [address] Performed By: #### L 501.9100, L500.2500, L100.0100, L505.5000, L700.6800 ####[facility] [address] [place], [address] Absolute Neut 4.6 X10 3/uL Normal 2.0-7.7 [facility] Comment on above: Performed By: #### L 700.6800, L501.9100, L500.2500, L100.0100, L505.5000 #### [facility] [address] [place], [address] Performed By: #### L 501.9100, L500.2500, L100.0100, L505.5000, L700.6800 ####[facility] [address] [place], [address] Basophils/100 WBC (Bld) 0.2 % Normal 0-1 [facility] Comment on above: Performed By: #### L 700.6800, L501.9100, L500.2500, L100.0100, L505.5000 #### [facility] [address] [place], [address] Performed By: #### L 501.9100, L500.2500, L100.0100, L505.5000, L700.6800 ####[facility] [address] [place], [address] Eosinophils/100 WBC (Bld) 0.0 % Normal 0-5 [facility] Comment on above: Performed By: #### L 700.6800, L501.9100, L500.2500, L100.0100, L505.5000 #### [facility] [address] [place], [address] Performed By: #### L 501.9100, L500.2500, L100.0100, L505.5000, L700.6800 ####[facility] [address] [place], [address] Erythrocyte distribution width (RBC) [Ratio] 12.5 % Normal 11.6-14.6 [facility] Comment on above: Performed By: #### L 700.6800, L501.9100, L500.2500, L100.0100, L505.5000 #### [facility] [address] [place], [address] Performed By: #### L 501.9100, L500.2500, L100.0100, L505.5000, L700.6800 ####[facility] [address] [place], [address] Hematocrit (Bld) [Volume fraction] 40.8 % Normal 37-47 [facility] Comment on above: Performed By: #### L 700.6800, L501.9100, L500.2500, L100.0100, L505.5000 #### [facility] [address] [place], [address] Performed By: #### L 501.9100, L500.2500, L100.0100, L505.5000, L700.6800 ####[facility] [address] [place], [address] Hemoglobin (Bld) [Mass/Vol] 13.9 g/dL Normal 12.0-15.0 [facility] Comment on above: Performed By: #### L 700.6800, L501.9100, L500.2500, L100.0100, L505.5000 #### [facility] [address] [place], [address] Performed By: #### L 501.9100, L500.2500, L100.0100, L505.5000, L700.6800 ####[facility] [address] [place], [address] IG% 1.100 High 0.0-0.9 [facility] Comment on above: Result Comment: IG% - Immature Granulocytes (promyelocytes, myelocytes and metamyelocytes) > 1% indicates that a LEFT SHIFT is Present. Performed By: #### L 700.6800, L501.9100, L500.2500, L100.0100, L505.5000 #### [facility] [address] [place], [address] Performed By: #### L 501.9100, L500.2500, L100.0100, L505.5000, L700.6800 ####[facility] [address] [place], [address] Lymphocytes/100 WBC (Bld) 39.8 % Normal 19-41 [facility] Comment on above: Performed By: #### L 700.6800, L501.9100, L500.2500, L100.0100, L505.5000 #### [facility] [address] [place], [address] Performed By: #### L 501.9100, L500.2500, L100.0100, L505.5000, L700.6800 ####[facility] [address] [place], [address] MCH (RBC) [Entitic mass] 31.1 pg Normal 27.0-32.0 [facility] Comment on above: Performed By: #### L 700.6800, L501.9100, L500.2500, L100.0100, L505.5000 #### [facility] [address] [place], [address] Performed By: #### L 501.9100, L500.2500, L100.0100, L505.5000, L700.6800 ####[facility] [address] [place], [address] MCHC (RBC) [Mass/Vol] 34.1 g/dL Normal 32-36 [facility] Comment on above: Performed By: #### L 700.6800, L501.9100, L500.2500, L100.0100, L505.5000 #### [facility] [address] [place], [address] Performed By: #### L 501.9100, L500.2500, L100.0100, L505.5000, L700.6800 ####[facility] [address] [place], [address] MCV (RBC) [Entitic vol] 91.3 fL Normal 81-99 [facility] Comment on above: Performed By: #### L 700.6800, L501.9100, L500.2500, L100.0100, L505.5000 #### [facility] [address] [place], [address] Performed By: #### L 501.9100, L500.2500, L100.0100, L505.5000, L700.6800 ####[facility] [address] [place], [address] Monocytes/100 WBC (Bld) 9.4 % Normal 0-10 [facility] Comment on above: Performed By: #### L 700.6800, L501.9100, L500.2500, L100.0100, L505.5000 #### [facility] [address] [place], [address] Performed By: #### L 501.9100, L500.2500, L100.0100, L505.5000, L700.6800 ####[facility] [address] [place], [address] Neutrophils/100 WBC (Bld) 49.5 % Normal 47-70 [facility] Comment on above: Performed By: #### L 700.6800, L501.9100, L500.2500, L100.0100, L505.5000 #### [facility] [address] [place], [address] Performed By: #### L 501.9100, L500.2500, L100.0100, L505.5000, L700.6800 ####[facility] [address] [place], [address] Nucleated RBC (Bld) [#/Vol] 0 10*3/uL Normal 0-5 [facility] Comment on above: Performed By: #### L 700.6800, L501.9100, L500.2500, L100.0100, L505.5000 #### [facility] [address] [place], [address] Performed By: #### L 501.9100, L500.2500, L100.0100, L505.5000, L700.6800 ####[facility] [address] [place], [address] Platelet mean volume (Bld) [Entitic vol] 9.3 fL Normal 6.2-12.0 [facility] Comment on above: Performed By: #### L 700.6800, L501.9100, L500.2500, L100.0100, L505.5000 #### [facility] [address] [place], [address] Performed By: #### L 501.9100, L500.2500, L100.0100, L505.5000, L700.6800 ####[facility] [address] [place], [address] Platelets (Bld) [#/Vol] 362 10*3/uL Normal 150-450 [facility] Comment on above: Performed By: #### L 700.6800, L501.9100, L500.2500, L100.0100, L505.5000 #### [facility] [address] [place], [address] Performed By: #### L 501.9100, L500.2500, L100.0100, L505.5000, L700.6800 ####[facility] [address] [place], [address] RBC (Bld) [#/Vol] 4.47 10*6/uL Normal 4.2-5.4 [facility] Comment on above: Performed By: #### L 700.6800, L501.9100, L500.2500, L100.0100, L505.5000 #### [facility] [address] [place], [address] Performed By: #### L 501.9100, L500.2500, L100.0100, L505.5000, L700.6800 ####[facility] [address] [place], [address] RDW SD 41.2 fl Normal 35.1-43.9 [facility] Comment on above: Performed By: #### L 700.6800, L501.9100, L500.2500, L100.0100, L505.5000 #### [facility] [address] [place], [address] Performed By: #### L 501.9100, L500.2500, L100.0100, L505.5000, L700.6800 ####[facility] [address] [place], [address] WBC (Bld) [#/Vol] 9.3 10*3/uL Normal 4.4-11.0 [facility] Comment on above: Performed By: #### L 700.6800, L501.9100, L500.2500, L100.0100, L505.5000 #### [facility] [address] [place], [address] Performed By: #### L 501.9100, L500.2500, L100.0100, L505.5000, L700.6800 ####[facility] [address] [place], [place], [id number] No Panel InformationOrdered By: Courtney Lay on 08-21-2024 Urine Buprenorphine Qualitative Negative < 200 ng/mL [facility] Urine Oxycodone Screen Negative < 100 ng/mL [facility] Quantitative urine opiates m easurementOrdered By: Remus Lay on 08-21-2024 Opiates Ql (U) Negative < 300 ng/mL [facility] Screening urine fentanyl christ surementOrdered By: Courtney Lay on 08-21-2024 fentaNYL Screen Ql (U) Negative [facility] Urine Drug Screen (VISTA)on 08-21-2024 AMPHETAMINES Negative Normal <1000 ng/mL [facility] Comment on above: Performed By: #### L 700.6800, L501.9100, L500.2500, L100.0100, L505.5000 #### [facility] [address] [place], [place], [facility] Performed By: #### L 501.9100, L500.2500, L100.0100, L505.5000, L700.6800 ####[facility] [address] [place], [place], [phone] BARBITIURATES Negative Normal < 200 ng/mL [facility] Comment on above: Performed By: #### L 700.6800, L501.9100, L500.2500, L100.0100, L505.5000 #### [facility] [address] [place], [address] Performed By: #### L 501.9100, L500.2500, L100.0100, L505.5000, L700.6800 ####[facility] [address] [place], [address] BENZODIAZIPINE Negative Normal < 200 ng/mL [facility] Comment on above: Performed By: #### L 700.6800, L501.9100, L500.2500, L100.0100, L505.5000 #### [facility] [address] [place], [address] Performed By: #### L 501.9100, L500.2500, L100.0100, L505.5000, L700.6800 ####[facility] [address] [place], [address] BUP Ur Drug Scr Negative Normal < 200 ng/mL [facility] Comment on above: Performed By: #### L 700.6800, L501.9100, L500.2500, L100.0100, L505.5000 #### [facility] [address] [place], [address] Performed By: #### L 501.9100, L500.2500, L100.0100, L505.5000, L700.6800 ####[facility] [address] [place], [address] COCAINE Negative Normal < 300 ng/mL [facility] Comment on above: Performed By: #### L 700.6800, L501.9100, L500.2500, L100.0100, L505.5000 #### [facility] [address] [place], [place], [facility] Performed By: #### L 501.9100, L500.2500, L100.0100, L505.5000, L700.6800 ####[facility] [address] [place], [address] Fentanyl Negative Normal [facility] Comment on above: Performed By: #### L 700.6800, L501.9100, L500.2500, L100.0100, L505.5000 #### [facility] [address] [place], [place], [facility] Performed By: #### L 501.9100, L500.2500, L100.0100, L505.5000, L700.6800 ####[facility] [address] [place], [place], [phone] METHADONE Negative Normal < 300 ng/mL [facility] Comment on above: Performed By: #### L 700.6800, L501.9100, L500.2500, L100.0100, L505.5000 #### [facility] [address] [place], [address] Performed By: #### L 501.9100, L500.2500, L100.0100, L505.5000, L700.6800 ####[facility] [address] [place], [address] OPIATES Negative Normal < 300 ng/mL [facility] Comment on above: Performed By: #### L 700.6800, L501.9100, L500.2500, L100.0100, L505.5000 #### [facility] [address] [place], [address] Performed By: #### L 501.9100, L500.2500, L100.0100, L505.5000, L700.6800 ####[facility] [address] [place], [place], [phone] OXYCODONE Negative Normal < 100 ng/mL [facility] Comment on above: Performed By: #### L 700.6800, L501.9100, L500.2500, L100.0100, L505.5000 #### [facility] [address] [place], [place], [facility] Performed By: #### L 501.9100, L500.2500, L100.0100, L505.5000, L700.6800 ####[facility] [address] [place], [place], [phone] PCP Negative Normal < 25 ng/mL [facility] Comment on above: Performed By: #### L 700.6800, L501.9100, L500.2500, L100.0100, L505.5000 #### [facility] [address] [place], [address] Performed By: #### L 501.9100, L500.2500, L100.0100, L505.5000, L700.6800 ####[facility] [address] [place], [place], [phone] THC Negative Normal < 50 ng/mL [facility] Comment on above: Performed By: #### L 700.6800, L501.9100, L500.2500, L100.0100, L505.5000 #### [facility] [address] [place], [place], [address] Performed By: #### L 501.9100, L500.2500, L100.0100, L505.5000, L700.6800 ####[facility] [address] [place], [place], [phone] Urine benzodiazepine levelOr dered By: Courtney Lay on 08-21-2024 Benzodiazepines Ql (U) Negative < 200 ng/mL [facility] Urine cocaine levelOrdered B y: Courtney Lay on 08-21-2024 Cocaine Ql (U) Negative < 300 ng/mL [facility] Urine vphyi-5-znztchyqwqbyab abinol (THC) measurementOrdered By: Courtney Lay on 08-21-2024 Cannabinoids Screen Ql (U) Negative < 50 ng/mL [facility] Urine phencyclidine (PCP) de tectionOrdered By: Courtney Lay on 08-21-2024 Phencyclidine Ql (U) Negative < 25 ng/mL [facility] Absolute lymphocyte countOrd ered By: Courtney Lay on 08-20-2024 Lymphocytes Auto (Unsp spec) [#/Vol] 3.70 10*3/uL 0.83-4.51 [facility] Absolute neutrophil countOrd ered By: Courtney Lay on 08-20-2024 Neutrophils (Bld) [#/Vol] 4.6 10*3/uL 2.0-7.7 [facility] Alcohol, Blood (Medical)-Ser umon 08-20-2024 SERUM ETOH < 10.1 Normal <=10.0 [facility] Comment on above: Result Comment: This test is for medical purposes only. The legal definition of intoxication varies according to local law. Performed By: #### L 700.6800, L501.9100, L500.2500, L100.0100, L505.5000 #### [facility] [address] [place], [address] Performed By: #### L 501.9100, L500.2500, L100.0100, L505.5000, L700.6800 ####[facility] [address] [place], [address] Anion gap in Serum or Plasma Ordered By: Courtney Lay on 08-20-2024 Anion gap [Moles/Vol] 20 mmol/L High 5-15 [facility] Automated lymphocyte count a s percentage of total leukocytesOrdered By: Courtney Lay on 08-20-2024 Lymphocytes/100 WBC Auto (Unsp spec) 39.8 % 19-41 [facility] BUN/creatinine ratioOrdered By: Courtney Lay on 08-20-2024 Urea nitrogen/Creatinine [Mass ratio] 5.2 mg/mg Low 10-20 [facility] Basophil percentageOrdered B y: Courtney Lay on 08-20-2024 Basophils/100 WBC (Bld) 0.2 % 0-1 [facility] Carbon dioxide, total [Moles /volume] in Central venous bloodOrdered By: Courtney Lay on 08-20-2024 CO2 [Moles/Vol] 16.0 mmol/L Low 21.0-32.0 [facility] Chloride assayOrdered By: Mary Ann Lay on 08-20-2024 Chloride [Moles/Vol] 99 mmol/L 98-108 [facility] Emergency Department Summary on 08-20-2024 Emergency Department Summary [facility] Medical Records Department [address] [facility] [place] [address] Emergency Department Summary 08/20/24 MR#: [id number] Acct: [id number] Name: MAURICE LINARES Rep #: [id number] : 2000 24 From: Courtney Lay DO PCP: Care Physician,No Primary Status:REG ER Location: ED HPI HPI - Psych History of Present Illness Chief Complaint: Suicidal Detail of Chief Complaint: Suicidal 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 [place] [address] [place]. She apparently told police that she was suicidal. To me she denies being suicidal. She is not very forthcoming with answers. She tells me that she just got here from [place] and her boyfriend dropped her off on the side of the road and broke up with her. She tells me she has no last name. When asked about allergies she tells me that she is allergic to antidepressants and antianxiety medication but cannot tell me which ones specifically. She denies recent illness. Patient had no identification on her. [facility] Medical History unable to obtain Home Medications [...] mental stat (more content not included)... 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 Apparently [place] [address] [place] cars. She apparently told police that she was suicidal. To me she denies being suicidal. She is not very forthcoming with answers. She tells me that she just got here from [place] and her boyfriend dropped her off on the side of the road and broke up with her. She tells me she has no last name. When asked about allergies she tells me that she is allergic to antidepressants and antianxiety medication but cannot tell me which ones specifically. She denies recent illness. Patient had no identification on her. [facility] Medical History unable to obtain Home Medications [...] Psych me (more content not included)... Normal [facility] Eosinophil percentageOrdered By: Courtney Lay on 08-20-2024 Eosinophils/100 WBC (Bld) 0.0 % 0-5 [facility] Erythrocyte distribution wid th ratioOrdered By: Courtney Lay on 08-20-2024 Erythrocyte distribution width (RBC) [Ratio] 12.5 % 11.6-14.6 [facility] Erythrocyte distribution wid th standard deviationOrdered By: Courtney Lay on 08-20-2024 Erythrocyte distribution width (RBC) [Ratio] 41.2 fl 35.1-43.9 [facility] Glomerular filtration rate ( GFR) estimation/1.73 sq m using serum, plasma, or whole bOrdered By: Courtney Lay on 08-20-2024 GFR/1.73 sq M.predicted among non-blacks MDRD (S/P/Bld) [Vol rate/Area] 86 mL/min/{1.73_m2} >60 [facility] Comment on above: mL/min/1.73m2 CKD-EP I Creatinine Equation (2020) Hematocrit Auto (Bld) [Volum e fraction]Ordered By: Courtney Lay on 08-20-2024 Hematocrit (Bld) [Volume fraction] 40.8 % 37-47 [facility] Hemoglobin measurementOrdere d By: Courtney Lay on 08-20-2024 Hemoglobin (Bld) [Mass/Vol] 13.9 g/dL 12.0-15.0 [facility] Immature granulocytes/100 WB C Auto (Bld)Ordered By: Courtney Lay on 08-20-2024 Immature granulocytes/100 WBC (Bld) 1.100 % High 0.0-0.9 [facility] Comment on above: IG% - Immature Granu locytes (promyelocytes, myelocytes and metamyelocytes) > 1% indicates that a LEFT SHIFT is Present. MCV (mean corpuscular volume ) determinationOrdered By: Courtney Lay on 08-20-2024 MCV (RBC) [Entitic vol] 91.3 fL 81-99 [facility] Mean corpuscular hemoglobin (MCH) determinationOrdered By: Courtney Lay on 08-20-2024 MCH (RBC) [Entitic mass] 31.1 pg 27.0-32.0 [facility] Mean corpuscular hemoglobin concentration (MCHC) determinationOrdered By: Courtney Lay on 08-20-2024 MCHC (RBC) [Mass/Vol] 34.1 g/dL 32-36 [facility] Mean platelet volume determi nationOrdered By: Courtney Lay on 08-20-2024 Platelet mean volume (Bld) [Entitic vol] 9.3 fL 6.2-12.0 [facility] Monocyte percentageOrdered B y: Courtney Lay on 08-20-2024 Monocytes/100 WBC (Bld) 9.4 % 0-10 [facility] Neutrophil percentageOrdered By: Courtney Lay on 08-20-2024 Neutrophils/100 WBC (Bld) 49.5 % 47-70 [facility] Nucleated red blood cell per centageOrdered By: Courtney Lay on 08-20-2024 Nucleated RBC/100 WBC (Bld) [Ratio] 0 % 0-5 [facility] Platelet countOrdered By: Mary Ann Lay on 08-20-2024 Platelets (Bld) [#/Vol] 362 10*3/uL 150-450 [facility] Potassium measurement (mass/ volume)Ordered By: Courtney Lay on 08-20-2024 Potassium (Unsp spec) [Mass/Vol] 3.7 mmol/L 3.3-5.1 [facility] ,Serum,hCG Quali.on 08-20-2024 HCG, SERUM QUAL Negative Normal [facility] Comment on above: Performed By: #### L 700.6800, L501.9100, L500.2500, L100.0100, L505.5000 #### [facility] [address] [place], [place], [id number] Performed By: #### L 501.9100, L500.2500, L100.0100, L505.5000, L700.6800 ####[facility] [address] [place], [address] RBC Auto (Bld) [#/Vol]Ordere d By: Courtney Lay on 08-20-2024 RBC (Bld) [#/Vol] 4.47 10*6/uL 4.2-5.4 [facility] Serum beta-hCG test, qualita tiveOrdered By: Courtney Lay on 08-20-2024 Beta HCG ( test) Ql Negative [facility] Serum creatinine measurement (mass/volume)Ordered By: Courtney Rosanne on 08-20-2024 Creatinine [Mass/Vol] 0.94 mg/dL 0.70-1.20 [facility] Serum glucose measurement (m ass/volume)Ordered By: Courtney Cartagenadouglas on 08-20-2024 Glucose [Mass/Vol] 158 mg/dL High 70-99 [facility] Serum or plasma calcium monica urement (mass/volume)Ordered By: Mary Louus Lay on 08-20-2024 Calcium [Mass/Vol] 9.0 mg/dL 7.6-11.0 [facility] Serum or plasma ethanol monica urement (mass/volume)Ordered By: Mary Louus Lay on 08-20-2024 Ethanol [Mass/Vol] mg/dL <10.1 [facility] Comment on above: This test is for med ical purposes only. The legal definition of intoxication varies according to local law. Serum or plasma urea nitroge n measurement (mass/volume)Ordered By: Mary Louus Lay on 08-20-2024 Urea nitrogen [Mass/Vol] 5 mg/dL 4-19 [facility] Sodium levelOrdered By: Mary Louanabelle Lay on 08-20-2024 Sodium [Moles/Vol] 135 mmol/L 133-145 [facility] White blood cell (WBC) count Ordered By: Courtney Rosanne on 08-20-2024 WBC (Bld) [#/Vol] 9.3 10*3/uL 4.4-11.0 [facility] ANES POSTPROC EVALon 025 ANES POSTPROC EVAL HNO ID: [id number] Author: CHELSEY VILLASENOR MD Service: Anesthesiology Author Type: Anesthesiologist Type: Anesthesia Postprocedure Evaluation Filed: 07/14/2024 12:30 Note Text: POST ANESTHESIA EVALUATION NOTE : 2000 Procedure Summary Date: 07/14/24 Room / Location: [place] Anesthesia Start: 1141 Anesthesia Stop: 1159 [...] July 14, 2024 TIME: 12:30 PM CSN: [id number] [facility] ANES PRE-OPon 07-14-2024 ANES PRE-OP HNO ID: [id number] Author: CHELSEY VILLASENOR MD Service: Anesthesiology Author Type: Anesthesiologist Type: Anesthesia Preprocedure Evaluation Filed: 07/14/2024 11:04 Note Text: ANESTHESIOLOGY DAY OF SURGERY NOTE : 2000 Procedure Information Date/Time: 07/14/24 1127 Procedure: REMOVAL INTRAUTERINE DEVICE and pap test (Uterus) Location: [place] OR02 / [place] Surgeons: Gregoria Gold MD Estimated body [...] and consent discussed: yes. Patient / Responsible Constitution Party agrees to proceed: yes Patient / Surrogate [...] July 14, 2024 TIME: 11:03 AM CSN: [id number] [facility] OPERATIVE NOon 07-14-2024 OPERATIVE NO HNO ID: [id number] Author: GREGORIA GOLD MD Service: Gynecology Author Type: Physician Type: Operative Report Filed: 07/14/2024 12:06 Note Text: BOATING SAFETY OFFICER OPERATIVE/PROCEDURE REPORT LOG ID: [id number] Surgery/Procedure Date: 07/14/2024 Incision/Procedure Start Time: 11:48 AM Incision Close/Procedure End Time: 11:53 AM Surgeon(s)/Procedur alist(s) and Foreign Trade Teacher(s): Surgeons and Role: * Gregoria Gold MD [...] 14, 2024 TIME: 12:04 PM PAGER/CONTACT #: [facility] PAP TESTon 07-14-2024 ADEQUACY Normal [facility] Comment on above: Order Comment: Speci men Type: FLUID SPECIMEN Ordering Facility: [facility] Address: [address] [place] [address] Result Comment: Sati sfactory for interpretation. Limited cellularity. Transformation zone present Performed By: #### L [id number] #### [facility] CLIA [id number] [address] [place] [address] [place] CASE REPORT Normal [facility] Comment on above: Order Comment: Speci men Type: FLUID SPECIMEN Ordering Facility: [facility] Address: [address] [place] [address] Result Comment: Gyne cologic Cytology Report Case: [id number] Authorizing Provider: Gregoria Gold MD Collected: 07/14/2024 11:50 AM Ordering Location: [facility] Surgery Received: 07/14/2024 12:19 PM First Screen: Clapacs, Helen Rescreen: Zhorova, O'Brien, CT, ASCP Specimen: Pap Test, ThinPrep, Cervix Performed By: #### L [id number] #### [facility] CLIA [id number] [address] [place] [address] [place] FINAL PERFORMING LAB Normal [facility] Comment on above: Order Comment: Speci men Type: FLUID SPECIMEN Ordering Facility: [facility] Address: [address] [place] [address] Result Comment: Tech nical component, laborer driver screening performed at [facility], [address] [place] [address] CLIA# [id number] Diagnostic interpretation performed at [facility], [address] [place] [address] CLIA# [id number] [employer] Manual [employer] Therapist: Tio Dallas M.D. Performed By: #### L [id number] #### [facility] CLIA [id number] [address] [place], [place] [id number] [place] INTERPRETATION, CYTOLOGY, BOATING SAFETY OFFICER [facility] Comment on above: Order Comment: Speci men Type: FLUID SPECIMEN Ordering Facility: [facility] Address: [address] [place] [address] Result Comment: Nega tive for intraepithelial lesion or malignancy. at 1358 EDT Performed By: #### L [id number] #### [facility] CLIA [id number] [address] [place] [address] OF [place] ORDER COMMENT [facility] Comment on above: Order Comment: Speci men Type: FLUID SPECIMEN Ordering Facility: [facility] Address: [address] [place] [address] Result Comment: Pre- op diagnosis: Pelvic pain in female [R10.2] Encounter for screening for malignant neoplasm of cervix [Z12.4] Encounter for IUD removal [Z30.432] Performed By: #### L [id number] #### [facility] CLIA [id number] [address] [place] [address] [place] PAP DISCLAIMER COMMENT The Pap Smear is a screening test for cervical cancer. False negative results occur with all screening tests, emphasizing the need for rescreening at recommended intervals, and clinical correlation. [facility] Comment on above: Order Comment: Speci men Type: FLUID SPECIMEN Ordering Facility: [facility] Address: [address] [place] [address] Performed By: #### L [id number] #### [facility] CLIA [id number] [address] [place], [place] [id number] [place] PAP CARPET BINDER COMMENT This specimen has been analyzed by the ThinPrep Imaging System, an automated imaging and review system, which assists the laboratory in evaluating cells on ThinPrep Pap tests. Following automated imaging, selected toribio from every slide are reviewed by a laborer driver. [facility] Comment on above: Order Comment: Speci men Type: FLUID SPECIMEN Ordering Facility: [facility] Address: [address] [place] [address] Performed By: #### L [id number] #### [facility] [place] [id number] [address] [place] [address] OF [facility] Diana 07-10-2024 COBY Telephone (PANEWO) ---- VIJAYMAURICE MATT ([id number]) 1 F Date Time Provider Department 07/10/24 JAROD MALHOTRA During your visit today, we recorded the following information about you: Jarod Malhotra APRN.CNP 07/10/2024 11:37 AM Signed Pt had a cardiology consult with [facility] and holter monitor in 2022. Can we request these records. DOS 07/14/2024 Mary Ann Nesbitt LPN 07/10/2024 2:08 PM Signed Patients name is Loni Diaz on her ID. Fax request sent to [facility] requesting Holter. Patient was not seen by cardiology. MAKEDA Ty Jessica, LPN 07/10/2024 3:16 PM Signed Received holter,. Scanned into [facility] through Onbase scanning. Mary Ann Nesbitt LPN Allergies As of Date: 07/10/2024 Noted Allergy Reaction CATS 10/03/2018 14 - Other: See Comments Comments: sneezing SEASONAL ALLERGIES 10/03/2018 16 - Unknown Date Reviewed: 07/10/2024 Reviewed by: Jarod Malhotra APRN.CNP - Fully Assessed Reason for Visit: Request Outside Medical Records [0383] Prescriptions as of 07/10/2024 - cariprazine (VRAYLAR) [...] Status:Closed by MARY ANN NESBITT on 07/10/24 [facility] CNOVon 07-09-2024 CNOV Office Visit (GENSWS) ---- MAURICE LINARES ([id number]) 1 F Date Time Provider Department 07/09/24 3:30 PM KIA LEBLANC During your visit today, we recorded the following information about you: Kia Leblanc APRN.CNP 07/09/2024 1:55 PM Signed HISTORY AND PHYSICAL Maurice Linares 2000 REFERRING [...] to follow-up with as needed Kia Leblanc APRN.TERMINOLOGIST Allergies As of Date: 07/09/2024 Noted Allergy Reaction CATS 10/03/2018 14 - Other: See Comments Comments: sneezing SEASONAL ALLERGIES 10/03/2018 16 - Unknown Date Reviewed: 07/09/2024 Reviewed by: Kia Leblanc APRN.CNP - Fully Assessed Primary Visit Diagnosis:Subcutane ous [...] Encounter Status:Closed by KIA LEBLANC on 07/09/24 [facility] HISTORY PHYSICALon HISTORY PHYSICAL HNO ID: [id number] Author: JAROD MALHOTRA APRN.TIMBO Service: ? Author Type: Nurse Practitioner [...] rx Seeing a counselor and psychiatrist in [place] Severe episode of recurrent major depressive disorder, [...] large neck Non-male patient STOP-Bang Score: 0 [id number] Score: Age: <65 Sex: female CHF history: No Hypertension history: No Stroke/TIA/thromboe mbolism history: No Vascular disease history: No Diabetes history: No [id number] Score: 1 ARISCAT Score: Age: <=50 Preoperative [...] Immunization Status Current Care Gaps Covid-19 Vaccine () Never done No completion, postpone, frequency change, [...] fevers. Neurological: No history of TIA's, stroke, TITLE CLOSER tumor, impaired sensorium, hemiplegia, paraplegia or quadraplegia. No neurological symptoms or problems. Respiratory: No history of current cough or dyspnea, or pneumonia in the past 6 weeks. No history of respiratory/pulmona ry symptoms or problems. Cardio (more content not included)... Normal [facility] HISTORY PHYSICALon HISTORY PHYSICAL HNO ID: [id number] Author: GREGORIA GOLD MD Service: ? Author [...] history, medications and allergies Gregoria Gold M.D. [facility] 07-03-2024 COBY Telephone (OBGYWM) ---- MAURICE LINARES ([id number]) 1 F Date Time Provider Department 07/03/24 ALLA, GREGORIA OBGYWM During your visit today, we recorded [...] removal [Z30.432] Order(s):SURGICAL REQUEST - ELECTIVE (11/2019) [[id number]] Order #: [id number]: 1 Prescriptions as of 07/03/2024 - multivitamin [...] Encounter Status:Closed by HINA MCDONNELL on 07/03/24 [facility] 06-26-2024 [facility] Telephone (OBGYWM) ---- MAURICE LINARES ([id number]) 1 F Date Time Provider Department 06/26/24 GREGORIA GOLD During your visit today, we recorded the [...] AM Signed Gregoria Gold MD Highman, Jennifer, RN2 hours ago (8:54 AM) yes but she can't have surgery unless she has a ride home from the hospital. They won't let it be an uber or taxi or public transportation. RLR Rosario Ramirez, BEVERLY 06/26/2024 12:59 PM Signed Patient called in [...] Encounter Status:Closed by ROSARIO RAMIREZ on 06/26/24 [facility] CNOVon 06-17-2024 CNOV Office Visit (OBGYWM) ---- MAURICE LINARES ([id number]) 1 F Date Time Provider Department 06/17/24 3:50 PM JESS TOLLIVER OBGYWM During your visit today, we recorded the following information about you: Blood pressure Weight Height 124/70 59.4 kg 1.422 m Jess Tolliver MD 06/17/2024 4:49 PM Signed [employer] Attendant offered: Patient declines. Richards is a 24 year old who [...] Living0 SAB0 IAB0 Ectopic0 Multiple0 Live Births0 Aviculturist History LMP: 09/02/2018 (Approximate), IUD Age at Menarche: Age at First : Age at Menopause: Aviculturist History Comments: Sexual Activity: Never; No partner [...] discussed with the Patient or Patient's Authorized Sole Stitcher Hand. As applicable, any other physician, advance practice provider, medical student, or other health professional student that will be observing or involved in the sensitive examination for educational or training purposes was discussed with the Patient or Authorized Sole Stitcher Hand. The Patient or Authorized Sole Stitcher Hand has agreed to proceed with the sensitive [...] findings [Z01.419] (more content not included)... Normal [facility] Absolute lymphocyte countOrd ered By: Oralia Summers on 07-17-2023 Lymphocytes Auto (Unsp spec) [#/Vol] 2.25 10*3/uL 0.83-4.51 [facility] Automated lymphocyte count a s percentage of total leukocytesOrdered By: Oralia Summers on 07-17-2023 Lymphocytes/100 WBC Auto (Unsp spec) 24.0 % 19-41 [facility] Basophil percentageOrdered B y: Oralia Summers on 07-17-2023 Basophils/100 WBC (Bld) 0.2 % 0-1 [facility] Chloride [Moles/Vol] 103 mmol/L 98-107 [facility] [address] [facility] Eosinophils/100 WBC (Bld) 0.9 % 0-5 [facility] Glucose [Mass/Vol] 92 mg/dL 74-106 [facility] Hemoglobin (Bld) [Mass/Vol] 13.0 g/dL 12.0-15.0 [facility] Monocytes/100 WBC (Bld) 10.2 % 0-10 [facility] Neutrophils (Bld) [#/Vol] 6.0 10*3/uL 2.0-7.7 [facility] Neutrophils/100 WBC (Bld) 64.3 % 47-70 [facility] Potassium [Moles/Vol] 3.9 mmol/L 3.5-5.1 [facility] Sodium [Moles/Vol] 135 mmol/L 136-145 [facility] WBC (Bld) [#/Vol] 9.4 10*3/uL 4.4-11.0 [facility] Determination of erythrocyte mean corpuscular volume (MCV)Ordered By: Oralia Summers on 07-17-2023 MCV (RBC) [Entitic vol] 93.4 fL 81-99 [facility] Erythrocyte distribution wid th ratioOrdered By: Oralia Summers on 07-17-2023 Erythrocyte distribution width (RBC) [Ratio] 12.1 % 11.6-14.6 [facility] Erythrocyte distribution wid th standard deviationOrdered By: Oralia Summers on 07-17-2023 Erythrocyte distribution width (RBC) [Entitic vol] 41.6 fL 35.1-43.9 [facility] Hematocrit Auto (Bld) [Volum e fraction]Ordered By: Oralia Summers on 07-17-2023 Hematocrit (Bld) [Volume fraction] 39.8 % 37-47 [facility] Immature granulocytes/100 WB C Auto (Bld)Ordered By: Oralia Summers on 07-17-2023 Immature granulocytes/100 WBC (Bld) 0.400 % 0.0-0.9 [facility] Comment on above: IG% - Immature Granu locytes (promyelocytes, myelocytes and metamyelocytes) > 1% indicates that a LEFT SHIFT is Present. Laboratory - Chemistry and C hemistry - challengeOrdered By: Oralia Summers on 07-17-2023 CO2 [Moles/Vol] 25.0 mmol/L 21.0-32.0 [facility] Urea nitrogen/Creatinine [Mass ratio] 19.6 mg/mg 10-20 [facility] Laboratory - Chemistry and C hemistry - challengeOrdered By: Estuardo Melendez on 07-17-2023 HCG ( test) Ql (U) Negative [facility] Comment on above: Very dilute urine sp ecimens, as indicated by a low specificgravity, may not contain volunteer patient representative levels of hCG. If is still suspected, a first morning urinespecimen should be collected 48 hours later and tested. Laboratory - CoagulationOrde red By: Oralia Summers on 07-17-2023 INR Coag (Bld) [Relative time] 1.1 {INR} [facility] PT Coag (PPP) [Time] 14.0 s 11.7-14.9 [facility] Laboratory - Hematology and Cell countsOrdered By: Oralia Summers on 07-17-2023 MCH (RBC) [Entitic mass] 30.5 pg 27.0-32.0 [facility] MCHC (RBC) [Mass/Vol] 32.7 g/dL 32-36 [facility] Nucleated RBC/100 WBC (Bld) [Ratio] 0 % 0-5 [facility] Platelet mean volume (Bld) [Entitic vol] 9.5 fL 6.2-12.0 [facility] Platelets (Bld) [#/Vol] 339 10*3/uL 150-450 [facility] No Panel InformationOrdered By: Oralia Summers on 07-17-2023 Estimated Creatinine Clearance Calc 78.61 ml/min [facility] Estimated GFR (MDRD) Amer 97 mL/min >60 [facility] Comment on above: GFR Calc Estimated GFR (MDRD) Non-Af Amer 80 mL/min >60 [facility] Comment on above: Non- GFR Calc RBC Auto (Bld) [#/Vol]Ordere d By: Oralia Summers on 07-17-2023 RBC (Bld) [#/Vol] 4.26 10*6/uL 4.2-5.4 [facility] Serum or plasma calcium monica urement (mass/volume)Ordered By: Oralia Summers on 07-17-2023 Calcium [Mass/Vol] 9.2 mg/dL 8.5-10.1 [facility] Serum or plasma creatinine m easurement (mass/volume)Ordered By: Oralia Summers on 07-17-2023 Creatinine [Mass/Vol] 0.92 mg/dL 0.55-1.02 [facility] Comment on above: The validity of the calculated GFR & GFRAA in patients over 70 years has not been determined. Clinical correlation is essential. Serum or plasma urea nitroge n measurement (mass/volume)Ordered By: Oralia Summers on 07-17-2023 Urea nitrogen [Mass/Vol] 18 mg/dL 7-18 [facility] Thin prep Papanicolaou smear with manual screeningOrdered By: Oralia Summers on 07-17-2023 Thin prep Papanicolaou smear with manual screening 7 5-15 [facility] Laboratory - Chemistry and C hemistry - challengeOrdered By: Oralia Summers on 07-15-2023 Magnesium [Mass/Vol] 2.1 mg/dL 1.6-2.6 [facility] Basophil percentageOrdered B y: Mery Gray on 07-12-2023 Bilirubin [Mass/Vol] 0.50 mg/dL 0.20-1.00 [facility] Comment on above: For patients on eltr ombopag therapy, use of Dimension [place] TBIL is not recommended. Protein [Mass/Vol] 7.4 g/dL 6.4-8.2 [facility] Laboratory - Chemistry and C hemistry - challengeOrdered By: Mery Gray on 07-12-2023 Albumin/Globulin [Mass ratio] 1.0 {ratio} 0.9-2.4 [facility] ALP [Catalytic activity/Vol] 64 U/L 45-117 [facility] ALT [Catalytic activity/Vol] 14 U/L 13-56 [facility] Globulin (S) [Mass/Vol] 3.7 g/dL 2.2-4.2 [facility] Thin prep Papanicolaou smear with manual screeningOrdered By: Mery Gray on 07-12-2023 Thin prep Papanicolaou smear with manual screening 3.7 g/dL 3.2-5.0 [facility] Thin prep Papanicolaou smear with manual screening 16 U/L 15-37 [facility] .Auto Diffon 10-05-2020 Basophil, Absolute 0.00 10 3/mcL Normal 0.00-0.19 [facility] ([place]) Comment on above: Performed By: #### C BC, ADIFF, ANEU, BMP, ALC, MARISOL, TSH #### [address] [address] #### ACETA, GFR #### [address] [address] Basophils/100 WBC (Bld) 0.5 % Normal 0.0-2.5 [facility] ([place]) Comment on above: Performed By: #### C BC, ADIFF, ANEU, BMP, ALC, MARISOL, TSH #### [place] [address] #### ACETA, GFR #### [address] [address] Eosinophil, Absolute 0.00 10 3/mcL Normal 0.00-0.40 [facility] ([place]) Comment on above: Performed By: #### C BC, ADIFF, ANEU, BMP, ALC, MARISOL, TSH #### [place] [address] #### ACETA, GFR #### [address] [address] Eosinophils/100 WBC (Bld) 0.7 % Normal 0.0-7.0 [facility] ([place]) Comment on above: Performed By: #### C BC, ADIFF, ANEU, BMP, ALC, MARISOL, TSH #### [address] [address] #### ACETA, GFR #### [address] [address] Lymphocyte, Absolute 3.10 10 3/mcL Normal 0.77-3.85 [facility] ([place]) Comment on above: Performed By: #### C BC, ADIFF, ANEU, BMP, ALC, MARISOL, TSH #### [place] [address] #### ACETA, GFR #### [address] [address] Lymphocytes/100 WBC (Bld) 43.3 % Normal 10.0-50.0 [facility] ([place]) Comment on above: Performed By: #### C BC, ADIFF, ANEU, BMP, ALC, MARISOL, TSH #### [address] [address] #### ACETA, GFR #### [address] [address] Monocyte, Absolute 0.70 10 3/mcL Normal 0.15-1.00 [facility] ([place]) Comment on above: Performed By: #### C BC, ADIFF, ANEU, BMP, ALC, MARISOL, TSH #### [address] [address] #### ACETA, GFR #### [address] [address] Monocytes/100 WBC (Bld) 9.7 % Normal 1.7-13.0 [facility] ([place]) Comment on above: Performed By: #### C BC, ADIFF, ANEU, BMP, ALC, MARISOL, TSH #### [address] [address] #### ACETA, GFR #### [address] [address] Neutrophils/100 WBC (Bld) 45.8 % Normal 37.0-80.0 [facility] ([place]) Comment on above: Performed By: #### C BC, ADIFF, ANEU, BMP, ALC, MARISOL, TSH #### [address] [address] #### ACETA, GFR #### [address] [address] .GFRon 10-05-2020 GFR Non- 107 ml/min/1.73sqm Normal [facility] ([place]) Comment on above: Result Comment: GFR Population [...] ADIFF, ANEU, BMP, ALC, MARISOL, TSH #### [address] [address] #### ACETA, GFR #### [address] [address] GFR 129 ml/min/1.73sqm Normal [facility] ([place]) Comment on above: Result Comment: GFR Population [...] ADIFF, ANEU, BMP, ALC, MARISOL, TSH #### [address] [address] #### ACETA, GFR #### [address] [address] .NEUABSon 10-05-2020 Neutrophil, Absolute 3.30 10 3/mcL Normal 2.85-6.16 [facility] ([place]) Comment on above: Performed By: #### C BC, ADIFF, ANEU, BMP, ALC, MARISOL, TSH #### [address] [address] #### ACETA, GFR #### [address] [address] ACETAon 10-05-2020 Acetaminophen [Mass/Vol] 0.0 ug/mL Low 10.0-30.0 [facility] ([place]) Comment on above: Performed By: #### C BC, ADIFF, ANEU, BMP, ALC, MARISOL, TSH #### [address] [address] #### ACETA, GFR #### [address] [address] Bari 10-05-2020 Ethanol Level <3 Normal 0-3 [facility] ([place]) Comment on above: Performed By: #### C BC, ADIFF, ANEU, BMP, ALC, MARISOL, TSH #### [place] [address] #### ACETA, GFR #### [address] [address] BMPon 10-05-2020 BUN/Creatinine Ratio 9 ratio Normal 7-27 [facility] ([place]) Comment on above: Performed By: #### C BC, ADIFF, ANEU, BMP, ALC, MARISOL, TSH #### [place] [address] #### ACETA, GFR #### [address] [address] Calcium [Mass/Vol] 8.7 mg/dL Normal 8.4-10.2 [facility] ([place]) Comment on above: Performed By: #### C BC, ADIFF, ANEU, BMP, ALC, MARISOL, TSH #### [place] [address] #### ACETA, GFR #### [address] [address] Chloride [Moles/Vol] 107 mmol/L Normal 98-107 [facility] ([place]) Comment on above: Performed By: #### C BC, ADIFF, ANEU, BMP, ALC, MARISOL, TSH #### [address] [address] #### ACETA, GFR #### [address] [address] CO2 [Moles/Vol] 27 mmol/L Normal 22-29 [facility] ([place]) Comment on above: Performed By: #### C BC, ADIFF, ANEU, BMP, ALC, MARISOL, TSH #### [address] [address] #### ACETA, GFR #### [address] [address] Creatinine [Mass/Vol] 0.70 mg/dL Normal 0.55-1.02 [facility] ([place]) Comment on above: Performed By: #### C BC, ADIFF, ANEU, BMP, ALC, MARISOL, TSH #### [place] [address] #### ACETA, GFR #### [address] [address] Electrolyte Balance 9.0 mEq/L Normal [facility] ([place]) Comment on above: Performed By: #### C BC, ADIFF, ANEU, BMP, ALC, MARISOL, TSH #### [place] [address] #### ACETA, GFR #### [address] [address] Glucose [Mass/Vol] 85 mg/dL Normal 70-105 [facility] ([place]) Comment on above: Performed By: #### C BC, ADIFF, ANEU, BMP, ALC, MARISOL, TSH #### [place] [address] #### ACETA, GFR #### [address] [address] Potassium [Moles/Vol] 3.6 mmol/L Normal 3.5-5.1 [facility] ([place]) Comment on above: Performed By: #### C BC, ADIFF, ANEU, BMP, ALC, MARISOL, TSH #### [place] [address] #### ACETA, GFR #### [address] [address] Sodium [Moles/Vol] 143 mmol/L Normal 136-145 [facility] ([place]) Comment on above: Performed By: #### C BC, ADIFF, ANEU, BMP, ALC, MARISOL, TSH #### [place] [address] #### ACETA, GFR #### [address] [address] Urea nitrogen [Mass/Vol] 6 mg/dL Low 7-18 [facility] ([place]) Comment on above: Performed By: #### C BC, ADIFF, ANEU, BMP, ALC, MARISOL, TSH #### [place] [address] #### ACETA, GFR #### [place] [address] CBCon 10-05-2020 Erythrocyte distribution width (RBC) [Ratio] 12.6 % Normal 11.5-14.5 [facility] ([place]) Comment on above: Performed By: #### C BC, ADIFF, ANEU, BMP, ALC, MARISOL, TSH #### [place] [address] #### ACETA, GFR #### [place] [address] Hematocrit (Bld) [Volume fraction] 38.9 % Normal 37.0-47.0 [facility] ([place]) Comment on above: Performed By: #### C BC, ADIFF, ANEU, BMP, ALC, MARISOL, TSH #### [place] [address] #### ACETA, GFR #### [place] [address] Hgb 13.6 G/dL Normal 12.0-16.0 [facility] ([place]) Comment on above: Performed By: #### C BC, ADIFF, ANEU, BMP, ALC, MARISOL, TSH #### [place] [address] #### ACETA, GFR #### [place] [address] MCH (RBC) [Entitic mass] 32.6 pg High 27.0-31.2 [facility] ([place]) Comment on above: Performed By: #### C BC, ADIFF, ANEU, BMP, ALC, MARISOL, TSH #### [place] [address] #### ACETA, GFR #### [place] [address] MCHC 35.0 G/dL Normal 33.0-37.0 [facility] ([place] Comment on above: Performed By: #### C BC, ADIFF, ANEU, BMP, ALC, MARISOL, TSH #### [place] [address] #### ACETA, GFR #### [place] [address] MCV (RBC) [Entitic vol] 93.3 fL Normal 80.0-94.0 [facility] ([place]) Comment on above: Performed By: #### C BC, ADIFF, ANEU, BMP, ALC, MARISOL, TSH #### [place] [address] #### ACETA, GFR #### [place] [address] Platelet 343 10 3/mcL Normal 130-400 [facility] ([place]) Comment on above: Performed By: #### C BC, ADIFF, ANEU, BMP, ALC, MARISOL, TSH #### [place] [address] #### ACETA, GFR #### [place] [address] Platelet mean volume (Bld) [Entitic vol] 7.9 fL Normal 7.4-10.4 [facility] ([place]) Comment on above: Performed By: #### C BC, ADIFF, ANEU, BMP, ALC, MARISOL, TSH #### [place] [address] #### ACETA, GFR #### [place] [address] RBC 4.17 10 6/mcL Low 4.20-5.40 [facility] ([place]) Comment on above: Performed By: #### C BC, ADIFF, ANEU, BMP, ALC, MARISOL, TSH #### [place] [address] #### ACETA, GFR #### [place] [address] WBC 7.20 10 3/mcL Normal 4.60-10.80 [facility] ([place]) Comment on above: Performed By: #### C BC, ADIFF, ANEU, BMP, ALC, MARISOL, TSH #### [place] [address] #### ACETA, GFR #### [place] [address] PREGUon 10-05-2020 HCG ( test) Ql (U) Negative Normal [facility] ([place]) Comment on above: Performed By: #### P REGU, TOXSC #### [place] [address] test (u) int Not detected Invalid Interpretation Code [facility] ([place]) Comment on above: Performed By: #### P REGU, TOXSC #### [place] [address] SALon 10-05-2020 Salicylate Level 1.1 mg/dL Low 2.8-20.0 [facility] ([place]) Comment on above: Performed By: #### C BC, ADIFF, ANEU, BMP, ALC, MARISOL, TSH #### [place] [address] #### ACETA, GFR #### [place] [address] TOXSCon 10-05-2020 U Ampheta (AO) Negative Normal [facility] ([place]) Comment on above: Performed By: #### C BC, ADIFF, ANEU, BMP, ALC, MARISOL, TSH #### [place] [address] #### ACETA, GFR #### [address] [address] U Rahel (AO) Negative [facility] ([place]) Comment on above: Performed By: #### C BC, ADIFF, ANEU, BMP, ALC, MARISOL, TSH #### [address] [address] #### ACETA, GFR #### [address] [address] U Ranjit (AO) Negative [facility] ([place]) Comment on above: Performed By: #### C BC, ADIFF, ANEU, BMP, ALC, MARISOL, TSH #### [address] [address] #### ACETA, GFR #### [address] [address] U Cannab (AO) Negative [facility] ([place]) Comment on above: Performed By: #### C BC, ADIFF, ANEU, BMP, ALC, MARISOL, TSH #### [place] [address] #### ACETA, GFR #### [address] [address] U Cocaine (AO) Negative [facility] ([place]) Comment on above: Performed By: #### C BC, ADIFF, ANEU, BMP, ALC, MARISOL, TSH #### [address] [address] #### ACETA, GFR #### [address] [address] U Methadone (AO) Negative [facility] ([place]) Comment on above: Performed By: #### C BC, ADIFF, ANEU, BMP, ALC, MARISOL, TSH #### [place] [address] #### ACETA, GFR #### [address] [address] U PCP (AO) Negative [facility] ([place]) Comment on above: Performed By: #### C BC, ADIFF, ANEU, BMP, ALC, MARISOL, TSH #### [place] [address] [place], [place] [address] #### ACETA, GFR #### [address] [address] U TCA (AO) Negative Normal [facility] ([place]) Comment on above: Performed By: #### C BC, ADIFF, ANEU, BMP, ALC, MARISOL, TSH #### [place] [address] #### ACETA, GFR #### [place] [address] Urine Opiates (AO) Negative Normal [facility] ([place]) Comment on above: Performed By: #### C BC, ADIFF, ANEU, BMP, ALC, MARISOL, TSH #### [place] [address] #### ACETA, GFR #### [place] [address] TSHon 10-05-2020 TSH Qn 2.07 m[IU]/L Normal 0.36-3.74 [facility] ([place]) Comment on above: Performed By: #### C BC, ADIFF, ANEU, BMP, ALC, MARISOL, TSH #### [place] [address] #### ACETA, GFR #### [place] [address] CBCon 08-01-2018 Basophils #/vol (Bld) 0.00 x10(3) Normal 0.00-0.10 [facility] Comment on above: Performed By: #### L 100.0530, L100.0690, L100.0700 #### [facility] [address] [place] [address] Basophils/100 WBC (Bld) 0.4 % Normal 0.0-1.0 [facility] Comment on above: Performed By: #### L 100.0530, L100.0690, L100.0700 #### [facility] [address] [place] [address] Eosinophils #/vol (Bld) 0.20 x10(3) Normal 0.00-0.54 [facility] Comment on above: Performed By: #### L 100.0530, L100.0690, L100.0700 #### [facility] [address] [place] [address] Eosinophils/100 WBC (Bld) 2.9 % Normal 0.5-4.9 [facility] Comment on above: Performed By: #### L 100.0530, L100.0690, L100.0700 #### [facility] [address] [place] [address] Erythrocyte distribution width Ratio (RBC) 13.1 % Normal 12.5-15.7 [facility] Comment on above: Performed By: #### L 100.0530, L100.0690, L100.0700 #### [facility] [address] [place] [address] Hematocrit Volume Fraction (Bld) 37.0 % Normal 36.0-48.0 [facility] Comment on above: Performed By: #### L 100.0530, L100.0690, L100.0700 #### [facility] [address] [place] [address] Hemoglobin mass conc (Bld) 12.3 g/dL Normal 12.0-16.0 [facility] Comment on above: Performed By: #### L 100.0530, L100.0690, L100.0700 #### [facility] [address] [place] [address] Lymphocytes #/vol (Bld) 2.40 x10(3) Normal 1.00-3.50 [facility] Comment on above: Performed By: #### L 100.0530, L100.0690, L100.0700 #### [facility] [address] [place] [address] Lymphocytes/100 WBC (Bld) 42.6 % Normal 16.0-48.0 [facility] Comment on above: Performed By: #### L 100.0530, L100.0690, L100.0700 #### [facility] [address] [place] [address] MCH Entitic mass (RBC) 30.4 pg Normal 28.5-32.9 [facility] Comment on above: Performed By: #### L 100.0530, L100.0690, L100.0700 #### [facility] [address] [place] [address] MCHC mass conc (RBC) 33.3 g/dL Normal 33.0-36.0 [facility] Comment on above: Performed By: #### L 100.0530, L100.0690, L100.0700 #### [facility] [address] [place] [address] MCV Entitic volume (RBC) 91.1 fL Normal 80.0-99.0 [facility] Comment on above: Performed By: #### L 100.0530, L100.0690, L100.0700 #### [facility] [address] [place] [address] Monocytes #/vol (Bld) 0.40 x10(3) Normal 0.30-0.80 [facility] Comment on above: Performed By: #### L 100.0530, L100.0690, L100.0700 #### [facility] [address] [place] [address] Monocytes/100 WBC (Bld) 6.8 % Normal 4.3-11.2 [facility] Comment on above: Performed By: #### L 100.0530, L100.0690, L100.0700 #### [facility] [address] [place] [address] 80741 Neutrophils #/vol (Bld) 2.70 x10(3) Normal 1.40-6.50 [facility] Comment on above: Performed By: #### L 100.0530, L100.0690, L100.0700 #### ML - LABORATORY [address] [place] [address] 35950 Neutrophils/100 WBC (Bld) 47.3 % Normal 45.0-73.0 [facility] Comment on above: Performed By: #### L 100.0530, L100.0690, L100.0700 #### [facility] - LABORATORY [address] [place] [address] 28979 Platelet mean volume Entitic volume (Bld) 7.4 fL Low 7.5-9.5 [facility] Comment on above: Performed By: #### L 100.0530, L100.0690, L100.0700 #### ML - LABORATORY [address] [place] [address] 15144 Platelets #/vol (Bld) 260 X10(3) Normal 150-450 [facility] Comment on above: Performed By: #### L 100.0530, L100.0690, L100.0700 #### [facility] - LABORATORY [address] [place] [address] 75707 RBC #/vol (Bld) 4.06 x10(6) Normal 3.30-5.00 [facility] Comment on above: Performed By: #### L 100.0530, L100.0690, L100.0700 #### ML - LABORATORY [address] [place] [address] 08311 WBC #/vol (Bld) 5.7 x10(3) Normal 4.5-10.0 [facility] Comment on above: Performed By: #### L 100.0530, L100.0690, L100.0700 #### ML [facility] [address] [place] [address] 28645 CMPon 08-01-2018 A:G RATIO 1.50 Normal 1.1-2.5 [facility] Comment on above: Performed By: #### L 100.0530, L100.0690, L100.0700 #### ML [facility] [address] [place] [address] 66608 Albumin mass conc 4.5 g/dL Normal 3.5-5.2 [facility] Comment on above: Performed By: #### L 100.0530, L100.0690, L100.0700 #### ML - LABORATORY [address] [place] [address] 75144 ALK. PHOS 60 U/L Normal 35-105 [facility] Comment on above: Performed By: #### L 100.0530, L100.0690, L100.0700 #### - LABORATORY [address] [place] [address] 47554 ALT enzyme act/vol 11 U/L Normal 5-33 [facility] Comment on above: Performed By: #### L 100.0530, L100.0690, L100.0700 #### ML - LABORATORY [address] [place] [address] 67250 Anion gap molar conc 14.1 mmol/L Low 15-22 [facility] Comment on above: Performed By: #### L 100.0530, L100.0690, L100.0700 #### ML - LABORATORY [address] [place] [address] 33432 AST enzyme act/vol 21 U/L Normal 5-32 [facility] Comment on above: Performed By: #### L 100.0530, L100.0690, L100.0700 #### - LABORATORY [address] [place] [address] 72189 Bilirubin Ql (U) 0.4 mg/dL Normal 0.2-1.2 [facility] Comment on above: Performed By: #### L 100.0530, L100.0690, L100.0700 #### - LABORATORY [address] [place] [address] 77638 Calcium mass conc 9.6 mg/dL Normal 8.6-10.0 [facility] Comment on above: Performed By: #### L 100.0530, L100.0690, L100.0700 #### - LABORATORY [address] [place] [address] 31872 Chloride molar conc 104 mmol/L Normal 98-107 [facility] Comment on above: Performed By: #### L 100.0530, L100.0690, L100.0700 #### - LABORATORY [address] [place] [address] 22332 CO2 molar conc 25 mmol/L Normal 22-29 [facility] Comment on above: Performed By: #### L 100.0530, L100.0690, L100.0700 #### - LABORATORY [address] [place] [address] 15730 Creatinine mass conc 0.78 mg/dL Normal 0.50-0.90 [facility] Comment on above: Performed By: #### L 100.0530, L100.0690, L100.0700 #### ML - LABORATORY [address] [place] [address] 13442 eGFR if AFR KEVIN > 60 ml/min/1.73m2 Normal [facility] Comment on above: Result Comment: eGFR >= [...] By: #### L 100.0530, L100.0690, L100.0700 #### [facility] [address] [place] [address] 80573 eGFR nonAFR Kevin > 60 ml/Min/1.73m2 Normal [facility] Comment on above: Performed By: #### L 100.0530, L100.0690, L100.0700 #### ML [facility] [address] [place] [address] 94088 Globulin mass conc (S) 3.0 g/dL Normal 1.5-4.5 [facility] Comment on above: Performed By: #### L 100.0530, L100.0690, L100.0700 #### [facility] [address] [place] [address] 06510 Glucose mass conc 80 mg/dL Normal 74-106 [facility] Comment on above: Performed By: #### L 100.0530, L100.0690, L100.0700 #### ML - LABORATORY [address] [place] [address] 21893 Potassium molar conc 4.1 mmol/L Normal 3.5-5.0 [facility] Comment on above: Performed By: #### L 100.0530, L100.0690, L100.0700 #### ML - LABORATORY [address] [place] [address] 34937 Protein mass conc 7.5 g/dL Normal 6.4-8.3 [facility] Comment on above: Performed By: #### L 100.0530, L100.0690, L100.0700 #### ML - LABORATORY [address] [place] [address] 37458 Sodium molar conc 139 mmol/L Normal 135-145 [facility] Comment on above: Performed By: #### L 100.0530, L100.0690, L100.0700 #### ML - LABORATORY [address] [place] [address] 45943 Urea nitrogen mass conc 8 mg/dL Normal 6-20 [facility] Comment on above: Performed By: #### L 100.0530, L100.0690, L100.0700 #### ML - LABORATORY [address] [place] [address] 92197 FOLATEon 08-01-2018 FOLATE >20.0 Normal 4.8-24.2 [facility] Comment on above: Performed By: #### L 100.0530, L100.0690, L100.0700 #### ML - LABORATORY [address] [place] [address] 61904 Free T4on 08-01-2018 T4 free mass conc 1.03 ng/dL Normal 0.93-1.7 [facility] Comment on above: Performed By: #### L 100.0530, L100.0690, L100.0700 #### ML - LABORATORY [address] [place] [address] 90666 LIPID PANELon 08-01-2018 Cholesterol in HDL mass conc 64 mg/dL Normal [facility] Comment on above: Result Comment: Citlaly onal [...] 100.0530, L100.0690, L100.0700 #### ML - LABORATORY [address] [place] [address] 60710 Cholesterol in LDL mass conc 77 mg/dL Normal [facility] Comment on above: Result Comment: LDL: OPTIMAL FOR PEOPLE AT VERY HIGH RISK <70 OPTIMAL <100 NEAR OPTIMAL 100-129 BORDERLINE HIGH 130-159 HIGH 160-189 VERY HIGH >=190 Source: 2008 NCEP ATP III, ADA Guidelines Reviewed: July, Performed By: #### L 100.0530, L100.0690, L100.0700 #### ML - LABORATORY [address] [place] [address] 52462 Cholesterol in LDL/Cholesterol in HDL mass ratio 1.2 Normal [facility] Comment on above: Performed By: #### L 100.0530, L100.0690, L100.0700 #### ML - LABORATORY [address] [place] [address] 95593 Cholesterol in VLDL mass conc 11 mg/dL Normal 6-40 [facility] Comment on above: Performed By: #### L 100.0530, L100.0690, L100.0700 #### [facility] [address] [place] [address] 20388 Cholesterol mass conc 152 mg/dL Normal 130-200 [facility] Comment on above: Performed By: #### L 100.0530, L100.0690, L100.0700 #### ML - LABORATORY [address] [place] [address] 47156 Triglyceride mass conc 53 mg/dL Normal [facility] Comment on above: Result Comment: TRIG : DESIRABLE: <150 mg/dL Performed By: #### L 100.0530, L100.0690, L100.0700 #### ML - LABORATORY [address] [place] [address] 90587 TSHon 08-01-2018 Thyrotropin Qn 1.05 uIU/mL Normal 0.45-4.50 [facility] Comment on above: Performed By: #### L 100.0530, L100.0690, L100.0700 #### ML - LABORATORY [address] [place] [address] 07648 VIT. B12on 08-01-2018 Cobalamin (Vitamin B12) mass conc 216.6 pg/mL Low 232-1245 [facility] Comment on above: Performed By: #### L 100.0530, L100.0690, L100.0700 #### ML - LABORATORY [address] [place] [address] 11916 VITAMIN Don 08-01-2018 VITAMIN D 30.8 ng/mL Normal 30-100 [facility] Comment on above: Performed By: #### L 100.0530, L100.0690, L100.0700 #### ML - LABORATORY [address] [place] [address] 92327 EMERGENCY DEPARTMENT REPORTo n 03-10-2018 EMERGENCY [place] [address] HEALTH INFORMATION MANAGEMENT EMERGENCY DEPARTMENT REPORT Patient: LONI DIAZ JENNI PITTS M.D. [id number] 00 18 F Status: DEP ER ED [...] 03/15/18 1445 ___ JENNI PITTS M.D. cc: GISSELLE,JENNI A M.D. << Signature on File>> Reported By: JENNI PITTS M.D. Signed By: JENNI PITTS M.D. Tests performed at: [address] [address] Normal [facility] ACETAMINOPHENon 02-21-2018 Acetaminophen mass conc < 5.0 Low 10-30 [facility] Comment on above: Performed By: #### L 100.0530, L100.0690, L100.0700 #### ML - LABORATORY [address] [place] [address] 72341 ALCOHOLon 02-21-2018 Ethanol mass conc mg/dL Normal 0-0.01 [facility] Comment on above: Performed By: #### L 100.0530, L100.0690, L100.0700 #### ML - LABORATORY [address] [place] [address] 93540 BMPon 02-21-2018 Anion gap molar conc 16.0 mmol/L Normal 15-22 [facility] Comment on above: Performed By: #### L 100.0010, L100.0030, L304.0140 #### [facility] - [facility] [address] [place] [address] 05463 Calcium mass conc 9.8 mg/dL Normal 8.6-10.0 [facility] Comment on above: Performed By: #### L 100.0010, L100.0030, L304.0140 #### ML - LABORATORY [address] [place] [address] 74156 Chloride molar conc 104 mmol/L Normal 98-107 [facility] Comment on above: Performed By: #### L 100.0010, L100.0030, L304.0140 #### [facility] - [facility] [address] [place] [address] 16076 CO2 molar conc 25 mmol/L Normal 22-29 [facility] Comment on above: Performed By: #### L 100.0010, L100.0030, L304.0140 #### ML - LABORATORY [address] [place] [address] 48603 Creatinine mass conc 0.69 mg/dL Normal 0.50-0.90 [facility] Comment on above: Performed By: #### L 100.0010, L100.0030, L304.0140 #### - LABORATORY [address] [place] [address] 91278 eGFR if AFR KEVIN > 60 ml/min/1.73m2 Normal [facility] Comment on above: Result Comment: eGFR >= [...] 100.0010, L100.0030, L304.0140 #### ML - LABORATORY [address] [place] [address] eGFR nonAFR Kevin > 60 ml/Min/1.73m2 Normal [facility] Comment on above: Performed By: #### L 100.0010, L100.0030, L304.0140 #### - LABORATORY [address] [place] [address] Glucose mass conc 98 mg/dL Normal 74-106 [facility] Comment on above: Performed By: #### L 100.0010, L100.0030, L304.0140 #### [facility] [address] [place] [address] Potassium molar conc 4.0 mmol/L Normal 3.5-5.0 [facility] Comment on above: Performed By: #### L 100.0010, L100.0030, L304.0140 #### [facility] [address] [place] [address] Sodium molar conc 141 mmol/L Normal 135-145 [facility] Comment on above: Performed By: #### L 100.0010, L100.0030, L304.0140 #### ML - LABORATORY [address] [place] [address] 05046 Urea nitrogen mass conc 11 mg/dL Normal 6-20 [facility] Comment on above: Performed By: #### L 100.0010, L100.0030, L304.0140 #### ML - LABORATORY [address] [place] [address] 73097 CBCon 02-21-2018 Basophils #/vol (Bld) 0.00 x10(3) Normal 0.00-0.10 [facility] Comment on above: Performed By: #### L 200.0010 #### ML [facility] [address] [place] [address] 71848 Basophils/100 WBC (Bld) 0.4 % Normal 0.0-1.0 [facility] Comment on above: Performed By: #### L 200.0010 #### ML [facility] [address] [place] [address] 68802 Eosinophils #/vol (Bld) 0.20 x10(3) Normal 0.00-0.54 [facility] Comment on above: Performed By: #### L 200.0010 #### ML [facility] [address] [place] [address] 82689 Eosinophils/100 WBC (Bld) 3.1 % Normal 0.5-4.9 [facility] Comment on above: Performed By: #### L 200.0010 #### ML - LABORATORY [address] [place] [address] 49573 Erythrocyte distribution width Ratio (RBC) 12.4 % Low 12.5-15.7 [facility] Comment on above: Performed By: #### L 200.0010 #### ML [facility] [address] [place] [address] 82606 Hematocrit Volume Fraction (Bld) 38.8 % Normal 36.0-48.0 [facility] Comment on above: Performed By: #### L 200.0010 #### ML - LABORATORY [address] [place] [address] 38348 Hemoglobin mass conc (Bld) 13.3 g/dL Normal 12.0-16.0 [facility] Comment on above: Performed By: #### L 200.0010 #### ML - LABORATORY [address] [place] [address] 85074 Lymphocytes #/vol (Bld) 2.20 x10(3) Normal 1.00-3.50 [facility] Comment on above: Performed By: #### L 200.0010 #### ML - LABORATORY [address] [place] [address] 88154 Lymphocytes/100 WBC (Bld) 35.5 % Normal 16.0-48.0 [facility] Comment on above: Performed By: #### L 200.0010 #### ML [facility] [address] [place] [address] 83497 MCH Entitic mass (RBC) 31.8 pg Normal 28.5-32.9 [facility] Comment on above: Performed By: #### L 200.0010 #### ML - LABORATORY [address] [place] [address] 42451 MCHC mass conc (RBC) 34.3 g/dL Normal 33.0-36.0 [facility] Comment on above: Performed By: #### L 200.0010 #### ML [facility] [address] [place] [address] 35201 MCV Entitic volume (RBC) 92.6 fL Normal 80.0-99.0 [facility] Comment on above: Performed By: #### L 200.0010 #### ML - LABORATORY [address] [place] [address] 98429 Monocytes #/vol (Bld) 0.60 x10(3) Normal 0.30-0.80 [facility] Comment on above: Performed By: #### L 200.0010 #### ML - LABORATORY [address] [place] [address] 55922 Monocytes/100 WBC (Bld) 9.0 % Normal 4.3-11.2 [facility] Comment on above: Performed By: #### L 200.0010 #### ML - LABORATORY [address] [place] [address] 08834 Neutrophils #/vol (Bld) 3.20 x10(3) Normal 1.40-6.50 [facility] Comment on above: Performed By: #### L 200.0010 #### [facility] [address] [place] [address] 05982 Neutrophils/100 WBC (Bld) 52.0 % Normal 45.0-73.0 [facility] Comment on above: Performed By: #### L 200.0010 #### [facility] [address] [place] [address] 02940 Platelet mean volume Entitic volume (Bld) 7.5 fL Normal 7.5-9.5 [facility] Comment on above: Performed By: #### L 200.0010 #### [facility] [address] [place] [address] 59753 Platelets #/vol (Bld) 305 X10(3) Normal 150-450 [facility] Comment on above: Performed By: #### L 200.0010 #### [facility] [address] [place] [address] 10104 RBC #/vol (Bld) 4.19 x10(6) Normal 3.30-5.00 [facility] Comment on above: Performed By: #### L 200.0010 #### [facility] [address] [place] [address] 11889 WBC #/vol (Bld) 6.1 x10(3) Normal 4.5-10.0 [facility] Comment on above: Performed By: #### L 200.0010 #### ML [facility] [address] [place] [address] 83643 DRUG SCREENon 02-21-2018 AMPHETAMINE Negative Normal NEGATIVE [facility] Comment on above: Performed By: #### L 100.0707 #### [facility] [address] [place] [address] 24139 BARBITUATES Negative Normal NEGATIVE [facility] Comment on above: Performed By: #### L 100.0707 #### [facility] [address] [place] [address] 83408 BENZODIAZEPINE Negative Normal [facility] Comment on above: Performed By: #### L 100.0707 #### ML - LABORATORY [address] [place], [place] [address] CANNABINOID Negative Normal [facility] Comment on above: Performed By: #### L 100.0707 #### ML - LABORATORY [address] [place] [address] 47025 Cocaine Ql (U) Negative Normal [facility] Comment on above: Performed By: #### L 100.0707 #### ML - LABORATORY [address] [place] [address] 55839 Methadone Ql (U) Negative [facility] Comment on above: Performed By: #### L 100.0707 #### ML - LABORATORY [address] [place] [address] 70756 Opiates Ql (U) Negative [facility] Comment on above: Performed By: #### L 100.0707 #### [facility] [address] [place], [place] [address] OXYCODONE Negative [facility] Comment on above: Performed By: #### L 100.0707 #### ML [facility] [address] [place], [place] [address] Phencyclidine Ql (U) Negative Normal [facility] Comment on above: Result Comment: COMM ENT: [...] #### L 100.0707 #### ML - LABORATORY [address] [place] [address] 26096 Protein mass conc Negative Normal [facility] Comment on above: Performed By: #### L 100.0707 #### [facility] - [facility] [address] [place] [address] EMERGENCY DEPARTMENT REPORTo n 02-21-2018 EMERGENCY [place] [address] HEALTH INFORMATION MANAGEMENT EMERGENCY DEPARTMENT REPORT Patient: LONI DIAZ JENNI PITTS M.D. [id number] 00 18 F Status: DEP ER ED [...] She is adopted. She is originally from [place], apparently she has been living here for [...] I have ordered standard screening labs for [facility]. They will be consulted for disposition. DIAGNOSIS Medical clearance for [facility]. 02/[birth year]/181954 ___ JENNI PITTS M.D. cc: JENNI PITTS M.D. << Signature on File>> Reported By: JENNI PITTS M.D. Signed By: JENNI PITTS M.D. Tests performed at: [place] [address] Normal [facility] HEPATIC PANELon 02-21-2018 A:G RATIO 1.30 Normal 1.1-2.5 [facility] Comment on above: Performed By: #### L 100.0010, L100.0030, L304.0140 #### ML - LABORATORY [address] [place] [address] 93339 Albumin mass conc 4.3 g/dL Normal 3.5-5.2 [facility] Comment on above: Performed By: #### L 100.0010, L100.0030, L304.0140 #### ML - LABORATORY [address] [place] [address] 20032 ALK. PHOS 66 U/L Normal 35-105 [facility] Comment on above: Performed By: #### L 100.0010, L100.0030, L304.0140 #### ML - LABORATORY [address] [place] [address] 49058 ALT enzyme act/vol 10 U/L Normal 5-33 [facility] Comment on above: Performed By: #### L 100.0010, L100.0030, L304.0140 #### ML - LABORATORY [address] [place] [address] 58572 AST enzyme act/vol 18 U/L Normal 5-32 [facility] Comment on above: Performed By: #### L 100.0010, L100.0030, L304.0140 #### ML [facility] [address] [place] [address] 81687 Bilirubin Ql (U) 0.2 mg/dL Normal 0.2-1.2 [facility] Comment on above: Performed By: #### L 100.0010, L100.0030, L304.0140 #### ML - LABORATORY [address] [place] [address] 18396 DIRECT BILIRUBI <0.2 Normal 0.0-0.3 [facility] Comment on above: Performed By: #### L 100.0010, L100.0030, L304.0140 #### ML - LABORATORY [address] [place] [address] 15059 Globulin mass conc (S) 3.3 g/dL Normal 1.5-4.5 [facility] Comment on above: Performed By: #### L 100.0010, L100.0030, L304.0140 #### ML - LABORATORY [address] [place] [address] 91766 Protein mass conc 7.6 g/dL Normal 6.4-8.3 [facility] Comment on above: Performed By: #### L 100.0010, L100.0030, L304.0140 #### ML - LABORATORY [address] [place] [address] 93900 SALICYLATEon 02-21-2018 SALICYLATE < 0.3 Normal 0-10 [facility] Comment on above: Performed By: #### L 100.0530, L100.0690, L100.0700 #### ML - LABORATORY [address] [place] [address] 35299 TSHon 02-21-2018 Thyrotropin Qn 1.02 uIU/mL Normal 0.45-4.50 [facility] Comment on above: Performed By: #### L 100.0010, L100.0030, L304.0140 #### ML - LABORATORY [address] [place] [address] 32063 URINALYSISon 02-21-2018 Bilirubin Ql (U) Negative Normal NEGATIVE [facility] Comment on above: Order Comment: Urine Specimen Source+ CLEAN CATCH Performed By: #### L 200.3000 #### ML - LABORATORY [address] [place] [address] 49395 Color Nom (U) YELLOW Normal YELLOW [facility] Comment on above: Order Comment: Urine Specimen Source+ CLEAN CATCH Performed By: #### L 200.3000 #### ML - LABORATORY [address] [place] [address] 90014 Glucose Ql (U) Negative Normal NEGATIVE [facility] Comment on above: Order Comment: Urine Specimen Source+ CLEAN CATCH Performed By: #### L 200.3000 #### ML - LABORATORY [address] [place] [address] 92145 Hemoglobin Ql (U) MODERATE Normal NEGATIVE [facility] Comment on above: Order Comment: Urine Specimen Source+ CLEAN CATCH Performed By: #### L 200.3000 #### [facility] [address] [place] [address] 22397 Leukocyte esterase Test strip Ql (U) Negative Normal NEGATIVE [facility] Comment on above: Order Comment: Urine Specimen Source+ CLEAN CATCH Performed By: #### L 200.3000 #### ML - LABORATORY [address] [place] [address] 48156 Nitrite Ql (U) Negative Normal NEGATIVE [facility] Comment on above: Order Comment: Urine Specimen Source+ CLEAN CATCH Performed By: #### L 200.3000 #### ML - LABORATORY [address] [place] [address] 27037 pH (U) 6.0 [pH] Normal 5.0-8.0 [facility] Comment on above: Order Comment: Urine Specimen Source+ CLEAN CATCH Performed By: #### L 200.3000 #### ML - LABORATORY [address] [place] [address] 07024 Protein Ql (U) Negative Normal NEGATIVE [facility] Comment on above: Order Comment: Urine Specimen Source+ CLEAN CATCH Performed By: #### L 200.3000 #### ML - LABORATORY [address] [place] [address] 48699 URINE APPEARANC CLEAR Normal CLEAR [facility] Comment on above: Order Comment: Urine Specimen Source+ CLEAN CATCH Performed By: #### L 200.3000 #### ML - LABORATORY [address] [place] [address] 64311 URINE KETONE Negative Normal NEGATIVE [facility] Comment on above: Order Comment: Urine Specimen Source+ CLEAN CATCH Performed By: #### L 200.3000 #### ML - LABORATORY [address] [place] [address] 46471 URINE SPECIFIC 1.020 Normal 1.001-1.035 [facility] Comment on above: Order Comment: Urine Specimen Source+ CLEAN CATCH Performed By: #### L 200.3000 #### [facility] - LABORATORY [address] [place] [address] 85384 URINE UROBILINO 0.2 EU/DL Normal 0.2-1.0 [facility] Comment on above: Order Comment: Urine Specimen Source+ CLEAN CATCH Performed By: #### L 200.3000 #### ML - LABORATORY [address] [place] [address] 90714 CBC, AUTO DIFFon 09-26-2017 BASOPHILS (ABSOLUTE) 0.0 x10 3/uL Normal 0.0-0.2 [facility] Comment on above: Performed By: #### L IPID ####[facility] [id number] [place], [place] [phone] Basophils/100 WBC Auto (Bld) 0.3 % Normal 0.0-2.0 [facility] Comment on above: Performed By: #### L IPID ####[facility] [id number] [place], [place] [phone] Eosinophils 0.1 x10 3/uL Normal 0.0-0.7 [facility] Comment on above: Performed By: #### L IPID ####[facility] [id number] [place], [place] [phone] Eosinophils/100 leukocytes 1.6 % Normal 0.0-7.0 [facility] Comment on above: Performed By: #### L IPID ####[facility] [id number] [place], [place] [phone] Erythrocyte distribution width Auto Ratio (RBC) 13.1 % Normal 11.0-14.8 [facility] [facility] Comment on above: Performed By: #### L IPID ####[facility] Pifztdxcod4[address] [place], [place] [phone] Erythrocytes (RBC) 4.1 x10 6/uL Normal 4.1-5.1 [facility] Comment on above: Performed By: #### L IPID ####[facility] Rhrhwaxryq3063 [place], [place] [phone] Hematocrit (HCT) 38.3 % Normal 36.0-48.0 [facility] Comment on above: Performed By: #### L IPID ####[facility] Kfclpxhrmf8526 [place], [place] [phone] Hemoglobin mass conc (Bld) 12.8 g/dL Normal 12.0-16.0 [facility] Comment on above: Performed By: #### L IPID ####[facility] Tgybjcljso6462 [place], [place] [phone] Lymphocytes 2.6 x10 3/uL Normal 1.0-4.8 [facility] Comment on above: Performed By: #### L IPID ####[facility] Qmlnrrsmkp3465 [place], [place] [phone] Lymphocytes/100 leukocytes 32.3 % Normal 25.0-45.0 [facility] Comment on above: Performed By: #### L IPID ####[facility] Xllkopowea7415 [place], [place] [phone] MANUAL DIFFERENTIAL NO Normal [facility] Comment on above: Performed By: #### L IPID ####[facility] Osiypdsyxa0221 [place], [place] [phone] MCH 31.5 pg Normal 25.0-34.0 [facility] Comment on above: Performed By: #### L IPID ####[facility] Ukxdfkodnv5163 [place], [place] [phone] MCHC mass conc (RBC) 33.5 g/dL Normal 32.0-36.0 [facility] Comment on above: Performed By: #### L IPID ####[facility] Xoeclzjrup7681 [facility]. [place], [place] [phone] MCV 94.0 fL Normal 78.0-102.0 [facility] Comment on above: Performed By: #### L IPID ####[facility] Zxcgfirawd8211 [facility]. [place], [place] [phone] Monocytes 0.4 x10 3/uL Normal 0.0-0.9 [facility] Comment on above: Performed By: #### L IPID ####[facility] Fgqpwydceu3985 [facility]. [place], [place] [phone] Monocytes/100 leukocytes 5.5 % Normal 2.0-8.0 [facility] Comment on above: Performed By: #### L IPID ####[facility] Wxmtjkaial7342 [facility]. [place], [place] [phone] Neutrophils 4.9 x10 3/uL Normal 1.8-7.7 [facility] Comment on above: Performed By: #### L IPID ####[facility] Fexwaeqohm9321 [facility]. [place], [place] [phone] NEUTROPHILS (%) 60.3 % Normal 39.0-75.0 [facility] Comment on above: Performed By: #### L IPID ####[facility] Nhfwabqhga8098 [facility]. [place], [place] [phone] Platelets 298 x10 3/uL Normal 142-424 [facility] Comment on above: Performed By: #### L IPID ####[facility] Zkankoqeqq9261 [facility]. [place], [place] [phone] WBC (Leukocytes) 8.1 x10 3/uL Normal 4.5-13.5 [facility] Comment on above: Performed By: #### L IPID ####[facility] Imusldltaf2669 [facility]. [place], [place] [phone] RPR, QUALon 09-06-2017 RPR KIT EXP DATE 07/20/2018 Normal [facility] Comment on above: Performed By: #### L IPID ####[facility] Dnuqurazbo5730 [place], [place] [phone] RPR KIT [address] # [id number] Normal [facility] Comment on above: Performed By: #### L IPID ####[facility] Zuviovooma0036 [place], [place] [phone] RPR, QUAL NON-REACTIVE Normal NONREACTIVE [facility] Comment on above: Performed By: #### L IPID ####[facility] Dqqttqynum3312 [place], [place] [phone] CBC, AUTO DIFFon 08-30-2017 BASOPHILS (ABSOLUTE) 0.0 x10 3/uL Normal 0.0-0.2 [facility] Comment on above: Performed By: #### C BC ####[facility] Keoatmpkly4777 [facility]. [place], [place] [phone] Basophils/100 WBC Auto (Bld) 0.5 % Normal 0.0-2.0 [facility] Comment on above: Performed By: #### C BC ####[facility] Rhrrqgmgig9264 [place], [place] [phone] Eosinophils 0.3 x10 3/uL Normal 0.0-0.7 [facility] Comment on above: Performed By: #### C BC ####[facility] Gxwouxvxrb2074 [place], [place] [phone] Eosinophils/100 leukocytes 5.8 % Normal 0.0-7.0 [facility] Comment on above: Performed By: #### C BC ####[facility] Cqqkuzhjzm1757 [facility]. [place], [place] [phone] Erythrocyte distribution width Auto Ratio (RBC) 12.9 % Normal 11.0-14.8 [facility] Comment on above: Performed By: #### C BC ####[facility] Uvnyubchij2161 [facility]. [place], [place] [phone] Erythrocytes (RBC) 4.3 x10 6/uL Normal 4.1-5.1 [facility] Comment on above: Performed By: #### C BC ####[facility] Lnmsddssqx9315 [facility]. [place], [place] [phone] Hematocrit (HCT) 40.3 % Normal 36.0-48.0 [facility] Comment on above: Performed By: #### C BC ####[facility] Fkoshutwtq6107 [facility]. [place], [place] [phone] Hemoglobin mass conc (Bld) 13.3 g/dL Normal 12.0-16.0 [facility] Comment on above: Performed By: #### C BC ####[facility] Jiyhgeevcw5507 [facility]. [place], [place] [phone] Lymphocytes 2.4 x10 3/uL Normal 1.0-4.8 [facility] Comment on above: Performed By: #### C BC ####[facility] Pyzkbcelkf2781 [facility]. [place], [place] [phone] Lymphocytes/100 leukocytes 40.7 % Normal 25.0-45.0 [facility] Comment on above: Performed By: #### C BC ####[facility] Jddkmzrazb2928 [facility]. [place], [place] [phone] MANUAL DIFFERENTIAL NO Normal [facility] Comment on above: Performed By: #### C BC ####[facility] Ftukyrzdxr8640 [facility]. [place], [place] [phone] MCH 31.1 pg Normal 25.0-34.0 [facility] Comment on above: Performed By: #### C BC ####[facility] Weyimnzfbd0371 [facility]. [place], [place] [phone] MCHC mass conc (RBC) 33.1 g/dL Normal 32.0-36.0 [facility] Comment on above: Performed By: #### C BC ####[facility] Kwkogvzgxo5724 [facility]. [place], [place] [phone] MCV 93.9 fL Normal 78.0-102.0 [facility] Comment on above: Performed By: #### C BC ####[facility] Zrylydtbij6660 [facility]. [place], [place] [phone] Monocytes 0.4 x10 3/uL Normal 0.0-0.9 [facility] Comment on above: Performed By: #### C BC ####[facility] Xhsbbagscc4567 [facility]. [place], [place] [phone] Monocytes/100 leukocytes 6.1 % Normal 2.0-8.0 [facility] Comment on above: Performed By: #### C BC ####[facility] Staenqffow5032 [facility]. [place], [place] [phone] Neutrophils 2.7 x10 3/uL Normal 1.8-7.7 [facility] Comment on above: Performed By: #### C BC ####[facility] Pznjuifeey5865 [place], [place] [phone] NEUTROPHILS (%) 46.9 % Normal 39.0-75.0 [facility] Comment on above: Performed By: #### C BC ####[facility] Vrpfnsnltf4513 [facility]. [place], [place] [phone] Platelets 271 x10 3/uL Normal 142-424 [facility] Comment on above: Performed By: #### C BC ####[facility] Nfqcccncyt7965 [facility]. [place], [place] [phone] WBC (Leukocytes) 5.9 x10 3/uL Normal 4.5-13.5 [facility] Comment on above: Performed By: #### C BC ####[facility] [address] [place] [address]. [place], [place] [phone] CHLAMYDIA PCRon 08-30-2017 //INT. LOT # FOR KIT TEST [id number] Normal [facility] Comment on above: Performed By: #### C HLA PCR ####[facility] Jecvydqxzn1644 [facility]. [place], [place] [phone] Performed By: #### G VINICIO PCR ####[facility] [address] [place] [address]. [place], [place] [phone] //INT.EXPIRATION FOR KIT TEST 07/19/19 Normal [facility] Comment on above: Performed By: #### C HLA PCR ####[facility] Jibhbqzqrm8265 [facility]. [place], [place] [phone] Performed By: #### G VINICIO PCR ####[facility] Mxlmqhwuju6932 [facility]. [place], [place] [phone] CHLAMYDIA UA, ENDOCERV PCR Negative Normal NEGATIVE [facility] Comment on above: Performed By: #### C HLA PCR ####[facility] Fywvpolnmm7302 [facility]. [place], [place] [phone] COMP METABOLIC PROFILEon Alanine aminotransferase (ALT) 8 U/L Normal 7-52 [facility] Comment on above: Performed By: #### C META ####[facility] Rqoybsphmd7767 [place], [place] [phone] Albumin 4.4 g/dL Normal 3.3-5.7 [facility] Comment on above: Performed By: #### C META ####[facility] Mtkoaonsmu2621 [place], [place] [phone] Albumin/Globulin Ratio 1.6 {ratio} Normal 1.1-2.5 [facility] Comment on above: Performed By: #### C META ####[facility] Yuyzknvxcn0043 [place], [place] [phone] Alkaline phosphatase (ALP) 61 U/L Normal 34-124 [facility] Comment on above: Performed By: #### C META ####[facility] Fcsadpscof8513 [place], [place] [phone] Anion gap 8 mmol/L Normal 8-16 [facility] Comment on above: Performed By: #### C META ####[facility] Zjlyuqkaem3818 [place], [place] [phone] Aspartate aminotransferase (AST) 12 U/L Low 13-39 [facility] Comment on above: Performed By: #### C META ####[facility] Gyucoqdrkg9262 [place], [place] [phone] Bilirubin Ql (U) 0.6 mg/dL Normal 0.3-1.0 [facility] Comment on above: Performed By: #### C META ####[facility] Yfceydupoz3368 [place], [place] [phone] BUN/Creatinine Ratio 15.0 mg/dL Normal 6.0-22.0 [facility] Comment on above: Performed By: #### C META ####[facility] [address] [place], [place] [phone] Calcium 9.3 mg/dL Normal 8.5-10.5 [facility] Comment on above: Performed By: #### C META ####[facility] [address] [place], [place] [phone] Chloride 103 mmol/L Normal 99-107 [facility] Comment on above: Performed By: #### C META ####[facility] Toniaqdbxc7685 [facility] [place], [place] [phone] CO2 27 mmol/L Normal 21-31 [facility] Comment on above: Performed By: #### C META ####[facility] Ddhkjkmzyo9526 [facility] [place], [place] [phone] Creatinine 0.73 mg/dL Normal 0.60-1.30 [facility] Comment on above: Performed By: #### C META ####[facility] Ouacwmvrbt8419 [facility]. [place], [place] [phone] eGFR (MDRD) 112 mL/min/1.73 m2 Normal [facility] Comment on above: Result Comment: GFR RANGESSTAGE GFR LEVEL DESCRIPTION 1 90 mL/min or more NORMAL 2 60-89 mL/min MILD DECREASE 3 30-59 mL/min MODERATE DECREASE 4 15-29 mL/min SEVERE DECREASE 5 < 15mL/min KIDNEY FAILURE Performed By: #### C META ####[facility] Ligwhzqxxx8690 [facility]. [place], [place] [phone] Globulin 2.8 g/dL Normal 1.7-3.8 [facility] Comment on above: Performed By: #### C META ####[facility] [address] [place], [place] [phone] Glucose mass conc 74 mg/dL Normal 70-105 [facility] Comment on above: Performed By: #### C META ####[facility] Zjoznhiudy6520 [facility]. [place], [place] [phone] Potassium molar conc 4.2 mmol/L Normal 3.5-5.3 [facility] Comment on above: Performed By: #### C META ####[facility] Vkcvberxtu7040 [place], [place] [phone] Protein 7.2 g/dL Normal 6.0-8.9 [facility] Comment on above: Performed By: #### C META ####[facility] Erwvyheuwe8475 [place], [place] [phone] Sodium 138 mmol/L Normal 135-145 [facility] Comment on above: Performed By: #### C META ####[facility] Csxurshvxw3955 [place], [place] [phone] Urea nitrogen 11.0 mg/dL Normal 7-25 [facility] Comment on above: Performed By: #### C META ####[facility] Fbvwazjwfr5139 [place], [place] [phone] DRUG PANEL,URINEon 8 BARBITUATES Negative Normal NEGATIVE [facility] Comment on above: Performed By: #### D RUG PNL ####[facility] Smtezyibim1771 [place], [place] [phone] BENZODIAZEPINE Negative Normal NEGATIVE [facility] Comment on above: Performed By: #### D RUG PNL ####[facility] Spbvzeehrd5366 [place], [place] [phone] Body temperature WITHIN RANGE Normal [facility] Comment on above: Result Comment: CUT OFF VALUES: AMPHETAMINES 300 ng/ml BARBITUATES 200 ng/ml BENZO 200 ng/ml COCAINE 150 ng/ml METHADONE 300 ng/ml OPIATES 300 ng/ml PCP 25 ng/ml THC 50 ng/mlCREA URINE REF.RANGE >19 Performed By: #### D RUG PNL ####[facility] Psbgbrcqbe5652 [place], [place] [phone] CREATININE,URINE 96.1 mg/dL Normal [facility] Comment on above: Performed By: #### D RUG PNL ####[facility] Jrzrmtswrx2102 [place], [place] [phone] DRUG PH 7.0 Normal 5.0-8.0 [facility] Comment on above: Performed By: #### D RUG PNL ####[facility] [address] [place] [address] [phone] PHENOCYCLIDINE Negative Normal NEGATIVE [facility] Comment on above: Performed By: #### D RUG PNL ####[facility] [address] [place] [address] [phone] TRICYCLICS Negative Normal NEGATIVE [facility] Comment on above: Performed By: #### D RUG PNL ####[facility] [address] [place] [address] [phone] Urine, amphetamines presence Negative Normal NEGATIVE [facility] Comment on above: Performed By: #### D RUG PNL ####[facility] Zvahgnhghs2768 [place], [place] [phone] Urine, cannabinoids presence Negative Normal NEGATIVE [facility] Comment on above: Performed By: #### D RUG PNL ####[facility] [address] [place] [address] [phone] Urine, cocaine presence Negative Normal NEGATIVE [facility] Comment on above: Performed By: #### D RUG PNL ####[facility] Eirpclyrpe3863 [place], [place] [phone] Urine, methadone presence Negative Normal NEGATIVE [facility] Comment on above: Performed By: #### D RUG PNL ####[facility] Lleqjqbxeq0057 [facility]. [place], [place] [phone] Urine, opiates presence Negative Normal NEGATIVE F [facility] Comment on above: Performed By: #### D RUG PNL ####[facility] Iyqmrogkqi3730 [facility]. [place], [place] [phone] Urine, specific gravity 1.010 Normal 1.000-1.035 [facility] Comment on above: Performed By: #### D RUG PNL ####[facility] Ppxhdhxypj2216 [facility]. [place], [place] [phone] GONORROHOEAE PCRon 8 //INT. LIBRARY CIRCULATION TECHNICIAN NEG Negative Normal NEGATIVE [facility] Comment on above: Performed By: #### G VINICIO PCR ####[facility] Suquyxiteo1886 [facility]. [place], [place] [phone] Performed By: #### C HLA PCR ####[facility] [address]soeczdig[address] [place] [address]. [place], [place] [phone] //INT.LIBRARY CIRCULATION TECHNICIAN POS Positive Normal POSITIVE [facility] Comment on above: Performed By: #### G VINICIO PCR ####[facility] Bfpaoyyihd8611 [facility]. [place], [place] [phone] Performed By: #### C HLA PCR ####[facility] Pysgjcwfzq3229 [facility]. [place], [place] [phone] GONORRHOEAE PCR UA, ENDOCERV Negative Normal NEGATIVE [facility] Comment on above: Performed By: #### G VINICIO PCR ####[facility] [address] [place] [address]. [place], [place] [phone] HEMOGLOBIN A1Con 08-30-2017 Glucose mass conc 103 mg/dL Normal [facility] Comment on above: Result Comment: WILFRIDO MATED AVERAGE GLUCOSE Performed By: #### L IPID ####[facility] Nvgfaxynth4959 [place], [place] [phone] Hemoglobin A1c/Hemoglobin.total mass fraction (Bld) 5.2 % Normal 4.0-6.2 [facility] Comment on above: Result Comment: Expe cted Values: 3-6% for non diabetics 6-9% for controlled diabetics >9% for poorly controlled diabetics Performed By: #### L IPID ####[facility] Roitugthix7614 [place], [place] [phone] LIPID PROFILEon 08-30-2017 Cholesterol 123 mg/dL Normal 25-200 [facility] Comment on above: Result Comment: Citl[place] onal Cholesterol Education Program (NCEP) /National [employer] (NIH) Guidelines:Total Cholesterol Desirable Range: Less than 200 mg/dLHDL Cholesterol Desirable Range: Greater than 60 mg/dLLDL Cholesterol Optimal Range: Less than 100 mg/dLTriglyceride Normal Range: Less than 150 mg/dL Performed By: #### L IPID ####[facility] Kinhpyfbdt9382 [place], [place] [phone] Cholesterol in VLDL mass conc 12 mg/dL Normal 0-40 [facility] Comment on above: Performed By: #### L IPID ####[facility] Lrbbaitdfk6664 [place], [place] [phone] HDL Cholesterol 53 mg/dL Normal 23-92 [facility] Comment on above: Performed By: #### L IPID ####[facility] Tctufkrvqd0598 [place], [place] [phone] LDL Cholesterol 58 mg/dL Low 66-178 [facility] Comment on above: Performed By: #### L IPID ####[facility] Ajjrpcrhni0898 [place], [place] [phone] Triglyceride 58 mg/dL Normal 48-352 [facility] Comment on above: Result Comment: TRIG LYCERIDE NORMAL RANGE: LESS THAN 150 mg/dL Performed By: #### L IPID ####[facility] [address] [place] [address] [phone] URINEon 08-30-2017 //INT. LOT # FOR KIT TEST [id number] Normal [facility] Comment on above: Performed By: #### P GUR ####[facility] [address] [place] [address] [phone] //INT. LIBRARY CIRCULATION TECHNICIAN NEG Negative Normal NEGATIVE [facility] Comment on above: Performed By: #### P GUR ####[facility] [address]oz[address] [place] [address] [phone] //INT.EXPIRATION FOR KIT TEST 04-21-19 Normal [facility] Comment on above: Performed By: #### P GUR ####[facility] [address] [place] [address] [phone] //INT.LIBRARY CIRCULATION TECHNICIAN POS Positive Normal POSITIVE [facility] Comment on above: Performed By: #### P GUR ####[facility] T[address] [place] [address] [phone] HCG.beta subunit ( test) Ql (U) Negative Normal NEGATIVE [facility] Comment on above: Performed By: #### P GUR ####[facility] [address] [place] [address] [phone] TSH - THIRD GENERATIONon Thyroid stimulating hormone (TSH) 3.153 uIU/mL Normal 0.340-5.600 [facility] Comment on above: Result Comment: *NOT E: HIGH SENSITIVE THIRD GENERATION TSH.* Performed By: #### T SH ####[facility] [address] [place], [place] [phone] URINALYSIS(REFLEX TO CULTURE )on 08-30-2017 Bilirubin (total) Negative Normal NEGATIVE [facility] Comment on above: Performed By: #### U AC2 ####[facility] [address] [place], [place] [phone] BLOOD TRACE Normal NEGATIVE [facility] Comment on above: Performed By: #### U AC2 ####[facility] [address] [place], [place] [phone] EPITHELIAL TRANSITIONAL, URINE 0-2 Normal NONE SEEN [facility] Comment on above: Performed By: #### U AC2 ####[facility] [address] [place], [place] [phone] KETONE Negative Normal NEGATIVE [facility] Comment on above: Performed By: #### U AC2 ####[facility] [address] [place], [place] [phone] URINE MICROSCOPY YES Normal * [facility] Comment on above: Performed By: #### U AC2 ####[facility] [address] [place], [place] [phone] Urine, clarity CLEAR Normal CLEAR [facility] Comment on above: Performed By: #### U AC2 ####[facility] [address] [place], [place] [phone] Urine, color YELLOW Normal YELLOW [facility] Comment on above: Performed By: #### U AC2 ####[facility] [address] [place], [place] [phone] Urine, erythrocytes in sediment by area 0-2 Normal NONE SEEN [facility] Comment on above: Performed By: #### U AC2 ####[facility] Xvsjzssjnz6099 [facility]. [place], [place] [phone] Urine, glucose presence Negative Normal NEGATIVE [facility] Comment on above: Performed By: #### U AC2 ####[facility] Gznvhavxer6187 [facility]. [place], [place] [phone] Urine, nitrite presence Negative Normal NEGATIVE [facility] [facility] Comment on above: Performed By: #### U AC2 ####[facility] [id number] [facility]. [place], [place] [phone] Urine, pH 7.0 [pH] Normal 5.0-8.0 [facility] Comment on above: Performed By: #### U AC2 ####[facility] Sspytyemyh1794 [facility]. [place], [place] [phone] Urine, protein presence Negative Normal NEGATIVE [facility] Comment on above: Performed By: #### U AC2 ####[facility] Owpoxlbxgr3802 [facility]. [place], [place] [phone] Urine, specific gravity 1.010 Normal 1.000-1.035 [facility] Comment on above: Performed By: #### U AC2 ####[facility] Ntltejwmsz7973 [facility]. [place], [place] [phone] UROBILIGEN Negative Normal NEG - 8.0 [facility] Comment on above: Performed By: #### U AC2 ####[facility] Pjzckbxyin6448 [facility]. [place], [place] [phone] WBC (Leukocytes) Negative Normal NEGATIVE [facility] Comment on above: Performed By: #### U AC2 ####[facility] Xengwdlsag9664 [facility]. [place], [place] [phone] VITAMIN D; 25 HYDROXY (FCMH) on 08-30-2017 VITAMIN D 25 HYDROXY 20.0 ng/mL Normal [facility] Comment on above: Result Comment: Deficient <20 ng/mL Insufficient 20 to <30 ng/mL Sufficient 30 to 100 ng/mL Upper Safety Limit >100 ng/mL Performed By: #### V ITD25 ####[facility] Actgkzigmt6813 [place], [place] [phone] Vital Signs Date Time Vital Sign Value Performing Clinician Facility 11-21-2024 10:04-0400 Body temperature 98.2 [degF] Dr. Courtney Lay DO Work Phone: 8(054)545-156857 [place] [address] 11-21-2024 10:04-0400 Diastolic blood pressure 71 mm[Hg] Dr. Courtney Lay DO Work Phone: 2(908)118-694357 [place] [address] 11-21-2024 10:04-0400 Heart rate 89 /min Dr. Courtney Lay DO Work Phone: 0(937)101-561357 [place] [address] 11-21-2024 10:04-0400 Respiratory rate 14 /min Dr. Courtney Lay DO Work Phone: 9(587)305-637557 [place] [address] 11-21-2024 10:04-0400 SaO2% (BldA) [Mass fraction] 100 % Dr. Courtney Lay DO Work Phone: 2(938)396-145657 [place] [address] 11-21-2024 10:04-0400 Systolic blood pressure 102 mm[Hg] Dr. Courtney Lay DO Work Phone: 3(444)848-087957 [place] [address] 11-21-2024 00:12-0400 Body height 172.[address] Courtney Lay DO Work Phone: 2(562)046-085957 [place] [address] 11-21-2024 00:12-0400 Body mass index (BMI) [Ratio] 18.8 kg/m2 Dr. Courtney Lay DO Work Phone: 3(200)945-830357 [place] [address] 11-21-2024 00:12-0400 Body weight 56.[address] Courtney Lay DO Work Phone: 2(646)051-499957 [place] [address] 11-03-2024 18:38-0400 Body mass index (BMI) [Ratio] 29.26 kg/m2 Jerad King APRN.TERMINOLOGIST Work Phone: [facility] 11-03-2024 18:38-0400 Body temperature 98.29 [degF] Jerad King APRN.TERMINOLOGIST Work Phone: [facility] 11-03-2024 18:38-0400 Body weight 59.2 kg Jerad King APRN.TERMINOLOGIST Work Phone: [facility] 11-03-2024 18:38-0400 Diastolic blood pressure 70 mm[Hg] Jerad King APRN.TERMINOLOGIST Work Phone: [facility] 11-03-2024 18:38-0400 Heart rate 104 /min Jerad King APRN.TERMINOLOGIST Work Phone: [facility] 11-03-2024 18:38-0400 Respiratory rate 16 /min Jerad King APRN.TERMINOLOGIST Work Phone: [facility] 11-03-2024 18:38-0400 SaO2% (BldA) [Mass fraction] 99 % Jerad King APRN.TERMINOLOGIST Work Phone: [facility] 11-03-2024 18:38-0400 Systolic blood pressure 122 mm[Hg] Jerad King APRN.TERMINOLOGIST Work Phone: [facility] 09-25-2024 16:13-0400 Body temperature 97.8 [degF] Dr. Courtney Lay DO Work Phone: [facility] 09-25-2024 16:13-0400 Diastolic blood pressure 64 mm[Hg] Dr. Courtney Lay DO Work Phone: [facility] 09-25-2024 16:13-0400 Heart rate 88 /min Dr. Courtney Lay DO Work Phone: [facility] 09-25-2024 16:13-0400 Respiratory rate 14 /min Dr. Courtney Lay DO Work Phone: 1(479)837-460992 [place] [address] 09-25-2024 16:13-0400 SaO2% (BldA) [Mass fraction] 98 % Dr. Courtney Lay DO Work Phone: 7(464)736-523757 [place] [address] 09-25-2024 16:13-0400 Systolic blood pressure 105 mm[Hg] Dr. Courtney Lay DO Work Phone: 2(518)288-637957 [place] [address] 09-25-2024 07:35-0400 Body height 152.[address] Courtney Lay DO Work Phone: 6(087)647-126557 [place] [address] 09-25-2024 07:35-0400 Body mass index (BMI) [Ratio] 25.4 kg/m2 Dr. Courtney Lay DO Work Phone: 2(863)746-937457 [place] [address] 09-25-2024 07:35-0400 Body weight 59.[address] Courtney Lay DO Work Phone: 0(745)762-353857 [place] [address] 08-21-2024 06:41-0400 Diastolic blood pressure 64 mm[Hg] Dr. Courtney Lay DO Work Phone: 4(657)368-527957 [place] [address] 08-21-2024 06:41-0400 Heart rate 75 /min Dr. Courtney Lay DO Work Phone: 3(300)488-438957 [place] [address] 08-21-2024 06:41-0400 Respiratory rate 16 /min Dr. Courtney Lay DO Work Phone: 4(158)718-106857 [place] [address] 08-21-2024 06:41-0400 SaO2% (BldA) [Mass fraction] 99 % Dr. Courtney Lay DO Work Phone: 8(873)543-489157 [place] [address] 08-21-2024 06:41-0400 Systolic blood pressure 103 mm[Hg] Dr. Courtney Lay DO Work Phone: 7(261)439-850957 [place] [address] 08-21-2024 06:40-0400 Body temperature 98.4 [degF] Dr. Courtney Lay DO Work Phone: 4(070)642-242857 [place] [address] 08-20-2024 22:54-0400 Body mass index (BMI) [Ratio] 26.2 kg/m2 Dr. Courtney Lay DO Work Phone: [facility] 08-20-2024 22:54-0400 Body weight 60.[address] Courtney Lay DO Work Phone: [facility] 07-09-2024 09:35-0400 Body height 142.2 cm Pacc 1 Work Phone: [facility] 07-09-2024 09:35-0400 Body mass index (BMI) [Ratio] 29.37 kg/m2 Pacc 1 Work Phone: [facility] 07-09-2024 09:35-0400 Body temperature 98.6 [degF] Pacc 1 Work Phone: [facility] 07-09-2024 09:35-0400 Body weight 59.42 kg Pacc 1 Work Phone: [facility] 07-09-2024 09:35-0400 Diastolic blood pressure 82 mm[Hg] Pacc 1 Work Phone: [facility] 07-09-2024 09:35-0400 Heart rate 96 /min Pacc 1 Work Phone: [facility] 07-09-2024 09:35-0400 Respiratory rate 12 /min Pacc 1 Work Phone: [facility] 07-09-2024 09:35-0400 SaO2% (BldA) [Mass fraction] 99 % Pacc 1 Work Phone: [facility] 07-09-2024 09:35-0400 Systolic blood pressure 120 mm[Hg] Pacc 1 Work Phone: [facility] 06-17-2024 15:23-0500 Body height 142.2 cm Jess Zamora MD Work Phone: [facility] 06-17-2024 15:23-0500 Body mass index (BMI) [Ratio] 29.37 kg/m2 Jess Zamora MD Work Phone: [facility] 06-17-2024 15:23-0500 Body weight 59.42 kg Jess Zamora MD Work Phone: [facility] 06-17-2024 15:23-0500 Diastolic blood pressure 70 mm[Hg] Jess Zamora MD Work Phone: [facility] 06-17-2024 15:23-0500 Systolic blood pressure 124 mm[Hg] Jess Zamora MD Work Phone: [facility] 07-18-2023 14:47-0400 Body temperature 98.1 [degF] Dr. Gamaliel Jovel Work Phone: [facility] 07-18-2023 14:47-0400 Diastolic blood pressure 69 mm[Hg] Dr. Gamaliel Jovel Work Phone: [facility] 07-18-2023 14:47-0400 Heart rate 88 /min Dr. Gamaliel Jovel Work Phone: [facility] 07-18-2023 14:47-0400 Respiratory rate 18 /min Dr. Gamaliel Jovel Work Phone: [facility] 07-18-2023 14:47-0400 SaO2% (BldA) [Mass fraction] 100 % Dr. Gamaliel Jovel Work Phone: [facility] 07-18-2023 14:47-0400 Systolic blood pressure 99 mm[Hg] Dr. Gamaliel Jovel Work Phone: [facility] 07-17-2023 10:49-0400 Body height 142.[address] Gamaliel Jovel Work Phone: [facility] 07-17-2023 10:49-0400 Body mass index (BMI) [Ratio] 29.8 kg/m2 Dr. Gamaliel Jovel Work Phone: [facility] 07-17-2023 10:49-0400 Body weight 60.[address] Gamaliel Jovel Work Phone: [facility] 07-11-2023 21:19-0400 Body temperature 98.6 [degF] [facility] 07-11-2023 21:19-0400 Diastolic blood pressure 84 mm[Hg] [facility] 07-11-2023 21:19-0400 Heart rate 105 /min [facility] 07-11-2023 21:19-0400 Respiratory rate 16 /min [facility] 07-11-2023 21:19-0400 SaO2% (BldA) [Mass fraction] 98 % [facility] 07-11-2023 21:19-0400 Systolic blood pressure 121 mm[Hg] [facility] 07-11-2023 18:18-0400 Body height 149.86 cm [facility] 07-11-2023 18:18-0400 Body mass index (BMI) [Ratio] 29.6 kg/m2 [facility] 07-11-2023 18:18-0400 Body weight 66.5 kg [facility] 07-10-2023 10:26-0400 Body mass index (BMI) [Ratio] 27.41 kg/m2 [place] TERMINOLOGIST Work Phone: [facility] 07-10-2023 10:26-0400 Body weight 61.55 kg [place] TERMINOLOGIST Work Phone: [facility] 07-10-2023 10:26-0400 Diastolic blood pressure 75 mm[Hg] [employer] TERMINOLOGIST Work Phone: [facility] 07-10-2023 10:26-0400 Heart rate 83 /min [employer] TERMINOLOGIST Work Phone: [facility] 07-10-2023 10:26-0400 SaO2% (BldA) [Mass fraction] 97 % [place] TERMINOLOGIST Work Phone: [facility] 07-10-2023 10:26-0400 Systolic blood pressure 106 mm[Hg] [place] TERMINOLOGIST Work Phone: [facility] 01-09-2023 13:13-0400 Body height 149.9 cm [place] TERMINOLOGIST Work Phone: [facility] 01-09-2023 13:13-0400 Body mass index (BMI) [Ratio] 29.02 kg/m2 [employer] TERMINOLOGIST Work Phone: [facility] 01-09-2023 13:13-0400 Body weight 65.18 kg [place] TERMINOLOGIST Work Phone: [facility] 01-09-2023 13:13-0400 Diastolic blood pressure 83 mm[Hg] [employer] TERMINOLOGIST Work Phone: [facility] 01-09-2023 13:13-0400 Heart rate 84 /min [place] TERMINOLOGIST Work Phone: [facility] 01-09-2023 13:13-0400 Respiratory rate 17 /min [place] TERMINOLOGIST Work Phone: [facility] 01-09-2023 13:13-0400 SaO2% (BldA) [Mass fraction] 99 % [place] TERMINOLOGIST Work Phone: [facility] 01-09-2023 13:13-0400 Systolic blood pressure 121 mm[Hg] [place] TERMINOLOGIST Work Phone: [facility] 12-12-2022 14:55-0400 Body weight 64.41 kg Gregoria Gold MD Work Phone: [facility] 12-12-2022 14:55-0400 Diastolic blood pressure 56 mm[Hg] Gregoria Gold MD Work Phone: [facility] 12-12-2022 14:55-0400 Systolic blood pressure 104 mm[Hg] Gregoria Gold MD Work Phone: [facility] Encounters Encounter Date Encounter Type Care Provider Facility Start: 11-21-2024 End: 11-21-2024 Emergency department patient visit Dr. Courtney Lay DO Work Phone: -Emergency Department Work Phone: Start: 11-03-2024 End: 11-03-2024 Patient encounter procedure Jerad King APRN.TERMINOLOGIST Work Phone: [facility] Comment on above: Vomiting, unspecifie d vomiting type, unspecified whether nausea present Start: 11-03-2024 End: 11-03-2024 ambulatory JERAD KING Facility:[facility] Start: 09-25-2024 End: 09-25-2024 Emergency department patient visit Dr. Courtney Lay DO Work Phone: -Emergency Department Work Phone: Start: 08-20-2024 End: 08-21-2024 Emergency department patient visit Courtney Lay Facility:[facility] Start: 07-23-2024 End: 09-22-2024 Follow-up encounter Gregoria Gold MD Work Phone: OB/Gynecology Start: 07-14-2024 End: 07-14-2024 ambulatory UNKNOWN PROVIDER Facility:[facility] Start: 07-10-2024 End: 07-10-2024 Telephone encounter Jarod Malhotra APRN.TERMINOLOGIST Work Phone: Pre Anesthesia Comment on above: Request Outside [facility] Start: 07-09-2024 End: 07-09-2024 Patient encounter procedure Kia Leblanc APRN.TERMINOLOGIST Work Phone: General Surgery Comment on above: Subcutaneous mass (P rimary Dx) Start: 07-09-2024 End: 07-09-2024 ambulatory KIA LEBLANC Facility:[facility] Start: 07-09-2024 End: 07-09-2024 PAT [facility] Kristen 1 Work Phone: Pre Anesthesia Comment on above: Pre-operative examin ation (Primary Dx); History of hemangioma; General learning disability; Schizophrenia, unspecified type (HCC); Severe episode of recurrent major depressive disorder, without psychotic features (HCC); Subcutaneous mass Start: 07-09-2024 End: 07-09-2024 Preprocedural examination done [facility] Kristen 1 Work Phone: [facility] Work Phone: Start: 07-07-2024 End: 07-07-2024 ambulatory Gregoria Gold MD Work Phone: OB/Gynecology Comment on above: General counseling a nd advice for contraceptive management (Primary Dx) Start: 07-07-2024 End: 07-07-2024 Telemedicine consultation with patient Gregoria Gold MD Work Phone: OB/Gynecology Start: 07-03-2024 End: 07-03-2024 Telephone encounter Gregoria Gold SCALPER OPERATOR.CNM Work Phone: OB/Gynecology Comment on above: Schedule Surgery Start: 06-26-2024 End: 06-26-2024 Telephone encounter Gregoria Gold MD Work Phone: OB/Gynecology Comment on above: Appointment; Pre Op Appointment Start: 06-17-2024 End: 06-17-2024 ambulatory JESS ZAMORA Facility:[facility] Start: 06-17-2024 End: 06-17-2024 Patient encounter procedure Jess Zamora MD Work Phone: OB/Gynecology Comment on above: Encounter for gyneco logical examination (general) (routine) without abnormal findings (Primary Dx); Encounter for IUD removal; Dysmenorrhea Start: 06-17-2024 End: 06-17-2024 Patient encounter status Jess Zamora MD Work Phone: [facility] Start: 07-18-2023 Non-patient / Non-visit Dr. Fito Jovel Work Phone: [facility] Work Phone: Start: 07-17-2023 Non-patient / Non-visit Dr. Fito Jovel Work Phone: [facility] Work Phone: Start: 07-17-2023 End: 07-18-2023 Evaluation and management of inpatient Dr. Gamaliel Jovel Work Phone: [facility]-Medical Surgical 3 Work Phone: Start: 07-16-2023 Non-patient / Non-visit [facility] F[facility] Start: 07-16-2023 Non-patient / Non-visit Dr. Fito Jovel Work Phone: [facility] Work Phone: Start: 07-15-2023 Non-patient / Non-visit Dr. Fito Jovel Work Phone: [facility] Work Phone: Start: 07-14-2023 Non-patient / Non-visit Dr. Fito Jovel Work Phone: [facility] Work Phone: Start: 07-13-2023 Non-patient / Non-visit Dr. Fito Jovel Work Phone: [facility] Work Phone: Start: 07-12-2023 Non-patient / Non-visit Dr. Fito Jovel Work Phone: [facility] Start: 07-12-2023 Non-patient / Non-visit Dr. Fito Jovel Work Phone: [facility] Work Phone: Start: 07-11-2023 Evaluation and management of inpatient [facility] 3 Work Phone: Start: 07-11-2023 Non-patient / Non-visit Dr. Fito Jovel Work Phone: [facility] Work Phone: Start: 07-11-2023 observation encounter [facility] Work Phone: Start: 07-10-2023 End: 07-10-2023 ambulatory ASHVIN CHERRY [facility] Start: 07-10-2023 End: 07-10-2023 Patient encounter procedure Ashvin Cherry TERMINOLOGIST Work Phone: [facility] Comment on above: Bilateral impacted c erumen (Primary Dx) Start: 01-09-2023 End: 01-13-2023 ambulatory PHYSICIAN NO [facility] Start: 01-09-2023 End: 01-13-2023 Encounter for hearing examination following failed hearing screening AKOSUA VANESSA [facility] Start: 01-09-2023 End: 01-09-2023 ambulatory ASHVIN CHERRY [facility]ory Start: 01-09-2023 End: 01-09-2023 Clinical Support Akosua Ross Work Phone: [facility] Comment on above: Encounter for hearin g examination after failed hearing test (Primary Dx) Start: 01-09-2023 End: 01-09-2023 Hearing normal Ashvin Cherry TERMINOLOGIST Work Phone: [facility] Start: 01-09-2023 End: 01-09-2023 Office outpatient new 30 minutes Ashvin Cherry TERMINOLOGIST Work Phone: [facility] Comment on above: Hearing loss of both ears due to cerumen impaction (Primary Dx); Bilateral impacted cerumen; Normal hearing exam; Encounter for hearing examination after failed hearing test Start: 01-09-2023 End: 01-09-2023 Patient encounter status Akosua Ross Work Phone: [facility] Work Phone: Start: 12-12-2022 End: 12-12-2022 Patient encounter procedure Gregoria Gold MD Work Phone: OB/Gynecology Comment on above: IUD check up (Primar y Dx) Start: 09-27-2022 End: 09-27-2022 ambulatory [facility] Work Phone: Start: 09-27-2022 End: 09-27-2022 Patient encounter procedure [facility]/Neurology Work Phone: Start: 08-28-2022 Transcribe Orders Hvi Transcri be Provider Cardiology Comment on above: Pre-syncope (Primary Dx) Start: 09-26-2017 End: 09-26-2017 Ambulatory MIKE FRYE [facility] Start: 08-30-2017 End: 08-30-2017 Ambulatory BARBARA HUGHES [facility] Start: 08-29-2017 End: 08-29-2017 Ambulatory [facility] Procedures Date Procedure Procedure Detail Performing Clinician Start: 11-21-2024 Methadone measurement, urine Dr. Courtney Lay DO Work Phone: Start: 11-21-2024 Urnls dip stick/tabl et reagent auto microscopy Dr. Courtney Lay DO Work Phone: Start: 11-21-2024 Plain chest X-ray Dr. Chucky Lay DO Work Phone: Start: 11-21-[address] Courtney Lay DO Work Phone: Start: 11-21-2024 CT of head without contrast Dr. Courtney Lay DO Work Phone: Start: 09-25-[address] Courtney Lay DO Work Phone: Start: 09-25-2024 Methadone measurement, urine Dr. Courtney Lay DO Work Phone: Start: 08-21-2024 Methadone measurement, urine Dr. Courtney Lay DO Work Phone: Start: 08-20-[address] Courtney Lay DO Work Phone: Start: 07-17-2023 Arthroscopy of [...] ant neoplasm of cervix Cervical Cancer Screening [facility] Start: 06-17-2025 End: 06-17-2025 Patient encounter procedure 06/17/2025 4:00 PM EST Office Visit OB/Gynecology [address] [place] [address] Jess Tolliver MD [address] [place] [address] Annual OB/Gynecology Comment on above: Annual Start: 12-21-[address] [facility] Start: 11-21-2024 End: 11-21-2024 [facility] Start: 11-21-2024 [facility] Start: 11-15-2024 Tetanus vaccination Tetanus: Every 1 0yrs [facility] Start: 11-15-2024 Urine microalbumin profile [facility] Start: 09-25-2024 [facility] Start: 08-21-2024 [facility] Start: 08-21-2024 [facility] Start: 08-20-2024 Insj non-ndwellg shun dder catheter INSERT BLADDER CATHETER [facility] Start: 07-14-2024 End: 07-14-2024 Admission to same day surgery center 07/14/2024 12:57 PM EDT - 07/14/2024 2:12 PM EDT Surgery [facility] [address] [place] [id number] Gregoria Gold MD [address] [place] [address] REMOVAL INTRAUTERINE DEVICE and pap test [facility] Comment on above: REMOVAL INTRAUTERINE DEVICE and pap test Start: 07-14-2024 End: 07-14-2024 Removal intrauterine device iud REMOVAL INTRAUTERINE DEVICE Pelvic pain in female Encounter for screening for malignant neoplasm of cervix Encounter for IUD removal 07/14/2024 12:57 PM EDT [facility] Start: 07-14-2024 Subsequent hospital visit by physician 07/14/2024 12:57 PM EDT Hospital Encounter [facility] [address] [place] [phone] Gregoria Gold MD [address] [place] [address] Pelvic pain in female [R10.2], Encounter for screening for malignant neoplasm of cervix [Z12.4], Encounter for IUD removal [Z30.432] [facility] Comment on above: Pelvic pain in femal e [R10.2], Encounter for screening for malignant neoplasm of cervix [Z12.4], Encounter for IUD removal [Z30.432] Start: 07-14-2024 End: 07-14-2024 Admission to same day surgery center 07/14/2024 11:27 AM EDT - 07/14/2024 12:42 PM EDT Surgery [facility] [address] [place] [id number] Gregoria Gold MD [address] [place] [address] REMOVAL INTRAUTERINE DEVICE and pap test [facility] Comment on above: REMOVAL INTRAUTERINE DEVICE and pap test Start: 07-14-2024 End: 07-14-2024 Removal intrauterine device iud REMOVAL INTRAUTERINE DEVICE Pelvic pain in female Encounter for screening for malignant neoplasm of cervix Encounter for IUD removal 07/14/2024 11:27 AM EDT [facility] Start: 07-14-2024 Subsequent hospital visit by physician 07/14/2024 11:27 AM EDT Hospital Encounter [address] [address] Gregoria Gold MD [address] [facility] [place] [address] Pelvic pain in female [R10.2], Encounter for screening for malignant neoplasm of cervix [Z12.4], Encounter for IUD removal [Z30.432] [facility] Comment on above: Pelvic pain in femal e [R10.2], Encounter for screening for malignant neoplasm of cervix [Z12.4], Encounter for IUD removal [Z30.432] Start: 07-09-2024 End: 07-09-2024 Anesthesia consultation 07/09/2024 9:20 AM EDT PAT Pre Anesthesia [address] [facility] [place] [address] 1, [facility] [address] [place] [address] REMOVAL INTRAUTERINE DEVICE and pap test [2949] - Uterus - N/A Pre Anesthesia Comment on above: REMOVAL INTRAUTERINE DEVICE and pap test [2949] - Uterus - N/A Start: 07-07-2024 End: 07-07-2024 Admission to same day surgery center 07/07/2024 1:10 PM EDT [facility] OB/Gynecology [address] [place] [address] Gregoria Gold MD [address] [place] [address] pre op / surgery at [place] [address] OB/Gynecology Comment on above: pre op / surgery at [place] [address] Start: 01-06-2024 End: 01-06-2024 Patient encounter procedure 01/06/2024 1:00 PM EDT Office Visit [facility] [address] [place] [address] [place] [address] [place], Ashvin Hutson, TERMINOLOGIST [address] [address] [facility] Start: 12-22-2023 Covid-19 Vaccine ( season) Covid-19 Vaccine ( season) [facility] Start: 12-22-2023 Influenza vaccination Influenza Vacc ine (#1) [facility] Start: 07-20-2023 History and physical examination, annual for health maintenance Wellness Visit [facility] Start: 07-18-2023 Patient discharge [facility] Start: 07-17-2023 [facility] Start: 07-17-2023 Admission procedure [facility] Start: 07-15-2023 Referral to service [facility] Start: 07-12-2023 Lower Ext Joint Only (Routine) Lower Ext Joint Only (Routine) [facility] Start: 07-12-2023 MR Lower Extremity Joint [facility] Start: 07-12-2023 [facility] Start: 07-11-2023 Following clinical p athway protocol [facility] Start: 07-11-2023 Application of knee immobilizer [facility] Start: 07-11-2023 Assessment of risk o f venous thromboembolism [facility] Start: 07-11-2023 Consultation [facility] Start: 07-11-2023 Fall prevention [facility] Start: 07-11-2023 Inhalation therapy procedure [facility] Start: 07-11-2023 Insertion of cathete r into peripheral vein [facility] Start: 07-11-2023 Introduction of urin scar catheter [facility] Start: 07-11-2023 Measuring intake and output [facility] Start: 07-11-2023 Oxygen therapy [facility] Start: 07-11-2023 Providing care accor ding to standard [facility] Start: 07-11-2023 Provision of activit y privileges [facility] Start: 07-11-2023 Referral to occupati onal therapist [facility] Start: 07-11-2023 Referral to service [facility] Start: 07-11-2023 End: 07-12-2023 [facility] Start: 07-11-2023 Admission procedure [facility] Start: 07-11-2023 Verification routine [facility] Start: 07-11-2023 Patient referral to dietitian [facility] Start: 07-10-2023 End: 07-10-2023 Patient encounter procedure 07/10/2023 1:30 PM EDT Office Visit [facility] [address] [facility] [place] [address] Block Cutter, Ashvin Hutson CNP [address] [address] [facility] Start: 12-21-2022 COVID-19 Vaccine () COVID-19 Vaccine () [facility] Start: 12-21-2022 Influenza vaccination [facility] Start: 02-01-2021 PAP TESTING PAP TESTING [facility] Start: 02-01-2021 Screening for malign ant neoplasm of cervix [facility] Start: 10-16-2019 CHLAMYDIA SCREENING (18-24) CHLAMYDIA SCREENING (18-24) [facility] Start: 10-16-2019 GC (GONORRHEA) SCREE ALISTAIR (18-24) GC (GONORRHEA) SCREENING (18-24) [facility] Start: 05-01-2019 HPV VACCINE (3 - 3-d ose series) HPV VACCINE (3 - 3-dose series) [facility] Start: 05-01-2019 Vaccination for radha n papillomavirus HPV Vaccines (3 - 3-dose series) [facility] Start: 04-04-2019 Vaccination for radha n papillomavirus HPV Vaccines (3 - 3-dose series) [facility] Start: 02-01-2018 [facility] Start: 02-01-2018 Hepatitis C screening Hepatitis C Sc [facility] Start: 02-01-2018 HIV SCREENING HIV SCREENING [facility] Start: 02-01-2018 HIV screening HIV Screening [facility] Start: 2016 MENINGOCOCCAL B: Con egg pasteurizer based on risk (1 of 2 - Patient Seeks Protection) MENINGOCOCCAL B: Consider based on risk (1 of 2 - Patient Seeks Protection) [facility] Start: 02-01-2015 HIV screening HIV Screening [facility] Start: 02-01-2014 PEDS TO ADULT TRANSI TION ANNUAL ASSESSMENT PEDS TO ADULT TRANSITION ANNUAL ASSESSMENT [facility] Start: 2012 Depression screening using PHQ-9 (Patient Health Questionnaire 9) score Depression Screening (PHQ-2/9) [facility] Start: 2012 PEDS TO ADULT TRANSI TION INITIAL DISCUSSION PEDS TO ADULT TRANSITION INITIAL DISCUSSION [facility] Start: 2000 COVID-19 VACCINE (#1) COVID-19 VACCI NE (#1) [facility] Start: 2000 Screening for Chlamy claudio trachomatis Chlamydia Screening [facility] Alanine aminotransfe rase [Enzymatic activity/volume] in Serum or Plasma [facility] Albumin [Mass/volume ] in Serum or Plasma [facility] Alkaline phosphatase [Enzymatic activity/volume] in Serum or Plasma [facility] Anion gap measurement [facility] Aspartate aminotrans ferase [Enzymatic activity/volume] in Serum or Plasma [facility] Bilirubin, total measurement [facility] BUN/Creatinine ratio [facility] Calcium [Mass/volume ] in Serum or Plasma [facility] Carbon dioxide, tota l [Moles/volume] in Serum or Plasma [facility] Chloride [Moles/volu me] in Serum or Plasma [facility] Creatinine [Moles/vo lume] in Serum or Plasma [facility] Erythrocyte mean corpuscular volume determination [facility] Glucose [Mass/volume ] in Serum or Plasma [facility] Hematocrit [Volume Fraction] of Blood [facility] Hemoglobin [Mass/vol ume] in Blood [facility] End: 08-29-2023 HOLTER MONITOR 24 HOUR HOLTER MONITOR 24 HOUR ECG Routine Pre-syncope 1 Occurrences starting 08/28/2022 until 08/29/2023 [facility] Comment on above: 1 Occurrences starti ng 08/28/2022 until 08/29/2023 Leukocytes [#/volume ] in Blood [facility] Mean corpuscular hemoglobin concentration determination [facility] Mean corpuscular hemoglobin determination [facility] Measurement of renal function [facility] Neutrophil count [facility] Neutrophil percent differential count [facility] Patient referral [facility] Work Phone: Platelets [#/volume] in Blood [facility] Potassium [Moles/vol ume] in Serum or Plasma [facility] Red blood cell count [facility] Red cell distributio n width determination [facility] Removal intrauterine device iud REMOVE INTRAUTERINE DEVICE Procedures Routine Encounter for IUD removal Ordered: 06/17/2024 [facility] Work Phone: Comment on above: Ordered: 06/17/2024 Sodium [Moles/volume ] in Serum or Plasma [facility] Total protein measurement [facility] Urea nitrogen [Mass/volume] in Serum or Plasma [facility] Immunizations Immunization Date Immunization Notes Care Provider [facility] 12-30-2018 Human Papillomavirus 9-valent vaccine Hvi Provider [facility] 12-30-2018 HPV, unspecified formulation Akosua Ross Work Phone: [facility] 10-03-2018 Human Papillomavirus 9-valent vaccine [facility] Provider [facility] Work Phone: 10-03-2018 meningococcal polysaccharide (groups A, C, Y and W-135) diphtheria toxoid conjugate vaccine (MCV4P) [facility] Work Phone: 10-03-2018 varicella virus vaccine [facility] Provider [facility] Work Phone: 11-06-2016 poliovirus vaccine, inactivated [facility] 11-30-2015 meningococcal oligosaccharide (groups A, C, Y and W-135) diphtheria toxoid conjugate vaccine (MCV4O) Gregoria Gold APRN.CNM Work Phone: [facility] 11-30-2015 meningococcal polysaccharide (groups A, C, Y and W-135) diphtheria toxoid conjugate vaccine (MCV4P) [facility] 11-30-2015 poliovirus vaccine, inactivated [facility] 10-30-2015 meningococcal polysaccharide (groups A, C, Y and W-135) diphtheria toxoid conjugate vaccine (MCV4P) [facility] 11-15-2014 hepatitis B vaccine, pediatric or pediatric/adolescent dosage [facility] 11-15-2014 measles, mumps and rubella virus vaccine [facility] 11-15-2014 poliovirus vaccine, inactivated [facility] 11-15-2014 tetanus toxoid, redu mio diphtheria toxoid, and acellular pertussis vaccine, adsorbed [facility] 05-09-2013 diphtheria, tetanus toxoids and acellular pertussis vaccine [facility] 05-09-2013 hepatitis B vaccine, pediatric or pediatric/adolescent dosage [facility] 05-09-2013 influenza virus vacc ine, whole virus [facility] 05-09-2013 influenza, injectabl e, quadrivalent, preservative free [facility] 05-09-2013 measles, mumps and rubella virus vaccine [facility] 05-09-2013 poliovirus vaccine, inactivated [facility] 05-09-2013 varicella virus vaccine [facility] 05-09-2013 influenza virus vacc ine, unspecified formulation Jess Zamora MD Work Phone: [facility] 03-06-2008 hepatitis B vaccine, pediatric or pediatric/adolescent dosage Hvi Provider [facility] 11-20-2006 diphtheria, tetanus toxoids and acellular pertussis vaccine Hvi Provider [facility] Payers Date Payer Category Payer Self-pay [id number] 2021 Medicaid [id number] 2021 Unknown [id number] 2000 Unknown [id number] 2000 Unknown [id number] 2000 Unknown [id number] Unknown [id number] Unknown PARAMOUNT ADV MC D *DO NOT USE* [id number] Unknown [id number] Unknown [id number] Unknown [id number] Unknown [id number] Social History Date Type Detail Facility Start: 10-03-2018 End: 11-21-2024 Tobacco smoking status NHIS Never smoked tobacco [facility] Work Phone: Start: 10-03-2018 End: 12-12-2022 Tobacco use and exposure Smokeless tobacco non-user [facility] Work Phone: Start: 2000 Sex Assigned At Not on file [facility] Start: 12-12-2022 End: 07-10-2024 Alcohol intake Ex-drinker (finding) [facility] Start: 12-12-2022 End: 06-17-2024 History of Social function [facility] Start: 10-03-2018 End: 06-17-2024 Tobacco use panel [facility] Work Phone: National Score (1-100), lower number is lower risk Not on file [facility] Start: 01-09-2023 End: 07-10-2023 Alcohol intake Lifetime non-drinker (finding) [facility] Start: 01-09-2023 Gender identity Identifies as female gender (finding) [facility] Start: 01-09-2023 Sexual orientation Heterosexual (fin ding) [facility] Start: 11-01-2020 End: 07-11-2023 Tobacco smoking status NHIS Unknown if ever smoked [facility] Start: 11-27-2018 None [facility] Start: 11-27-2018 - [facility] Start: 12-01-2018 Non-smoker [facility] Start: 2000 Sex Assigned At Female W [facility] NEGATED: Highlighted row [facility] Medical Equipment Procedure Code Equipment Code Equipment Origin al Text Equipment Identifier Dates Wire Alex .062in Stainless Steel 6in Fixation [place] Both Ends - [id number] Start: 09-23-2019 Wire Alex .062in Stainless Steel 6in Fixation [place] Both Ends - [id number] Start: 09-23-2019 Wire Alex .062in Stainless Steel 6in Fixation [place] Both Ends - [id number] Start: 09-23-2019 Goals Date Patient Goal Desired Activity /State Functional Status Date Assessment Result Facility 07-18-2023 Functional status Chair [facility] Work Phone: Mental Status Date Assessment Result Facility 07-18-2023 Cognitive function Level Of Cons ciousness Awake;Alert;Appropriate;Follow s Commands [facility] Work Phone: 07-18-2023 Cognitive function Voice/Name [facility] Work Phone: Clinical Notes 12-12-2022 to 11-21-2024 Note Date & Type Note Facility 11-21-2024 Discharge summary Note Date/Time November 21, 2024 5:44am [facility] Medical Records Department [address] [place] [address] Emergency Department Summary 11/21/24 MR#: [id number] Acct: [id number] Name: MAURICE LINARES Rep #:[id number] : 2000 24 From: Gamaliel Kern PCP: Care Physician,No Primary Status :REG ER Location: ED HPI HPI - Psych History of Present Illness Chief Complaint: Mental Health 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 Crisis was initiated in the emergency department. Known to them history of schizophrenia. Similar event previously running across the street dodging cars. Patient would not talk therefore unableto obtain additional information. 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 Developmental delay, borderline Paranoid psychosis Anxiety and depression History of reactive attachment disorder Home Medications ?Medication ?Instructions ?Recorded ?Last Taken ?Type cariprazine 1.5 mg capsule 1.5 mg PO QHS 07/11/23 Unkn own History (Vraylar) Allergy/AdvReac Type Severity Reaction Status Date / Time grass pollen Allergy Other Verified 09/09/24 08:00 lactose AdvReac Upset Verified 09/09/24 08:00 Stomach Surgical History History of facial surgery Social History household members: none Smoking Status: Never smoker alcohol intake: never substance use type: does not use ROS ROS ED Review of Systems ROS Unobtainable: due to mental condition EXAM Physical Exam Const Vital Signs: 11/21/24 00:12 11/21/24 01:12 11/21/24 02:00 Temperature 98.9 F Temperature Source Oral Pulse Rate 100 90 72 Respiratory Rate 16 18 18 Blood Pressure 139/102 H 127/88 H 104/70 Blood Pressure Mean 114 101 81 Pulse Ox 98 97 98 Oxygen Delivery Method Room Air Room Air Room Air Positive well nourished and well developed Constitutional Narrative: During questioning she would turn her head away purposely. Would not talk, would not follow commands. General Appearance ED: well developed HEENT normocephalic and atraumatic Eyes Eyes Narrative: No pinpoint pupils. General Eye ED: Yes normal appearance of both eyes Neck full ROM Resp normal respiratory effort and normal air movement Cardio regular rate and regular rhythm GI soft to palpation Extremity normal to inspection Extremity Narrative: Moving extremities. Neuro Neuro Narrative: No focal deficits. Skin no rashes or lesions noted and no wounds MDM MDM MDM Narrative Medical decision making narrative: Interventions / MDM: Differential diagnosis: History of schizophrenia, threat to self, psychosis Diagnosis considered but do not suspect: N/A My EKG interpretation: N/A Imaging independently reviewed and interpreted by myself: CT head: No acute process. Chest x-ray 1 view: No acute process. External documents reviewed: N/A Test considered but not ordered:N/A ED course: Patient history of schizophrenia psychosis not talking this time. Reported threat to herself running across traffic. However due to patient not talking, medical workup clearance initiated. CT head chest x-ray labs urine toxicology and alcohol. 0315: Results labs stable urine toxicology alcohol negative. CT brain chest x-ray negative. Patient is medically cleared. Will await crisis evaluation for disposition plans however likely placement from initial discussion. 0453: Patient accepted to [facility] under care of Dr. Watt. Awaiting transport. Larose slip filled out. Re-evaluation: stable Disposition discussed with patient/family/significant other: Case discussed with consulting clinician: Crisis This note was generated with [employer] dictation software. It may contain incorrectwords, spelling, and punctuation that were not noted in checking the note beforesigning. Lab Data Attestation: I reviewed the patient's lab results. Labs: Laboratory Results - last 24 hr 11/21/24 11/21/24 01:15 01:46 WBC 9.8 RBC 4.45 Hgb 13.7 Hct 39.4 MCV 88.5 MCH 30.8 MCHC 34.8 RDW Std Deviation 36.5 RDW Coeff of Kaley 11.4 L Plt Count 337 MPV 9.8 Immature Gran % (Auto) 0.400 Neut % (Auto) 73.1 H Lymph % (Auto) 19.9 Young % (Auto) 6.3 Eos % (Auto) 0.0 Baso % (Auto) 0.3 Absolute Neuts (auto) 7.2 Absolute Lymphs (auto) 1.95 Nucleated RBC % 0 Sodium 138 Potassium 4.2 Chloride 101 Carbon Dioxide 23.2 Anion Gap 14 BUN 13 Creatinine 0.78 Estim Creat Clear Calc 98.67 Est GFR (MDRD) Non-Af 109 BUN/Creatinine Ratio 16.8 Glucose 181 H Calcium 9.5 Total Bilirubin 0.40 AST 22 ALT 8 Alkaline Phosphatase 59 Total Protein 7.6 Albumin 4.5 Globulin 3.1 Albumin/Globulin Ratio 1.4 Serum , Qual NEGATIVE Urine Color Yellow Urine Clarity Clear Urine pH 6.0 Ur Specific Strawn 1.020 Urine Protein 30 H Urine Glucose (UA) Normal Urine Ketones 50 H Urine Occult Blood Negative Urine Nitrite Negative Urine Bilirubin Negative Urine Urobilinogen Normal Ur Leukocyte Esterase Negative Urine RBC 0 SEEN Urine WBC 0-5 SEEN Ur Squamous Epith Cells 5-10 SEEN Urine Bacteria 2+ Urine Mucus 2+ Urine Opiates Screen NEGATIVE U Buprenorphine Qual NEGATIVE Ur Oxycodone Screen NEGATIVE Urine Methadone Screen NEGATIVE Urine Fentanyl Screen NEGATIVE Ur Barbiturates Screen NEGATIVE Ur Phencyclidine Scrn NEGATIVE Ur Amphetamines Screen NEGATIVE U Benzodiazepines Scrn NEGATIVE Urine Cocaine Screen NEGATIVE U Cannabinoids Screen NEGATIVE Ethyl Alcohol < 10.1 Radiography Diagnostic Testing: Clinical Impression(s) from Imaging Studies Brain CT 11/21/24 01:06 IMPRESSION: No intracranial findings Reading Location: [place] [address] Chest X-Ray 11/21/24 01:25 IMPRESSION: No acute chest findings Reading Location: [facility] Discharge Plan Triage Chief Complaint: Mental Health ED Provider: Gamaliel Jovel Dx/Rx/DC Orders Clinical Impression: Hx of schizophrenia, Self-harming behavior Prescriptions: No Action Vraylar 1.5 mg capsule 1.5 mg PO QHS Primary Care Provider: Care Physician,No Primary Referrals: Care Physician,No Primary [Primary Care Provider] - Print Language: Citizen Of [place] Disposition Disposition: Psychiatric Hospital or Unit What to do if you have Problems For any increased pain, shortness of breath, bleeding, nausea or vomiting, chestpain, or any unexpected problems, contact your Primary Care Provider. Call [facility] ([phone]) or report to the closest Emergency Room. Call 911 if necessary. 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 Crisis was initiated in the emergency department. Known to them history of schizophrenia. Similar event previously running across the street dodging cars. Patient would not talk therefore unableto obtain additional information. 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 Developmental delay, borderline Paranoid psychosis Anxiety and depression History of reactive attachment disorder Home Medications ?Medication ?Instructions ?Recorded ?Last Taken ?Type cariprazine 1.5 mg capsule 1.5 mg PO QHS 07/11/23 Unkn own History (Vraylar) Allergy/AdvReac Type Severity Reaction Status Date / Time grass pollen Allergy Other Verified 09/09/24 08:00 lactose AdvReac Upset Verified 09/09/24 08:00 Stomach Surgical History History of facial surgery Social History household members: none Smoking Status: Never smoker alcohol intake: never substance use type: does not use ROS ROS ED Review of Systems ROS Unobtainable: due to mental condition EXAM Physical Exam Const Vital Signs: 11/21/24 00:12 11/21/24 01:12 11/21/24 02:00 Temperature 98.9 F Temperature Source Oral Pulse Rate 100 90 72 Respiratory Rate 16 18 18 Blood Pressure 139/102 H 127/88 H 104/70 Blood Pressure Mean 114 101 81 Pulse Ox 98 97 98 Oxygen Delivery Method Room Air Room Air Room Air Positive well nourished and well developed Constitutional Narrative: During questioning she would turn her head away purposely. Would not talk, would not follow commands. General Appearance ED: well developed HEENT normocephalic and atraumatic Eyes Eyes Narrative: No pinpoint pupils. General Eye ED: Yes normal appearance of both eyes Neck full ROM Resp normal respiratory effort and normal air movement Cardio regular rate and regular rhythm GI soft to palpation Extremity normal to inspection Extremity Narrative: Moving extremities. Neuro Neuro Narrative: No focal deficits. Skin no rashes or lesions noted and no wounds MDM MDM MDM Narrative Medical decision making narrative: Interventions / MDM: Differential diagnosis: History of schizophrenia, threat to self, psychosis Diagnosis considered but do not suspect: N/A My EKG interpretation: N/A Imaging independently reviewed and interpreted by myself: CT head: No acute process. Chest x-ray 1 view: No acute process. External documents reviewed: N/A Test considered but not ordered:N/A ED course: Patient history of schizophrenia psychosis not talking this time. Reported threat to herself running across traffic. However due to patient not talking, medical workup clearance initiated.CT head chest x-ray labs urine toxicology and alcohol. 0315: Results labs stable urine toxicology alcohol negative. CT brain chest x- ray negative. Patientis medically cleared. Will await crisis evaluation for disposition plans however likely placement from initial discussion. 0453: Patient accepted to [facility] under care of Dr. Watt. Awaiting transport. [place] slip filled out. Re-evaluation: stable Disposition discussed with patient/family/significant other: Case discussed with consulting clinician: Crisis This note was generated with [employer] dictation software. It may contain incorrectwords, spelling, and punctuation that were not noted in checking the note beforesigning. Lab Data Attestation: I reviewed the patient's lab results. Labs: Laboratory Results - last 24 hr 11/21/24 11/21/24 01:15 01:46 WBC 9.8 RBC 4.45 Hgb 13.7 Hct 39.4 MCV 88.5 MCH 30.8 MCHC 34.8 RDW Std Deviation 36.5 RDW Coeff of Kaley 11.4 L Plt Count 337 MPV 9.8 Immature Gran % (Auto) 0.400 Neut % (Auto) 73.1 H Lymph % (Auto) 19.9 Young % (Auto) 6.3 Eos % (Auto) 0.0 Baso % (Auto) 0.3 Absolute Neuts (auto) 7.2 Absolute Lymphs (auto) 1.95 Nucleated RBC % 0 Sodium 138 Potassium 4.2 Chloride 101 Carbon Dioxide 23.2 Anion Gap 14 BUN 13 Creatinine 0.78 Estim Creat Clear Calc 98.67 Est GFR (MDRD) Non-Af 109 BUN/Creatinine Ratio 16.8 Glucose 181 H Calcium 9.5 Total Bilirubin 0.40 AST 22 ALT 8 Alkaline Phosphatase 59 Total Protein 7.6 Albumin 4.5 Globulin 3.1 Albumin/Globulin Ratio 1.4 Serum , Qual NEGATIVE Urine Color Yellow Urine Clarity Clear Urine pH 6.0 Ur Specific Strawn 1.020 Urine Protein 30 H Urine Glucose (UA) Normal Urine Ketones 50 H Urine Occult Blood Negative Urine Nitrite Negative Urine Bilirubin Negative Urine Urobilinogen Normal Ur Leukocyte Esterase Negative Urine RBC 0 SEEN Urine WBC 0-5 SEEN Ur Squamous Epith Cells 5-10 SEEN Urine Bacteria 2+ Urine Mucus 2+ Urine Opiates Screen NEGATIVE U Buprenorphine Qual NEGATIVE Ur Oxycodone Screen NEGATIVE Urine Methadone Screen NEGATIVE Urine Fentanyl Screen NEGATIVE Ur Barbiturates Screen NEGATIVE Ur Phencyclidine Scrn NEGATIVE Ur Amphetamines Screen NEGATIVE U Benzodiazepines Scrn NEGATIVE Urine Cocaine Screen NEGATIVE U Cannabinoids Screen NEGATIVE Ethyl Alcohol < 10.1 Radiography Diagnostic Testing: Clinical Impression(s) from Imaging Studies Brain CT 11/21/24 01:06 IMPRESSION: No intracranial findings Reading Location: [facility] Chest X-Ray 11/21/24 01:25 IMPRESSION: No acute chest findings Reading Location: [facility] Discharge Plan Triage Chief Complaint: Mental Health ED Provider: Gamaliel Jovel Dx/Rx/DC Orders Clinical Impression: Hx of schizophrenia, Self-harming behavior Prescriptions: No Action Vraylar 1.5 mg capsule 1.5 mg PO QHS Primary Care Provider: Care Physician,No Primary Referrals: Care Physician,No Primary [Primary Care Provider] - Print Language: Citizen Of [place] Disposition Disposition: Psychiatric Hospital or Unit What to do if you have Problems For any increased pain, shortness of breath, bleeding, nausea or vomiting, chestpain, or any unexpected problems, contact your Primary Care Provider. Call [facility] ([phone]) or report tothe closest Emergency Room. Call 911 if necessary. 11/21/24 0544 Cosigner Signature (if applicable): CC: No Primary Care Physician ~ Signed [facility]08-02-2025 Radiology Diagnostic study note [facility] Imaging Services [address] [place] [address] Brain/Head without Contrast MR#: [id number] Acct: [id number] Name: MAURICE LINARES Rep #: [id number] : 2000 F 24 From: Rimma Mix MD PCP: Care Physician,No Primary Status: REG ER Study:Brain/Head without Contrast Date of Exa m: 11/21/24 Exam# [id number] Ordering Dr: Gamaliel Jovel DO PROCEDURE: BRAIN/HEAD WITHOUT CONTRAST 11/21/2024 REASON FOR EXAM: ALTERED MENTAL STATUS TECHNIQUE: BRAIN/HEAD WITHOUT CONTRAST Coronal and Sagittal reconstruction series were provided. One or more dose reduction techniques were used (e.g., Automated exposure control, adjustment of the mA and/or kV according to patient size, use of iterative reconstruction technique. RADIATION DOSE SUMMARY: CTDlvol: 45 mGy DLP: 762 . MGycm COMPARISON: 11/01/2020 FINDINGS: No abnormal brain densities. No intracranial hemorrhage. No hydrocephalus or midline shift. No acute scalp or skull pathology. Unremarkable orbits. Clear sinuses. CT/Brain/Head without Contrast IMPRESSION: No intracranial findings Reading Location: [place] [address] CC: Dr. Gamaliel Jovel DO; No Primary Care Physician ~ Skiver Machine Operator: Signed [facility]08-02-2025 Radiology Diagnostic study note [facility] Imaging Services [address] [place] [address] Chest 1 View (Portable) MR#: [id number] Acct: [id number] Name: MAURICE LINARES Rep #: [id number] : 2000 F 24 From: Rimma Mix MD PCP: Care Physician,No Primary Status: REG ER Study:Chest 1 View (Portable) Date of Exam: 11/21/24 Exam# [id number] Ordering Dr: Gamaliel Jovel DO PROCEDURE: CHEST 1 VIEW (PORTABLE) 11/21/2024 REASON FOR EXAM: ALTERED MENTAL STATUS TECHNIQUE: Frontal view of the chest. COMPARISON: 11/01/2020 FINDINGS: Normal heart size. Well inflated lungs. No consolidation, effusion, or pneumothorax. RAD/Chest 1 View (Portable) IMPRESSION: No acute chest findings Reading Location: [place] [address] CC: Dr. Gamaliel Jovel DO; No Primary Care Physician ~ Skiver Machine Operator: Signed [facility]07-15-2025 NoteHNO ID: [id number] Author: JERAD KING APRN.TERMINOLOGIST Service: ? Author Type: Nurse Practitioner Type: Progress Notes Filed: 11/03/2024 18:51 Note Text: URGENT CARE [facility] Maurice Linares is a 24 year old [...] to determine underlying cause. and Recording using Thinkature software for draft documentation of the visit was discussed with the patient/authorized volunteer patient representative; all questions welcomed and answered. Patient/authorized volunteer patient representative agreed to proceed [facility] History of Present illness Narrative* Jerad King APRN.TERMINOLOGIST - 11/03/2024 6:50 PM EDT URGENT CARE KRISTEN Richards Edilma Linares is [...] to determine underlying cause. and Recording using Thinkature software for draft documentation of the visit was discussed with the patient/authorized volunteer patient representative; all questions welcomed and answered. Patient/authorized volunteer patient representative agreed to proceed MDM Procedures documented [facility] Progress note* Result Encounter Note - Gregoria Gold MD - 07/23/2024 2:02 PM EDT Send letter about normal pap if she does not have mychart. Gregoria Gold MD [facility]04-03-2025 Miscellaneous Notes* Result Encounter Note - Gregoria Gold MD - 07/23/2024 2:02 PM EDT Send letter about normal pap if she does not have mychart. Gregoria Gold MD documented in this encounterMart[facility]erry [facility]03-21-2025 Telephone encounter Note * Telephone Encounter - Mary Ann Nesbitt LPN - 07/10/2024 3:16 PM EDT Received holter,. Scanned into [facility] through Onbase scanning. Mary Ann Nesbitt LPN [facility]03-21-2025 Miscellaneous Notes* Telephone Encounter - Mary Ann Nesbitt LPN - 07/10/2024 3:16 PM EDT Received holter,. Scanned into [facility] through Onbase scanning. Mary Ann Nesbitt LPN * Telephone Encounter - Mary Ann Nesbitt LPN - 07/10/2024 2:02 PM EDT Patients name is Loni Diaz on her ID. Fax request sent to [facility] requesting Holter. Patient was not seen by cardiology. Mary Ann Nesbitt LPN * Telephone Encounter - Jarod Malhotra APRN.TIMBO - 07/10/2024 11:36 AM EDT Pt had a cardiology consult with [facility] and holter monitor in 2022. Can we request these records. DOS 07/14/2024 documented in this encounterMart[facility]03-21-2025 Telephone encounter Note * Telephone Encounter - Mary Ann Nesbitt LPN - 07/10/2024 2:02 PM EDT Patients name is Loni Diaz on her ID. Fax request sent to [facility] HIM requesting Holter. Patient was not seen by cardiology. Mary Ann Nesbitt LPN [facility]03-21-2025 Telephone encounter Note* Telephone Encounter - Jarod Malhotra APRN.CNP - 07/10/2024 11:36 AM EDT Pt had a cardiology consult with [facility] and holter monitor in 2022. Can we request these records. DOS 07/14/2024 [facility]03-20-2025 NoteHNO ID: [id number] Author: KIA LEBLANC APRN.TIMBO Service: ? Author Type: Nurse Practitioner Type: Progress Notes Filed: 07/09/2024 13:55 Note Text: HISTORY AND PHYSICAL Maurice Edilma Linares 2000 REFERRING PHYSICIAN: No ref. provider [...] to follow-up with as needed Kia Leblanc APRN.[facility]03-20-2025 History of Present illness Narrative* Kia Leblanc APRN.TERMINOLOGIST - 07/09/2024 1:46 PM EDT HISTORY AND PHYSICAL Maurice Linares 2000 REFERRING PHYSICIAN: No ref. provider found CHIEF COMPLAINT: skin lesion HPI: The patient is a 24 year old female. She has a single mass on her right buttock. She has noticed this lesion for a long time. She notes that it is slightly uncomfortable when shesits down. She denies any drastic change in [...] 0.25-35 mg-mcg per tablet Take 1 tablet bymouth once daily. 84 tablet 3 multivitamin tablet [...] nourished, well hydrated in no acute distress. Thepatient is oriented to time, place, and person. [...] needed Kia Leblanc APRN.CNP documented in this encounterMartins Ferry Hospital03-20-2025 Instructions* Patient Instructions* Jarod Malhotra APRN.CNP - 07/09/2024 9:40 AM EDT Images from the original note were not included. [facility] PATIENT PREOPERATIVE INSTRUCTIONS Gregoria Gold APRN.* has scheduled you for your procedure at this surgery center: [facility]: [phone] -- [address] [facility] [address]. Please read below carefully for your personalized [...] office. If you are currently using a bsqt-zoq-rztc injectable or oral medication for diabetes or weight loss such as Dulaglutide (Trulicity), Exenatide (Byetta, Bydureon), Liraglutide (Victoza, Saxenda), Semaglutide (Ozempic, Wegovy, Rybelsus), or Tirzepatide (Mounjaro), the medicine should be stopped at least 7 days before surgery. These medicines can cause food to remain in your stomach for a very longtime and increase the risks from surgery and [...] Procedures: - YOU MUST HAVE A RESPONSIBLE HIGHWAY COMMISSIONER TAKE YOU HOME. A HAND CANDY CUTTER OR PRORATION CLERK CANNOT BE MADE A RESPONSIBLE HIGHWAY COMMISSIONER. - We recommend that a responsible person stays with you overnight to take care of you. - You cannot stay in a hotel alone after outpatient surgery. You will not be permitted to have yoursurgery, if you do not have someone to [...] Advance Directive, please fax a copy to [phone] or email to for it to be added to your chart. If you do not have an Advance Directive, you can find the appropriate form and more information at [email or web address]. We recommend that youcomplete the Advance Directive form found on the website and bring it with you the day of your surgery. It can be witnessed and scanned into your chart that day. Jarod Malhotar APRN.TIMBO documented in this encounterMartins Ferry Hospital03-20-2025 History and physical note * Jarod Malhotra APRN.TERMINOLOGIST - 07/09/2024 9:31 AM EDT Images from the original note [...] rx Seeing a counselor and psychiatrist in [place] Severe episode of recurrent major depressive disorder, [...] large neck Non-male patient STOP-Bang Score: 0 [id number] Score: Age: <65 Sex: female CHF history: No Hypertension history: No Stroke/TIA/thromboembolism history: No Vascular disease history: No Diabetes history: No OKB9ZG7-HGQg Score: 1 ARISCAT Score: Age: <=50 Preoperative [...] Murphy present: no Lip Bite Test: I Microretrognathia/Micronagthia/Recessed Chin: No DENTAL Dental findings: teeth intact. [...] fevers. Neurological: No history of TIA's, stroke, TITLE CLOSER tumor, impaired sensorium, hemiplegia, paraplegia orquadraplegia. No neurological symptoms or problems. Respiratory: No history of current cough or dyspnea, or pneumonia in the past 6 weeks. No history of respiratory/pulmonary symptoms or problems. Cardiovascular: No history of HTN requiring medication, no history of angina, CHF, [place], cardiac surgery or stents. Denies rest pain, [...] > 1 time per night or hematuria. BOATING SAFETY OFFICER: See HPI. Endocrine: No history of diabetes. [...] 0.25-35 mg-mcg per tablet Take 1 tablet bymouth once daily. Yes multivitamin tablet Take 1 [...] or any previous visit (from the past 53259 hours). Instructions Given to Patient: Instructions located in the after visit summary. Patient given verbal and written preop instructions and voices comprehension and compliance. SIGNATURE: Jarod Malhotra APRN.CNP PATIENT NAME: Maurice Linares DATE: July 09, 2024 TIME: 9:31 AM PAGER/CONTACT #: [facility]03-20-[facility] History and physical note* Jarod Malhotra APRN.CNP - 07/09/2024 9:31 AM EDT Images from the original note were not included. [facility]est[facility] HISTORY [...] rx Seeing a counselor and psychiatrist in [place] Severe episode of recurrent major depressive disorder, [...] large neck Non-male patient STOP-Bang Score: 0 [id number] Score: Age: <65 Sex: female CHF history: No Hypertension history: No Stroke/TIA/thromboembolism history: No Vascular disease history: No Diabetes history: No LOI9NT1-ZZUn Score: 1 ARISCAT Score: Age: <=50 Preoperative [...] Murphy present: no Lip Bite Test: I Microretrognathia/Micronagthia/Recessed Chin: No DENTAL Dental findings: teeth intact. [...] because of IUD insertion/removal. 07/07/2024, Dr. Gregoria Richards Edilma Linares is a 24 year old female [...] fevers. Neurological: No history of TIA's, stroke, TITLE CLOSER tumor, impaired sensorium, hemiplegia, paraplegia orquadraplegia. No neurological symptoms or problems. Respiratory: No history of current cough or dyspnea, or pneumonia in the past 6 weeks. No history of respiratory/pulmonary symptoms or problems. Cardiovascular: No history of HTN requiring medication, no history of angina, CHF, [place], cardiac surgery or stents. Denies rest pain, [...] > 1 time per night or hematuria. BOATING SAFETY OFFICER: See HPI. Endocrine: No history of diabetes. [...] 0.25-35 mg-mcg per tablet Take 1 tablet bymouth once daily. Yes multivitamin tablet Take 1 [...] or any previous visit (from the past 71750 hours). Instructions Given to Patient: Instructions located in the after visit summary. Patient given verbal and written preop instructions and voices comprehension and compliance. SIGNATURE: Jarod Malhotra APRN.CNP PATIENT NAME: Maurice iLnares DATE: July 09, 2024 TIME: 9:31 AM PAGER/CONTACT #: documented in this encounterMartins Ferry Hospital03-18-2025 History and physical note * Gregoria Gold MD - 07/07/2024 1:36 PM EDT Pre-Op History and Physical HPI: The patient is a 24 year old female presenting for pre-operative visit. She is scheduled for exam under anesthesia, pap and IUD removal , for anxiety about exam in office,desires IUD removal and cervical ca screen on [...] history, medications and allergies Gregoria Gold M.D. [facility]03-18-2025 History and physical note* Gregoria Gold MD - 07/07/2024 1:36 PM EDT Pre-Op History and Physical HPI: The patient is a 24 year old female presenting for pre-operative visit. She is scheduled for exam under anesthesia, pap and IUD removal , for anxiety about exam in office,desires IUD removal and cervical ca screen on [...] allergies Gregoria Gold M.D. documented in this encounterMartins Ferry Hospital03-18-2025 NoteHNO ID: [id number] Author: GREGORIA GOLD MD Service: ? Author Type: Physician Type: Progress Notes Filed: 07/07/2024 13:39 Note Text: VIRTUAL VISIT PROGRESS NOTE This is a virtual visit using [employer] Zoom Video Visit. It required patient-provider interaction for the medical decision making as documented below. I have communicated my name and active licensure. The patient's identity and physical location were verified at the time of this visit. Either the patient or their legal volunteer patient representative has been informed of the risks [...] for surgery and pap today. Gregoria Gold [facility]03-18-2025 History of Present illness Narrative* Gregoria Gold MD - 07/07/2024 1:19 PM EDT VIRTUAL VISIT PROGRESS NOTE This is a virtual visit using MyChart Zoom Video Visit. It required patient- provider interaction for the medical decision making as documented below. I have communicated my name and active licensure. The patient's identity and physical location wereverified at the time of this visit. Either the patient or their legal volunteer patient representative has been informed of the risks and benefits of -- and alternatives to -- treatment through a remote evaluation andconsents to proceed with the evaluation remotely. Maurice [...] today. Gregoria Gold MD documented in this encounterMartins Ferry Hospital03-14-2025 Telephone encounter Note * Telephone Encounter - Gregoria Gold MD - 07/03/2024 12:19 PM EDT signed. Thanks [facility]03-14-2025 Miscellaneous Notes* Telephone Encounter - Gregoria Gold MD - 07/03/2024 12:19 PM EDT signed. Thanks documented in this encounterMartins Ferry Hospital03-07-2025 Telephone encounter Note * Telephone Encounter - Rosario Ramirez RN - 06/26/2024 12:58 PM EST Patient called in and notified of virtual visit appointment time/date. Patient states she will havesomeone that will be able to take her the day of her surgery. Aware that she will not be able to use a taxi/uber day of surgery. Rosario Ramirez RN [facility]03-07-2025 Miscellaneous Notes* Telephone Encounter - Rosario Ramirez RN - 06/26/2024 12:58 PM EST Patient called in and notified of virtual visit appointment time/date. Patient states she will havesomeone that will be able to take her the day of her surgery. Aware that she will not be able to use a taxi/uber day of surgery. Rosario Ramirez RN * Telephone Encounter - Nancy Bardales RN - 06/26/2024 11:44 AM EST Images from the original note were not included. Gregoria Gold MD Highman, Jennifer, RN2 hours ago (8:54 AM) yes but she can't have surgery unless she has a ride home from the hospital. They won't let it be an uber or taxi or public transportation. RLR * Telephone Encounter - Chelsey Fernández RN - 06/26/2024 8:40 AM EST Patient has a Pre op on 07/07. [...] pre op be virtual? Chelsey Fernández RN documented in this encounterMartins Ferry Hospital03-07-2025 Telephone encounter Note * Telephone Encounter - Nancy Bardales RN - 06/26/2024 11:44 AM EST Images from the original note were not included. Greogria Gold MD Highman, Jennifer, RN2 hours ago (8:54 AM) yes but she can't have surgery unless she has a ride home from the hospital. They won't let it be an uber or taxi or public transportation. RLR [facility]03-07-20[facility] Telephone encounter Note* Telephone Encounter - Chelsey Fernández RN - 06/26/2024 8:40 AM EST Patient has a Pre op on 07/07. [...] pre op be virtual? Chelsey Fernández RN [facility]02-26-2025 NoteHNO ID: [id number] Author: JESS TOLLIVER MD Service: ? Author Type: Physician Type: Progress Notes Filed: 06/17/2024 16:49 Note Text: Arcade Attendant offered: Patient declines. Maurcie is a 24 year old who presents for an annual gynecologic exam without complaints. Wants IUD removed- understands she may have painful/heavy menses again- states she wants it out. Pt does not want to have removed in office. Menses: none- Mirena IUD Sexually active: never Last pap smear: never OB History Gravida0 Para0 Term0 Preterm0 AB0 Living0 SAB0 IAB0 Ectopic0 Multiple0 Live Births0 Aviculturist History LMP: 09/02/2018 (Approximate), IUD Age at Menarche: Age at First : Age at Menopause: Aviculturist History Comments: Sexual Activity: Never; No partner [...] discussed with the Patient or Patient's Authorized Sole Stitcher Hand. As applicable, any other physician, advance practice provider, medical student, or other health professional student that will be observing or involved in the sensitive examination for educational or training purposes was discussed with the Patient or Authorized Sole Stitcher Hand. The Patient or Authorized Sole Stitcher Hand has agreed to proceed with the sensitive [...] if she would allow attempt. Jess Mclaughlin [facility]02-26-2025 History of Present illness Narrative* Jess Tolliver MD - 06/17/2024 3:14 PM EST Arcade Attendant offered: Patient declines. Maurice is a 24 year old who presents for an annual gynecologic exam without complaints. Wants IUD removed- understands she may have painful/heavy menses again- states she wants it out. Pt doesnot want to have removed in office. Menses: none- Mirena IUD Sexually active: never Last pap smear: never OB History Gravida0 Para0 Term0 Preterm0 AB0 Living0 SAB0 IAB0 Ectopic0 Multiple0 Live Births0 Aviculturist History LMP: 09/02/2018 (Approximate), IUD Age at Menarche: Age at First : Age at Menopause: Aviculturist History Comments: Sexual Activity: Never; No partner [...] discussed with the Patient or Patient's Authorized Sole Stitcher Hand. As applicable, any other physician, advance practice provider, medical student, or other health professional student that will be observing or involved in the sensitive examination for educational or training purposes was discussed with the Patient or Authorized Sole Stitcher Hand. The Patient or Authorized Sole Stitcher Hand has agreed to proceed with the sensitive [...] of glydo gel in the office-Also able togive medication for anxiety if needed. Pt is declining and only wants to go to sleep for procedure.Pt thought I was physician who did her original procedure I told her I was not- and that I would gladly discuss and give the OR booking sheet filled out to Dr. Gold to review. Will also add PAP tosurgery sheet. 2) Contraception: IUD. Contraceptive options reviewed [...] attempt. Jess Mclaughlin MD documented in this encounterMartins Ferry Hospital03-28-2024 Discharge summary Author Oralia Summers [facility] July 18, 2023 12:16pm Note Date/Time July 18, 2023 12: 07pm [facility] Medical Records Department [address] [place] [address] Discharge Summary 07/18/23 1206 MR#: [id number] Acct: [id number] Name: LONI DIAZ Rep #:[id number] : 2000 23 From: Oralia Summers DO PCP: Care Physician,No Primary Status :ADM IN Location: [facility] AL654-6 Providers Date of Admission: 07/17/23 Date of [...] who presented to the emergency department at [facility] on 07/11/2023 after a fall while [...] Health Service Charges/Coding Visit Charges Inpatient E&M: 29089 Disch Hosp >30min 07/18/23 1216 <Electronically signed by Oralia Summers DO> Cosigner Signature (if applicable): CC: Dr. Oralia Summers DO; Dr. Fabian Coleman MD; No Primary Care Physician~ Signed [facility] Work Phone: 1(605) 473-390403-27-2024 Progress note Author Fabian Coleman [facility] July 17, 2023 3:05pm Note Date/Time July 17, 2023 3:0 5pm [facility] Medical Records Department [address] [place] [address] Progress Note - Orthopedic 07/17/23 1504 MR#: [id number] Acct: [id number] Name: LONI DIAZ Rep #:[id number] : 2000 23 From: Fabian Coleman MD PCP: Care Physician,No Primary Status :ADM IN Location: [place] [address] Subjective Subjective Post op note Objective Data [...] % (Auto) 64.3, Lymph % (Auto) 24.0, Young % (Auto) 10.2 H, Eos % (Auto) [...] Cosigner Signature (if applicable): CC: ~ Signed [facility] Work Phone: 1(690) 745-496003-27-2024 Progress note Author Oralia Summers [facility] July 17, 2023 2:25pm Note Date/Time July 17, 2023 2:2 5pm [facility] Medical Records Department [address] [place] [address] Progress Note - Hospitalist 07/17/23 1420 MR#: [id number] Acct: [id number] Name: LONI DIAZ Rep #:[id number] : 2000 23 From: Oralia Summers DO PCP: Care Physician,No Primary Status :ADM IN Location: [facility] KO858-4 Reason for Visit Reason for Visit: Left [...] % (Auto) 64.3, Lymph % (Auto) 24.0, Young % (Auto) 10.2 H, Eos % (Auto) [...] in bed, appears comfortable nontoxic, nursing home admissions director at bedside helping get her cleaned up [...] -Full code Charges/Coding Visit Charges Inpatient E&M: 11839 Subs Hosp L1 07/17/23 5355 <Electronically signed by Oralia Summers DO> Cosigner Signature (if applicable): CC: ~ Signed [facility] Work Phone: 1(721) 588-906103-27-2024 Progress note Author Fabian Coleman [facility] July 17, 2023 1:54pm Note Date/Time July 17, 2023 1:5 4pm [facility] Medical Records Department [address] [place] [address] Progress Note - Orthopedic 07/17/23 1352 MR#: [id number] Acct: [id number] Name: LONI DIAZ Rep #:[id number] : 2000 23 From: Fabian Coleman MD PCP: Care Physician,No Primary Status :ADM IN Location: [place] [address] Subjective Subjective OK to proceed. no concerns. [...] % (Auto) 64.3, Lymph % (Auto) 24.0, Young % (Auto) 10.2 H, Eos % (Auto) [...] circumstances with Dr. Olivas regarding getting consent. 07/17/23 1354 <Electronically signed by Fabian Coleman MD> Cosigner Signature (if applicable): CC: ~ Signed [facility] Work Phone: 1(348) 160-939403-27-2024 Procedure [facility] 07-16-2023 Discharge summary Author Oralia Summers [facility] July 16, 2023 5:35pm Note Date/Time July 16, 2023 2:5 8pm [facility] Medical Records Department [address] [place] [address] Discharge Summary 07/16/23 1458 MR#: [id number] Acct: [id number] Name: LONI DIAZ Rep #:[id number] : 2000 23 From: Oralia Summers DO PCP: Care Physician,No Primary Status :ADM [place]AS[place]I Location: [place] [address] Providers Date of Admission: 07/11/23 Date of [...] who presented to the emergency department at [facility] on 07/11/2023 after a fall while [...] young, female, get her into a chair podiatrist assistant at the bedside getting ready tolying in [...] no sensory deficits noted Coordination / Balance: tgiqrm-on-febz test normal Psych thought process normal, cooperative [...] PO DAILY Referrals / Follow Up: Fabian Cloeman MD [Med Staff - Active Staff] - 07/22/23 11:00 am Care Physician,No Primary [Primary Care Provider] - NOT,DEFINED [Non-Staff] - Disposition Disposition (needs filled in before D/C Order can be placed): Home Health Service Charges/Coding Visit Charges Inpatient E&M: 36410 Disch Hosp 07/16/23 1607 <Electronically signed by Oralia Summers DO> Cosigner [...] have had to cancel her discharge. 07/16/23 5815<Electronically signed by Oralia Summers DO> Cosigner Signature (if applicable): cc: Dr. Oralia Summers DO; No Primary Care Physician ~* Signed [facility] Work Phone: 1(305) 489-380003-26-2024 Consult note Author Fabian Coleman [facility] July 16, 2023 5:22pm Note Date/Time July 16, 2023 5:1 3pm [facility] Medical Records Department [address] [place] [address] Consultation - Orthopedics 07/16/23 1711 MR#: [id number] Acct: [id number] Name: LONI DIAZ Rep #:[id number] : 2000 23 From: Fabian Coleman MD PCP: Care Physician,No Primary Status :ADM VASHTI Location: [place] [address] HPI Consult Data Date of Consult: 07/16/23 [...] MRDD. Also was adopted from parents in [place] but then given up by local parents. 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 [facility] Medical History (Updated 07/12/23 @ 16:53 by [...] Micro Data 07/15/23 05:45 07/15/23 05:45 Imaging [facility] Imaging Services [address] [place] [id number] Lower Ext Joint Only (Routine) MR#: [id number] Acct: [id number] Name: LONI DIAZ Rep #: [id number] : 2000 F 23 From: Andrew Summers MD PCP: Care Physician,No Primary Status: ADM VASHTI Study: Lower Ext Joint Only (Routine) Date of Exam: 07/12/23 Exam# [id number] Ordering Dr: Mery Gray MD STUDY: MRI [...] 10:34 EDT Reading Location ID and State: [facility] / [place] , Service support , Assessment & Plan [...] on ability. Got consent on phone through agency and [employer] nurse as verbal 2 person consent. NPO [...] Rouse MD; No Primary Care Physician~ Signed [facility] Work Phone: 1([phone]) 468-961103-25-2024 Progress note Author Oralia Summers [facility] July 15, 2023 4:40pm Note Date/Time July 15, 2023 4:4 1pm [facility] Medical Records Department [address] [place] [address] Progress Note - Hospitalist 07/15/23 1631 MR#: [id number] Acct: [id number] Name: LONI DIAZ Rep #:[id number] : 2000 23 From: Oralia Summers DO PCP: Care Physician,No Primary Status :ADM VASHTI Location: [place] [address] Reason for Visit Reason for Visit: Fall/knee pain Subjective Subjective Patient is a 23-year-old female who presented to the emergency department at [facility] on 07/11/2023 after a fall while [...] as recommended by Dr. Echols with Dr. Coleamn--> will schedule to be seen next week [...] -Full code Charges/Coding Visit Charges Inpatient E&M: 09915 Subs Hosp L1 07/15/23 1640 <Electronically signed by Oralia Summers DO> Cosigner Signature (if applicable): CC: ~ Signed [facility] Work Phone: 1(246) 826-525203-25-2024 Progress note Author Mando Echols [facility] July 15, 2023 3:40pm Note Date/Time July 15, 2023 3:4 0pm [facility] Medical Records Department [address] [place] [address] Progress Note - Orthopedic 07/15/23 1538 MR#: [id number] Acct: [id number] Name: LONI DIAZ Rep #:[id number] : 2000 23 From: Mando Echols MD PCP: Care Physician,No Primary Status :ADM VASHTI Location: [place] LB581-1 Subjective Subjective Continues to use knee immobilizer. [...] Cosigner Signature (if applicable): CC: ~ Signed [facility] Work Phone: 1([phone]) 590-868103-24-2024 Progress note Author Ariana Rouse [facility] July 14, 2023 2:50pm Note Date/Time July 14, 2023 12: 45pm [facility] Medical Records Department [address] [place] [address] Progress Note 07/14/23 1243 MR#: [id number] Acct: [id number] Name: LONI DIAZ Rep #:[id number] : 2000 23 From: Ariana Rouse MD PCP: Care Physician,No Primary Status :ADM VASHTI Location: [place] [address] Subjective Subjective Patient seen and examined. She [...] no sensory deficits noted Coordination / Balance: leooks-tj-wxzi test normal Psych thought process normal, cooperative [...] SCDs. Disposition: Anticipate DC back to her long-term if she does well with therapy.Case management to discuss with her guardian tomorrow to determine if patient's home environment is safe enough for her to go back, or they will need some assistance at home. Charges/Coding Visit Charges Inpatient E&M: 58495 Subs Hosp L2 07/14/23 1450 <Electronically signed by Ariana Rouse MD> Ariana Rouse MD Cosigner Signature (if applicable): CC: ~ Signed [facility] Work Phone: 1(725) 588-258603-23-2024 Progress note Author [facility] July 13, 2023 2:43pm Note Date/Time July 13, 2023 2:4 3pm [facility] Medical Records Department [address] [place] [address] Progress Note 07/13/23 1440 MR#: [id number] Acct: [id number] Name: LONI DIAZ Rep #:[id number] : 2000 23 From: Ariana Rouse MD PCP: Care Physician,No Primary Status :ADM VASHTI Location: [place] [address] Subjective Subjective Patient seen and examined. She [...] Signed: Augustus Dobbs MD at 17:31 EDT Reading Location ID and State: [address] [place] [address] Tel , Service support , Physical Exam Const alert, oriented x3, [...] no sensory deficits noted Coordination / Balance: ojxsbh-hg-iqgl test normal Psych thought process normal, cooperative [...] SCDs. Disposition: Anticipate DC back to her long-term if she does well with therapy,to follow-up with orthopedics on outpatient basis. For likely discharge tomorrow. Charges/Coding Visit Charges Inpatient E&M: 30803 Subs Hosp L2 07/13/23 1123 <Electronically signed by Ariana Rouse MD> Ariana Rouse MD Cosigner Signature (if applicable): CC: ~ Signed [facility] Work Phone: 1(781) 771-469303-22-2024 Progress note Author Mando Echols [facility] July 12, 2023 5:05pm Note Date/Time July 12, 2023 5:0 5pm [facility] Medical Records Department [address] [place] [address] Progress Note - Orthopedic 07/12/23 1703 MR#: [id number] Acct: [id number] Name: LONI DIAZ Rep #:[id number] : 2000 23 From: Mando Echols MD PCP: Care Physician,No Primary Status :ADM VASHTI Location: [place] [address] Objective Data Objective Data Vital Signs: Vital [...] % (Auto) 64.2, Lymph % (Auto) 26.3, Young% (Auto) 8.4, Eos % (Auto) 0.2, Baso [...] Cosigner Signature (if applicable): CC: ~ Signed [facility] Work Phone: 1(732) 521-294703-22-2024 Consult note Author [facility] July 12, 2023 4:56pm Note Date/Time July 12, 2023 4:5 6pm [facility] Medical Records Department [address] [facility] [place] [address] Consultation - Orthopedics 07/12/23 1650 MR#: [id number] Acct: [id number] Name: LONI DIAZ Rep #:[id number] : 2000 23 From: Mando Echols MD PCP: Care Physician,No Primary Status :ADM VASHTI Location: [place] [address]-1 HPI Consult Data Date of Consult: 07/12/23 [...] a few steps with weightbearing as tolerated. [facility] Medical History (Updated 07/12/23 @ 16:53 by [...] % (Auto) 64.2, Lymph % (Auto) 26.3, Young% (Auto) 8.4, Eos % (Auto) 0.2, Baso [...] were discussed. I called [employer] 2 obtain consent for medical treatment. Ispoke with ethan Coyle and Gorsh. to obtain the consent for treatment. The risks include but are not limited to infection, bleeding, injury to nerves and blood vessels, redislocation, persistent pain, knee stiffness. Patient and he is being provided consent for the procedure. Please see procedure note for details. 07/12/23 1656 <Electronically signed by Mando Echols MD> Cosigner Signature (if applicable): CC: Dr. Mery Gray MD; Dr. Mando Echols MD; Dr. Ariana Rouse MD; No Primary Care Physician~ Signed [facility] Work Phone: 1(435) 572-543303-22-2024 Progress note Author Ariana Rouse [facility] July 12, 2023 3:40pm Note Date/Time July 12, 2023 2:3 0pm [facility] Medical Records Department [address] [place] [address] Progress Note 07/12/23 1422 MR#: [id number] Acct: [id number] Name: LONI DIAZ Rep #:[id number] : 2000 23 From: Ariana Rouse MD PCP: Care Physician,No Primary Status :ADM VASHTI Location: [place] XH626-7 Subjective Subjective Patient seen and examined. She [...] % (Auto) 64.2, Lymph % (Auto) 26.3, Young % (Auto) 8.4, Eos % (Auto) 0.2, [...] 19:48 EDT Reading Location ID and State: [facility] / [place] Tel , Service support , Lower Extremity [...] no sensory deficits noted Coordination / Balance: cevoud-uf-ppfl test normal Psych thought process normal, cooperative [...] on cariprazine Charges/Coding Visit Charges Inpatient E&M: 38776 Subs Hosp L2 07/12/23 1540 <Electronically signed by Ariana Rouse MD> Ariana Rouse MD Cosigner Signature (if applicable): CC: ~ Signed [facility] Work Phone: [phone]) 709-943103-22-2024 Procedure [facility] 07-12-2023 Discharge summary Author Gamaliel Jovel [facility] July 11, 2023 11:42pm Note Date/Time July 11, 2023 6:4 9pm [facility] Medical Records Department [address] [facility] [place] [address] Emergency Department Summary 07/11/23 MR#: [id number] Acct: [id number] Name: LONI DIAZ Rep #:[id number] : 2000 23 From: Gamaliel Kern PCP: Care Physician,No Primary Status :ADM VASHTI Location: [facility] TV950-9 HPI History of Present Illness Chief Complaint: Lower Extremity Injury Informant: patient and parent Narrative Narrative: [facility]. Was twisting came down knee buckled. No history of similar injury in the past. No head injuries. Prior similar symptoms: No PFSH PFSH Medical History (Updated 07/11/23 @ 21:27 by [...] Orthopedics, hospitalist This note was generated with [employer] dictation software. It may contain incorrectwords, spelling, and punctuation that were not noted in checking the note beforesigning. Radiography Diagnostic Testing: Clinical Impression(s) from Imaging Studies Knee X-Ray 07/11/23 18:40 IMPRESSION: Acute lateral subluxation of the patella with possible associated avulsion fracture.. CT would be helpful for further evaluation Electronically Signed: Augustus Dobbs MD at 19:48 EDT Reading Location ID and State: [facility] / [place] Tel , Service support , Discharge Plan Dx/Rx/DC Orders Clinical Impression: Inability to ambulate due to knee, Acute internal derangement of left knee Disposition Disposition: Acute Care Hospital [facility] Discharge Date/Time: 07/11/23 21:20 What to do if you have Problems For any increased pain, shortness of breath, bleeding, nausea or vomiting, chestpain, or any unexpected problems, contact your Primary Care Provider. Call [facility] ([phone]) or report to the closest Emergency Room. Call 911 if necessary. 07/11/23 2346 <Electronically signed by Gamaliel Kern> Cosigner Signature (if applicable): CC: No Primary Care Physician ~ Signed [facility] Work Phone: 1(911) 828-436403-21-2024 History and physical note Author Mery Gray [facility] July 11, 2023 9:31pm Note Date/Time July 11, 2023 8:5 5pm [facility] Medical Records Department [address] [place] [address] H&P Exam - Hospitalist 07/11/232049 MR#: [id number] Acct: [id number] Name: LONI DIAZ Rep #:[id number] : 2000 23 From: Mery Gray MD PCP: Care Physician,No Primary Status :ADM VASHTI Location: [place] 768911-1 HPI - General General Date of Admission: 07/11/23 Date of Service: 07/11/23 Chief Complaint: Fall, L knee pain, swellling. HPI Narrative The patient is a 23 y/o F w/ PMHx: Hx Facial Tumor, Possible Developmental delay, Anxiety and Depression/PTSD/Reactive attachment disorder living in an independent type apartment facility who presents to the [facility] ED on 07/11/23 with history [...] 1, Toradol 30 mg IM x 1. [facility] Medical History (Updated 07/11/23 @ 21:27 by [...] type apartment facility who presents to the [facility] ED on 07/11/23 with history [...] her mobility. Charges/Coding Visit Charges Inpatient E&M: 07723 Init Hosp L2 07/11/232130 <Electronically signed by Mery Gray MD> Cosigner Signature (if applicable): CC: Dr. Mery Gray MD; No Primary Care Physician~ Signed [facility] Work Phone: 1([phone]) 508-355903-20-2024 History of Present illness Narrative* Ashvin Cherry [...] unsure of family history, was adopted from [place]. Does endorse having facial mass at that required surgery in infancy in [place], then three additional surgeries in the [place] [...] tenderness or frontal sinus tenderness. Mouth/Throat: Lips: Larose. No lesions. Mouth: Mucous membranes are moist. [...] Ashvin Cherry CNP 07/10/23 documented in this [id number] History of Present illness Narrative* Akosua Vanessa ChristineMandie, AuD - 01/09/2023 2:08 PM EDT Images from the original note were not included. [facility] [address] [place] [address] Name: Loni Diaz : 2000 Date: 01/09/23 History & Purpose of Evaluation: Loni was seen today for audiologic evaluation at the kind request of Jamal Cherry CNP. Loni did not pass a recent hearing screen at the [facility]. Loni feels that she hears well now, especially after having a significant amount of ear wax removed from her ears just prior to today' test. Please see below for other pertinent case history information as reported by Loni and Loni Ortiz's [facility]. Otologic Symptoms R L Noise Exposure Y [...] stiffened middle ear systems at both ears. Vivek hearing should be adequate for normal communication. Recommendations: Follow up with ENT. Re-evaluate upon referral. The above was explained to the patient and or their guardian and they expressed understanding. Electronically Signed by: Vandana Zamarripa, CCC/A, FAAA, RADHA Cert. 01/09/23 2:08 PM documented in this [id number] History of Present illness Narrative* Ashvin Cherry CNP - 01/09/2023 1:00 PM EDT Images from the original note were not included. ENT New Patient Visit Patient Name: Loni Diaz MR #: [id number] : 2000 Physicians: No, Physician (Family); No ref. provider found (Referring) Chief Complaint/Reason for Visit: ear cleaning & hearing test History of Present Illness: Loni Diaz is a 22 y.o. y/o female presenting from PCP with c/o ear cleaning & hearing test Loni is a new patient who presents with home care music therapist regarding concerns for possible cerumen impaction. Had recent hearing testing done through [facility], home care music therapist reports she failed her hearing test, they [...] unsure of family history, was adopted from [place]. Does endorse having facial mass at that required surgery in infancy in [place], then three additional surgeries in the [place] [...] tenderness or frontal sinus tenderness. Mouth/Throat: Lips: Larose. No lesions. Mouth: Mucous membranes are moist. [...] hearing test in detail today. Patient and home care music therapist verbalized understanding and denies additional questions or [...] Ashvin Cherry CNP 01/09/23 documented in this [id number] History of Present illness Narrative* Gregoria Gold [...] OB History No obstetric history on file. 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 GENERAL: pleasant, female in no apparent distress [...] today. Gregoria Gold [facility] Diagnosis Pre-syncope- Primary Syncope and collapse documented in this [facility]* Diagnosis IUD check up- Primary Surveillance of previously prescribed intrauterine contraceptive device documented in this [facility]* Diagnosis Encounter for hearing examination after failed hearing test- Primary documented in this encounter [facility] note* Diagnosis Hearing loss of both ears due to cerumen impaction- Primary Bilateral impacted cerumen Impacted cerumen Normal hearing exam Other examination of ears and hearing Encounter for hearing examination after failed hearing test documented in this [facility] noteNo assessment information availableWUniversity [facility] Work Phone: Evaluation note* Diagnosis Bilateral impacted cerumen- Primary Impacted cerumen documented in this encounter [facility] note* Diagnosis Onset Date Resolution Status Acute internal derangement of left knee acute Inability to ambulate due to knee acute [facility] Work Phone: Evaluation note* Diagnosis Onset Date Resolution Status Acute internal derangement of left knee acute Inability to ambulate due to knee acute Lateral dislocation of left patella, initial encounter [facility] Work Phone: Evaluation note* Diagnosis Encounter for gynecological examination (general) (routine) without abnormal findings- Primary Encounter for IUD removal Encounter for removal of intrauterine contraceptive device Dysmenorrhea documented in this encounter [facility]* Diagnosis Pelvic pain in female- Primary [...] intrauterine contraceptive device [facility]* Diagnosis General counseling and advice for contraceptive management- Primary Other general counseling and advice for contraceptive management Pelvic pain in female Unspecified symptom associated with female genital organs Encounter for screening for malignant neoplasm of cervix Screening for malignant neoplasm of the cervix Encounter for IUD removal Encounter for removal of intrauterine contraceptive device documented [facility] this encounter [facility]* Diagnosis Subcutaneous mass- Primary Localized superficial swelling, mass, or lump Pelvic pain in female Unspecified symptom associated with female genital organs Encounter for screening for malignant neoplasm of cervix Screening for malignant neoplasm of the cervix Encounter for IUD removal Encounter for removal of intrauterine contraceptive device documented in this encounter [facility]* Diagnosis Pre-operative examination- Primary Preoperative examination, [...] * Assessment & Plan Note - Jarod Malhotra, REYMUNDO.TERMINOLOGIST - 07/10/2024 11:40 AM EDT Associated Problem(s): [...] rx Seeing a counselor and psychiatrist in [place] * Assessment & Plan Note - Jarod Malhotra APRN.CNP - 07/10/2024 11:32 AM EDT Associated Problem(s): General learning disability Assessment: mild, cognitive delay * Assessment & Plan Note - Jarod Malhotra APRN.CNP - 07/10/2024 11:32 AM EDT Associated Problem(s): History of hemangioma Assessment: face s/p excision and revision of left lower scar [facility] Pre-operative examination- Primary Preoperative examination, unspecified History of hemangioma General learning disability Other specific developmental learning difficulties Schizophrenia, unspecified type (HCC) Severe episode of recurrent major depressive disorder, without psychotic features (HCC) Subcutaneous mass Localized superficial swelling, mass, or lump Vomiting, unspecified vomiting type, unspecified whether nausea present [facility] Author Mery Gray [facility] July 11, 2023 9:31pm Note Date/Time July 11, 2023 8:5 5pm [facility] Medical Records Department [address] [place] [address] H&P Exam - Hospitalist 07/11/232049 MR#: [id number] Acct: [id number] Name: LONI DIAZ Rep #:[id number] : 2000 23 From: Mery Gray MD PCP: Care Physician,No Primary Status :ADM VASHTI Location: [place] [address] HPI - General General Date of Admission: 07/11/23 Date of Service: 07/11/23 Chief Complaint: Fall, L knee pain, swellling. HPI Narrative The patient is a 23 y/o F w/ PMHx: Hx Facial Tumor, Possible Developmental delay, Anxiety and Depression/PTSD/Reactive attachment disorder living in an independent type apartment facility who presents to the [facility] ED on 07/11/23 with history [...] 1, Toradol 30 mg IM x 1. PFSH Medical History (Updated 07/11/23 @ 21:27 by [...] type apartment facility who presents to the [facility] ED on 07/11/23 with history [...] her mobility. Charges/Coding Visit Charges Inpatient E&M: 34024 Init Hosp L2 07/11/232130 <Electronically signed by Mery Gray MD> Cosigner Signature (if applicable): CC: Dr. Mery Gray MD; No Primary Care Physician~ Signed [facility] Work Phone: Reason for referral (narrative)No reason for referral information availableWUniversity [facility] Work Phone: Summary Purpose Family History No Family History Records FoundNo Family History Records FoundNo Family History Records FoundNo Family History Records FoundNo Family History Records FoundNo Family History Records FoundNo Family History Records FoundNo Family History Records Found Advance Directives No Advanced Directives Records Found Advance Directive Response Recorded Date/ Time Living Will No November 01, 2020 8:16am Power of Poultry Processor No November 01 8:16am Advance Directive Response Recorded Date/ Time Living Will No July 11, 2023 8:31pm Power of Poultry Processor No July 10 8:31pm Advance Directive Response Recorded Date/ Time Living Will No July 11, 2023 9:14pm Power of Poultry Processor No July 10 9:14pm Advance Directive Response Recorded Date/ Time Do you have a Healthcare Power of Poultry Processor? No September 25, 2024 7:45am Do you have a Healthcare Power of Poultry Processor? No August 20, 2024 11:01pm Reason for Referral Specialty Diagnoses / Procedures Referred By Gregor rai Referred To Contact Audiology Diagnoses Encounter for hearing examination after failed hearing test [place], Ashvin Hutson, TIMBO [address] [place] [id number] Akosua Vanessa AuD [address] [facility] [address] [place] [address] Referral ID Status Reason Start Date Expiration Date V isits Requested Visits Authorized [id number] Authorized 01/09/2023 01/09/2024 1 1 Chief Complaint [...] patella, initial encounter Chief Complaint Admit Date August 20, 2024 10:53p m mental health eval September 25, 2024 7:33a m Chief Complaint Admit Date August 20, 2024 10:53p m mental health eval September 25, 2024 7:33a m mental health November 21, 2024 12: 11am Additional Source Comments INFORMATION SOURCE (unrecogn ized section and content) DATE CREATED AUTHOR 10/10/2017 [facility] DATE CREATED AUTHOR AUTHOR'S ORGANIZ ATION 09/24/2018 [facility] DATE CREATED AUTHOR AUTHOR'S ORGANIZ ATION 12/25/2020 [facility] ([place]) DATE CREATED AUTHOR AUTHOR'S ORGANIZ ATION 07/11/2023 [facility] DATE CREATED AUTHOR AUTHOR'S ORGANIZ ATION 07/26/2024 [facility] DATE CREATED AUTHOR AUTHOR'S ORGANIZ ATION 09/02/2024 [facility] DATE CREATED AUTHOR AUTHOR'S ORGANIZ ATION 11/07/2024 [facility] DATE CREATED AUTHOR AUTHOR'S ORGANIZ ATION 12/04/2024 [facility] Source Comments (unrecognize d section and content) In the event this informatio n is protected by the Federal Confidentiality of Alcohol and Drug Abuse Patient Records regulations: The Federal rules restrict any use of the information to criminally investigate or prosecute any alcohol or drug abuse patient.[facility]In the event this information is protected by the Federal Confidentiality of Alcohol and Drug Abuse Patient Records regulations: The Federal rules restrict any use of the information to criminally investigate or prosecute any alcohol or drug abuse patient.[facility]In the event this information is protected by the Federal Confidentiality of Alcohol and Drug Abuse Patient Records regulations: The Federal rules restrict any use of the information to criminally investigate or prosecute any alcohol or drug abuse patient.[facility]In the event this information is protected by the Federal Confidentiality of Alcohol and Drug Abuse Patient Records regulations: The Federal rules restrict any use of the information to criminally investigate or prosecute any alcohol or drug abuse patient.[facility] the event this information is protected by the Federal Confidentiality of Alcohol and Drug Abuse Patient Records regulations: The Federal rules restrict any use of the information to criminally investigate or prosecute any alcohol or drug abuse patient.[facility]In the event this information is protected by the Federal Confidentiality of Alcohol and Drug Abuse Patient Records regulations: The Federal rules restrict any use of the information to criminally investigate or prosecute any alcohol or drug abuse patient.[facility]In the event this information is protected by the Federal Confidentiality of Alcohol and Drug Abuse Patient Records regulations: The Federal rules restrict any use of the information to criminally investigate or prosecute any alcohol or drug abuse patient.[facility]In the event this information is protected by the Federal Confidentiality of Alcohol and Drug Abuse Patient Records regulations: The Federal rules restrict any use of the information to criminally investigate or prosecute any alcohol or drug abuse patient.[facility]In the event this information is protected by the Federal Confidentiality of Alcohol and Drug Abuse Patient Records regulations: The Federal rules restrict any use of the information to criminally investigate or prosecute any alcohol or drug abuse patient.[facility]In the event this information is protected by the Federal Confidentiality of Alcohol and Drug Abuse Patient Records regulations: The Federal rules restrict any use of the information to criminally investigate or prosecute any alcohol or drug abuse patient.[facility]In the event this information is protected by the Federal Confidentiality of Alcohol and Drug Abuse Patient Records regulations: The Federal rules restrict any use of the information to criminally investigate or prosecute any alcohol or drug abuse patient.[facility] Care Teams (unrecognized sec tion and content) Wood Chopper Relationship Specialty Start Date End Date Julian Rick MD [address] [place] [address] PCP - General Pediatrics 08/10/19 Rere Lynch [address] [place] [address] Family Medicine 07/19/22 Wood Chopper Relationship Specialty Start Date End Date Rere Lynch [address] [place] [address] PCP - General Family Medicine 11/19/22 Lynch Rere [address] [place] [address] Family Medicine 07/19/22 Wood Chopper Relationship Specialty Start Date End Date No, Physician [facility] PCP - General 01/09/23 Wood Chopper Relationship Specialty Start Date End Date No, Physician [facility] PCP - General 01/09/23 Team Status: Active Member Role Status Dates Dr. Julian Rick MD Family Provider Active RERE LYNCH Primary Care Provider Active Team Status: Inactive Member Role Status Dates CARMLEA JERNIGAN Primary Care Provide r, Attending Provider, Referring Provider Active Wood Chopper Relationship Specialty Start Date End Date No, Physician [facility] PCP - General 01/09/23 Team Status: [...] MD Other Provider Active Dr. Oralia Summers DO Attending Provider Active Dr. Ariana Rouse MD Other Provider Active Wood Chopper Relationship Specialty Start Date End Date Rere Tate CNP PCP - General Family Medicine 11/19/22 Rere Tate CNP Family Medicine 07/19/22 Wood Chopper Relationship Specialty Start Date End Date Rere Tate CNP PCP - General Family Medicine 11/19/22 Rere Tate CNP Family Medicine 07/19/22 Wood Chopper Relationship Specialty Start Date End Date Rere Tate CNP PCP - General Family Medicine 11/19/22 Rere Tate CNP Family Medicine 07/19/22 Wood Chopper Relationship Specialty Start Date End Date Rere Tate CNP PCP - General Family Medicine 11/19/22 Rere Tate CNP Family Medicine 07/19/22 Wood Chopper Relationship Specialty Start Date End Date Rere Tate CNP PCP - General Family Medicine 11/19/22 Rere Tate CNP Family Medicine 07/19/22 Wood Chopper Relationship Specialty Start Date End Date Rere Tate CNP PCP - General Family Medicine 11/19/22 Rere Tate CNP Family Medicine 07/19/22 Wood Chopper Relationship Specialty Start Date End Date Rere Tate CNP PCP - General Family Medicine 11/19/22 Rere Tate CNP Family Medicine 07/19/22 Wood Chopper Relationship Specialty Start Date End Date Rere Tate CNP PCP - General Family Medicine 11/19/22 Rere Tate CNP Family Medicine 07/19/22 Team Status: Active Member Role Status Dates No Primary Care Physician Primary Care Provider Active Team Status: Inactive Member Role Status Dates Dr. Courtney Lay DO Attending Provider Active S tart: August 20, 2024 End: August 21, 2024 Dr. Courtney Lay , Emergency Provider Active S tart: August 20, [...] September 25, 2024 End: September 25, 2024 Wood Chopper Relationship Specialty Start Date End Date Rere Tate CNP PCP - General Family Medicine 11/19/22 Rere Tate CNP Family Medicine 07/19/22 Team Status: Active Member Role/Relationship Status Dates No Primary Care Physician Primary Care Provider Active Team Status: Inactive Member Role/Relationship Status Dates Dr. Courtney Lay DO Attending Provider Active S tart: August 20, 2024 End: August 21, 2024 Dr. Courtney Lay DO Emergency Provider Active S tart: August 20, 2024 End: August 21, 2024 No Primary Care Physician Primary Care Provider Active Start: August 20, 2024 End: August 21, 2024 Team Status: Inactive Member Role/Relationship Status Dates No Primary Care Physician Primary Care Provider Active Start: September 25, 2024 End: September 25, 2024 Dr. Nelson Curran MD Attending Provider Active Sta rt: September 25, 2024 End: September 25, 2024 Dr. Nelson Curran MD Emergency Provider Active Sta rt: September 25, 2024 End: September 25, 2024 Team Status: Inactive Member Role/Relationship Status Dates No Primary Care Physician Primary Care Provider Active Start: November 21, 2024 End: November 21, 2024 Dr. Gamaliel Jovel , Emergency Provider Active Start : November 21, 2024 End: November 21, 2024 Reason for Visit (unrecogniz ed section and [...] sectionGoals may be documented in an alternate sectionGoals may be documented in an [...] BE BASED ON THE PRIMARY CLINICAL RECORDS. [employer] [facility]. provides no warranty or guarantee of the accuracy or completeness of information in this document.
[2025-01-24 18:58] VITALS: BP 116/70; PULSE 82; RESP 18; TEMP 36.1; O2SAT 98
== END 2025-01-24 18:30 | disposition home or self-care (01) ==
PROVIDERS: Emergency Provider Emergency Medicine; Visit Provider Emergency Medicine
DX: L02.31 Cutaneous abscess of buttock (principal); F41.8 Other specified anxiety disorders; Z79.899 Other long term (current) drug therapy
CPT/HCPCS: 10060; 99284